=== PATIENT | male | born 1935 | race Caucasian/White ===

== ENCOUNTER 2020-09-11 14:47 | Outpatient (REF) | payer SELFPAY | END 2020-09-11 14:48 | disposition home or self-care (01) | LOC: HO.HAP 14:47 | DX: Z46.1 Encounter for fitting and adjustment of hearing aid (principal) | CPT/HCPCS: 92700 ==

== ENCOUNTER 2020-09-24 10:46 | Outpatient (REF) | payer SELFPAY | END 2020-09-24 10:47 | disposition home or self-care (01) | LOC: HO.HAP 10:46 | DX: Z13.89 Encounter for screening for other disorder (principal) | CPT/HCPCS: 92700 ==

== ENCOUNTER → 2020-11-03 11:48 | Outpatient (BNVA) | payer OTHER, SELFPAY | PROVIDERS: Visit Provider Internal Medicine | DX: Z76.89 Persons encountering health services in other specified circumstances (principal) ==

== ENCOUNTER 2020-11-06 14:23 | Outpatient (REF) | payer MEDICARE, SELFPAY ==
--- NOTE | 2020-11-06 14:31 | MM_ITS ---
EXAMINATION: MM DIAGNOSTIC DIGITAL BREAST TOMOSYNTHESIS, ULTRASOUND BREAST, BILATERAL CLINICAL INFORMATION: Bilateral nipple tenderness. COMPARISON: Mammography: None. TECHNIQUE: Digital breast tomosynthesis is performed in both the craniocaudal and mediolateral oblique views along with computer-aided detection (CAD). Synthesized 2D images are generated from the tomosynthesis. Bilateral targeted breast ultrasound. FINDINGS: The breasts are almost entirely fatty (ACR BI-RADS breast composition Category a). There are no significant masses, abnormal calcifications, or other abnormalities. Right breast ultrasound targeted to the retroareolar region does not demonstrate any abnormal cystic or solid masses. No region of abnormal distal sound shadowing is seen. Targeted ultrasound evaluation of the left breast does not demonstrate any abnormal cystic or solid mass. No region of abnormal distal sound shadowing appreciated. Results are discussed with the patient at time of visit. MM/MM tomosynthesis diagnostic BI IMPRESSION: No specific mammographic or ultrasound findings to suggest malignancy. ASSESSMENT: BI-RADS 1: Negative. RECOMMENDATION: Clinical followup.
--- NOTE | 2020-11-06 14:32 | US_ITS ---
EXAMINATION: TARGETED BILATERAL BREAST ULTRASOUND CLINICAL INFORMATION: Bilateral nipple pain. COMPARISON: Mammography of same day. TECHNIQUE: Targeted bilateral breast ultrasound. FINDINGS: Right breast ultrasound targeted to the retroareolar region does not demonstrate any abnormal cystic or solid masses. No region of abnormal distal sound shadowing is seen. Targeted ultrasound evaluation of the left breast does not demonstrate any abnormal cystic or solid mass. No region of abnormal distal sound shadowing appreciated. Results are discussed with the patient at time of visit. US/US breast RT complete IMPRESSION: No specific mammographic or ultrasound findings to suggest malignancy. ASSESSMENT: BI-RADS 1: Negative. RECOMMENDATION: Clinical followup.
--- NOTE | 2020-11-06 14:32 | US_ITS ---
EXAMINATION: TARGETED BILATERAL BREAST ULTRASOUND CLINICAL INFORMATION: Bilateral nipple pain. COMPARISON: Mammography of same day. TECHNIQUE: Targeted bilateral breast ultrasound. FINDINGS: Right breast ultrasound targeted to the retroareolar region does not demonstrate any abnormal cystic or solid masses. No region of abnormal distal sound shadowing is seen. Targeted ultrasound evaluation of the left breast does not demonstrate any abnormal cystic or solid mass. No region of abnormal distal sound shadowing appreciated. Results are discussed with the patient at time of visit. US/US breast LT limited IMPRESSION: No specific mammographic or ultrasound findings to suggest malignancy. ASSESSMENT: BI-RADS 1: Negative. RECOMMENDATION: Clinical followup.
== END 2020-11-06 14:24 | disposition home or self-care (01) ==
LOC: HO.MAMMO 14:23
DX: N64.4 Mastodynia (principal)
CPT/HCPCS: 76641; 76642; 77062; 77066

== ENCOUNTER → 2020-12-09 10:51 | Outpatient (BNVA) | payer MEDICARE, SELFPAY | PROVIDERS: Visit Provider Internal Medicine | DX: J45.909 Unspecified asthma, uncomplicated (principal); R05 Cough | CPT/HCPCS: Q3014 ==

== ENCOUNTER 2021-01-07 15:48 | Outpatient (REF) | payer SELFPAY | END 2021-01-07 15:49 | disposition home or self-care (01) | LOC: HO.HAP 15:48 | PROVIDERS: Visit Provider Internal Medicine | DX: Z13.89 Encounter for screening for other disorder (principal) ==

== ENCOUNTER → 2021-01-20 14:16 | Outpatient (BNVA) | payer MEDICARE, SELFPAY | PROVIDERS: PCP Internal Medicine; Visit Provider Internal Medicine | DX: J45.909 Unspecified asthma, uncomplicated (principal); J30.9 Allergic rhinitis, unspecified; R05 Cough | CPT/HCPCS: 99212 ==

== ENCOUNTER 2021-02-03 13:29 | Outpatient (REF) | payer SELFPAY | END 2021-02-03 13:30 | disposition home or self-care (01) | LOC: HO.HAP 13:29 | PROVIDERS: Visit Provider Internal Medicine | DX: Z13.89 Encounter for screening for other disorder (principal) ==

== ENCOUNTER 2021-02-11 15:46 | Outpatient (REF) | payer SELFPAY | END 2021-02-11 15:47 | disposition home or self-care (01) | LOC: HO.HAP 15:46 | PROVIDERS: Visit Provider Internal Medicine | DX: Z13.89 Encounter for screening for other disorder (principal) ==

== ENCOUNTER → 2021-02-18 14:03 | Outpatient (BNVA) | payer MEDICARE, SELFPAY | PROVIDERS: PCP Internal Medicine; Visit Provider Internal Medicine | DX: J45.909 Unspecified asthma, uncomplicated (principal); R05 Cough; Z79.51 Long term (current) use of inhaled steroids | CPT/HCPCS: 99212 ==

== ENCOUNTER 2021-03-18 09:05 | Outpatient (REF) | payer SELFPAY | END 2021-03-18 09:06 | disposition home or self-care (01) | LOC: HO.HAP 09:05 | PROVIDERS: Visit Provider Internal Medicine | DX: Z13.89 Encounter for screening for other disorder (principal) ==

== ENCOUNTER → 2021-03-23 12:31 | Outpatient (BNVA) | payer OTHER, SELFPAY | PROVIDERS: Visit Provider Orthopaedic Surgery ==

== ENCOUNTER → 2021-04-15 12:03 | Day surgery (SDC) | payer MEDICARE, SELFPAY ==
[2021-04-14 14:29] VITALS: BMI 34.0
[2021-04-15] MEDS: Lidocaine HCl 1%/Epi 1:100,000 20 ML VIAL 9 ML INFILTRATI (12:19)
[2021-04-15 12:21] VITALS: BP 130/80; PULSE 81; RESP 16; TEMP 36.3; O2SAT 97
--- NOTE | 2021-04-15 14:08 | MHC.SHP ---
Pre-Procedural Eval Section B Chief Complaint: Right ring finger trigger finger Allergies: Allergies Allergy/AdvReac Type Severity Reaction Status Date / Time No Known Allergies Allergy Verified 04/15/21 08:31 Plan I have reviewed the history and physical and performed a pertinent physical examination on my patient. No changes have occurred unless specified.
--- NOTE | 2021-04-15 14:09 | W.PM.OPN ---
Operative Note Operative Note Date of Service: 04/15/21 Narrative: Operative Note Preop diagnosis: 1. Right ring finger Trigger finger Postop diagnosis: Same Procedure: 1. Right ring finger A1 august release Surgeon: Veronica Grace MD Anesthesia: local block using 1% lidocaine with epinephrine Findings: No locking or catching after A1 august release EBL: Less than 5 mL Tourniquet time: None Specimens: None Complications: None Disposition: Brought to recovery room in stable condition Plan: Follow-up for 7-10 days for wound check and suture removal Indications: The patient is 86 years old, with a right ring finger trigger finger that has been unresponsive to nonoperative management. The risks and benefits of operative treatment including but not limited to risk of damage to blood vessels, nerves, tendons, infection, persistent pain, persistent symptoms, recurrence or possible need for additional surgery were discussed with the patient and the patient wishes to proceed with surgery. Procedure: Once consent was obtained a local block was performed in the preop area using a combination of 1% lidocaine with epinephrine. The patient was then brought back to the operating suite and placed on the operative table in supine position. A tourniquet was applied to the proximal aspect of the right upper extremity and the limb was prepped and draped in a standard surgical fashion. Once assured that we had a good block, a 1.5 cm oblique incision was made centered over the A1 august of the right ring finger . The incision was made through the skin to the subcutaneous tissues using a #15 blade. Careful dissection was made down to the level of the A1 august using tenotomy scissors, with care being taken to protect the nearby neurovascular structures. A longitudinal incision was made in the A1 august 1st using a #15 blade, then using tenotomy scissors under direct visualization. The A1 august was noted to be thickened. Following our A1 august release, we no longer saw any locking or catching of the digit with flexion and extension. Once satisfied with our A1 august release the wound was copiously irrigated with normal saline and hemostasis was obtained with a brief period of local pressure. The skin edges were reapproximated with some 5.0 nylon suture material and a sterile dressing was applied. The patient appears to have tolerated the procedure well and with no complications. All digits were well vascularized at the conclusion of the case.
[2021-04-15 15:04] VITALS: BP 139/88; PULSE 62; RESP 17; TEMP 36.7; O2SAT 98
== END ==
PROVIDERS: PCP Internal Medicine; Visit Provider Orthopaedic Surgery
PROC: (CPT 26055; principal; 2021-04-15 13:10)
DX: M65.341 Trigger finger, right ring finger (principal); J45.909 Unspecified asthma, uncomplicated; Z79.899 Other long term (current) drug therapy
CPT/HCPCS: 26055

== ENCOUNTER 2021-04-16 15:50 | Outpatient (REF) | payer MEDICARE, SELFPAY ==
[2021-04-16 16:43] LABS: Hematocrit 42.6 % (42-52); Hemoglobin 13.9 g/dl (14.0-18.0); Mean Corpuscular HGB Conc 32.6 g/dl (31.0-36.0); Mean Corpuscular Hemoglobin 31.1 pg (27.0-33.0); Mean Corpuscular Volume 95.3 fL (80-98); Mean Platelet Volume 9.1 fL (9.4-12.4); Platelet Count 189 X10*3/uL (160-400); Red Blood Count 4.47 X10*6/uL (4.60-5.80); Red Cell Distribution Width 15.5 % (11.0-16.0); White Blood Count 5.8 X10*3/uL (4.8-10.8)
[2021-04-16 17:05] LABS: Alanine Aminotransferase 14 U/L (0-40); Albumin Level 3.8 g/dL (3.5-5.0); Alkaline Phosphatase 81 U/L (39-117); Anion Gap 12 (12-20); Aspartate Amino Transferase 16 U/L (5-37); Bilirubin Direct 0.3 mg/dL (0.0-0.5); Bilirubin Total 1.1 mg/dL (0.0-1.0); Blood Urea Nitrogen 19 mg/dL (9-16); Calcium 8.9 mg/dL (8.4-10.2); Carbon Dioxide 27 mmol/L (22-29); Chloride 105 mmol/L (96-108); Cholesterol 179 mg/dL; Estimated Glomerular Filt Rate > 60; Glucose Random 82 mg/dL (60-115); HDL Cholesterol 48 mg/dL; LDL Cholesterol Calculated 115 mg/dl; Potassium 4.5 mmol/L (3.3-5.1); Sodium 139 mmol/L (135-145); Total Protein 6.6 g/dL (6.5-8.0); Triglycerides 81 mg/dL
[2021-04-16 17:25] LABS: Thyroid Stimulating Hormone 1.61 uIU/mL (0.32-4.0)
[2021-04-16 17:37] LABS: Folate 4.1 ng/mL (> or = 4.0); Vitamin B12 210 pg/mL (200-900)
== END 2021-04-16 15:51 | disposition home or self-care (01) ==
LOC: HO.LAB 15:50
PROVIDERS: PCP Internal Medicine; Visit Provider Internal Medicine
DX: Z00.00 Encounter for general adult medical examination without abnormal findings (principal)
CPT/HCPCS: 36415; 80048; 80061; 80076; 82607; 82746; 84443; 85027

== ENCOUNTER → 2021-04-27 11:19 | Outpatient (BNVA) | payer MEDICARE, SELFPAY | PROVIDERS: Visit Provider Orthopaedic Surgery | DX: M65.341 Trigger finger, right ring finger (principal) | CPT/HCPCS: 99212 ==

== ENCOUNTER → 2021-06-07 15:29 | Outpatient (BNVA) | payer MEDICARE, SELFPAY | PROVIDERS: PCP Internal Medicine; Visit Provider Orthopaedic Surgery | DX: M65.341 Trigger finger, right ring finger (principal) | CPT/HCPCS: 99212 ==

== ENCOUNTER → 2021-07-14 10:48 | Outpatient (BNVA) | payer MEDICARE, SELFPAY | PROVIDERS: PCP Internal Medicine; Visit Provider Internal Medicine | DX: J45.909 Unspecified asthma, uncomplicated (principal) | CPT/HCPCS: 99212 ==

== ENCOUNTER 2021-09-02 14:02 | Outpatient (REF) | payer SELFPAY | END 2021-09-02 14:03 | disposition home or self-care (01) | LOC: HO.HAP 14:02 | PROVIDERS: Visit Provider Internal Medicine | DX: Z13.89 Encounter for screening for other disorder (principal) ==

== ENCOUNTER 2021-11-09 11:29 | Outpatient (REF) | payer SELFPAY | END 2021-11-09 11:30 | disposition home or self-care (01) | LOC: HO.HAP 11:29 | PROVIDERS: Visit Provider Internal Medicine | DX: Z13.89 Encounter for screening for other disorder (principal) ==

== ENCOUNTER 2021-11-29 12:09 | Outpatient (REF) | payer MEDICARE, SELFPAY ==
[2021-11-29 12:27] LABS: MANUAL DIFF FLAG NO
[2021-11-29 12:50] LABS: Basophils Absolute Auto 0.1 X10*3/uL (0.0-0.2); Basophils Percent Auto 0.8 % (0-2); Eosinophils Absolute Auto 0.4 X10*3/uL (0.0-0.4); Hematocrit 45.3 % (42.0-52.0); Hemoglobin 14.9 g/dl (14.0-18.0); Imm Gran Abs Auto 0.04 X10*3/uL (0.00-0.03); Imm Gran Pct Auto 0.7 % (0.0-0.4); Lymphocytes Absolute Auto 0.9 X10*3/uL (1.2-4.9); Lymphocytes Percent Auto 14.9 % (20-40); Mean Corpuscular HGB Conc 32.9 g/dl (31.0-36.0); Mean Corpuscular Hemoglobin 30.2 pg (27.0-33.0); Mean Corpuscular Volume 91.9 fL (80.0-98.0); Mean Platelet Volume 9.7 fL (9.4-12.4); Monocytes Absolute Auto 0.6 X10*3/uL (0.1-1.2); Monocytes Percent Auto 10.4 % (2-11); Neutrophils Percent Auto 67.2 % (45-73); Platelet Count 225 X10*3/uL (160-400); Red Blood Count 4.93 X10*6/uL (4.60-5.80); Red Cell Distribution Width 14.1 % (11.0-16.0)
[2021-11-29 13:13] LABS: Alanine Aminotransferase 13 U/L (0-40); Albumin Level 3.7 g/dL (3.5-5.0); Alkaline Phosphatase 77 U/L (39-117); Anion Gap 9 (12-20); Aspartate Amino Transferase 15 U/L (5-37); Bilirubin Total 0.6 mg/dL (0.0-1.0); Blood Urea Nitrogen 17 mg/dL (9-16); Calcium 9.7 mg/dL (8.4-10.2); Carbon Dioxide 27 mmol/L (22-29); Chloride 109 mmol/L (96-108); Estimated Glomerular Filt Rate > 60; Glucose Random 79 mg/dL (60-115); Potassium 4.7 mmol/L (3.3-5.1); Sodium 140 mmol/L (135-145); Total Protein 6.5 g/dL (6.5-8.0)
== END 2021-11-29 12:10 | disposition home or self-care (01) ==
LOC: HO.LAB 12:09
PROVIDERS: PCP Internal Medicine; Visit Provider Dermatology
DX: L30.8 Other specified dermatitis (principal)
CPT/HCPCS: 36415; 80053; 85025

== ENCOUNTER → 2022-01-04 11:12 | Outpatient (BNVA) | payer MEDICARE, SELFPAY | PROVIDERS: PCP Internal Medicine; Visit Provider Internal Medicine | DX: J30.9 Allergic rhinitis, unspecified (principal); J45.909 Unspecified asthma, uncomplicated | CPT/HCPCS: 99212 ==

== ENCOUNTER 2022-01-14 08:58 | Outpatient (REF) | payer SELFPAY | END 2022-01-14 08:59 | disposition home or self-care (01) | LOC: HO.HAP 08:58 | PROVIDERS: Visit Provider Internal Medicine | DX: Z13.89 Encounter for screening for other disorder (principal) ==

== ENCOUNTER → 2022-03-11 09:31 | Outpatient (BNVA) | payer OTHER, SELFPAY | PROVIDERS: PCP Internal Medicine; Visit Provider Nurse Practitioner Family | DX: Z13.89 Encounter for screening for other disorder (principal) ==

== ENCOUNTER 2022-03-11 10:25 | Outpatient (REF) | payer OTHER, SELFPAY ==
[2022-03-16 11:27] LABS: H Pylori Breath Test Negative (Negative)
== END 2022-03-11 10:26 | disposition home or self-care (01) ==
LOC: HO.LNP 10:25
PROVIDERS: Visit Provider Nurse Practitioner Family
DX: K21.9 Gastro-esophageal reflux disease without esophagitis (principal)
CPT/HCPCS: 83013

== ENCOUNTER 2022-05-02 14:32 | Outpatient (REF) | payer OTHER, SELFPAY ==
--- NOTE | ~2022-05-02 | XR_ITS ---
EXAMINATION: XR KNEE, LEFT CLINICAL INFORMATION: Pain COMPARISON: None TECHNIQUE: Four views of the left knee. FINDINGS: Bone alignment is normal. No fracture or dislocation is seen. 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 There is no joint effusion. There is evidence of atherosclerotic disease. 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 Atherosclerotic disease.
== END 2022-05-02 14:33 | disposition home or self-care (01) ==
LOC: HO.XRAY 14:32
PROVIDERS: Visit Provider Nurse Practitioner Family
DX: M25.562 Pain in left knee (principal)
CPT/HCPCS: 73564

== ENCOUNTER 2022-05-06 08:36 | Outpatient (REF) | payer OTHER, SELFPAY ==
[2022-05-06 09:25] LABS: Anion Gap 13 (12-20); Blood Urea Nitrogen 20 mg/dL (9-16); Calcium 8.9 mg/dL (8.4-10.2); Carbon Dioxide 23 mmol/L (22-29); Chloride 108 mmol/L (96-108); Cholesterol 180 mg/dL; Estimated Glomerular Filt Rate > 60; Glucose Fasting 93 mg/dL (60-99); HDL Cholesterol 45 mg/dL; LDL Cholesterol Calculated 104 mg/dl; Potassium 4.7 mmol/L (3.3-5.1); Sodium 139 mmol/L (135-145); Triglycerides 156 mg/dL
[2022-05-06 09:48] LABS: Prostate Specific Antigen Scr 2.97 ng/mL (<0.05-4.0); TSH reflex Free T4 1.47 uIU/mL (0.32-4.0)
== END 2022-05-06 08:37 | disposition home or self-care (01) ==
LOC: HO.LAB 08:36
PROVIDERS: PCP Internal Medicine; Visit Provider Nurse Practitioner Family
DX: Z00.00 Encounter for general adult medical examination without abnormal findings (principal); Z12.5 Encounter for screening for malignant neoplasm of prostate; M25.562 Pain in left knee; R26.81 Unsteadiness on feet; E78.00 Pure hypercholesterolemia, unspecified
CPT/HCPCS: 36415; 80048; 80061; 84153; 84443

== ENCOUNTER 2022-06-13 14:30 | Outpatient (REF) | payer OTHER, SELFPAY ==
--- NOTE | ~2022-06-13 | FL_ITS ---
EXAMINATION: XR BARIUM SWALLOW CLINICAL INFORMATION: Dysphasia COMPARISON: None TECHNIQUE: Real-time fluoroscopic guidance provided to the speech therapy to perform a swallowing evaluation. FINDINGS: With the patient in the lateral position, fluoroscopic images were obtained and recorded on and disc as the patient swallowed multiple consistencies. No aspiration or penetration seen with any consistencies evaluated. There was transient vallecular residue with liquids. A 13 mm tablet remained in the upper esophagus despite several swallows of liquid. FLUOROSCOPY TIME: 2.0 minutes DOSE AREA PRODUCT: 2.830 Gy-cm2 (de guzman-centimeter squared) FL/FL barium swallow modified IMPRESSION: See speech therapy report for complete details. Transient vallecular residue with liquids. No aspiration or penetration. 13 mm tablet appeared to remain in the upper spleen as after several swallows of liquid.
--- NOTE | 2022-06-17 13:51 | MHC.SL.IMP ---
Date of Plan of Treatment: 06/13/22 Onset of Symptoms/Illness: 06/13/22 Date Treatment Started: 06/13/22 Admitting Diagnosis: Allergic rhinitis Asthma Cough Hx cataract surgery Hx colonoscopy Hx prostate surgery Primary Speech & Language Diagnosis: R13.12 Oropharyngeal Phase Dysphagia Secondary Speech & Language Diagnosis: R13.14 Pharyngoesophageal Phase Dysphagia Reason for Today's Visit: 80709 Modified Barium Swallow Study Pre-evaluation Dietary Consistencies: Regular Pre-evaluation Liquid Consistency: Thin Pre-evaluation Medication Administration: Whole with Liquid Medical History: Modified Barium Swallow Study Fluoroscopic Evaluation of Swallowing Function CPT Code 35790 Evaluation Year: 2021 Reason for Study: Patient reports globus sensation. Referring Physician: Sakshi ARZATE Evaluating Clinician: Casi Rose MA, CCC-INSURANCE PLAN SPECIALIST Study Number: 1 Patient Name: Sekou Coe Status: Outpatient, Ambulatory Age: 87 Gender: Male MEDICAL HISTORY: Comorbidities: Allergic rhinitis Asthma Cough Hx cataract surgery Hx colonoscopy Hx prostate surgery Current (pre-evaluation) Intake/Diet: Route: PO Diet Grade: Regular Liquid Consistencies: Thin Pre-Study Functional Oral Intake Scale (FOIS): 7- Total oral intake with no restrictions Pain: None reported at time of study Food and Liquid Trials: Oral Impairment: Lip Closure: Did not test Oral Impairment: Tongue Control During Bolus Hold: 2=Posterior escape of less than half of bolus Oral Impairment: Bolus Preparation/Mastication: 0=Timely and efficient chewing and mashing Oral Impairment: Bolus Transport/Lingual Motion: 1= Delayed initiation of tongue motion Oral Impairment: Oral Residue: 2=Residue collection on oral structures Oral Impairment:Initiation of Pharyngeal Swallow: 3=Bolus head in pyriforms Pharyngeal Impairment: Soft Palate Elevation: 0=No bolus between soft palate (SP)/pharyngeal wall (PW) Pharyngeal Impairment: Laryngeal Elevation: 0=Complete superior movement of thyroid cartilage (see description) Pharyngeal Impairment: Anterior Hyoid Excursion: 0=Complete anterior movement Pharyngeal Impairment: Epiglottic Movement: 1=Partial inversion Pharyngeal Impairment: Laryngeal Vestibular Closure:: 0=Complete: no air/contrast in laryngeal vestibule Pharyngeal Impairment: Pharyngeal Stripping Wave: 1=Present: diminished Pharyngeal Impairment: Pharyngeal Contraction: Did not test Pharyngeal Impairment: Pharyngoesophageal Segment Openin=Partial distention/partial duration: partial obstruction of flow Pharyngeal Impairment: Tongue Base (TB) Retraction: 2=Narrow column of contrast/air between TB and posterior PW Pharyngeal Impairment: Pharyngeal Residue: 1=Trace residue within or on pharyngeal structures Pharyngeal Impairment: Esophageal Clearance Upright Position: 1=Esophageal retention Impressions and Recommendations Clinical Observations: OBJECTIVE: Time-out: performed at 02:45 Evaluation Start: 02:30; Stop: 02:40 Patient Positioning: Seated 70-90 degrees Viewing Planes: LATERAL ONLY Contrast: MBSImP? Standardized Protocol using commercially prepared, standardized Barium viscosities, including: Varibar? THIN LIQUID (40% w/v, <15 cps) , 1/2 Shortbread Cookie (1 x1 x.25 ) MBSImP ID: [id number] MBSImP Results: Lip closure for intraoral bolus containment could not be assessed due to logistical reasons not related to physiologic impairment. Tongue control during bolus hold resulted in posterior escape of less than half of the bolus. Bolus preparation and mastication resulted in timely and efficient chewing and mashing. Bolus transport/lingual motion demonstrated delayed initiation of tongue motion. Oral residue was a collection on oral structures. Initiation of the pharyngeal swallow occurred when the bolus head was in the pyriform sinuses. Soft palate elevation resulted in no bolus between the soft palate and the pharyngeal wall. Laryngeal elevation demonstrated complete superior movement of the thyroid cartilage with complete approximation of the arytenoids to the epiglottic petiole. Anterior hyoid excursion demonstrated complete anterior movement. Epiglottic movement resulted in partial inversion. Laryngeal vestibular closure was complete, as indicated by no air or contrast within the laryngeal vestibule at the height of the swallow. Pharyngeal stripping wave was present, but diminished. Pharyngeal contraction could not be determined due to logistical reasons not related to physiologic impairment. Pharyngoesophageal segment opening demonstrated partial distension/partial duration, with partial obstruction of bolus flow. Tongue base retraction allowed a narrow column of contrast or air between the retracted tongue base and the posterior pharyngeal wall. Pharyngeal residue was a trace within or on pharyngeal structures. Esophageal clearance in the upright position resulted in esophageal retention. Oral Impairment Score: 8 (absence of score, component 1) Pharyngeal Impairment Score: 5 (absence of score, component 13) Esophageal Impairment Score: 1 Laryngeal Penetration and Aspiration: Neither penetration nor aspiration was observed in today's study with Cookie, Thin. ASSESSMENT: Clinician Assessment: This exam was conducted by a multidisciplinary team, which included a speech pathologist, radiologist, and implementation technician. Patient was seated upright at 90 degrees in a chair for lateral view only. Patient trialed the following liquid and solid consistencies: thin liquid barium by cup, pureed solid (mixture applesauce with barium paste), ground solid (mixture chicken salad with barium paste), regular solid (Astrid Doone cookie coated with barium paste), barium tablet followed with sips of thin liquid barium. Mastication was timely and efficient. Posterior lingual motion for transport of bolus was mildly delayed, with noted premature posterior escape of trace amount of liquid; contrast pooled in the valleculae and pyriform sinuses prior to the initiation of the pharyngeal swallow. Mild lingual residue cleared with subsequent dry swallow. Pharyngeal swallow trigger was delayed, initiated as bolus head reached pyriform sinuses. There was no nasopharyngeal reflux. Complete laryngeal elevation with complete anterior hyoid excursion. Noted partial epiglottic inversion. Nevertheless, laryngeal vestibular closure was complete, with no evidence of aspiration or penetration with solids and liquids during this exam. Noted diminished pharyngeal stripping wave. There was trace residue on tongue base and in valleculae, which effectively cleared with subsequent swallow. Patient was observed to take multiple swallows with sip of liquid, which ultimately cleared oral and pharyngeal residuals. There was partial distention/partial duration; partial obstruction of flow through pharyngoesophageal segment opening. Also noted esophageal retention. 13 mm tablet passed through oropharynx, then remained in upper esophagus despite patient taking several sips of liquid. After completing the exam, patient complained of lingering globus sensation, localized to his throat. Oral and pharyngeal cavities at this point were cleared, but there was hang up of barium tablet in esophagus. Liquid Intake Recommendation: Thin Liquid Intake Strategies: Small Sips Dietary Recommendations: Regular Medication Administration: Whole with Puree Please contact the pharmacy regarding appropriate crushable or liquid drug formulations that are available whenever modified delivery is recommended. Compensatory Strategies Recommended: Double Swallow Small Bites and Sips Alternate Liquids/Solids Rate of Ingestion Change Supervision during eating and or drinking: None Needed Recommended Treatments: Recommendation for Speech Therapy: Text Comment: PLAN: Intake Recommendations: Route: PO Diet Grade: Regular Liquid Consistencies: Thin Post-Study Functional Oral Intake Scale (FOIS): 7- Total oral intake with no restrictions There was no evidence of aspiration or penetration during this exam. Mild residuals in oral and pharyngeal cavities effectively cleared with subsequent swallow. Noted hang up of barium tablet in upper esophagus. Recommend patient to continue with REGULAR solids and THIN liquids, pills crushed when possible in PUREE d/t patient?s complaints of difficulty swallowing pills. Continue cutting foods, such as meats, into small bite size pieces as needed, and moisten with sauces and gravies. Recommend strategies to promote oral and pharyngeal clearance: -Take small, individual sips of liquid -One bite at a time and chew food well -Moisten food with sauce/gravy as needed -Double swallow or take a sip of liquid to wash residue -Upright 90 degree position when eating/drinking and for at least 60 minutes afterwards Recommend continue workup for esophageal dysphagia w/ Gastroenterology. Recommend patient to continue monitoring dysphagia. Contact PCP if there is any worsening of dysphagia, in which case patient may need re-evaluation. Suggested Referrals: The patient might benefit from a referral to: Gastroenterology Indication for Referral: Further workup for esophageal dysphagia Therapy Recommendations: Therapy will be discontinued Prognosis for Improvement: The prognosis for the patient to meet nutritional needs by mouth is good based on degree of impairment. Clinician - Supplemental, Miscellaneous Communication: It is important to note MBSS objective studies are snapshots in time and Patient function might vary with factors such as time of day or concomitant medical conditions. For this reason, the final treatment plan for this patient should rest with their medical care team. Additional recommendations should be considered with the totality of the Patient in mind. Thank for the opportunity to participate in the care of this patient. If you have any questions about the content of this report, please contact the [facility] at [facility]. Education: Education regarding findings from today's study and plans for therapy were provided to Patient only through Verbal Instruction. Understanding was expressed by the Patient only. Head Of Ict Clinician/Clinical Fellow: No Supervisory Statement: N/A Speech Language Pathologist: Casi Rose M.A., CCC-INSURANCE PLAN SPECIALIST
== END 2022-06-13 14:31 | disposition home or self-care (01) ==
LOC: HO.XRAY 14:30
PROVIDERS: PCP Internal Medicine; Visit Provider Nurse Practitioner Family
DX: R13.10 Dysphagia, unspecified (principal)
CPT/HCPCS: 74230; 92611

== ENCOUNTER 2022-07-08 13:03 | Outpatient (REF) | payer SELFPAY | END 2022-07-08 13:04 | disposition home or self-care (01) | LOC: HO.HAP 13:03 | PROVIDERS: Visit Provider Internal Medicine | DX: Z13.89 Encounter for screening for other disorder (principal) ==

== ENCOUNTER 2022-07-25 11:31 | Day surgery (SDC) | payer OTHER, SELFPAY ==
[2022-07-25 06:59] VITALS: BMI 35.3
[2022-07-25 11:40] VITALS: BP 125/91; PULSE 70; RESP 18; TEMP 36.8; O2SAT 98
--- NOTE | 2022-07-25 12:07 | HO.ANESPROP2 ---
[facility] Active Problems Active Problems: All Active Problems (Updated 07/19/22 @ 14:52 by Latrice Graves RN) Trigger finger of all digits of right hand (Acute) Ankle sprain (Acute) Trigger finger, right ring finger (Acute) Annual physical exam (Acute) Constipation (Acute) Physical exam (Acute) COVID-19 virus infection (Acute) Left knee pain (Acute) Unsteady gait (Acute) Cough (Acute) Asthma (Acute) Allergic rhinitis (Acute) Past Medical History Medical History (Updated 07/19/22 @ 14:52 by Latrice Graves RN) Allergic rhinitis Asthma Cough Dysphagia History of prostate cancer Hyperlipidemia Family History Family History Mother No problems noted. Father No problems noted. Family history of problems with anesthesia: No Surgical History Surgical History (Updated 07/19/22 @ 14:48 by Latrice Graves RN) History of cataract surgery History of colonoscopy History of prostate surgery Status post trigger finger release History of Problems with Anesthesia: No Social History Social History Housing: Apartment Alcohol intake: current Alcohol intake frequency: 3 or more drinks per day Alcohol type: wine Patient Tobacco Use Status: Former Tobacco user e-Cigarette/Vaping Use: Never Used Second Hand Smoke Exposure: No Use of substances other than those prescribed or required for medical reasons: No Are you DNR?: No Advance Directives: No Advance Directives Information Provided: Yes Recently lost weight without trying: No Nutrition Risks: No Nutritional Risk service: No Current occupational status: retired Cognitive needs: Yes (walker/cane) Hearing needs: Yes (hearing aide) Vision needs: Yes (Glasses) Meds Allergies Allergy/AdvReac Type Severity Reaction Status Date / Time No Known Allergies Allergy Verified 05/16/22 12:09 Active Medications: Current Medications Lactated Ringer's (Lr) 1,000 mls @ 50 mls/hr IVCONT .Q20H MAICO Exam Exam Date and Time: July 25, 2022 1207 Height,Weight and Vital Signs: Height 6 ft 4 in Weight 131.542 kg Last Vital Signs Temp 98.3 F 07/25/22 11:40 Pulse 70 07/25/22 11:40 Resp 18 07/25/22 11:40 BP 125/91 H 07/25/22 11:40 Pulse Ox 98 07/25/22 11:40 O2 Del Method 07/25/22 11:40 Airway Mallampati Class: II TM Dist: >3cm Neck ROM: Full Assessment and Plan Assessment Anesthesia Assessment: Anesthesia Plan Discussed and Chart Reviewed Final Anesthetic Review Family History of Problems with Anesthesia: No History of Problems with Anesthesia: No NPO: Yes ASA Class: III Final Preanesthetic Review: No Changes in Pt Med Stat, Meds/Allgs Chart Reviewed, Consent Obtained/Reviewed and Anes Risks/Benef Reviewed Patient Risk: Intermediate Procedure Risk: Low Anesthetic Plan Anesthetic Plan: MAC: Disposition: Standard PACU
[2022-07-25] MEDS: Lactated Ringers 1,000 ML 50 ML IVCONT (12:15)
--- NOTE | 2022-07-25 12:31 | P.HPSUR_ITS ---
Pre-Procedural Eval Section A Date of Service: 07/25/22 Section B Chief Complaint: Dysphagia, Relevant Family History (Specify if Yes): No Relevant Social History: None Present Medications: see Short Stay Collaborative assessment Medical History: Significant History (Allergic rhinitis Asthma Cough Dysphagia History of prostate cancer Hyperlipidemia) History of Previous Operations: Relevant previous surgery/procedure and date(s) (History of cataract surgery History of colonoscopy History of prostate surgery Status post trigger finger release) Allergies: Allergies Allergy/AdvReac Type Severity Reaction Status Date / Time No Known Allergies Allergy Verified 05/16/22 12:09 Review of Systems Sugical H&P ROS: Negative: Constitution, Cardiovascular, Respiratory, Neurological, Psychiatric, Hem-Onc, Allergic/Immunologic, Gastrointestinal, Genitourinary, Musculoskeletal, Integumentary, Endocrine and Eyes/Ears/Nose/Throat Exam Surgical H&P Exam: Normal: HEENT, Normal: Heart, Normal: Lungs, Normal: Extremit ies, Normal: Abdomen, Normal: Skin and Normal: Neurological Exam Comment: obese Plan Diagnosis/Plan: Unchanged I have reviewed the history and physical and performed a pertinent physical examination on my patient. No changes have occurred unless specified.
--- NOTE | 2022-07-25 12:33 | W.PM.OPN ---
Operative Note Operative Note Date of Service: 07/25/22 Narrative: Procedure Description: EGD Indication: dysphagia Anesthesia: MAC FLEXIBLE TRANSORAL UPPER GASTROINTESTINAL ENDOSCOPY UPPER ENDOSCOPY Consent: Indications for the procedure and potential complications of bleeding, perforation, reaction to medications and missed diagnosis were discussed with the patient and informed consent was obtained. Instrument: Olympus GIF H 190 J mid size upper endoscope Monitoring: Vital signs and clinical assessment, continuous EKG monitoring, Pulse oximetry, Carbon Dioxide monitoring and blood pressure monitoring were done throughout the procedure. Procedure: The patient was placed in the left lateral decubitis position and pre-procedure medications were administered and a bite block was placed. The endoscope was inserted into the mouth and advanced under direct vision to the third part of duodenum. A careful inspection was made as the upper endoscope was withdrawn including a retroflexed examination of the proximal stomach; Findings and interventions are described below. Findings: Larynx:normal Esophagus: GE junction at 47 cm, diaphragm hiatus at 47 cm, mild esophagitis at GEJ. Lower esophagus dilated to 19 mm with CRE balloon, after first dilating to 18 mm without any resistance felt. superficial tear noted in lower esophagus and GEJ. The UES was then dilated to 16 mm with some heme noted Stomach: Patchy gastric erythema. Biopsies were obtained. Grade 2 flap valve on retroflexed examination of the cardia. Duodenum: Normal bulb and descending duodenum, Intervention: Biopsies as noted above, balloon dilation Impression/Findings: esophageal strictures and esophagitis probably related to GERD PLAN: would recommend PPI reflux precautions magic mouthwash for pain, and tylenol prn
[2022-07-25 13:15] VITALS: BP 104/63; PULSE 70; RESP 16; TEMP 36.2; O2SAT 96
[2022-07-25 13:30] VITALS: BP 134/74; PULSE 67; RESP 16; O2SAT 99
[2022-07-25] MEDS: Mag&Al/Sim/Diphenhyd/Lidocaine 10 ML ORAL.SUSP PO (13:30)
[2022-07-25 13:45] VITALS: BP 137/89; PULSE 65; RESP 18; TEMP 36.6; O2SAT 99
== END 2022-07-25 14:36 | disposition home or self-care (01) ==
PROVIDERS: PCP Internal Medicine; Visit Provider Internal Medicine Gastroenterology
PROC: 0DJ08ZZ Inspection of Upper Intestinal Tract, Via Natural or Artificial Opening Endoscopic (ICD-10-PCS; CPT 43235; principal; 2022-07-25 13:20)
DX: K22.2 Esophageal obstruction (principal); K21.9 Gastro-esophageal reflux disease without esophagitis; K29.50 Unspecified chronic gastritis without bleeding; K20.80 Other esophagitis without bleeding; K44.9 Diaphragmatic hernia without obstruction or gangrene; E78.5 Hyperlipidemia, unspecified; J45.909 Unspecified asthma, uncomplicated; Z79.51 Long term (current) use of inhaled steroids; Z79.899 Other long term (current) drug therapy; Z85.46 Personal history of malignant neoplasm of prostate; Z87.891 Personal history of nicotine dependence
CPT/HCPCS: 43249; 43239; 88305; 88342; C1726; J2250

== ENCOUNTER 2022-08-05 10:00 | Outpatient (RCR) | payer OTHER, SELFPAY ==
--- NOTE | 2022-06-03 12:56 | MHC.PT.EP ---
[facility] [place] Office [place] Office [place] Office [address] Ameena Banks [address] [phone] F: [phone] F: [phone] F: [phone] F: [phone] Physical Therapy Plan of Care Date of Evaluation: Date of Surgery: NA Diagnosis: Unsteadiness on feet Assessment: Sekou is a 87 yo M referred to PT for unsteadiness on feet. Upon exam he reports of pain in his L knee. He lives in an assisted living facility and reports being I with all ADLs. He walks with a cane when out in public and switches to a walker in populated places such as the store. He reports feeling unsteady when walking. Upon exam he presents with gross B weakness in hip and knee muscles, tight gastroc and hamstring, and decreased balance. Sekou will benefit from skilled PT to address the aforementioned impairments along with gait and functional movement training. Frequency and Duration: The patient will be seen 1/week for 8 weeks Short Term Goals: Patient will report being able to navigate morning walk (1 lap out of the 2) with a cane in 4 weeks Patient will initiate HEP in 2 weeks. Shelter Goals: Patient will be I with HEP to encourage pain management strategies and maintain level of function in 8 weeks. Patient will demonstrate a 1/2 increase in gross hip strength to allow him to ambulate with increased feeling of steadiness and support in 8 weeks. Treatment Plan: Modalities to reduce pain, spasms and effusion. Manual therapy to restore motion and function. Therapeutic exercise to improve strength and flexibility. Neuromuscular re-education for posture and balance. Therapeutic activities to return to functional activities of daily living. Electronically signed by: Micki Nava PT DPT Please sign and return to therapist. Thank you for your referral.
--- NOTE | 2022-09-27 09:11 | MHC.PT.DC ---
[facility] [place] Office [place] Office [place] Office [address] Ameena Banks [address] [phone] F: [phone] F: [phone] F: [phone] F: [phone] Physical Therapy Discharge Report Diagnosis: Unsteadiness on feet Date of Surgery: NA Date of Evaluation: 06/03/22 Date of Discharge: 09/27/22 Treatments to Date: 6 Cancellations to Date: No Shows to Date: Discharge Status: Improved Function Independent with HEP Discharge Summary: Sekou attended 6 PT visits. In these visits he made improvements in his strength and balance. He did not wish to schedule any more visits after 6. He is therefore being d/c from PT. Electronically signed by: Micki Nava, PT DPT Please sign and return to therapist. Thank you for your referral.
== END 2022-09-27 09:12 | disposition home or self-care (01) ==
LOC: HO.PT 10:00
PROVIDERS: PCP Internal Medicine; Visit Provider Nurse Practitioner Family
DX: R26.81 Unsteadiness on feet (principal)
CPT/HCPCS: 97110; 97112; 97161

== ENCOUNTER 2022-09-07 15:05 | Outpatient (REF) | payer OTHER, SELFPAY ==
[2022-09-07 16:49] LABS: Prostate Specific Antigen 2.51 ng/mL (<0.05-4.0)
== END 2022-09-07 15:06 | disposition home or self-care (01) ==
LOC: HO.LAB 15:05
PROVIDERS: PCP Internal Medicine; Visit Provider Urology
DX: Z12.5 Encounter for screening for malignant neoplasm of prostate (principal); C61 Malignant neoplasm of prostate
CPT/HCPCS: 36415; 84153

== ENCOUNTER 2022-10-07 13:18 | Outpatient (REF) | payer SELFPAY | END 2022-10-07 13:19 | disposition home or self-care (01) | LOC: HO.HAP 13:18 | PROVIDERS: Visit Provider Internal Medicine | DX: Z13.89 Encounter for screening for other disorder (principal) ==

== ENCOUNTER → 2022-11-16 10:33 | Outpatient (BNVA) | payer OTHER, SELFPAY | PROVIDERS: PCP Internal Medicine; Visit Provider Nurse Practitioner Family | DX: R13.12 Dysphagia, oropharyngeal phase (principal) ==

== ENCOUNTER 2023-02-02 11:15 | Outpatient (REF) | payer MEDICARE, OTHER, SELFPAY ==
--- NOTE | 2023-02-03 08:11 | MHC.AU.HA3 ---
Hearing Instrument Follow-Up- Binaural Date of Visit: 02/02/23 Right Ear: Model Gerald, Color, Serial Number: Branden [id number]-R, #[id number] Financing Analyst Repair Warranty: 03/16/2022 Financing Analyst Loss and Damage Warranty: 03/16/2022 Battery Size: Rechargeable Fur Designer/Slim Tube: 3M Earmold/Dome/CShell/SlimTip:Slim Tip silicone Type of Wax Guard: CeruDisk Dispensed By: [facility] Date of Fittin12/20/2018 Left Ear: Gerald, , Color, Serial Number: Branden [id number]-R, #[id number] Financing Analyst Repair Warranty: 03/16/2022 Financing Analyst Loss and Damage Warranty: 03/16/2022 Battery Size: Rechargeable Fur Designer/Slim Tube: 3M Earmold/Dome/CShell/SlimTip: Slim Tip silicone Type of Wax Guard: CeruDisk Dispensed By: [facility] Date of Fittin12/20/2018 Follow-Up Summary: Patient reports that for the past couple of weeks, his molds have been slipping out of his ears, and he has needed to push them back in. He feels they are not fitting in his ears properly anymore, and won't go in as far as they need to. Pushing them in is starting to cause pain in his ears, and he suspects his ear canals may be slightly swollen. He reports that he has recently lost weight, which could be contributing to this change in how the molds fit. They are also the original molds from when the hearing aids were purchased 4 years ago, and are starting to harden. Discussed options- new molds are recommended. Otoscopy showed impacted, hardened cerumen in his left ear- could not be removed today. Advised the patient that due to the occluding wax and the pain in his ears, we should not do impressions for new molds today. He was advised to use drops until he comes back in 2 weeks. The molds were taken off his hearing aids and medium power domes were put on for now, so any potential swelling in the ears can calm down. He will hold onto his old molds. Recommendations: He was scheduled to return in 2 weeks for impressions. Quoted $130 for pair of new slim tips (Phonak MARA silicone slim tips). Diagnosis Code(s): Primary Diagnosis: H90.3 Bilateral Sensorineural Hearing Loss Signature: Provider: Edgard Polanco, KIT[facility]-A
== END 2023-02-02 11:16 | disposition home or self-care (01) ==
LOC: HO.HAP 11:15
PROVIDERS: Visit Provider Internal Medicine
DX: Z13.89 Encounter for screening for other disorder (principal)

== ENCOUNTER 2023-02-16 10:46 | Outpatient (REF) | payer SELFPAY | END 2023-02-16 10:47 | disposition home or self-care (01) | LOC: HO.HAP 10:46 | PROVIDERS: Visit Provider Internal Medicine | DX: Z13.89 Encounter for screening for other disorder (principal) ==

== ENCOUNTER 2023-02-21 09:32 | Outpatient (REF) | payer MEDICARE, SELFPAY ==
--- NOTE | 2023-02-21 12:25 | MHC.AU.HFU ---
Hearing Instrument Follow-Up- Binaural Date of Visit: 02/21/23 Right Ear: Manager State: Phonak Audeo M70-R, #[id number] Repair Warranty: 03/16/2022 Loss and Damage Warranty: 03/16/2022 Battery Size: Rechargeable Color: Sand Beige Nutrition Services Associate: 3M Type of Mold: Slim Tip silicone Type of Wax Guard: CeruDisk Dispensed By: [facility] Date of Fittin12/20/2018 Left Ear: Manager State: Phonak Audeo M70-R, #[id number] Repair Warranty: 03/16/2022 Loss and Damage Warranty: 03/16/2022 Battery Size: Rechargeable Color: Sand Beige Nutrition Services Associate: 3M Type of Mold: Slim Tip silicone Type of Wax Guard: CeruDisk Dispensed By: [facility] Date of Fittin12/20/2018 Follow-Up Summary: HAP - Patient reports the right mold continues to come out of the ear and is causing a sore where the pond worker wire goes over the pinna. Visual inspection of earmold in ear shows the pond worker is pointing in the wrong direction as if the pond worker wire is getting twisted. Able to use heat and redirect the pond worker with patient reporting some improvement. I am afraid this may not hold and eventually fray the pond worker wire. Patient would like to purchase new binaural silicone canal slim tips for both ears. Took impressions of both ears without complication and ordered. RECOMMEND CHANGING TO A NEW RIGHT #3 PARAEDUCATOR WHEN NEW SLIM TIPS ARE FIT. PATIENT WILL CONSIDER. A #3 right M pond worker is on Anselmo Ramirez' desk to have for patient's next visit is he wants to purchase. Quoted $130.00 for the binaural slim tips and $150.00 if pond worker changed. If pond worker is purchased please order replacement for stock. Recommendations:Schedule appointment when slim tips received. Diagnosis Code(s): Primary Diagnosis: H90.3 Bilateral Sensorineural Hearing Loss Signature:Provider: Edgard Barrow, [facility]
== END 2023-02-21 09:33 | disposition home or self-care (01) ==
LOC: HO.HAP 09:32
PROVIDERS: Visit Provider Internal Medicine
DX: Z13.89 Encounter for screening for other disorder (principal)

== ENCOUNTER → 2023-02-21 10:30 | Outpatient (BNVA) | payer MEDICARE, OTHER, SELFPAY | PROVIDERS: PCP Internal Medicine; Visit Provider Internal Medicine | DX: J45.909 Unspecified asthma, uncomplicated (principal); R05.9 Cough, unspecified | CPT/HCPCS: 99212 ==

== ENCOUNTER 2023-03-09 09:46 | Outpatient (REF) | payer SELFPAY | END 2023-03-09 09:47 | disposition home or self-care (01) | LOC: HO.HAP 09:46 | PROVIDERS: Visit Provider Internal Medicine | DX: H90.3 Sensorineural hearing loss, bilateral (principal); Z46.1 Encounter for fitting and adjustment of hearing aid | CPT/HCPCS: V5264 ==

== ENCOUNTER 2023-04-25 10:46 | Outpatient (REF) | payer MEDICARE, OTHER, SELFPAY ==
[2023-04-25 11:55] LABS: Hematocrit 44.1 % (42.0-52.0); Hemoglobin 14.4 g/dl (14.0-18.0); Mean Corpuscular HGB Conc 32.7 g/dl (31.0-36.0); Mean Corpuscular Hemoglobin 31.4 pg (27.0-33.0); Mean Corpuscular Volume 96.3 fL (80.0-98.0); Mean Platelet Volume 9.6 fL (9.4-12.4); Platelet Count 232 X10*3/uL (160-400); Red Blood Count 4.58 X10*6/uL (4.60-5.80); Red Cell Distribution Width 14.6 % (11.0-16.0); White Blood Count 5.5 X10*3/uL (4.8-10.8)
[2023-04-25 12:33] LABS: Alanine Aminotransferase 12 U/L (0-40); Albumin Level 3.7 g/dL (3.5-5.0); Alkaline Phosphatase 76 U/L (39-117); Anion Gap 13 (12-20); Aspartate Amino Transferase 17 U/L (5-37); Bilirubin Direct 0.2 mg/dL (0.0-0.5); Bilirubin Total 0.9 mg/dL (0.0-1.0); Blood Urea Nitrogen 17 mg/dL (9-16); Calcium 9.1 mg/dL (8.4-10.2); Carbon Dioxide 25 mmol/L (22-29); Chloride 105 mmol/L (96-108); Cholesterol 196 mg/dL; Estimated Glomerular Filt Rate > 60; Glucose Random 93 mg/dL (60-115); HDL Cholesterol 45 mg/dL; LDL Cholesterol Calculated 134 mg/dl; Potassium 4.8 mmol/L (3.3-5.1); Sodium 138 mmol/L (135-145); Total Protein 6.2 g/dL (6.5-8.0); Triglycerides 87 mg/dL
== END 2023-04-25 10:47 | disposition home or self-care (01) ==
LOC: HO.LAB 10:46
PROVIDERS: PCP Internal Medicine; Visit Provider Internal Medicine
DX: R60.1 Generalized edema (principal); E78.00 Pure hypercholesterolemia, unspecified
CPT/HCPCS: 36415; 80048; 80061; 80076; 84443; 85027

== ENCOUNTER 2023-04-25 15:41 | Outpatient (REF) | payer SELFPAY | END 2023-04-25 15:42 | disposition home or self-care (01) | LOC: HO.HAP 15:41 | PROVIDERS: Visit Provider Internal Medicine | DX: Z13.89 Encounter for screening for other disorder (principal) ==

== ENCOUNTER 2023-04-27 13:05 | Outpatient (REF) | payer SELFPAY | END 2023-04-27 13:06 | disposition home or self-care (01) | LOC: HO.HAP 13:05 | PROVIDERS: Visit Provider Internal Medicine | DX: Z46.1 Encounter for fitting and adjustment of hearing aid (principal); H90.3 Sensorineural hearing loss, bilateral | CPT/HCPCS: V5299 ==

== ENCOUNTER → 2023-06-06 10:03 | Outpatient (REF) | payer MEDICARE, OTHER, SELFPAY ==
--- NOTE | 2023-06-06 10:06 | CA_ITS ---
Transthoracic Echocardiogram Patient (Last, First, Middle): Sekou Coe, Gender: Male Date of : 1935 Age: 88 Procedure Date: 06/06/2023 Procedure Type: Transthoracic Echocardiogram Location: OP Height: 193.04 cm Weight: 129.28 kg BSA: 2.58 m2 Heart Rate: bpm BP: 125 / 85 mmHg Sustainability Coach: JD Referring MD: Elyssa NGUYEN Vice President Tax: Dao Coates MD Symptoms: I48.91 - Unspecified atrial fibrillation Study Quality: Fair, contrast ECG Rhythm: Sinus Conclusions: - 1. Normal LV systolic function with grade 1 diastolic dysfunction 2. Mildly dilated left atrium 3. Normal cardiac valvular Dopplers next 4. Moderate to severe enlargement of the ascending aorta at 5.3 cm 5. Normal RV systolic pressure 6. No gross pericardial effusion Findings Procedure Information Contrast agent, definity, is being given per protocol without apparent complications. Left Ventricle Normal left ventricular size, thickness, and systolic function. The visually estimated ejection fraction is between 55-60%. Spectral Doppler is indicative of an impaired relaxation filling pattern. E/E prime ratio is <8, consistent with normal filling pressures. Evidence suggests grade I (mild) diastolic dysfunction. Right Ventricle Normal right ventricular cavity size and systolic function. Atria The left atrium is mildly dilated. Interatrial shunt cannot be excluded. The right atrium was not well visualized. Aortic Valve The aortic valve was not well visualized. There is no aortic valve stenosis. There is no aortic valve regurgitation. Mitral Valve Likely normal mitral valve structure and function. There is trace mitral valve regurgitation. There is no mitral valve stenosis. Pulmonic Valve The pulmonic valve was not well visualized. Tricuspid Valve Likely normal tricuspid valve structure and function. There is trace tricuspid valve regurgitation. The right ventricular systolic pressure is normal. The right ventricular systolic pressure is 33 mmHg. Normal right atrial pressure. There is no evidence of pulmonary hypertension. Great Vessels The pulmonary artery was not well visualized. Moderate to severe enlargement of ascending aorta Venous The inferior vena cava is normal in size and collapses greater than 50% with inspiration. Pericardium/Pleural There is no evidence of pericardial effusion. Prior Study Comparison No prior study available for comparison. Measurements 2D Linear Measurements IVSd: 1.17 0.6-0.9/0.6-1.0 cm LVIDd: 5.48 3.9-5.3/4.2-5.9 cm LVIDd Index: 2.12 2.4-3.2/2.2-3.1 cm/m2 LVIDs: 3.28 2.0-3.6 cm LVPWd: 1.11 0.7-1.1 cm LA Diam: 4.50 2.7-3.8/3.0-4.0 cm LAIDs Index: 1.74 1.5-2.3 cm/m2 LV Mass: 314.83 67-162/88-224 g LV Mass Index: 122.03 43-95/49-115 g/m2 LVOT Diam: 2.30 3.0+(-)1.3 cm 2D Systolic Function EF 4C: 54.90 >55% EF 2C: 63.40 >55% EF BiP: 58.80 >55% Mitral Valve MV Pk E: 0.43 MV PK A: 0.79 MV Decel Time: 352.00 E/A: 0.50 E'Lateral: 6.31 E'Medial: 5.55 E/E' Med: 7.80 E/E' Lat: 6.90 PHT: 103.00 MVA PHT: 2.14 Decel Kenton: 1.23 Aortic Valve AoV Pk Brant: 1.24 AoV Mn Brant: 0.87 AoV VTI: 0.29 AoV Pk Grad: 6.00 Aov Mn Grad: 3.00 DEZ Cont.VTI: 2.55 LVOT LVOT Pk Brant: 0.82 LVOT Mn Brant: 0.60 LVOT VTI: 0.18 LVOT Pk Grad: 3.00 LVOT Mn Grad: 2.00 LVOT Diam: 2.30 LVOT Area: 4.15 Diastolic Function MV Pk E: 0.43 MV Pk A: 0.79 E/A: 0.50 E'Medial: 5.55 E/E' Med: 7.80 E' Laterial: 6.31 E/E' Lat: 6.90 Right Ventricle TAPSE (mm): 23.60 TVS' Brant: 12.20 Tricuspid Valve TR Pk Brant: 2.48 TR Pk Grad: 25.00 RA Press: 8.00 RVSP: 33.00 Great Vessels Aorta Sinus of Valsalva: 5.44 2.0-3.[address] Ridge: 4.48 1.7-3.4 cm Ao Asc: 5.30 2.1-3.4 cm Updated in Other Vendor System with Status of Final Dao Coates MD electronically signed on 06/06/2023 12:19:26 PM with status of Final
== END ==
LOC: HO.CARD 10:03
PROVIDERS: PCP Internal Medicine; Visit Provider Nurse Practitioner Family
DX: I48.91 Unspecified atrial fibrillation (principal)
CPT/HCPCS: 93306; Q9957

== ENCOUNTER → 2023-06-06 10:06 | Outpatient (BNV) | payer MEDICARE, OTHER, SELFPAY | PROVIDERS: PCP Internal Medicine; Visit Provider Internal Medicine Cardiovascular Disease | DX: I48.91 Unspecified atrial fibrillation (principal) | CPT/HCPCS: 93306 ==

== ENCOUNTER 2023-06-07 13:34 | Outpatient (AMB) | payer MEDICARE, OTHER, SELFPAY ==
[2023-06-07 13:34] VITALS: BP 120/78; PULSE 76; BMI 34.9
--- NOTE | 2023-06-07 13:34 | MHC.OFFVIS ---
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 Intake Note: New patient regarding ekg and echo results feeling good Special Technical Operations Officer Required: No Allergies No Known Allergies Allergy (Verified 06/02/23 09:44) Medication List - Last Reconciled 06/07/23 by Dao Coates MD albuterol sulfate 90 mcg/actuation 2 puffs inhalation QID PRN fluticasone propion-salmeterol 115-21 mcg/actuation (Advair HFA) 2 puffs inhalation Q12H 30 days furosemide 20 mg PO DAILY gabapentin 100 mg PO DAILY rivaroxaban (Xarelto) 20 mg PO QPM HPI HPI Comments History of Present Illness Details Thank you for referring Antione in cardiology consultation today for management of newly detected atrial fibrillation as well as ascending aortic aneurysm. He is a pleasant 88-year-old male with no significant past cardiovascular history. He says been very stable and healthy from cardiovascular perspective. Recently on a routine EKG was noted to have atrial fibrillation. He says he did not have any symptoms of palpitations or lightheadedness or shortness of breath exertion fatigue. EKG was done is as routine study. He subsequently was started on oral anticoagulation with Xarelto and has been taking his religiously. He has not noticed any significant bleeding or neurologic issues. Was also sign Lasix for bilateral lower extremity swelling mostly nory ankle edema in, however this has not made much difference. Denies any orthopnea, PND, worsening shortness of breath. As result of atrial fibrillation underwent echocardiogram which showed normal LV systolic function with grade 1 diastolic dysfunction with mildly dilated left atrium and moderate to severe enlargement of thinning aorta at 5.3 cm. He has no prior re-collection of ever being told that he had any aneurysm in the past. He denies any lightheadedness, syncope. Denies any prolonged palpitations irregular heartbeat. [facility]LY [facility] Medical History Allergic rhinitis Asthma Cough Dysphagia History of prostate cancer Hyperlipidemia Surgical History History of cataract surgery History of colonoscopy History of prostate surgery Status post trigger finger release Family History Mother No problems noted. Father No problems noted. Social History Housing: Apartment Alcohol intake: current Alcohol intake frequency: 3 or more drinks per day Alcohol type: wine Patient Tobacco Use Status: Former Tobacco user e-Cigarette/Vaping Use: Never Used Second Hand Smoke Exposure: No service: No Current occupational status: retired Cognitive needs: Yes (walker/cane) Hearing needs: Yes (hearing aide) Vision needs: Yes (Glasses) Review of Systems Const Denies chills, Denies daytime sleepiness, Denies fatigue, Denies fever(s), Denies frequent falls, Denies poor appetite, Denies snoring, Denies stops breathing during sleep, Denies weakness, Denies weight gain and Denies weight loss Eyes Denies loss of vision ENT Denies dizziness and Denies hearing loss Card Denies chest pain, Denies claudication, Denies leg edema, Denies lightheadedness, Denies palpitations, Denies dyspnea, Denies dyspnea on exertion and Denies orthopnea Resp Denies cough, Denies excessive phlegm production, Denies dyspnea, Denies dyspnea on exertion, Denies snoring and Denies wheezing GI Denies abdominal pain, Denies hematochezia, Denies change in bowel habits, Denies nausea and Denies vomiting Denies dysuria and Denies urinary frequency Musc Denies arthralgias, Denies muscle weakness, Denies numbness and Denies other (frequent falls) Skin/Breast Denies nail changes and Denies rash Neuro Denies Abnormal speech present, Denies dizziness, Denies frequent falls, Denies loss of vision, Denies memory loss, Denies numbness and Denies weakness Psych Denies depression and Denies memory loss Endo Denies fatigue and Denies palpitations Jonathon/Lymph Reports easy bruising and Reports other (anemia) Aller/Immun Denies wheezing Physical Exam Vital Signs: Last Vital Signs Pulse 76 06/07/23 13:34 BP 120/78 06/07/23 13:34 BMI result Body Mass Index 34.9 Const General: cooperative, comfortable, no acute distress, alert and awake Nutritional Appearance: obese Orientation/consciousness: patient oriented x3 Limitations: ambulation with cane HEENT Head: Yes normocephalic and Yes atraumatic Neck Neck: Yes trachea midline, Yes supple and Yes no JVD Resp Effort & Inspection: normal respiratory effort Auscultation: clear to auscultation bilaterally Cardio Jugular venous distension: no JVD Palpation: normal PMI Rate: regular rate Rhythm: regular rhythm Heart sounds: S1 normal heart sound present, S2 normal heart sound present, no click, no gallops, no murmurs and no rubs GI Auscultation: normal bowel sounds Skin General skin exam: no rashes or lesions noted Neuro General: patient oriented x3 and no focal motor deficits Speech: No Abnormal speech present Extrem General: Yes no clubbing, cyanosis or edema Office Procedures EKG Details: EKG shows normal sinus rhythm with occasional PVC with leftward axis with nonspecific ST changes 77767-[id number], Complete Assessment & Plan Assessment & Plan (1) Paroxysmal atrial fibrillation: Code(s): I48.0 - Paroxysmal atrial fibrillation Plan: Patient with noted incidental finding of atrial fibrillation routine EKG recently. Today's in sinus rhythm. This therefore represents paroxysmal atrial fibrillation. Patient has no symptoms related to atrial fibrillation. He has been appropriately started on oral anticoagulation therapy with Xarelto, although given his age should consider switching to Eliquis 5 mg b.i.d. with low bleeding risk. Avoidance of stimulants was discussed. Advised to call me with any new symptoms. Management will be medical at this point in time. (2) Ascending aortic aneurysm: Comment: 5.3 CM aortic aneurysm noted on Echocardiogram today. Code(s): I71.21 - Aneurysm of the ascending aorta, without rupture Plan: Ascending aortic aneurysm which is also incidentally noted on recent echocardiogram done for atrial fibrillation. This is moderately severe dilatation of the ascending aorta. He has no symptoms related to it. Risk of acute aortic syndrome was discussed. However at current time will monitor by a repeat echocardiogram 6 months time to assess for any change in size. We discussed about pathophysiology of ascending aortic aneurysm. Advised to avoid sudden strenuous isometric exercise. Continue maintain regular physical activity. Continue maintain blood pressure which he says is well optimized usually. He would want to think about any surgical aortic repair if required. This is appropriate given his age. He will discuss with his kids. Will follow up in the clinic in 6 months time, sooner p.r.n.. Thank you for allowing me to partake in his care Coding Level of Care Code New Pt Level 4 (05037) Diagnoses Paroxysmal atrial fibrillation I48.0 Ascending aortic aneurysm I71.21 CPT Codes EKG - CPT: 77727-[id number], Complete ([id number])
== END 2023-06-07 14:17 | disposition home or self-care (01) ==
PROVIDERS: PCP Internal Medicine; Visit Provider Internal Medicine Cardiovascular Disease
DX: I48.0 Paroxysmal atrial fibrillation (principal); I71.21 Aneurysm of the ascending aorta, without rupture
CPT/HCPCS: 93010; 99204

== ENCOUNTER → 2023-06-07 13:34 | Outpatient (BNVA) | payer MEDICARE, OTHER, SELFPAY | PROVIDERS: PCP Internal Medicine; Visit Provider Internal Medicine Cardiovascular Disease | DX: I71.21 Aneurysm of the ascending aorta, without rupture (principal); I48.0 Paroxysmal atrial fibrillation; Z79.01 Long term (current) use of anticoagulants | CPT/HCPCS: 93005; 99202 ==

== ENCOUNTER 2023-06-12 14:17 | Outpatient (AMB) | payer MEDICARE, SELFPAY ==
--- NOTE | 2023-06-12 14:18 | MHC.OFFVIS ---
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 Patient reports that she is trying to be careful eating smaller meals. Patient denies acid reflux, dyspepsia or odynophagia. Patient reports that his symptoms are definitely better and he does not want a further workup. Patient states that he wants to be seen on as needed basis. GERD (gastroesophageal reflux disease) Patient denies any dyspepsia or epigastric discomfort. Patient states that he stopped taking pantoprazole. Reports to be doing fine. Patient states that he will call us if he will have any GI concerning symptoms. He would like to be seen on as needed basis. Dysphagia mild and tolerable per patient. No further investigation needed at this time. Patient was advised to call the office if he will have any GI concerning issues. He is agreeable to this plan and verbalizes understanding of instructions. He was given the opportunity to ask questions all questions answered. ? Thank you for allowing participate in his care Plan Medications Discontinued pantoprazole Discontinued Reason: Duplicate 20 mg PO DAILY 60 tabs 2RF TODAY'S VISIT Patient is here today for follow-up patient reports. Patient reports that he constantly clears his throat and feels like he has postnasal. Patient is started using his corticosteroid inhaler, reports that he rinses his mouth after using it. Patient started [id number] antihistamine, however states that he does not see any improvement. Patient reports that after he started using his inhaler his cough went away. Has used Flonase in the past to help with sinus issues. Patient denies any fever or chills. Denies any dyspepsia, dysphagia or odynophagia. Patient feels that his trouble swallowing is related to large amount of mucus in his throat. Patient had tonsillectomy when he was a child. Patient denies any other GI concerning symptoms. ON LICENSE OF [facility] Medical History Allergic rhinitis Asthma Cough Dysphagia History of prostate cancer Hyperlipidemia Surgical History History of cataract surgery History of colonoscopy History of prostate surgery Status post trigger finger release Family History Mother No problems noted. Father No problems noted. Social History Housing: Apartment Alcohol intake: current Alcohol intake frequency: 3 or more drinks per day Alcohol type: wine Patient Tobacco Use Status: Former Tobacco user e-Cigarette/Vaping Use: Never Used Second Hand Smoke Exposure: No service: No Current occupational status: retired Cognitive needs: Yes (walker/cane) Hearing needs: Yes (hearing aide) Vision needs: Yes (Glasses) Review of Systems Const Denies weight gain and Denies weight loss ENT Reports no additional complaints, Reports dysphagia, Reports hoarseness, Reports nasal congestion and Denies odynophagia Card Reports no additional complaints Resp Reports no additional complaints GI Denies abdominal pain, Denies belching, Denies melena, Denies bloating, Denies change in bowel habits, Reports dysphagia, Denies excessive flatus, Denies dyspepsia, Denies heartburn, Denies diarrhea, Denies loose stools, Denies nausea, Denies odynophagia and Denies vomiting Reports no additional complaints Musc Reports no additional complaints Neuro Reports no additional complaints Psych Reports no additional complaints Endo Reports no additional complaints Physical Exam Vital Signs: Last Vital Signs Pulse 68 06/12/23 14:19 BP 134/69 06/12/23 14:19 BMI result Body Mass Index 34.8 Const General: healthy appearing, no acute distress and well developed Nutritional Appearance: obese Orientation/consciousness: patient oriented x3 HEENT Head: Yes normal to inspection, Yes normocephalic and Yes atraumatic Face and sinus: Yes normal facial exam Mouth: Normal oral and palatal mucosa present Throat: Yes tonsils normal, Yes uvula midline and Yes postnasal drainage Eyes General: appearance normal, both eyes and all related structures Neck Neck: Yes normal visual inspection, Yes full ROM and Yes trachea midline Thyroid: Thyroid normal Resp Effort & Inspection: normal respiratory effort, able to speak in complete sentences, no tracheal deviation and symmetric chest movement Auscultation: clear to auscultation bilaterally Cardio Rate: regular rate Heart sounds: S1 normal heart sound present and S2 normal heart sound present GI Inspection: Yes normal to inspection, No distended and Yes obesity Palpation (GI): Soft to palpation, not firm, nontender and No hepatosplenomegaly present Auscultation: normal bowel sounds General: Yes no CVA tenderness Back/Spine/Pelvis Back: no CVA tenderness Skin General skin exam: elasticity normal, turgor normal and dry skin Neuro General: patient oriented x3 Psych Appearance: grossly normal Mental Status: mental status grossly normal Speech and movement: Normal speech and movement present Assessment & Plan Assessment & Plan (1) Sore throat and laryngitis: Code(s): J06.0 - Acute laryngopharyngitis Plan: Will do Rast allergen testing and will send patient to see technical research scientist. Frequent rhinitis, large amount of mucus, postnasal drip (2) Constipation: Code(s): K59.00 - Constipation, unspecified Qualifiers: Constipation type: chronic idiopathic constipation Qualified Code(s): K59.04 - Chronic idiopathic constipation Plan: Occasional constipation. Patient can use [id number] laxative like MiraLax. Patient was also encouraged to increase fluid intake and activity to promote better bowel motility. (3) GERD (gastroesophageal reflux disease): Code(s): K21.9 - Gastro-esophageal reflux disease without esophagitis Qualifiers: Esophagitis presence: esophagitis presence not specified Qualified Code(s): K21.9 - Gastro-esophageal reflux disease without esophagitis Plan: Patient is not on any PPI or H2 juve. Avoid dietary triggers. Making sure the patient moves his bowels better. If symptoms will get worse patient will be placed on PPI for few weeks. Otherwise patient believes lot of his symptoms related to trouble swallowing and occasional acid reflux could related to large mucus in his throat. On exam patient does have significant postnasal drip. I will see patient in 6 months, sooner on as needed basis. Patient is agreeable to this plan and verbalizes understanding of instructions. He was given the opportunity to ask questions and all questions answered. Thank you for allowing me to participate in his care is Orders: Orders Rast Allergen 06/12/23 K21.9 - Gastro-esophageal reflux disease without esophagitis Referrals Ear/Nose/Throat Referral J06.0 - Acute laryngopharyngitis Coding Level of Care Code Est Pt Level 3 (98391) Diagnoses Sore throat and laryngitis J06.0 Constipation K59.04 Constipation type: chronic idiopathic constipation GERD (gastroesophageal reflux disease) K21.9 Esophagitis presence: esophagitis presence not specified Time Spent (min) 30 Comment 20 minutes spent with patient and additional 10 minutes spent reviewing his records
[2023-06-12 14:19] VITALS: BP 134/69; PULSE 68; BMI 34.8
== END 2023-06-12 14:46 | disposition home or self-care (01) ==
PROVIDERS: PCP Internal Medicine; Visit Provider Nurse Practitioner Family
DX: J06.0 Acute laryngopharyngitis (principal); K59.04 Chronic idiopathic constipation; K21.9 Gastro-esophageal reflux disease without esophagitis
CPT/HCPCS: 99213

== ENCOUNTER 2023-06-12 14:17 | Outpatient (REF) | payer MEDICARE, OTHER, SELFPAY | END 2023-06-12 14:18 | disposition home or self-care (01) | LOC: HO.LAB 14:17 | PROVIDERS: PCP Internal Medicine; Visit Provider Nurse Practitioner Family | DX: K21.9 Gastro-esophageal reflux disease without esophagitis (principal); Z91.09 Other allergy status, other than to drugs and biological substances | CPT/HCPCS: 36415; 86003; 99212 ==

== ENCOUNTER 2023-07-19 07:46 | Emergency (ER) | payer MEDICARE, OTHER, SELFPAY ==
--- NOTE | ~2023-07-19 | XR_ITS ---
EXAMINATION: XR RIBS, RIGHT, PA CHEST CLINICAL INFORMATION: Chest and left rib pain status post fall. COMPARISON: 11/30/2018 chest radiograph. TECHNIQUE: 3 views of the right ribs were obtained along with a PA view of the chest. FINDINGS: The lungs show mild coarsened interstitial markings without significant interval change. No consolidation, pneumothorax, or pleural effusion. The cardiomediastinal silhouette and pulmonary vasculature are normal. Mild deformity seen along the lateral aspect of the left ninth rib. The remainder the ribs appear intact. The soft tissues are unremarkable. XR/XR ribs LT 2V IMPRESSION: 1. Probable acute minimally displaced left lateral ninth rib fracture. 2. Coarsened interstitial markings bilaterally with similar distribution and severity to previous studies suggestive of chronic interstitial changes, possibly scarring and bronchiectasis.
--- NOTE | ~2023-07-19 | XR_ITS ---
EXAMINATION: XR RIBS, RIGHT, PA CHEST CLINICAL INFORMATION: Chest and left rib pain status post fall. COMPARISON: 11/30/2018 chest radiograph. TECHNIQUE: 3 views of the right ribs were obtained along with a PA view of the chest. FINDINGS: The lungs show mild coarsened interstitial markings without significant interval change. No consolidation, pneumothorax, or pleural effusion. The cardiomediastinal silhouette and pulmonary vasculature are normal. Mild deformity seen along the lateral aspect of the left ninth rib. The remainder the ribs appear intact. The soft tissues are unremarkable. XR/XR chest 2V IMPRESSION: 1. Probable acute minimally displaced left lateral ninth rib fracture. 2. Coarsened interstitial markings bilaterally with similar distribution and severity to previous studies suggestive of chronic interstitial changes, possibly scarring and bronchiectasis.
--- NOTE | 2023-07-19 08:09 | ED.FALL ---
HPI - Fall General Chief Complaint: Fall Stated Complaint: fall a few days ago, rib pain Time Seen by Provider: 07/19/23 07:58 Source: patient Mode of arrival: ambulatory Limitations: no limitations History of Present Illness HPI Narrative: 3 days ago and hit his left flank on the corner of the bed. Stopped his blood thinners 1 week ago. no hematuria, no shortness of breath. complaint: fall Onset (ago): day(s) Related Data Home Medications Medication Instructions Recorded Confirmed albuterol sulfate 90 mcg/actuation 2 puff inhalation QID PRN 02/21/23 06/07/23 aerosol inhaler gabapentin 100 mg capsule 100 mg PO DAILY 04/20/23 06/07/23 Previous Rx's Medication Instructions Recorded fluticasone propionate 115 2 puff inhalation Q12H Asthma 30 05/18/23 mcg-salmeterol 21 mcg/actuation days #12 grams HFA inhaler (Advair HFA) rivaroxaban 20 mg tablet (Xarelto) 20 mg PO QPM #30 tabs 06/02/23 furosemide 20 mg tablet 20 mg PO DAILY #30 tabs 06/27/23 acetaminophen 500 mg tablet 1,000 mg PO Q6H PRN pain #60 tabs 07/19/23 (Tylenol Extra Strength) cyclobenzaprine 10 mg tablet 10 mg PO TID #30 tabs 07/19/23 Allergies Allergy/AdvReac Type Severity Reaction Status Date / Time No Known Allergies Allergy Verified 06/12/23 14:18 Review of Systems Review of Systems: Yes all other systems are reviewed and are negative Neurologic: Denies Sensory deficit (Neuro) PMFSH Past Medical History Medical History Allergic rhinitis Asthma Cough Dysphagia History of prostate cancer Hyperlipidemia Surgical History History of cataract surgery History of colonoscopy History of prostate surgery Status post trigger finger release Family History Family History Mother No problems noted. Father No problems noted. Social History Social History Housing: Apartment Alcohol intake: current Alcohol intake frequency: 0-2 drinks per day Alcohol type: wine Patient Tobacco Use Status: Former Tobacco user Smoked in Last 30 Days: No e-Cigarette/Vaping Use: Never Used Second Hand Smoke Exposure: No Use of substances other than those prescribed or required for medical reasons: No Advance Directives: No service: No Current occupational status: retired Cognitive needs: Yes (walker/cane) Hearing needs: Yes (hearing aide) Vision needs: Yes (Glasses) Physical Exam Vital Signs: Vital Signs: Last Vital Signs Temp 97.9 F 07/19/23 08:22 Pulse 70 07/19/23 08:22 Resp 16 07/19/23 08:22 BP 154/90 H 07/19/23 08:22 Pulse Ox 95 07/19/23 08:22 O2 Del Method Room Air 07/19/23 08:22 BMI result Body Mass Index 35.0 Const: General: healthy appearing Nutritional Appearance: average body habitus Orientation/consciousness: oriented to person and patient oriented x3 Limitations: no limitations HEENT: Head: Yes normal to inspection Ears: external ears normal General nose exam: Normal external nose present Mouth: Normal oral and palatal mucosa present and oropharynx normal Throat: Yes posterior oropharynx normal Eyes: General: appearance normal, both eyes and all related structures Neck: Other: supple Neck: Yes normal visual inspection Chest: Other: left lower rib tenderness to palpation Resp: Auscultation: clear to auscultation bilaterally Cardio: Jugular venous distension: no JVD Rate: regular rate Rhythm: regular rhythm Heart sounds: S1 normal heart sound present and S2 normal heart sound present GI: Inspection: Yes normal to inspection Palpation (GI): Soft to palpation, nontender and No hepatosplenomegaly present Auscultation: normal bowel sounds : General: Yes no CVA tenderness Back/Spine/Pelvis: Back: no CVA tenderness Skin: General skin exam: no rashes or lesions noted Neuro: General: oriented to person and patient oriented x3 Cranial nerves: Yes CN's II-XII intact bilaterally Motor exam (neuro): 5/5 motor strength present throughout Sensory Exam: No Sensory deficit (Neuro) Extrem: General: Yes normal to inspection Psych: Appearance: grossly normal Course Reevaluation(s) Reevaluation #1: patient with a question of right 9th rib nondisplaced fracture will dc on NSAIDs and flexeril Time: 10:04 Medical Decision Making Differential Diagnosis Differential Diagnoses: The differential diagnosis associated with the presentation includes (rib fracture, pneumothorax, chest contusion) Independent Interpretation I performed an independent interpretation of an: Plain X-Ray (CXR and rib: no fracture or ptx) Radiology Impression Discussion of test interpretation with radiology: I have reviewed the radiologist's reading. (question of 9th rib nondisplaced fx) Tests considered The following testing was considered but not selected: considered getting CBC and UA but abdomen nontender, no gross blood in urine Prescription Management I considered prescription management with: Pain Medication Discharge Plan Discharge Clinical Impression: Chest wall contusion, Fracture of rib Patient Disposition: Home, Self-Care Instructions: Rib Fracture (ED), Contusion in Adults (ED), Rib Contusion (ED) Prescriptions: New acetaminophen [Tylenol Extra Strength] 500 mg tablet 1,000 mg PO Q6H PRN (Reason: pain) Qty: 60 0RF cyclobenzaprine 10 mg tablet 10 mg PO TID Qty: 30 0RF No Action fluticasone propion-salmeterol [Advair HFA] 115-21 mcg/actuation HFA aerosol inhaler 2 puff inhalation Q12H 30 Days Qty: 12 3RF Rx Instructions: administer with spacer furosemide 20 mg tablet 20 mg PO DAILY Qty: 30 0RF gabapentin 100 mg capsule 100 mg PO DAILY Xarelto 20 mg tablet 20 mg PO QPM Qty: 30 0RF Rx Instructions: must administer with evening meal albuterol sulfate 90 mcg/actuation HFA aerosol inhaler 2 puff inhalation QID PRN Referrals: Hayden Savage MD [Primary Care Provider] - 5 days
[2023-07-19 08:22] VITALS: BP 154/90; PULSE 70; RESP 16; TEMP 36.6; O2SAT 95; BMI 35.0
== END 2023-07-19 10:22 | disposition home or self-care (01) ==
PROVIDERS: Emergency Provider Emergency Medicine; PCP Internal Medicine
DX: S22.31XA Fracture of one rib, right side, initial encounter for closed fracture (principal); S20.213A Contusion of bilateral front wall of thorax, initial encounter; W06.XXXA Fall from bed, initial encounter; Y93.9 Activity, unspecified; Y92.9 Unspecified place or not applicable; Y99.9 Unspecified external cause status; Z79.899 Other long term (current) drug therapy; Z87.891 Personal history of nicotine dependence
CPT/HCPCS: 71046; 71100; 99283; 99284

== ENCOUNTER 2023-07-28 11:15 | Outpatient (REF) | payer SELFPAY ==
--- NOTE | 2023-07-28 13:02 | MHC.AU.HA3 ---
Hearing Instrument Follow-Up- Binaural Date of Visit: 07/28/23 Right Ear: Gerald, Model, Color, Serial Number: Branden Mcclelland [id number]-[id number] SN: [id number] Color: Pam Beige Subassembler Repair Warranty: 03/16/2022 Subassembler Loss and Damage Warranty: 03/16/2022 Battery Size: Rechargeable Geology Instructor/Slim Tube: 3M Earmold/Dome/CShell/SlimTip:Secure Fit Tip SN: [id number] Warranty: 05/29/2023 Type of Wax Guard: CeruShield Dispensed By: [facility] Date of Fittin12/20/2018 Left Ear: Gerald, , Color, Serial Number: Branden Mcclelland [id number]-[id number] SN: [id number] Color: Sand Beige Subassembler Repair Warranty: 03/16/2022 Subassembler Loss and Damage Warranty: 03/16/2022 Battery Size: Rechargeable Geology Instructor/Slim Tube: 3M Earmold/Dome/CShell/SlimTip: Secure Fit Tip SN: [id number] Warranty: 05/29/2023 Type of Wax Guard: CeruShield Dispensed By: [facility] Date of Fittin12/20/2018 Follow-Up Summary: Sekou dropped off his hearing aids/earmolds and TV connector (no power cord) reporting his hearing aids would not connect to the TV Connector. Used stock power cord to power TV Connector and able to successfully connect hearing aids in office. Confirmed by hearing confirmation beep in hearing aids. Called Sekou to discuss - he reported that yesterday, for some reason, the hearing aids would not connect with the confirmation tones. Unsure of exact cause but Sekou will nut picker the hearing aids and try again at home. Recommended clean and check of hearing aids while they are here as wax is starting to build up in ear molds and receivers. However, Sekou declined the service as he did not want to pay the $50.00 fee. He also reported the left forensic psychologist is cutting the top of his ear. Explained that he would need to schedule an appointment to investigate further. Sekou did not want to schedule an appointment at this time. He will call to schedule an appointment if problems persist. Recommendations: Please contact our clinic with any questions or concerns. Patient will call if problems persist. Diagnosis Code(s): Primary Diagnosis: H90.3 Bilateral Sensorineural Hearing Loss Signature: Provider: Edgard Malcolm, [facility]
== END 2023-07-28 11:16 | disposition home or self-care (01) ==
LOC: HO.HAP 11:15
PROVIDERS: Visit Provider Internal Medicine
DX: Z13.89 Encounter for screening for other disorder (principal)

== ENCOUNTER 2023-08-01 02:48 | Emergency (ER) | payer MEDICARE, OTHER, SELFPAY ==
[2023-08-01 02:49] VITALS: BP 103/85; PULSE 108; RESP 18; TEMP 36.8; O2SAT 98; BMI 34.1
[2023-08-01 03:09] LABS: Appearance Urine Turbid; Color Urine Yellow; Glucose Urine UA Negative (Negative); Leukocyte Esterase Urine Large (3+) (Negative); Nitrite Urine Negative (Negative); PH 5.5 (5.0-9.0); UMIC TRIGGER UACC YES; Urine Blood Moderate (2+) (Negative); Urine Ketones Negative (Negative); Urine Protein 30 (1+) mg/dL (Neg-Trace)
[2023-08-01 03:11] LABS: Bacteria Urine Trace (None Seen); Hyaline Casts Urine 0-2 /LPF (0-2); Squamous Epithelial Cell Urine 0-2 /HPF (0-2); UACC Culture Trigger YES; WBC Urine >50 /HPF (0-5)
--- NOTE | 2023-08-01 04:56 | ED.MALEGU ---
HPI - Male Genitourinary General Chief complaint: Urogenital-Male Stated complaint: UTI? Time Seen by Provider: 08/01/23 04:56 Source: patient Mode of arrival: ambulatory History of Present Illness HPI Narrative: 88-year-old male who states that he self catheterizes a couple of days ago and feels that he may have not cleaned the end of his penis or the catheter appropriately prior to performing this procedure now presents with burning pain on urination feels he might have a UTI. He denies any fevers or chills. Related Data Home Medications Medication Instructions Recorded Confirmed albuterol sulfate 90 mcg/actuation 2 puff inhalation QID PRN 02/21/23 06/07/23 aerosol inhaler gabapentin 100 mg capsule 100 mg PO DAILY 04/20/23 06/07/23 Previous Rx's Medication Instructions Recorded fluticasone propionate 115 2 puff inhalation Q12H Asthma 30 05/18/23 mcg-salmeterol 21 mcg/actuation days #12 grams HFA inhaler (Advair HFA) rivaroxaban 20 mg tablet (Xarelto) 20 mg PO QPM #30 tabs 06/02/23 acetaminophen 500 mg tablet 1,000 mg PO Q6H PRN pain #60 tabs 07/19/23 (Tylenol Extra Strength) cyclobenzaprine 10 mg tablet 10 mg PO TID #30 tabs 07/19/23 furosemide 20 mg tablet 20 mg PO DAILY #30 tabs 07/28/23 cefdinir 300 mg capsule 300 mg PO BID 7 days #14 caps 08/01/23 Allergies Allergy/AdvReac Type Severity Reaction Status Date / Time No Known Allergies Allergy Verified 08/01/23 02:57 Review of Systems Review of Systems: Pertinent positives and negatives as stated in HPI [facility] Past Medical History Source: nursing notes reviewed Medical History Allergic rhinitis Asthma Cough Dysphagia History of prostate cancer Hyperlipidemia Surgical History History of cataract surgery History of colonoscopy History of prostate surgery Status post trigger finger release Family History Family History Mother No problems noted. Father No problems noted. Social History Social History Housing: Apartment Alcohol intake: current Alcohol intake frequency: a few times a week Alcohol type: wine Patient Tobacco Use Status: Former Tobacco user Smoked in Last 30 Days: No e-Cigarette/Vaping Use: Never Used Second Hand Smoke Exposure: No Use of substances other than those prescribed or required for medical reasons: No Advance Directives: No Advance Directives Information Provided: Yes service: No Current occupational status: retired Cognitive needs: Yes (walker/cane) Hearing needs: Yes (hearing aide) Vision needs: Yes (Glasses) Physical Exam Vital Signs: Vital Signs: Last Vital Signs Temp 98.2 F 08/01/23 02:49 Pulse 108 H 08/01/23 02:49 Resp 18 08/01/23 02:49 BP 103/85 08/01/23 02:49 Pulse Ox 98 08/01/23 02:49 O2 Del Method Room Air 08/01/23 02:49 BMI result Body Mass Index 34.1 VITAL SIGNS: Reviewed. GENERAL: Well developed, well nourished, in no acute distress. HEAD: Normocephalic/atraumatic EYES: PERRLA, EOMI LUNGS: Normal breath sounds. No adventitious sounds or accessory muscle use. SpO2<98> CARDIOVASCULAR: Regular rate and rhythm without noted murmurs ABDOMEN: Soft, non-tender, non-distended with bowel sounds. MUSCULOSKELETAL: No tenderness, deformities, or effusions noted on gross inspection. EXTREMITIES: No cyanosis, clubbing or edema. SKIN: Inspection of the skin reveals no rashes NEUROLOGIC: Alert and oriented x 4. Strength and sensation to light touch were grossly intact x 4. Medications Administered Discontinued Medications Generic Name Dose Route Start Last Admin Trade Name Freq PRN Reason Stop Dose Admin Amoxicillin/Clavulanate Potassium 875 mg 08/01/23 04:55 08/01/23 05:13 Amoxicillin/Potassium Clav 875 Mg Tablet PO 08/01/23 04:56 875 mg ONCE ONE Administration Medical Decision Making Medical Decision Making [facility] Narrative: 88-year-old male with history and clinical presentation consistent with urinary tract infection and on review of urinalysis it is positive for UTI, patient received initial antibiotics here in then was discharged on remaining course. No clinical suspicion for STI or prostatitis. Differential Diagnosis Differential Diagnoses: The differential diagnosis associated with the presentation includes Please see the discussion above Lab Data Labs: Lab Results 08/01/23 08/01/23 Range/Units 02:59 02:59 Urine Color Yellow Cancelled Urine Appearance Turbid Cancelled Urine pH 5.5 Cancelled (5.0-9.0) Ur Specific [place] 1.020 Cancelled (1.005-1.025) Urine Protein 30 (1+) H Cancelled (Neg-Trace) mg/dL Urine Glucose (UA) Negative Cancelled (Negative) mg/dL Urine Ketones Negative Cancelled (Negative) mg/dL Urine Blood Moderate (2+) H Cancelled (Negative) Urine Nitrite Negative Cancelled (Negative) Ur Leukocyte Esterase Large (3+) H Cancelled (Negative) Urine RBC 11-20 H Cancelled (0-2) /HPF Urine WBC >50 H Cancelled (0-5) /HPF Urine WBC Clumps Cancelled Ur Squamous Epith Cells 0-2 Cancelled (0-2) /HPF Ur Transition Epith Cell Cancelled Ur Renal Epithelial Cell Cancelled Calcium Oxalate Crystal Cancelled Leucine Crystals Cancelled Cystine Crystals Cancelled Tyrosine Crystals Cancelled Other Crystals Cancelled Urine Bacteria Trace Cancelled (None Seen) Urine Parasites Cancelled Bilirubin Casts Cancelled Epithelial Casts Cancelled Fatty Casts Cancelled Hyaline Casts 0-2 Cancelled (0-2) /LPF Granular Casts Cancelled Waxy Casts Cancelled Broad Casts Cancelled RBC Casts Cancelled WBC Casts Cancelled Other Casts Cancelled Urine Trichomonas Cancelled Urine Yeast Cancelled Discharge Plan Discharge Clinical Impression: Urinary tract infection Patient Disposition: Home, Self-Care Instructions: Urinary Tract Infection in Men (ED) Additional Instructions: Complete the course of antibiotics as ordered. Return for any worsening symptoms. Prescriptions: New cefdinir 300 mg capsule 300 mg PO BID 7 Days Qty: 14 0RF No Action fluticasone propion-salmeterol [Advair HFA] 115-21 mcg/actuation HFA aerosol inhaler 2 puff inhalation Q12H 30 Days Qty: 12 3RF Rx Instructions: administer with spacer furosemide 20 mg tablet 20 mg PO DAILY Qty: 30 0RF acetaminophen [Tylenol Extra Strength] 500 mg tablet 1,000 mg PO Q6H PRN (Reason: pain) Qty: 60 0RF cyclobenzaprine 10 mg tablet 10 mg PO TID Qty: 30 0RF gabapentin 100 mg capsule 100 mg PO DAILY Xarelto 20 mg tablet 20 mg PO QPM Qty: 30 0RF Rx Instructions: must administer with evening meal albuterol sulfate 90 mcg/actuation HFA aerosol inhaler 2 puff inhalation QID PRN Referrals: Hayden Savage MD [Primary Care Provider] - Interventions: ED Discharge Assessment Last Done: 08/01/23 05:15 Discharge Date/Time: 08/01/23 05:17
[2023-08-01] MEDS: Amoxicillin/Potassium Clav 875 MG TABLET PO (05:13)
== END 2023-08-01 05:17 | disposition home or self-care (01) ==
PROVIDERS: Emergency Provider Student in an Organized Health Care Education/Training Program; PCP Internal Medicine
DX: N39.0 Urinary tract infection, site not specified (principal); Z79.899 Other long term (current) drug therapy
CPT/HCPCS: 81001; 87086; 87088; 87186; 99283; 99284

== ENCOUNTER 2023-08-16 09:05 | Outpatient (REF) | payer MEDICARE, OTHER, SELFPAY ==
[2023-08-16 11:34] LABS: Prostate Specific Antigen 2.53 ng/mL (<0.05-4.0)
== END 2023-08-16 09:06 | disposition home or self-care (01) ==
LOC: HO.LAB 09:05
PROVIDERS: PCP Internal Medicine; Visit Provider Urology
DX: Z12.5 Encounter for screening for malignant neoplasm of prostate (principal); C61 Malignant neoplasm of prostate
CPT/HCPCS: 36415; 84153

== ENCOUNTER 2023-08-17 15:43 | Outpatient (AMB) | payer MEDICARE, OTHER, SELFPAY ==
--- NOTE | 2023-08-17 16:02 | A.OFFVIS_ITS ---
Intake Vital Signs 08/17/23 16:03 Height 6 ft 4 in Weight 286 lb 2 oz BMI 34.8 BP 110/80 Blood Pressure Location Lt brachial Position Sitting Pulse 68 Pulse Source Pulse Oximeter Pulse Oximetry (%) 98 Oxygen Delivery Method Room Air Intake Visit Reasons: AWV Intake Note: Patient is here for an Annual Wellness Visit. Physician Practice Coordinator Required: No Egg Processor: Egg Processor Present and Egg Processor offered & declined Accompanied by: Son Allergies No Known Allergies Allergy (Verified 08/18/23 14:49) HPI AWV HPI Details Patient was scheduled for an annual wellness visit. He came with his son and wanted to discuss several of his medical conditions. As a result the annual wellness visit was not done. 88-year-old male presents to the office to discuss his chronic medical conditions. Patient has been complaining of mild shortness of breath. It has been going on for many years. He is having shortness of breath and postnasal drip. He has seen the ENT surgeon with minimal help. He is scheduled to see the telecommunications technician next week. Patient believes that the furosemide was not working and stopped taking the medication. He reports he has gained a few lb since then. Patient is also complaining of knee pain in right and left knees. He is had cortisone shots in the past. His daily life is beginning to get affected as he is having pain in the knees which is limiting him from walking. Patient would also like to get RSV, pneumonia, COVID and flu vaccines when they become available. Patient is able to function and do his activities independently. He continues to drive. Able to take care of his personal finances and hygiene independently. [facility] Medical History Dysphagia History of prostate cancer Hyperlipidemia Cough Asthma Allergic rhinitis Surgical History Status post trigger finger release History of colonoscopy History of cataract surgery History of prostate surgery Family History Mother No problems noted. Father No problems noted. Social History Housing: Apartment Alcohol intake: current Alcohol intake frequency: 0-2 drinks per day Alcohol type: wine Patient Tobacco Use Status: Former Tobacco user e-Cigarette/Vaping Use: Never Used Second Hand Smoke Exposure: No service: No Current occupational status: retired Cognitive needs: Yes (walker/cane) Hearing needs: Yes (hearing aide) Vision needs: Yes (Glasses) Questionnaire Medicare Wellness Checkup What is your age?: 80 or older What gender do you identify with?: male During the past 4 weeks, how much have you been bothered by emotional problems such as feeling anxious, depressed, irritable, sad or downhearted, and blue?: not at all During the past 4 weeks, has your physical & emotional health limited your social activities with family, friends, neighbors, or groups?: moderately During the past 4 weeks, how much bodily pain have you generally had?: no pain During the past 4 weeks, was someone available to help you if you needed & wanted help?: yes, as much as I wanted During the past 4 weeks, what was the hardest physical activity you could do for at least 2 minutes?: moderate Can you get to places out of walking distance without help? (For eg., can you travel alone on buses, taxis or drive your car?): Yes Can you go shopping for groceries or clothes without someone's help?: Yes Can you prepare your own meals?: Yes Can you do your housework without help?: Yes Because of any health problems, do you need the help of another person with your personal care needs such as eating, bathing, dressing or getting around the house?: No Can you handle your own money without help?: Yes During the past 4 weeks, how would you rate your health in general?: very good During the past 4 weeks how have things been going for you?: pretty well Are you having difficulties driving your car?: no Do you always fasten your seat belt when you are in a car?: yes, usually During past 4 weeks, have you been bothered by the following: never: Sexual problems?, Trouble eating well?, Teeth or denture problems? and Problems using the telephone? and sometimes: Falling or dizzy when standing up and Tiredness or fatigue? Have you fallen 2 or more times in the past year?: No Are you afraid of falling?: Yes Are you a smoker?: no During the past 4 weeks, how many drinks of wine, beer, or other alcoholic beverages did you have?: 6-9 drinks per week Do you exercise for about 20 minutes 3 or more times a week?: yes, most of the time Have you been given information to help with the following?: no: Hazards in your house that might hurt you? and no: Keeping track of your medications? How often do you have trouble taking medicines the way you have been told to take them?: I always take medicine as prescribed How confident are you that you can control & manage most of your health problems?: very confident What is your race?: White PHQ-9 Over the last 2 weeks, how often have you been bothered by any of the following problems? 1. Little interest or pleasure in doing things: not at all 2. Feeling down, depressed, or hopeless: not at all 3. Trouble falling or staying asleep, or sleeping too much: several days 4. Feeling tired or having little energy: more than half the days 5. Poor appetite or overeating: more than half the days 6. Feeling bad about yourself - or that you are a failure or have let yourself or your family down: not at all 7. Trouble concentrating on things, such as reading the newspaper or watching television: not at all 8. Moving or speaking so slowly that other people could have noticed. Or the opposite - being so fidgety or restless that you have been moving around a lot more than usual: not at all 9. Thoughts that you would be better off or of hurting yourself in some way: not at all Total score: 5 Source: Developed by Drs. Adams Wagner, Trina Cuellar, Demetris Turpin and colleagues, with an educational kelly from [employer]. Thrive Questionnaire Date Thrive assessed: 04/20/23 BRITTNEY-7 AMB Questionnaire BRITTNEY-7 Date BRITTNEY - 7 assessed: 04/20/23 Source: Developed by Drs. Adams Wagner, Trina Cuellar, Demetris Turpin and colleagues, with an educational kelly from [employer]. Physical Exam Vital Signs: Last Vital Signs Pulse 68 08/17/23 16:03 BP 110/80 08/17/23 16:03 Pulse Ox 98 08/17/23 16:03 Oxygen Delivery Method Room Air 08/17/23 16:03 BMI result Body Mass Index 34.8 Const General: cooperative and healthy appearing Nutritional Appearance: well nourished Orientation/consciousness: patient oriented x3 Limitations: no limitations HEENT Head: Yes normal to inspection Eyes General: appearance normal, both eyes and all related structures Neck Neck: Yes normal visual inspection Chest Chest palpation & inspection: normal palpation of entire chest wall Resp Effort & Inspection: normal respiratory effort Neuro General: patient oriented x3 Extrem Other: Right and left knee: No joint line tenderness. Crepitus on palpation. Assessment & Plan Assessment & Plan (1) Obesity (BMI 35.0-39.9 without comorbidity): Code(s): E66.9 - Obesity, unspecified Plan: Counseling on the importance of weight reduction and importance of exercise and diet done. (2) Cough: Comment: COUGH IS SECONDARY TO ALLERGIC RHINITIS AND ASTHMA VARIANT. VERY MINIMAL AND ALMOST INACTIVE AT PRESENT. Code(s): R05 - Cough Plan: Patient's will be seeing Dr. Mack next week. I encouraged him to keep the appointment. (3) Osteoarthritis of knees, bilateral: Code(s): M17.0 - Bilateral primary osteoarthritis of knee Plan: An orthopedic appointment will be done to see if he can be a surgical candidate. Quality Reporting (2019) Depression/Bipolar (159/160/161/177) PHQ-9: Total score: 5 Coding Level of Care Code Est Pt Level 4 (44082) Diagnoses Obesity (BMI 35.0-39.9 without comorbidity) E66.9 Cough R05 Osteoarthritis of knees, bilateral M17.0
[2023-08-17 16:03] VITALS: BP 110/80; PULSE 68; O2SAT 98; BMI 34.8
== END 2023-08-17 16:26 | disposition home or self-care (01) ==
PROVIDERS: PCP Internal Medicine; Visit Provider Internal Medicine
DX: R05.9 Cough, unspecified (principal); E66.9 Obesity, unspecified; Z68.34 Body mass index [BMI] 34.0-34.9, adult; M17.0 Bilateral primary osteoarthritis of knee
CPT/HCPCS: 99214

== ENCOUNTER 2023-08-21 10:32 | Outpatient (AMB) | payer MEDICARE, OTHER, SELFPAY ==
[2023-08-21 10:41] VITALS: BP 112/82; PULSE 77; O2SAT 99; BMI 34.7
--- NOTE | 2023-08-21 10:41 | A.OFFVIS_ITS ---
Intake Vital Signs 08/21/23 10:41 Height 6 ft 4 in Weight 285 lb BMI 34.7 BP 112/82 Blood Pressure Location Lt brachial Position Sitting Pulse 77 Pulse Source Pulse Oximeter Pulse Oximetry (%) 99 Oxygen Delivery Method Room Air Intake Visit Reasons: COPD Intake Note: pt is here for follow up and states his lungs are clear, but he is having some shortness of breath, with exertion,stairs, carrying things. Allergies No Known Allergies Allergy (Verified 08/21/23 11:35) Medication List - Last Reconciled 08/21/23 by Claudia Mack MD fluticasone propion-salmeterol 115-21 mcg/actuation (Advair HFA) 2 puffs inhalation Q12H PRN furosemide 20 mg PO DAILY rivaroxaban (Xarelto) 20 mg PO QPM Do you need a note to return to daycare/school/sports/work: No HPI COPD HPI Details THIS 88 YEARS OLD VERY PLEASANT GENTLEMAN IS HERE FOR HIS 6 MONTHS FOLLOW-UP. BREATHING MAN HE REMAINS STABLE. HE USES ADVAIR 115-21 2 PUFFS B.I.D. BUT ONLY NEEDED, NOT A DAILY BASIS. HE HAS NOT NEEDED TO USE ALBUTEROL AT ALL IN THE LAST 6 MONTHS. MAIN COMPLAINT IS CONTINUED NASAL CONGESTION WITH. POSTNASAL DRIP THIS IS DUE TO CHRONIC NASAL ALLERGY PROBLEM, AND HE IS UNDER CARE OF DR. ROMMEL BEATTY THE ENT SPECIALIST. HE WILL BE GETTING CT SCAN OF THE SINUSES ORDERED BY DR. BEATTY [facility] Medical History Dysphagia History of prostate cancer Hyperlipidemia Cough Asthma Allergic rhinitis Surgical History Status post trigger finger release History of colonoscopy History of cataract surgery History of prostate surgery Family History Mother No problems noted. Father No problems noted. Social History Housing: Apartment Alcohol intake: current Alcohol intake frequency: 0-2 drinks per day Alcohol type: wine Patient Tobacco Use Status: Former Tobacco user e-Cigarette/Vaping Use: Never Used Second Hand Smoke Exposure: No service: No Current occupational status: retired Cognitive needs: Yes (walker/cane) Hearing needs: Yes (hearing aide) Vision needs: Yes (Glasses) Review of Systems Const All systems reviewed & are unremarkable except as noted in HPI and below Denies weight gain and Denies weight loss Eyes Reports no additional complaints ENT Reports no additional complaints, Reports dysphagia (Occasional, mild, oropharyngeal) and Denies odynophagia Card Reports no additional complaints Resp Reports no additional complaints and Denies wheezing GI Denies abdominal pain, Denies belching, Denies melena, Denies bloating, Denies change in bowel habits, Reports dysphagia (Occasional, mild, oropharyngeal), Denies excessive flatus, Denies dyspepsia, Denies heartburn, Denies diarrhea, Denies loose stools, Denies nausea, Denies odynophagia and Denies vomiting Reports no additional complaints Musc Reports no additional complaints Skin/Breast Reports system reviewed and no additional complaints, except as documented Neuro Reports no additional complaints Psych Reports no additional complaints Endo Reports no additional complaints Aller/Immun Denies wheezing Physical Exam Vital Signs: Last Vital Signs Pulse 77 08/21/23 10:41 BP 112/82 08/21/23 10:41 Pulse Ox 99 08/21/23 10:41 Oxygen Delivery Method Room Air 08/21/23 10:41 BMI result Body Mass Index 34.7 Const General: comfortable, no acute distress, alert and awake Orientation/consciousness: patient oriented x3 HEENT Head: Yes normal to inspection General nose exam: No nasal polyps present and No nasal discharge present Face and sinus: Yes sinuses nontender Mouth: oropharynx normal Throat: Yes posterior oropharynx normal Eyes General: appearance normal, both eyes and all related structures Neck Neck: Yes normal visual inspection, Yes no lymphadenopathy, Yes trachea midline and Yes no JVD Thyroid: Thyroid normal Chest Chest palpation & inspection: normal inspection of the chest, normal palpation of entire chest wall and no tenderness Resp Effort & Inspection: normal respiratory effort Auscultation: clear to auscultation bilaterally, no crackles, no rales and no wheezes Percussion: percussion normal Cardio Palpation: normal PMI Rate: regular rate Rhythm: regular rhythm Heart sounds: no gallops and no murmurs Peripheral pulses: Peripheral pulses 2+ throughout GI Palpation (GI): Soft to palpation, nontender, No hepatosplenomegaly present and no masses Auscultation: normal bowel sounds Back/Spine/Pelvis Thoracic/Lumbar Spine: thoracic and lumbar spine normal to inspection Skin General skin exam: no rashes or lesions noted Neuro General: patient oriented x3 and no focal motor deficits Cranial nerves: Yes CN's II-XII intact bilaterally Extrem General: Yes normal to inspection, Yes no clubbing, cyanosis or edema and Yes no calf tenderness Psych Appearance: grossly normal and well kempt Speech and movement: Normal speech and movement present Assessment & Plan Assessment & Plan (1) Allergic rhinitis: Comment: HE HAS CHRONIC LOW-GRADE ALLERGIC RHINITIS SYMPTOMS. Seems to be mild and well controlled at present. ADVISED TO AVOID TRIGORS . AND CONT. USING FLONASE 1 spray each nostril daily, p.r.n. AND ZYRTEC 10 mg daily p.r.n. PATIENT IS UNDER CARE OF DR. BEATTY, AND HE HAS ORDERED CT SCAN OF SINUSES. Code(s): J30.9 - Allergic rhinitis, unspecified (2) Asthma: Comment: Has mild intermittent bronchial asthma, mainly related to environmental allergies. As per insurance, his inhaler is changed to Advair HFA 115-21, to use 2 puffs Q 12 hours p.r.n.. He uses it infrequently, He has not needed to use albuterol at all. ing exercises 2 or 3 times a day. Code(s): J45.909 - Unspecified asthma, uncomplicated (3) Cough: Comment: COUGH IS SECONDARY TO ALLERGIC RHINITIS AND ASTHMA VARIANT. VERY MINIMAL AND ALMOST INACTIVE AT PRESENT. Code(s): R05 - Cough Coding Level of Care Code Est Pt Level 3 (77415) Diagnoses Allergic rhinitis J30.9 Asthma J45.909 Cough R05
== END 2023-08-21 11:19 | disposition home or self-care (01) ==
PROVIDERS: PCP Internal Medicine; Visit Provider Internal Medicine
DX: J30.9 Allergic rhinitis, unspecified (principal); J45.909 Unspecified asthma, uncomplicated; R05.9 Cough, unspecified
CPT/HCPCS: 99213

== ENCOUNTER → 2023-08-21 10:32 | Outpatient (BNVA) | payer MEDICARE, OTHER, SELFPAY | PROVIDERS: Visit Provider Internal Medicine | DX: J45.909 Unspecified asthma, uncomplicated (principal); R05.9 Cough, unspecified | CPT/HCPCS: 99212 ==

== ENCOUNTER 2023-09-01 14:01 | Outpatient (REF) | payer MEDICARE, OTHER, SELFPAY ==
--- NOTE | 2023-09-01 14:55 | MHC.AU.HA3 ---
Hearing Instrument Follow-Up- Binaural Date of Visit: 09/01/23 Right Ear: Gerald, Model, Color, Serial Number: Branden Mcclelland M70-R SN: [id number] Color: Sand Beige Respiratory Manager Repair Warranty: 03/16/2022 Respiratory Manager Loss and Damage Warranty: 03/16/2022 Battery Size: Rechargeable Hot Mill Roller/Slim Tube: 3M Earmold/Dome/CShell/SlimTip:Secure Fit Tip SN: [id number] Warranty: 05/29/2023 Type of Wax Guard: CeruShield Dispensed By: [facility] Date of Fittin12/20/2018 Left Ear: Gerald, Model, Color, Serial Number: Branden Mcclelland M70-R SN: [id number] Color: Sand Beige Respiratory Manager Repair Warranty: 03/16/2022 Respiratory Manager Loss and Damage Warranty: 03/16/2022 Battery Size: Rechargeable Hot Mill Roller/Slim Tube: 3M Earmold/Dome/CShell/SlimTip: Secure Fit Tip SN: [id number] Warranty: 05/29/2023 Type of Wax Guard: CeruShield Dispensed By: [facility] Date of Fittin12/20/2018 Follow-Up Summary: Sekou reported that he cannot remove the right wax guard using the CeruShield disk. The wax guard is almost completely occluded with wax and tilted in the stock receiver. The stock receiver itself is also misshapen and hangs downward. Discussed options including prices to clean hearing aids and ear molds including removing wax guard in current stock receiver ($50.00) or replacing right stock receiver all together due to it being misshapen and possibility of it breaking ($150.00). Sekou did not want to pay for any services. He refused even the cleaning to remove the old wax guard. He reported he will try himself at home. Sekou also inquired about new hearing aids as he does not like the rechargeability. Discussed newest Phonak hearing aids are only rechargeable, option to change manufacturers, etc. but advised he will need updated hearing test to start that process beginning with doctor's order for test from PCP. Recommendations: Hearing instrument follow-up or maintenance as needed. Please contact our clinic with any questions or concerns. Diagnosis Code(s): Primary Diagnosis: H90.3 Bilateral Sensorineural Hearing Loss Signature: Provider: Edgard Malcolm, [facility]
== END 2023-09-01 14:02 | disposition home or self-care (01) ==
LOC: HO.HAP 14:01
PROVIDERS: Visit Provider Internal Medicine
DX: Z13.89 Encounter for screening for other disorder (principal)

== ENCOUNTER 2023-09-06 11:03 | Outpatient (REF) | payer MEDICARE, OTHER, SELFPAY ==
--- NOTE | ~2023-09-06 | CT_ITS ---
EXAMINATION: CT SINUS WITHOUT CONTRAST CLINICAL INFORMATION: Polyp of the nasal cavity. COMPARISON: CT facial bones 03/03/2009. TECHNIQUE: Cotton Machine Operator images were obtained. CT imaging of the sinuses was performed without contrast. Data was reformatted into multiplanar images at the acquisition workstation. This CT examination was performed using dose optimization techniques as appropriate, variously including the following: *Automated exposure control *Adjustment of mA and/or kV according to patient size (this includes techniques or standardized protocols for targeted exams where dose is matched to indication/reason for exam; i.e. extremities or head) *Use of iterative reconstruction technique DLP: 120 mGy-cm FINDINGS: There is mild to moderate mucosal thickening within both maxillary sinuses. Both of the primary maxillary sinus ostia are patent. Uncinate processes are intact. No ostiomeatal unit dysfunction. There is also patent accessory maxillary sinus ostia on both sides that open into the middle meati. There is mild mucosal thickening within the frontal sinuses. The left frontal recess is patent. The right is occluded. There is mild mucosal thickening within the ethmoid air cells and sphenoid sinus. Both of the sphenoid sinus ostia are patent. The nasal septum deviates to the left. Globes and extraocular muscles are symmetric. No abnormal retrobulbar mass or inflammation. Lamina papyracea and orbital floors are intact. Orbital apices are unremarkable. Limited visualization of intracranial anatomy reveals no abnormal finding. CT/CT sinus wo IV con IMPRESSION: There is mild to moderate paranasal sinus disease. The right frontal recess is occluded. The remainder of the major paranasal sinus drainage pathways are patent. The nasal septum deviates to the left.
== END 2023-09-06 11:04 | disposition home or self-care (01) ==
LOC: HO.CT 11:03
PROVIDERS: PCP Internal Medicine; Visit Provider Otolaryngology
DX: J33.0 Polyp of nasal cavity (principal)
CPT/HCPCS: 70486

== ENCOUNTER 2023-10-02 08:03 | Outpatient (AMB) | payer MEDICARE, OTHER, SELFPAY ==
[2023-10-02 08:42] VITALS: BP 122/80; PULSE 80; TEMP 36.6; O2SAT 94; BMI 34.7
--- NOTE | 2023-10-02 08:42 | AM.OFFWIN_ITS ---
Intake Vital Signs 10/02/23 08:42 Height 6 ft 4 in Weight 285 lb BMI 34.7 BP 122/80 Blood Pressure Location Lt brachial Position Sitting Pulse 80 Pulse Source Pulse Oximeter Temp 97.8 F Temp Source Temporal Artery Scan Pulse Oximetry (%) 94 Oxygen Delivery Method Room Air Intake Visit Reasons: EST/cold symptoms for over a week(lobbeth) DR Emmanuel Intake Note: pt is here for c/o cold symptoms for over a week such as cough and sinus issues Patient Tobacco Use Status: Former Tobacco user Allergies No Known Allergies Allergy (Verified 10/02/23 08:42) Do you need a note to return to daycare/school/sports/work: Yes HPI EST/cold symptoms for over a week(cristobal) DR Emmanuel HPI Details 88-year-old male presents to the office for a sick visit. Patient is complaining of cough, shortness of breath and wheezing. Symptoms present for a week. No fevers or chills. [facility] Medical History Dysphagia History of prostate cancer Hyperlipidemia Cough Asthma Allergic rhinitis Surgical History Status post trigger finger release History of colonoscopy History of cataract surgery History of prostate surgery Family History Mother No problems noted. Father No problems noted. Social History Housing: Apartment Alcohol intake: current Alcohol intake frequency: 0-2 drinks per day Alcohol type: wine Patient Tobacco Use Status: Former Tobacco user e-Cigarette/Vaping Use: Never Used Second Hand Smoke Exposure: No service: No Current occupational status: retired Cognitive needs: Yes (walker/cane) Hearing needs: Yes (hearing aide) Vision needs: Yes (Glasses) Physical Exam Vital Signs: Last Vital Signs Temp 97.8 F 10/02/23 08:42 Pulse 80 10/02/23 08:42 BP 122/80 10/02/23 08:42 Pulse Ox 94 10/02/23 08:42 Oxygen Delivery Method Room Air 10/02/23 08:42 BMI result Body Mass Index 34.7 Const General: cooperative and healthy appearing Nutritional Appearance: well nourished Orientation/consciousness: patient oriented x3 Limitations: no limitations HEENT Head: Yes normal to inspection Eyes General: appearance normal, both eyes and all related structures Neck Neck: Yes normal visual inspection Chest Chest palpation & inspection: normal palpation of entire chest wall Resp Effort & Inspection: normal respiratory effort Neuro General: patient oriented x3 Assessment & Plan Assessment & Plan (1) Upper respiratory tract infection: Code(s): J06.9 - Acute upper respiratory infection, unspecified Plan Chest x-ray images were personally reviewed by me. Possible infiltrate on the left lower lobe. Antibiotics and prednisone called in. If symptoms do not improve to follow-up here. Orders: Orders XR chest 2V Today R05.9 - Cough, unspecified Coding Level of Care Code Est Pt Level 4 (42873) Diagnoses Upper respiratory tract infection J06.9
== END 2023-10-02 09:45 | disposition home or self-care (01) ==
PROVIDERS: PCP Internal Medicine; Visit Provider Internal Medicine
DX: J06.9 Acute upper respiratory infection, unspecified (principal)
CPT/HCPCS: 99214

== ENCOUNTER 2023-10-02 09:17 | Outpatient (REF) | payer MEDICARE, OTHER, SELFPAY ==
--- NOTE | ~2023-10-02 | XR_ITS ---
EXAMINATION: XR CHEST CLINICAL INFORMATION: Cough. COMPARISON: 07/19/2023 TECHNIQUE: 2 views of the chest were obtained. FINDINGS: The lungs are well expanded. Stable interstitial prominence of the lung bases. No focal consolidation. No pleural effusion. Cardiac silhouette is unchanged. XR/XR chest 2V IMPRESSION: No acute abnormality.
== END 2023-10-02 09:18 | disposition home or self-care (01) ==
LOC: HO.HMGCX 09:17
PROVIDERS: PCP Internal Medicine; Visit Provider Internal Medicine
DX: R05.9 Cough, unspecified (principal)
CPT/HCPCS: 71046

== ENCOUNTER → 2023-11-29 09:53 | Outpatient (REF) | payer MEDICARE, SELFPAY ==
--- NOTE | 2023-11-29 09:55 | CA_ITS ---
Transthoracic Echocardiogram Patient (Last, First, Middle): Sekou Coe, Gender: Male Date of : 1935 Age: 88 Procedure Date: 11/29/2023 Procedure Type: Transthoracic Echocardiogram Location: OP Height: 193.04 cm Weight: 133.81 kg BSA: 2.61 m2 Heart Rate: 63 bpm BP: 128 / 80 mmHg [place] Pumper: BALBIR Referring MD: Dao Coates MD Plug Making Operator: Dao Coates MD Symptoms: I71.21 - Aneurysm of the ascending aorta, without rupture Study Quality: Adequate w contrast ECG Rhythm: Sinus Conclusions: - 1. Moderate to severe enlargement of ascending aorta at 5.3 cm, unchanged 2. Normal LV ejection fraction Findings Procedure Information Contrast agent, definity, is being given per protocol without apparent complications. The quality of the study was technically difficult. The study quality is limited by patients body habitus. Left Ventricle Normal left ventricular size, thickness, and systolic function. The visually estimated ejection fraction is between 55-60%. Great Vessels Moderate to severe enlargement of the ascending aorta Measurements 2D Linear Measurements IVSd: 1.06 0.6-0.9/0.6-1.0 cm LVIDd: 5.62 3.9-5.3/4.2-5.9 cm LVIDd Index: 2.15 2.4-3.2/2.2-3.1 cm/m2 LVIDs: 3.45 2.0-3.6 cm LVPWd: 0.68 0.7-1.1 cm LV Mass: 230.03 67-162/88-224 g LV Mass Index: 88.13 43-95/49-115 g/m2 LVOT Diam: 2.60 3.0+(-)1.3 cm 2D Systolic Function EF 4C: 57.20 >55% EF 2C: 62.70 >55% EF BiP: 58.80 >55% Mitral Valve MV Pk E: 0.54 MV PK A: 0.57 MV Decel Time: 231.00 E/A: 0.90 E'Lateral: 6.89 E'Medial: 4.05 E/E' Med: 13.40 E/E' Lat: 7.90 PHT: 68.00 MVA PHT: 3.24 Decel [place]: 2.36 LVOT LVOT Pk Brant: 0.84 LVOT Mn Brant: 0.60 LVOT VTI: 0.19 LVOT Pk Grad: 3.00 LVOT Mn Grad: 2.00 LVOT Diam: 2.60 LVOT Area: 5.31 Diastolic Function MV Pk E: 0.54 MV Pk A: 0.57 E/A: 0.90 E'Medial: 4.05 E/E' Med: 13.40 E' Laterial: 6.89 E/E' Lat: 7.90 Tricuspid Valve RA Press: 15.00 Great Vessels Aorta Sinus of Valsalva: 4.10 2.0-3.5 cm Ao Asc: 5.30 2.1-3.4 cm Ao Arch: 4.20 Updated in Other Vendor System with Status of Final Dao Coates MD electronically signed on 11/29/2023 12:34:45 PM with status of Final
== END ==
LOC: HO.CARD 09:53
PROVIDERS: PCP Internal Medicine; Visit Provider Internal Medicine Cardiovascular Disease
DX: I71.21 Aneurysm of the ascending aorta, without rupture (principal)
CPT/HCPCS: 93308; Q9957

== ENCOUNTER → 2023-11-29 09:55 | Outpatient (BNV) | payer MEDICARE, OTHER, SELFPAY | PROVIDERS: PCP Internal Medicine; Visit Provider Internal Medicine Cardiovascular Disease | DX: I71.21 Aneurysm of the ascending aorta, without rupture (principal) | CPT/HCPCS: 93308 ==

== ENCOUNTER 2023-12-07 09:30 | Outpatient (AMB) | payer MEDICARE, SELFPAY ==
--- NOTE | 2023-12-07 09:56 | A.OFFPC_ITS ---
Vital Signs 12/07/23 09:58 Height 6 ft 4 in Weight 292 lb BMI 35.5 BP 118/68 Blood Pressure Location Lt brachial Position Sitting Pulse 35 L Pulse Source Pulse Oximeter Pulse Oximetry (%) 98 Oxygen Delivery Method Room Air Intake Visit Reasons: BLE Edema Intake Note: Patient is here to follow up on BLE Edema. 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: Not Required per policy Accompanied by: Self / Same As Patient Allergies No Known Allergies Allergy (Verified 12/07/23 10:54) Medication List - Last Reconciled 12/07/23 by Hayden Savage MD furosemide 20 mg PO BID rivaroxaban (Xarelto) 20 mg PO QPM Tobacco use date assessed: 12/07/23 Fall risk assessment: No Falls in past year Last assessed Fall Risk: 12/07/23 Dental Screening Dental Screen Date: 12/07/23 Did you have a dental visit in the last 12 months?: Yes Did you have a dental problem in the last 6 months where you did not have access to dental care?: No Was dental information given to patient?: Patient has dentist HPI BLE Edema HPI Details 88-year-old male presents to the office to discuss his medical conditions. Patient reports that the edema in the feet reduced with 40 mg a day of furosemide. Continues to experience breathing difficulties. Reports that he is short of breath on exertion. Walking 20 yd makes him short of breath. He is sleeping well at night. No chest pains. Patient is complaining about a lot of weakness. Able to eat regularly. No difficulty with urination. [facility] Medical History Dysphagia History of prostate cancer Hyperlipidemia Cough Asthma Allergic rhinitis Surgical History Status post trigger finger release History of colonoscopy History of cataract surgery History of prostate surgery Family History Mother No problems noted. Father No problems noted. Social History Housing: Apartment Alcohol intake: current Alcohol intake frequency: 0-2 drinks per day Alcohol type: wine Patient Tobacco Use Status: Former Tobacco user e-Cigarette/Vaping Use: Never Used Second Hand Smoke Exposure: No service: No Current occupational status: retired Cognitive needs: Yes (walker/cane) Hearing needs: Yes (hearing aide) Vision needs: Yes (Glasses) Questionnaire PHQ-9 Over the last 2 weeks, how often have you been bothered by any of the following problems? 1. Little interest or pleasure in doing things: not at all 2. Feeling down, depressed, or hopeless: not at all 3. Trouble falling or staying asleep, or sleeping too much: not at all 4. Feeling tired or having little energy: not at all 5. Poor appetite or overeating: not at all 6. Feeling bad about yourself - or that you are a failure or have let yourself or your family down: not at all 7. Trouble concentrating on things, such as reading the newspaper or watching television: not at all 8. Moving or speaking so slowly that other people could have noticed. Or the opposite - being so fidgety or restless that you have been moving around a lot more than usual: not at all 9. Thoughts that you would be better off or of hurting yourself in some way: not at all Total score: 0 Depression Screening Interpretation: Negative Depression Screening Done: Yes Source: Developed by Drs. Adams Wagner, Trina Cuellar, Demetris Turpin and colleagues, with an educational kelly from [employer]. Thrive Questionnaire Date Thrive assessed: 12/07/23 I am a: Patient What is your living situation today?: I have a steady place to live Within the past 12 months, did the food you bought not last and you didn't have the money to get more?: Never true Within the past 12 months, did you worry whether your food would run out before you got money to buy more?: Never true Do you have trouble paying for medicines?: No Do you have trouble getting transportation to medical appointments?: No Do you have trouble paying your heating and electricity bill?: No Do you have trouble taking care of your child, family member or friend?: No Do you have trouble with day-to-day activities such as bathing, preparing meals, shopping, managing finances, etc.?: No Are you currently unemployed and looking for a job?: No Are you interested in more education?: No Currently or been in a relationship where the following occur: no concerns reported AUDIT C Alcohol Use Questionnaire (AUDIT-C) 1. How often do you have a drink containing alcohol?: 4 or more times a week 2. How many drinks containing alcohol do you have on a typical day when you are drinking?: 1 or 2 Total Score: 4 BRITTNEY-7 AMB Questionnaire BRITTNEY-7 Date BRITTNEY - 7 assessed: 12/07/23 Feeling nervous, anxious, or on edge: 0 = Not at all Not being able to stop or control worryin = Not at all Worrying too much about different things: 0 = Not at all Trouble relaxin = Not at all Being so restless that it is hard to sit still: 0 = Not at all Becoming easily annoyed or irritable: 0 = Not at all Feeling afraid as if something awful might happen: 0 = Not at all Total BRITTNEY-7 score (0-4 normal; 5-9 mild; 10-14 moderate; 15-21 severe): 0 Source: Developed by Drs. Adams Wagner, Trina Cuellar, Demetris Turpin and colleagues, with an educational kelly from [employer]. Physical exam (Primary Care) Vital Signs: Last Vital Signs Pulse 35 L 12/07/23 09:58 BP 118/68 12/07/23 09:58 Pulse Ox 98 12/07/23 09:58 Oxygen Delivery Method Room Air 12/07/23 09:58 BMI result Body Mass Index 35.5 Tobacco/Smoking Status: Tobacco use Status Tobacco use date assessed 12/07/23 12/07/23 10:18 Patient Tobacco Use Status Former Tobacco user 12/07/23 10:18 e-Cigarette/Vaping Use Never Used 12/07/23 10:18 PHQ-9: PHQ-9 Score PHQ-9: Total score 0 12/07/23 10:52 Depression Screening Interpretation: Negative Thrive Assessment: Date of Thrive Assessment Date Thrive assessed 12/07/23 12/07/23 10:18 Currently or been in a relationship where the following occur: no concerns reported Const General: cooperative and healthy appearing Nutritional Appearance: well nourished Orientation/consciousness: patient oriented x3 Limitations: no limitations HENMT Head: Yes normal to inspection Eyes General: appearance normal, both eyes and all related structures Neck Neck: Yes normal visual inspection Chest Chest palpation & inspection: normal palpation of entire chest wall Resp Effort & Inspection: normal respiratory effort Neuro General: patient oriented x3 Extrem Other: Trace pitting edema. Assessment and Plan Assessment & Plan (1) Ascending aortic aneurysm: Comment: 5.3 CM aortic aneurysm noted on Echocardiogram today. Code(s): I71.21 - Aneurysm of the ascending aorta, without rupture Plan: Echocardiogram reviewed. EF is normal. Large aortic aneurysm present. JUDD inhibitors added to the regimen. Continue furosemide at 40 mg a day. (2) Paroxysmal atrial fibrillation: Code(s): I48.0 - Paroxysmal atrial fibrillation Orders: Orders Basic Metabolic Panel Today I48.0 - Paroxysmal atrial fibrillation, I71.21 - Aneurysm of the ascending aorta, without rupture Complete Blood Count no Diff Today I48.0 - Paroxysmal atrial fibrillation, I71.21 - Aneurysm of the ascending aorta, without rupture Thyroid Stimulating Hormone Today I48.0 - Paroxysmal atrial fibrillation, I71.21 - Aneurysm of the ascending aorta, without rupture Liver Panel Today I48.0 - Paroxysmal atrial fibrillation, I71.21 - Aneurysm of the ascending aorta, without rupture Lipid Panel Today I48.0 - Paroxysmal atrial fibrillation, I71.21 - Aneurysm of the ascending aorta, without rupture B Type Natriuretic Peptide Today I48.0 - Paroxysmal atrial fibrillation, I71.21 - Aneurysm of the ascending aorta, without rupture Referrals Cardiology Referral I48.0 - Paroxysmal atrial fibrillation, I71.21 - Aneurysm of the ascending aorta, without rupture Medications: New furosemide 20 mg PO BID 60 tabs 0RF Coding Level of Care Code Est Pt Level 4 (36563) Diagnoses Ascending aortic aneurysm I71.21 Paroxysmal atrial fibrillation I48.0
[2023-12-07 09:58] VITALS: BP 118/68; PULSE 35; O2SAT 98; BMI 35.5
== END 2023-12-07 10:51 | disposition home or self-care (01) ==
PROVIDERS: PCP Internal Medicine; Visit Provider Internal Medicine
DX: I71.21 Aneurysm of the ascending aorta, without rupture (principal); I48.0 Paroxysmal atrial fibrillation
CPT/HCPCS: 99214

== ENCOUNTER → 2023-12-14 09:31 | Outpatient (BNVA) | payer MEDICARE, SELFPAY | PROVIDERS: PCP Internal Medicine; Visit Provider Internal Medicine Cardiovascular Disease | DX: Z01.810 Encounter for preprocedural cardiovascular examination (principal); I48.0 Paroxysmal atrial fibrillation; I71.21 Aneurysm of the ascending aorta, without rupture | CPT/HCPCS: 99212 ==

== ENCOUNTER 2023-12-14 09:32 | Outpatient (AMB) | payer MEDICARE, SELFPAY ==
--- NOTE | 2023-12-14 09:30 | MHC.OFFVIS ---
Intake Vital Signs 12/14/23 09:31 Height 6 ft 4 in Weight 293 lb 3.437 oz BMI 35.7 BP 126/80 Blood Pressure Location Lt brachial Position Sitting Pulse 84 Intake Visit Reasons: 6 mth s/p costa echo Intake Note: 6 month follow-up after limited echo c/o sob, night sweats and weakness Silk Opener Required: No Senior Administrative Services Officer: Senior Administrative Services Officer Present Accompanied by: Son Allergies No Known Allergies Allergy (Verified 12/07/23 10:54) Medication List - Last Reconciled 12/14/23 by Dao Coates MD enalapril maleate 10 mg PO DAILY furosemide 20 mg PO BID rivaroxaban (Xarelto) 20 mg PO QPM HPI HPI Comments History of Present Illness Details Sekou comes for follow-up. He denies any cardiac symptoms. His most recent echocardiogram shows stable ascending aortic aneurysm at 5.3 cm. He denies any new symptoms. Denies any recurrent prolonged fast heart rate or irregular heartbeat. Denies any heart failure symptoms. Denies any chest pain. No bleeding issues or neurologic events. [facility] Medical History (Updated 12/14/23 @ 09:54 by Dao Coates MD) Dysphagia History of prostate cancer Hyperlipidemia Cough Asthma Allergic rhinitis Surgical History Status post trigger finger release History of colonoscopy History of cataract surgery History of prostate surgery Family History Mother No problems noted. Father No problems noted. Social History Housing: Apartment Alcohol intake: current Alcohol intake frequency: 0-2 drinks per day Alcohol type: wine Patient Tobacco Use Status: Former Tobacco user e-Cigarette/Vaping Use: Never Used Second Hand Smoke Exposure: No service: No Current occupational status: retired Cognitive needs: Yes (walker/cane) Hearing needs: Yes (hearing aide) Vision needs: Yes (Glasses) Review of Systems Const Denies chills, Denies fatigue, Denies fever(s), Denies frequent falls, Denies weakness, Denies weight gain and Denies weight loss ENT Denies dizziness Card Denies chest pain, Denies leg edema, Denies lightheadedness, Denies palpitations, Denies dyspnea, Denies dyspnea on exertion, Denies orthopnea and Denies other (loss of consciousness) Resp Denies cough, Denies dyspnea and Denies dyspnea on exertion GI Denies hematochezia and Denies change in stool character Musc Denies abnormal gait, Denies muscle weakness, Denies numbness, Denies radiating pain into limb and Denies tingling Neuro Denies Abnormal speech present, Denies abnormal gait, Denies dizziness, Denies frequent falls, Denies numbness, Denies tingling and Denies weakness Endo Denies fatigue and Denies palpitations Physical Exam Vital Signs: Last Vital Signs Pulse 84 12/14/23 09:31 BP 126/80 12/14/23 09:31 BMI result Body Mass Index 35.7 Const General: cooperative, comfortable, no acute distress, alert and awake Nutritional Appearance: obese Orientation/consciousness: patient oriented x3 Limitations: ambulation with cane Neck Neck: Yes trachea midline, Yes supple and Yes no JVD Resp Effort & Inspection: normal respiratory effort Auscultation: clear to auscultation bilaterally Cardio Jugular venous distension: no JVD Palpation: normal PMI Rate: regular rate Rhythm: regular rhythm Heart sounds: S1 normal heart sound present, S2 normal heart sound present, no click, no gallops, no murmurs and no rubs GI Auscultation: normal bowel sounds Skin General skin exam: no rashes or lesions noted Neuro General: patient oriented x3 and no focal motor deficits Speech: No Abnormal speech present Extrem General: Yes no clubbing, cyanosis or edema Assessment & Plan Assessment & Plan (1) Paroxysmal atrial fibrillation: Code(s): I48.0 - Paroxysmal atrial fibrillation Plan: Paroxysmal atrial fibrillation without any obvious clinical recurrence. He has no symptoms related to it. Continue rhythm control approach. Continue risk factor modification with control of his blood pressure. Continue full oral anticoagulation, currently on Xarelto 20 mg daily. At least semi annual renal function test should be pursued. Avoidance of stimulants was discussed. Advised to call me with any new symptoms. No indication for antiarrhythmic drug therapy at this point time. (2) Ascending aortic aneurysm: Comment: 5.3 CM aortic aneurysm noted on Echocardiogram today. Code(s): I71.21 - Aneurysm of the ascending aorta, without rupture Plan: Ascending aortic aneurysm which has remained stable. We discussed in details about management of ascending aortic aneurysm. Given his age will continue pursue conservative management and he wants to pursue the same. We discussed about acute aortic syndromes. Advised to seek emergency care for acute chest pain. Advised to avoid sudden isometric exercise. Continue aggressive blood pressure control which is currently well optimized. Will follow with echocardiogram in 1 year's time. (3) Pre-operative cardiovascular examination: Code(s): Z01.810 - Encounter for preprocedural cardiovascular examination Plan: Preoperative risk stratification for eyelid surgery. This is considered low risk surgery. Currently from cardiac perspective there are no obvious contraindications. Continue current medical therapy except for Xarelto which can be withheld for 2 days prior to the surgery. Will follow up in the clinic in 1 year's time, sooner p.r.n.. Thank you for allowing me to partake in his care Coding Level of Care Code Est Pt Level 4 (05039) Diagnoses Paroxysmal atrial fibrillation I48.0 Ascending aortic aneurysm I71.21 Pre-operative cardiovascular examination Z01.810
[2023-12-14 09:31] VITALS: BP 126/80; PULSE 84; BMI 35.7
== END 2023-12-14 09:55 | disposition home or self-care (01) ==
PROVIDERS: PCP Internal Medicine; Referring Provider Internal Medicine; Visit Provider Internal Medicine Cardiovascular Disease
DX: I48.0 Paroxysmal atrial fibrillation (principal); I71.21 Aneurysm of the ascending aorta, without rupture; Z01.810 Encounter for preprocedural cardiovascular examination
CPT/HCPCS: 99214

== ENCOUNTER 2023-12-20 17:56 | Emergency (ER) | payer MEDICARE, SELFPAY ==
--- NOTE | 2023-12-20 | ECG_ITS ---
Test Reason : SOB Blood Pressure : / mmHG Vent. Rate : 106 BPM Atrial Rate : 000 BPM P-R Int : 000 ms QRS Dur : 096 ms QT Int : 372 ms P-R-T Axes : 000 -20 -15 degrees QTc Int : 494 ms Atrial fibrillation with rapid ventricular response with premature ventricular or aberrantly conducted complexes Nonspecific ST and T wave abnormality Abnormal ECG When compared with ECG of 13-APR-2007 14:15, Atrial fibrillation has replaced Sinus rhythm Vent. rate has increased BY 51 BPM Nonspecific T wave abnormality, worse in Inferior leads Nonspecific T wave abnormality now evident in Anterolateral leads QT has lengthened Referred By: Ileana Sanders Electronically Signed By:Elkin Vee
--- NOTE | ~2023-12-20 | XR_ITS ---
EXAMINATION: XR CHEST CLINICAL INFORMATION: SOB COMPARISON: Chest x-ray 10/02/2023 TECHNIQUE: Frontal view of the chest was obtained. FINDINGS: The lungs are well-expanded and clear. Heart size is mildly enlarged. The pulmonary vascularity is normal. No gross bony abnormality seen. XR/XR chest 1V IMPRESSION: Mild cardiomegaly. No acute process seen. . No change from 10/02/2023
[2023-12-20 18:04] VITALS: BP 127/76; PULSE 89; RESP 22; TEMP 36.2; O2SAT 93; BMI 34.9
--- NOTE | 2023-12-20 18:04 | ED.WEAKNESS ---
HPI - Weakness General Chief complaint: Weakness Stated complaint: weakness, sob Related Data Previous Rx's Medication Instructions Recorded rivaroxaban 20 mg tablet (Xarelto) 20 mg PO QPM #30 tabs 09/20/23 enalapril maleate 10 mg tablet 10 mg PO DAILY #90 tabs 12/07/23 furosemide 20 mg tablet 20 mg PO BID #60 tabs 12/07/23 empagliflozin 10 mg tablet 10 mg PO DAILY #30 tabs 12/27/23 (Jardiance) Allergies Allergy/AdvReac Type Severity Reaction Status Date / Time No Known Allergies Allergy Verified 12/20/23 18:04 [facility] Past Medical History Medical History (Updated 12/28/23 @ 18:32 by FORTUNATO Redmond) Dysphagia History of prostate cancer Hyperlipidemia Cough Asthma Allergic rhinitis Surgical History Status post trigger finger release History of colonoscopy History of cataract surgery History of prostate surgery Family History Family History Mother No problems noted. Father No problems noted. Social History Social History Housing: Apartment Alcohol intake: current Alcohol intake frequency: 0-2 drinks per day Alcohol type: wine Patient Tobacco Use Status: Former Tobacco user e-Cigarette/Vaping Use: Never Used Second Hand Smoke Exposure: No service: No Current occupational status: retired Cognitive needs: Yes (walker/cane) Hearing needs: Yes (hearing aide) Vision needs: Yes (Glasses) Physical Exam Vital Signs: Vital Signs: Last Vital Signs Temp 97.1 F 12/20/23 18:04 Pulse 89 12/20/23 18:04 Resp 22 H 12/20/23 18:04 BP 127/76 12/20/23 18:04 Pulse Ox 93 12/20/23 18:04 O2 Del Method Room Air 12/20/23 18:04 BMI result Body Mass Index 34.9 Course Course Course Narrative: RME: 88 year-old M w/ PMHx presenting to the ED c/o congestion, generalized weakness, SOB, chills/sweats, off balance/lightheaded x2 weeks. denies cough, CP EKG, Labs, UA, CXR, Viral testing ordered Full HPI, ROS and PE to be performed by primary ED provider. Medical Decision Making Lab Data 12/20/23 18:16 12/20/23 18:16 Labs: Lab Results 12/20/23 Range/Units 18:16 WBC 7.2 (4.8-10.8) X10*3/uL RBC 4.40 L (4.60-5.80) X10*6/uL Hgb 13.7 L (14.0-18.0) g/dl Hct 41.6 L (42.0-52.0) % MCV 94.5 (80.0-98.0) fL MCH 31.1 (27.0-33.0) pg MCHC 32.9 (31.0-36.0) g/dl RDW 14.9 (11.0-16.0) % Plt Count 320 D (160-400) X10*3/uL MPV 9.4 (9.4-12.4) fL Immature Gran % (Auto) 1.2 H (0.0-0.4) % Neut % (Auto) 72.5 (45-73) % Lymph % (Auto) 13.5 L (20-40) % [place] % (Auto) 9.6 (2-11) % Eos % (Auto) 2.2 (0-4) % Baso % (Auto) 1.0 (0-2) % Lymph # (Auto) 1.0 L (1.2-4.9) X10*3/uL [place] # (Auto) 0.7 (0.1-1.2) X10*3/uL Eos # (Auto) 0.2 (0.0-0.4) X10*3/uL Baso # (Auto) 0.1 (0.0-0.2) X10*3/uL Abs Immat Gran (auto) 0.09 H (0.00-0.03) X10*3/uL Absolute Neuts (auto) 5.2 (2.0-8.3) x10*3/uL Absolute Nucleated RBC 0.000 (0.0-0.012) X10*3/uL Nucleated RBC % (auto) 0.0 (0.0-0.2) /100WBC Sodium 138 (135-145) mmol/L Potassium 4.4 (3.3-5.1) mmol/L Chloride 104 (96-108) mmol/L Carbon Dioxide 24 (22-29) mmol/L Anion Gap 14 (12-20) BUN 18 H (9-16) mg/dL Creatinine 1.08 (0.5-1.4) mg/dL Estim Creat Clear Calc 72.3 Estimated GFR > 60 Random Glucose 114 (60-115) mg/dL Calcium 9.2 (8.4-10.2) mg/dL Magnesium 2.4 (1.6-2.6) mg/dL Total Bilirubin 0.5 (0.0-1.0) mg/dL Direct Bilirubin 0.2 (0.0-0.5) mg/dL AST 20 (5-37) U/L ALT 18 (0-40) U/L Alkaline Phosphatase 80 (39-117) U/L Troponin I High Sens < 2.7 (<3.5-35.0) ng/L Total Protein 7.1 (6.5-8.0) g/dL Albumin 3.6 (3.5-5.0) g/dL COVID-19 (DELORIS) Negative (Negative) COVID-19 Clin Com See Note Influenza Type A (MANAV) Negative (Negative) Influenza Type B (MANAV) Negative (Negative) Influenza A & B Note See Note Discharge Plan Discharge Clinical Impression: Weakness Patient Disposition: Left W/O Completing Treatment Prescriptions: No Action Xarelto 20 mg tablet 20 mg PO QPM Qty: 30 3RF Rx Instructions: must administer with evening meal Jardiance 10 mg tablet 10 mg PO DAILY Qty: 30 1RF furosemide 20 mg tablet 20 mg PO BID Qty: 60 0RF enalapril maleate 10 mg tablet 10 mg PO DAILY Qty: 90 0RF Discharge Date/Time: 12/20/23 21:54
[2023-12-20 18:24] LABS: MANUAL DIFF FLAG NO
[2023-12-20 18:28] LABS: Basophils Absolute Auto 0.1 X10*3/uL (0.0-0.2); Eosinophils Absolute Auto 0.2 X10*3/uL (0.0-0.4); Eosinophils Percent Auto 2.2 % (0-4); Hematocrit 41.6 % (42.0-52.0); Hemoglobin 13.7 g/dl (14.0-18.0); Imm Gran Abs Auto 0.09 X10*3/uL (0.00-0.03); Imm Gran Pct Auto 1.2 % (0.0-0.4); Lymphocytes Percent Auto 13.5 % (20-40); Mean Corpuscular HGB Conc 32.9 g/dl (31.0-36.0); Mean Corpuscular Hemoglobin 31.1 pg (27.0-33.0); Mean Corpuscular Volume 94.5 fL (80.0-98.0); Mean Platelet Volume 9.4 fL (9.4-12.4); Monocytes Absolute Auto 0.7 X10*3/uL (0.1-1.2); Monocytes Percent Auto 9.6 % (2-11); Neutrophils Absolute Auto 5.2 x10*3/uL (2.0-8.3); Neutrophils Percent Auto 72.5 % (45-73); Platelet Count 320 X10*3/uL (160-400); Red Cell Distribution Width 14.9 % (11.0-16.0); White Blood Count 7.2 X10*3/uL (4.8-10.8)
[2023-12-20 18:39] LABS: Alanine Aminotransferase 18 U/L (0-40); Albumin Level 3.6 g/dL (3.5-5.0); Alkaline Phosphatase 80 U/L (39-117); Anion Gap 14 (12-20); Aspartate Amino Transferase 20 U/L (5-37); Bilirubin Direct 0.2 mg/dL (0.0-0.5); Bilirubin Total 0.5 mg/dL (0.0-1.0); Blood Urea Nitrogen 18 mg/dL (9-16); Calcium 9.2 mg/dL (8.4-10.2); Carbon Dioxide 24 mmol/L (22-29); Chloride 104 mmol/L (96-108); Creatinine Clr Calc Pharmacy 72.3; Estimated Glomerular Filt Rate > 60; Glucose Random 114 mg/dL (60-115); Magnesium 2.4 mg/dL (1.6-2.6); Potassium 4.4 mmol/L (3.3-5.1); Sodium 138 mmol/L (135-145); Total Protein 7.1 g/dL (6.5-8.0)
[2023-12-20 18:40] LABS: COVID-19 Test Negative (Negative); IDNOW Serial# 08D9AD1C; IDNOW Serial# 152EDE1D; Influenza A Negative (Negative); Influenza B2 Negative (Negative)
[2023-12-20 18:46] LABS: Troponin-I High Sensitivity < 2.7 ng/L (<3.5-35.0)
--- NOTE | 2023-12-20 21:53 | PC.NURSE ---
Pt not visualized or answering when called x2. Registration made aware.
== END 2023-12-20 21:54 | disposition left against medical advice (07) ==
LOC: HO.ED 21:47
PROVIDERS: Physician Assistant; Emergency Provider Emergency Medicine
DX: R53.1 Weakness (principal); R06.02 Shortness of breath; I48.91 Unspecified atrial fibrillation; Z87.891 Personal history of nicotine dependence; Z11.52 Encounter for screening for COVID-19; Z79.899 Other long term (current) drug therapy
CPT/HCPCS: 71045; 80048; 80076; 83735; 84484; 85025; 87502; 87635; 93005; 99283

== ENCOUNTER 2023-12-22 12:25 | Outpatient (REF) | payer MEDICARE, SELFPAY ==
[2023-12-22 12:58] LABS: Hematocrit 42.5 % (42.0-52.0); Hemoglobin 13.8 g/dl (14.0-18.0); Mean Corpuscular HGB Conc 32.5 g/dl (31.0-36.0); Mean Corpuscular Hemoglobin 30.4 pg (27.0-33.0); Mean Corpuscular Volume 93.6 fL (80.0-98.0); Mean Platelet Volume 9.4 fL (9.4-12.4); Platelet Count 292 X10*3/uL (160-400); Red Blood Count 4.54 X10*6/uL (4.60-5.80); Red Cell Distribution Width 14.8 % (11.0-16.0); White Blood Count 6.9 X10*3/uL (4.8-10.8)
[2023-12-22 13:24] LABS: B Type Natriuretic Peptide 143 pg/mL (<100)
[2023-12-22 13:45] LABS: Thyroid Stimulating Hormone 0.48 uIU/mL (0.32-4.0)
== END 2023-12-22 12:26 | disposition home or self-care (01) ==
LOC: HO.LAB 12:25
PROVIDERS: PCP Internal Medicine; Visit Provider Internal Medicine
DX: R53.83 Other fatigue (principal); I48.0 Paroxysmal atrial fibrillation; I71.21 Aneurysm of the ascending aorta, without rupture
CPT/HCPCS: 36415; 83880; 84443; 85027

== ENCOUNTER 2024-01-10 08:00 | Outpatient (REF) | payer MEDICARE, SELFPAY ==
--- NOTE | 2024-01-10 09:02 | MHC.AU.HA3 ---
Hearing Instrument Follow-Up- Binaural Date of Visit: 01/10/24 Right Ear: Gerald, Model, Color, Serial Number: Branden Mcclelland [id number]-[id number] SN: [id number] Color: Sand Beige Senior Devops Engineer Repair Warranty: 03/16/2022 Senior Devops Engineer Loss and Damage Warranty: 03/16/2022 [facility] Service Plan: Battery Size: Rechargeable Lift Supervisor/Slim Tube: 3M Earmold/Dome/CShell/SlimTip:Secure Fit Tip SN: [id number] Warranty: 05/29/2023 Type of Wax Guard: CeruShield Dispensed By: [facility] Date of Fittin12/20/2018 Left Ear: Gerald, Model, Color, Serial Number: Branden Mcclelland [id number]-[id number] SN: [id number] Color: Sand Beige Senior Devops Engineer Repair Warranty: 03/16/2022 Senior Devops Engineer Loss and Damage Warranty: 03/16/2022 [facility] Service Plan: Battery Size: Rechargeable Lift Supervisor/Slim Tube: 3M Earmold/Dome/CShell/SlimTip: Secure Fit Tip SN: [id number] Warranty: 05/29/2023 Type of Wax Guard: CeruShield Dispensed By: [facility] Date of Fittin12/20/2018 Follow-Up Summary: Sekou reports his right hearing aid is falling out, and has been for many many months. The note from his last visit documents that his dining room supervisor is twisted and replacing it will cost $150, but he did not want to pay and also refused cleaning of the aid for the same reason. My recommendation for today is to replace the dining room supervisor as it is quite misshapen and plugged with wax. He states he will not be able to purchase new aids any time soon so will go ahead with dining room supervisor replacement. Cleaned both aids, gave a pack of new wax guards as he has 5.0 dining room supervisor. He would like a new hearing test, plans to contact his PCP for an order so we can schedule an evaluation. Recommendations: Recommendations: Hearing instrument follow-up or maintenance as needed. Diagnosis Code(s): Primary Diagnosis: H90.3 Bilateral Sensorineural Hearing Loss Signature: Provider: Van Chaudhari, [facility]
== END 2024-01-10 08:01 | disposition home or self-care (01) ==
LOC: HO.HAP 08:00
PROVIDERS: Visit Provider Internal Medicine
DX: Z46.1 Encounter for fitting and adjustment of hearing aid (principal); H90.3 Sensorineural hearing loss, bilateral
CPT/HCPCS: V5299

== ENCOUNTER 2024-01-11 08:00 | Outpatient (AMB) | payer MEDICARE, SELFPAY ==
[2024-01-11 08:03] VITALS: BP 116/58; PULSE 92; O2SAT 96; BMI 33.8
--- NOTE | 2024-01-11 08:03 | A.OFFPC_ITS ---
Vital Signs 01/11/24 08:03 Height 6 ft 4 in Weight 278 lb BMI 33.8 BP 116/58 L Blood Pressure Location Lt brachial Position Sitting Pulse 92 Pulse Source Pulse Oximeter Pulse Oximetry (%) 96 Oxygen Delivery Method Room Air Intake Visit Reasons: dizziness,legs feels weak, sob Allergies No Known Allergies Allergy (Verified 01/11/24 08:32) Medication List - Last Reconciled 01/11/24 by Hayden Savage MD empagliflozin (Jardiance) 10 mg PO DAILY enalapril maleate 10 mg PO DAILY furosemide 20 mg PO BID gabapentin 100 mg PO BEDTIME rivaroxaban (Xarelto) 20 mg PO QPM Tobacco use date assessed: 12/07/23 Fall risk assessment: No Falls in past year Last assessed Fall Risk: 01/11/24 Dental Screening Dental Screen Date: 01/11/24 Did you have a dental visit in the last 12 months?: Yes Did you have a dental problem in the last 6 months where you did not have access to dental care?: No Was dental information given to patient?: Patient has dentist HPI dizziness,legs feels weak, sob HPI Details 88-year-old male presents to the office for a follow-up. Patient continues to feel weak. He reports there is improvement since he last saw me. He is now going [facility] in his [facility] to the dining [place] to take his meals. 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 Mostly he feels exhausted. He needs to take 2 hour naps. Patient reports that he has lost weight. No abdominal pain, nausea or vomiting. No blood in the stool. He had prostate cancer in the remote past and had intermittent hematuria which has since resolved. He has seeing a urologist. Continuing to see the physical therapist to improve strength in his lower extremities. [facility] Medical History Dysphagia History of prostate cancer Hyperlipidemia Cough Asthma Allergic rhinitis Surgical History Status post trigger finger release History of colonoscopy History of cataract surgery History of prostate surgery Family History Mother No problems noted. Father No problems noted. Social History Housing: Apartment Alcohol intake: current Alcohol intake frequency: 0-2 drinks per day Alcohol type: wine Patient Tobacco Use Status: Former Tobacco user Tobacco use type: Cigarette e-Cigarette/Vaping Use: Never Used Second Hand Smoke Exposure: No service: No Current occupational status: retired Cognitive needs: Yes (walker/cane) Hearing needs: Yes (hearing aide) Vision needs: Yes (Glasses) Questionnaire PHQ-9 Over the last 2 weeks, how often have you been bothered by any of the following problems? 1. Little interest or pleasure in doing things: not at all 2. Feeling down, depressed, or hopeless: not at all 3. Trouble falling or staying asleep, or sleeping too much: not at all 4. Feeling tired or having little energy: not at all 5. Poor appetite or overeating: not at all 6. Feeling bad about yourself - or that you are a failure or have let yourself or your family down: not at all 7. Trouble concentrating on things, such as reading the newspaper or watching t elevision: not at all 8. Moving or speaking so slowly that other people could have noticed. Or the opposite - being so fidgety or restless that you have been moving around a lot more than usual: not at all 9. Thoughts that you would be better off or of hurting yourself in some way: not at all Total score: 0 Depression Screening Interpretation: Negative Depression Screening Done: Yes Source: Developed by Drs. Adams Wagner, Trina Cuellar, Demetris Turpin and colleagues, with an educational kelly from [employer]. Thrive Questionnaire Date Thrive assessed: 12/07/23 Currently or been in a relationship where the following occur: no concerns reported THRIVE Score: 0 AUDIT C Alcohol Use Questionnaire (AUDIT-C) 1. How often do you have a drink containing alcohol?: 4 or more times a week 2. How many drinks containing alcohol do you have on a typical day when you are drinking?: 1 or 2 Total Score: 4 BRITTNEY-7 AMB Questionnaire BRITTNEY-7 Date BRITTNEY - 7 assessed: 12/07/23 Source: Developed by Drs. Adams L. BernardTrina jeffery, Demetris Turpin and colleagues, with an educational kelly from [employer]. Physical exam (Primary Care) Vital Signs: Last Vital Signs Pulse 92 01/11/24 08:03 BP 116/58 L 01/11/24 08:03 Pulse Ox 96 01/11/24 08:03 Oxygen Delivery Method Room Air 01/11/24 08:03 Care Plan Goal for BP management: Blood pressure is in range. BMI result Body Mass Index 33.8 BMI Assessment/Plan discussion: High (1 lb per week weight loss suggested.) BMI High, discussed plan: lifestyle, weight reduction and dietary Tobacco/Smoking Status: Tobacco use Status Tobacco use date assessed 12/07/23 01/11/24 08:04 Patient Tobacco Use Status Former Tobacco user 01/11/24 08:04 Tobacco use type Cigarette 01/11/24 08:04 e-Cigarette/Vaping Use Never Used 01/11/24 08:04 PHQ-9: PHQ-9 Score PHQ-9: Total score 0 01/11/24 08:04 Depression Screening Interpretation: Negative Thrive Assessment: Date of Thrive Assessment Date Thrive assessed 12/07/23 01/11/24 08:04 Currently or been in a relationship where the following occur: no concerns reported Advance Care Planning discussion: Exists, not on file Date of discussion: 01/11/24 Who was present: Patient Forms completed: Health Care Proxy and MOLST Time spent: 1-15 minutes, not on file Const General: cooperative and healthy appearing Nutritional Appearance: well nourished Orientation/consciousness: patient oriented x3 Limitations: no limitations HENMT Head: Yes normal to inspection Eyes General: appearance normal, both eyes and all related structures Neck Neck: Yes normal visual inspection Chest Chest palpation & inspection: normal palpation of entire chest wall Resp Effort & Inspection: normal respiratory effort Neuro General: patient oriented x3 Assessment and Plan Assessment & Plan (1) Paroxysmal atrial fibrillation: Code(s): I48.0 - Paroxysmal atrial fibrillation (2) Fatigue: Code(s): R53.83 - Other fatigue Plan: Blood work, medications revd with patient. No specific cause for his weakness ascertained. Weight loss revd. Current weight is 278 and at baseline was 285 lbs. Some of the weight loss can be attributed to improvement in CHF with optimization of medications. Will continue to recommend physical therapy. If no improvement, will order CT of the head and abdomen to rule out malignancy as a cause of weight loss Coding Level of Care Code Est Pt Level 4 (28534) Diagnoses Paroxysmal atrial fibrillation I48.0 Fatigue R53.83 Additional Codes Vital Signs *Quality* - Advance Care Planning discussion: Exists, not on file ([id number]) Vital Signs *Quality* - Time spent: 1-15 minutes, not on file ([id number])
== END 2024-01-11 09:00 | disposition home or self-care (01) ==
PROVIDERS: PCP Internal Medicine; Visit Provider Internal Medicine
DX: I48.0 Paroxysmal atrial fibrillation (principal); R53.83 Other fatigue; Z00.00 Encounter for general adult medical examination without abnormal findings
CPT/HCPCS: 1123F; 1124F; 99214

== ENCOUNTER 2024-01-25 09:52 | Outpatient (AMB) | payer BC, SELFPAY ==
--- NOTE | 2024-01-25 10:08 | MHC.OFFVIS ---
Intake Vital Signs 01/25/24 10:10 01/25/24 10:35 01/25/24 10:36 01/25/24 10:36 BP 128/60 103/66 105/57 L 93/60 Blood Pressure Location Lt brachial Lt brachial Lt brachial Lt brachial Position Sitting Supine Sitting Standing Pulse 88 75 75 81 Intake Visit Reasons: Discuss meds/weakness/SOB Intake Note: discuss meds still having SOB and Weakness. dizziness Accompanied by: Sister Allergies No Known Allergies Allergy (Verified 01/11/24 08:32) Medication List - Last Reconciled 01/25/24 by Dao Coates MD empagliflozin (Jardiance) 10 mg PO DAILY enalapril maleate 10 mg PO DAILY furosemide 20 mg PO BID gabapentin 100 mg PO BEDTIME rivaroxaban (Xarelto) 20 mg PO QPM HPI HPI Comments History of Present Illness Details Sekou comes for follow-up. He said did not feel well the whole month of November. Not very specific about it. Said he was getting short of breath and feeling fatigued and tired. Came to the emergency room December 20 and he was noted to be in atrial fibrillation rapid ventricular response. No hospitalization was made at that point time. He has prior history of paroxysmal atrial fibrillation. He was also noted to have generalized swelling at that point time and was treated with Jardiance as well as increase furosemide 20 mg b.i.d.. Since then he says his swelling has improved and his breathing is improved but now is complaining of lightheadedness. He comes for follow-up today. He said he still does not feel well and feels lightheaded. No major bleeding issues or neurologic events. Echocardiogram in November had shown moderate to severe enlargement of ascending aorta which is unchanged from before. Patient says that he has run out of his Jardiance is currently not taking Jardiance anymore. [facility] Medical History Dysphagia History of prostate cancer Hyperlipidemia Cough Asthma Allergic rhinitis Surgical History Status post trigger finger release History of colonoscopy History of cataract surgery History of prostate surgery Family History Mother No problems noted. Father No problems noted. Social History Housing: Apartment Alcohol intake: current Alcohol intake frequency: 0-2 drinks per day Alcohol type: wine Patient Tobacco Use Status: Former Tobacco user Tobacco use type: Cigarette e-Cigarette/Vaping Use: Never Used Second Hand Smoke Exposure: No service: No Current occupational status: retired Cognitive needs: Yes (walker/cane) Hearing needs: Yes (hearing aide) Vision needs: Yes (Glasses) Review of Systems Const Denies chills, Denies fatigue, Denies fever(s), Denies frequent falls, Denies weakness, Denies weight gain and Denies weight loss ENT Denies dizziness Card Details: dizziness Denies chest pain, Denies leg edema, Denies lightheadedness, Denies palpitations, Denies dyspnea, Denies dyspnea on exertion, Denies orthopnea and Denies other (loss of consciousness) Resp Denies cough, Denies dyspnea and Denies dyspnea on exertion GI Denies hematochezia and Denies change in stool character Musc Denies abnormal gait, Denies muscle weakness, Denies numbness, Denies radiating pain into limb and Denies tingling Neuro Denies Abnormal speech present, Denies abnormal gait, Denies dizziness, Denies frequent falls, Denies numbness, Denies tingling and Denies weakness Endo Denies fatigue and Denies palpitations Physical Exam Vital Signs: Last Vital Signs Pulse 81 01/25/24 10:36 BP 93/60 01/25/24 10:36 Const General: cooperative, comfortable, no acute distress, alert and awake Nutritional Appearance: obese Orientation/consciousness: patient oriented x3 Limitations: ambulation with cane Neck Neck: Yes trachea midline, Yes supple and Yes no JVD Resp Effort & Inspection: normal respiratory effort Auscultation: clear to auscultation bilaterally Cardio Jugular venous distension: no JVD Palpation: normal PMI Rate: regular rate Rhythm: abnormal rhythm with ectopic beats Heart sounds: S1 normal heart sound present, S2 normal heart sound present, no click, no gallops, no murmurs and no rubs GI Auscultation: normal bowel sounds Skin General skin exam: no rashes or lesions noted Neuro General: patient oriented x3 and no focal motor deficits Speech: No Abnormal speech present Extrem General: Yes no clubbing, cyanosis or edema Office Procedures EKG Details: EKG shows normal sinus rhythm with PVCs with left axis deviation with nonspecific ST T wave changes [id number], Complete Assessment & Plan Assessment & Plan (1) Paroxysmal atrial fibrillation: Code(s): I48.0 - Paroxysmal atrial fibrillation Plan: Paroxysmal atrial fibrillation with occurrence of atrial fibrillation November. Probably persistent atrial fibrillation causing him not feeling well with symptoms of heart failure. Since then today comes in and he is noted to be in sinus rhythm. Will monitor him for 14 days to see if he has recurrent episodes of atrial fibrillation asymptomatic that may benefit from rhythm control approach AKA antiarrhythmic drug therapy and most likely with amiodarone. Continue full oral anticoagulation, currently on Xarelto 20 mg daily. Quarterly renal function test should be pursued. Advised to call me with worsening symptoms. Avoidance of stimulants was discussed. (2) (HFpEF) heart failure with preserved ejection fraction: Code(s): I50.30 - Unspecified diastolic (congestive) heart failure Plan: It seems like patient developed transient heart failure syndrome which clinically currently appears to be well optimized with diuresis as well as Jardiance therapy. He has currently not taking Jardiance and clinically appears to be euvolemic with symptoms. Would therefore advised him to reduce furosemide to 20 mg daily. Daily weight monitoring avoidance of salt loading was discussed. See below for further management. (3) Ascending aortic aneurysm: Comment: 5.3 CM aortic aneurysm noted on Echocardiogram today. Code(s): I71.21 - Aneurysm of the ascending aorta, without rupture Plan: Ascending aortic aneurysm which has remained stable. Will continue monitor by echocardiogram on annual basis. For now no interventions required. Continue aggressive blood pressure control which is currently well optimized. (4) Orthostasis: Code(s): I95.1 - Orthostatic hypotension Plan: Patient demonstrating low blood pressure in signs of orthostasis. Most likely from over-diuresis. Advised to cut down Lasix to 20 mg daily advised to increase his oral fluid intake. Orthostatic precautions were discussed in details. He understands them. At this point in time no other interventions are going pursued. If he continues to have worsening symptoms advised to call my office. Will follow up in the clinic in 3 months time. Greater than 40 minutes was spent in managing his care. Medications: Changed From furosemide 20 mg PO BID 60 tabs 0RF To furosemide 20 mg PO DAILY 60 tabs 0RF Discontinued empagliflozin (Jardiance) Discontinued Reason: Patient no longer taking 10 mg PO DAILY 30 tabs 1RF Coding Level of Care Code Est Pt Level 5 (36775) Diagnoses Paroxysmal atrial fibrillation I48.0 (HFpEF) heart failure with preserved ejection fraction I50.30 Ascending aortic aneurysm I71.21 Orthostasis I95.1 CPT Codes EKG - CPT: [id number], Complete ([id number])
[2024-01-25 10:10] VITALS: BP 128/60; PULSE 88
[2024-01-25 10:35] VITALS: BP 103/66; PULSE 75
[2024-01-25 10:36] VITALS: BP 105/57; BP 93/60; PULSE 75; PULSE 81
== END 2024-01-25 10:55 | disposition home or self-care (01) ==
PROVIDERS: PCP Internal Medicine; Visit Provider Internal Medicine Cardiovascular Disease
DX: I48.0 Paroxysmal atrial fibrillation (principal); I50.30 Unspecified diastolic (congestive) heart failure; I71.21 Aneurysm of the ascending aorta, without rupture; I95.1 Orthostatic hypotension
CPT/HCPCS: 93010; 99215

== ENCOUNTER → 2024-01-25 09:52 | Outpatient (BNVA) | payer BC, MEDICARE, SELFPAY | PROVIDERS: PCP Internal Medicine; Visit Provider Internal Medicine Cardiovascular Disease | DX: I48.0 Paroxysmal atrial fibrillation (principal); I50.30 Unspecified diastolic (congestive) heart failure; I71.21 Aneurysm of the ascending aorta, without rupture; I95.1 Orthostatic hypotension; Z79.01 Long term (current) use of anticoagulants; Z79.899 Other long term (current) drug therapy | CPT/HCPCS: 93005 ==

== ENCOUNTER 2024-02-19 10:30 | Outpatient (AMB) | payer MEDICARE, SELFPAY ==
--- NOTE | 2024-02-19 10:34 | A.OFFVIS_ITS ---
Intake Vital Signs 02/19/24 10:35 Height 6 ft 4 in Weight 275 lb 9.245 oz BMI 33.5 BP 102/62 Blood Pressure Location Rt brachial Pulse 79 Pulse Source Pulse Oximeter Pulse Oximetry (%) 99 Oxygen Delivery Method Room Air Intake Visit Reasons: COPD Intake Note: pt is here for follow up and states he is doing okay. Environmental Analyst Required: No Allergies No Known Allergies Allergy (Verified 02/19/24 10:46) Medication List - Last Reconciled 02/19/24 by Claudia Mack MD enalapril maleate 10 mg PO DAILY furosemide 20 mg PO DAILY gabapentin 100 mg PO BEDTIME rivaroxaban (Xarelto) 20 mg PO QPM Do you need a note to return to daycare/school/sports/work: No HPI COPD HPI Details KATY comes for follow-up after 6. His breathing has remained very stable and he hardly needs to use Advair or the albuterol. His main issue is nasal congestion with some postnasal discharge and bouts of cough. His sinus CT scan has shown diffuse mucosal thickening , reflective of chronic allergic rhinitis. He has not using any specific medication for his sinuses. [facility] Medical History Dysphagia History of prostate cancer Hyperlipidemia Cough Asthma Allergic rhinitis Surgical History Status post trigger finger release History of colonoscopy History of cataract surgery History of prostate surgery Family History Mother No problems noted. Father No problems noted. Social History Housing: Apartment Alcohol intake: current Alcohol intake frequency: 0-2 drinks per day Alcohol type: wine Patient Tobacco Use Status: Former Tobacco user Tobacco use type: Cigarette e-Cigarette/Vaping Use: Never Used Second Hand Smoke Exposure: No service: No Current occupational status: retired Cognitive needs: Yes (walker/cane) Hearing needs: Yes (hearing aide) Vision needs: Yes (Glasses) Review of Systems Const All systems reviewed & are unremarkable except as noted in HPI and below Denies weight gain and Denies weight loss Eyes Reports no additional complaints ENT Reports no additional complaints, Reports dysphagia (Occasional, mild, oropharyngeal) and Denies odynophagia Card Reports no additional complaints Resp Reports no additional complaints and Denies wheezing GI Denies abdominal pain, Denies belching, Denies melena, Denies bloating, Denies change in bowel habits, Reports dysphagia (Occasional, mild, oropharyngeal), Denies excessive flatus, Denies dyspepsia, Denies heartburn, Denies diarrhea, Denies loose stools, Denies nausea, Denies odynophagia and Denies vomiting Reports no additional complaints Musc Reports no additional complaints Skin/Breast Reports system reviewed and no additional complaints, except as documented Neuro Reports no additional complaints Psych Reports no additional complaints Endo Reports no additional complaints Aller/Immun Denies wheezing Physical Exam Vital Signs: Last Vital Signs Pulse 79 02/19/24 10:35 BP 102/62 02/19/24 10:35 Pulse Ox 99 02/19/24 10:35 Oxygen Delivery Method Room Air 02/19/24 10:35 BMI result Body Mass Index 33.5 Const General: comfortable, no acute distress, alert and awake Orientation/consciousness: patient oriented x3 HEENT Head: Yes normal to inspection General nose exam: No nasal polyps present and No nasal discharge present Face and sinus: Yes sinuses nontender Mouth: oropharynx normal Throat: Yes posterior oropharynx normal Eyes General: appearance normal, both eyes and all related structures Neck Neck: Yes normal visual inspection, Yes no lymphadenopathy, Yes trachea midline and Yes no JVD Thyroid: Thyroid normal Chest Chest palpation & inspection: normal inspection of the chest, normal palpation of entire chest wall and no tenderness Resp Effort & Inspection: normal respiratory effort Auscultation: clear to auscultation bilaterally, no crackles, no rales and no wheezes Percussion: percussion normal Cardio Palpation: normal PMI Rate: regular rate Rhythm: regular rhythm Heart sounds: no gallops and no murmurs Peripheral pulses: Peripheral pulses 2+ throughout GI Palpation (GI): Soft to palpation, nontender, No hepatosplenomegaly present and no masses Auscultation: normal bowel sounds Back/Spine/Pelvis Thoracic/Lumbar Spine: thoracic and lumbar spine normal to inspection Skin General skin exam: no rashes or lesions noted Neuro General: patient oriented x3 and no focal motor deficits Cranial nerves: Yes CN's II-XII intact bilaterally Extrem General: Yes normal to inspection, Yes no clubbing, cyanosis or edema and Yes no calf tenderness Psych Appearance: grossly normal and well kempt Speech and movement: Normal speech and movement present Assessment & Plan Assessment & Plan (1) Allergic rhinitis: Comment: HE HAS CHRONIC LOW-GRADE ALLERGIC RHINITIS SYMPTOMS. Seems to be mild and well controlled at present. Code(s): J30.9 - Allergic rhinitis, unspecified Plan: ADVISED TO AVOID TRIGORS . AND CONT. USING FLONASE 1 spray each nostril daily, p.r.n. AND ZYRTEC 10 mg daily p.r.n. (2) Asthma: Comment: Has mild intermittent bronchial asthma, mainly related to environmental allergies. Code(s): J45.909 - Unspecified asthma, uncomplicated Plan: Advair HFA 115-21, to use 2 puffs Q 12 hours p.r.n.. He uses it infrequently, He has not needed to use albuterol at all. Doing exercises 2 or 3 times a day. (3) Cough: Comment: COUGH IS SECONDARY TO ALLERGIC RHINITIS AND ASTHMA VARIANT. VERY MINIMAL AND ALMOST INACTIVE AT PRESENT. Code(s): R05 - Cough Plan: as under Asthma and Allergic Rhinitis Coding Level of Care Code Est Pt Level 3 (81791) Diagnoses Allergic rhinitis J30.9 Asthma J45.909 Cough R05
[2024-02-19 10:35] VITALS: BP 102/62; PULSE 79; O2SAT 99; BMI 33.5
== END 2024-02-19 10:59 | disposition home or self-care (01) ==
PROVIDERS: PCP Internal Medicine; Visit Provider Internal Medicine
DX: J30.9 Allergic rhinitis, unspecified (principal); J45.909 Unspecified asthma, uncomplicated; R05.9 Cough, unspecified
CPT/HCPCS: 99213

== ENCOUNTER → 2024-02-19 10:30 | Outpatient (BNVA) | payer MEDICARE, SELFPAY | PROVIDERS: PCP Internal Medicine; Visit Provider Internal Medicine | DX: J45.909 Unspecified asthma, uncomplicated (principal); R05.9 Cough, unspecified | CPT/HCPCS: 99212 ==

== ENCOUNTER 2024-02-23 09:03 | Outpatient (REF) | payer MEDICARE, SELFPAY ==
--- NOTE | ~2024-02-23 | CT_ITS ---
EXAMINATION: CT HEAD WITHOUT CONTRAST CLINICAL INFORMATION: 89-year-old with weight loss and blurred vision. COMPARISON: None available. TECHNIQUE: Contiguous axial imaging was performed from the skull base to vertex without intravenous administration of contrast. This CT examination was performed using dose optimization techniques as appropriate, variously including the following: *Automated exposure control *Adjustment of mA and/or kV according to patient size (this includes techniques or standardized protocols for targeted exams where dose is matched to indication/reason for exam; i.e. extremities or head) *Use of iterative reconstruction technique DLP: 990 mGy-cm FINDINGS: BRAIN VOLUME: Mild generalized diffuse brain parenchymal volume loss. STRUCTURAL: No malformations. BRAIN AND MENINGES: No acute intracranial hemorrhage, extra-axial fluid collection, space-occupying process or mass effect. Patchy zones of hypodensity in the subcortical and deeper white matter of both cerebral hemispheres are noted, likely reflecting chronic ischemic microangiopathy in a patient of this age. There is a 0.9 cm remote lacunar infarct in the left putamen and genu of the left internal capsule. There is a small zone of encephalomalacia in the inferior right occipital lobe consistent with a remote right WORLD LANGUAGE TEACHER territory infarct with surrounding encephalomalacia. No acute territorial infarct. Bilateral carotid siphon mural calcifications are noted with partially calcified atheromatous plaque at both vertebral arteries. VENTRICLES AND SUBARACHNOID SPACES: The ventricular system and subarachnoid spaces are approximately proportional to the degree of parenchymal volume loss, without hydrocephalus. ORBITAL STRUCTURES: Bilateral lens replacements are noted. Otherwise, grossly unremarkable within the limitations of the study. OSSEOUS STRUCTURES, SINUSES/MASTOIDS, EXTRACRANIAL SOFT TISSUES: The calvarium is intact. The mastoids and middle ear cavities are unopacified. There is mild mucosal thickening in the maxillary sinuses and ethmoid complex with nasal septal deviation to the left. Visualized scalp soft tissues appear intact. CT/CT head/brain wo IV con IMPRESSION: 1. No acute intracranial hemorrhage, extra-axial fluid collection, space-occupying process, mass effect or hydrocephalus. 2. 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 3. Mild generalized diffuse brain parenchymal volume loss.
[2024-02-26 12:08] LABS: Free Prostate Spec Ag 0.4 ng/mL; Percent Free Prostate Spec Ag 16 % (calc) (>25); Prostate Specific Ag Total 2.5 ng/mL (< OR = 4.0)
== END 2024-02-23 09:04 | disposition home or self-care (01) ==
LOC: HO.CT 09:03
PROVIDERS: Urology; PCP Internal Medicine; Visit Provider Internal Medicine
DX: C61 Malignant neoplasm of prostate (principal); R63.4 Abnormal weight loss; H53.8 Other visual disturbances
CPT/HCPCS: 36415; 70450; 84154

== ENCOUNTER 2024-02-28 10:00 | Outpatient (RCR) | payer MEDICARE, SELFPAY ==
--- NOTE | 2024-01-11 10:08 | MHC.PT.EP ---
[facility] [place] Office [place] Office [place] Office [address] Ameena Banks [address] [phone] F: [phone] F: [phone] F: [phone] F: [phone] Physical Therapy Plan of Care Date of Evaluation: 01/11/24 Date of Surgery: N/A Diagnosis: left knee pain (RL) Assessment: pt is a 88 y/o male presenting to physical therapy w/ referring diagnosis of left knee pain. His signs and symptoms are more consistent w/ generalized LE weakness and impaired balance/safety. Impairments include pain, decreased range of motion, decreased strength, impaired functional mobility, impaired postural awareness, and altered ambulation mechanics. pt is a good candidate for skilled PT due to age, potential remediation of impairments, typical disease/condition progression and prognosis, comorbidities, and motivation. pt would benefit from skilled PT intervention to provide a tailored strengthening and stretching exercise program, functional training, gait training, postural re-training, neuromuscular re-education, modalities as needed for pain, equipment safety demonstration. Frequency and Duration: The patient will be seen 2x/wk for 4 wks Short Term Goals: pt will be I w/ HEP to promote self-management of condition. pt will improve B hip flexor strength by 1 MMT grade to promote improved stair navigation. Photographic Equipment Inspector Goals: pt will improve FA EC balance to 30 seconds to improve safety in low light/dark environments. pt will report a statistically significant improvement in self-reported outcome measure, LEFI, to promote return to PLOF. Treatment Plan: Modalities to reduce pain, spasms and effusion. Manual therapy to restore motion and function. Therapeutic exercise to improve strength and flexibility. Neuromuscular re-education for posture and balance. Therapeutic activities to return to functional activities of daily living. Electronically signed by: Whitney Vera PT, DPT Please sign and return to therapist. Thank you for your referral.
--- NOTE | 2024-02-28 10:49 | MHC.PT.DC ---
[place] Office [place] Office [place] Office [address] Ameena Banks 140 [facility] [phone] F: [phone] F: [phone] F: [phone] F: [phone] Physical Therapy Discharge Report Diagnosis: left knee pain (RL) Date of Surgery: N/A Date of Evaluation: 01/11/24 Date of Discharge: 02/28/24 Treatments to Date: 7 Cancellations to Date: 4 No Shows to Date: 1 Discharge Status: Improved Function Independent with HEP Discharge Summary: The patient feels he has made improvement in his leg strength and tolerance for functional mobility. He is not reliant on his walker anymore and only uses a cane for inclement weather situations. He is independent with his home exercise program and would like to discharge from this physical therapy plan of care so he can continue on his own. Electronically signed by: Whitney Vera PT, DPT Please sign and return to therapist. Thank you for your referral.
== END 2024-04-19 08:33 | disposition home or self-care (01) ==
LOC: HO.PT 10:00
PROVIDERS: PCP Internal Medicine; Visit Provider Internal Medicine
DX: M25.562 Pain in left knee (principal)
CPT/HCPCS: 97110; 97162; 97530

== ENCOUNTER 2024-03-07 10:15 | Outpatient (AMB) | payer MEDICARE, SELFPAY ==
--- NOTE | 2024-03-07 10:19 | MHC.PC.OV ---
Vital Signs 03/07/24 10:20 Height 6 ft 4 in Weight 273 lb 6 oz BMI 33.3 BP 112/60 Blood Pressure Location Lt brachial Position Sitting Pulse 65 Pulse Source Pulse Oximeter Pulse Oximetry (%) 98 Oxygen Delivery Method Room Air Intake Visit Reasons: 3mth f/u Intake Note: Patient is here to follow up on Asthma, P-Afib. 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 Patient is feeling much better today. He reports that his fatigue symptoms, shortness of breath in general anxiety that was bothering him for the past 2 months has improved. He has been compliant with his medications. 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 Continues to live at the adult living facility. Still very independent. Able to do his activities of daily living including personal hygiene. FORMERLY [facility], [facility] Medical History Dysphagia History of prostate cancer Hyperlipidemia Cough Asthma Allergic rhinitis Surgical History Status post trigger finger release History of colonoscopy History of cataract surgery History of prostate surgery Family History Mother No problems noted. Father No problems noted. Social History Housing: Apartment Alcohol intake: current Alcohol intake frequency: 0-2 drinks per day Alcohol type: wine Patient Tobacco Use Status: Former Tobacco user Tobacco use type: Cigarette e-Cigarette/Vaping Use: Never Used Second Hand Smoke Exposure: No service: No Current occupational status: retired Cognitive needs: Yes (walker/cane) Hearing needs: Yes (hearing aide) Vision needs: Yes (Glasses) Questionnaire Thrive Questionnaire Date Thrive assessed: 12/07/23 BRITTNEY-7 AMB Questionnaire BRITTNEY-7 Date BRITTNEY - 7 assessed: 12/07/23 Source: Developed by Drs. Adams Wagner, Trina Cuellar, Demetris Turpin and colleagues, with an educational kelly from [employer]. Physical exam (Primary Care) Vital Signs: Last Vital Signs Pulse 65 03/07/24 10:20 BP 112/60 03/07/24 10:20 Pulse Ox 98 03/07/24 10:20 Oxygen Delivery Method Room Air 03/07/24 10:20 Care Plan Goal for BP management: Blood pressure is in range. Continue current medications. BMI result Body Mass Index 33.3 BMI Assessment/Plan discussion: High (1 lb per week weight loss suggested.) BMI High, discussed plan: lifestyle, weight reduction and dietary Tobacco/Smoking Status: Tobacco use Status Tobacco use date assessed 03/07/24 03/07/24 10:20 Patient Tobacco Use Status Former Tobacco user 03/07/24 10:20 Tobacco use type Cigarette 03/07/24 10:20 e-Cigarette/Vaping Use Never Used 03/07/24 10:20 Thrive Assessment: Date of Thrive Assessment Date Thrive assessed 12/07/23 03/07/24 10:20 Const General: cooperative and healthy appearing Nutritional Appearance: well nourished Orientation/consciousness: patient oriented x3 Limitations: no limitations HENMT Head: Yes normal to inspection Eyes General: appearance normal, both eyes and all related structures Neck Neck: Yes normal visual inspection Chest Chest palpation & inspection: normal palpation of entire chest wall Resp Effort & Inspection: normal respiratory effort Neuro General: patient oriented x3 Extrem Other: Lower ext: No edema in the feet. Assessment and Plan Assessment & Plan (1) (HFpEF) heart failure with preserved ejection fraction: Code(s): I50.30 - Unspecified diastolic (congestive) heart failure Plan: With improvement in this condition, patient symptoms have resolved. Jardiance will be stopped. Patient would like to be on less medication. Patient current weight is 273 lbs. Advised him to check his weight regularly. If he gains 5 lbs or more, to call the office. Coding Level of Care Code Est Pt Level 4 (90552) Diagnoses (HFpEF) heart failure with preserved ejection fraction I50.30
[2024-03-07 10:20] VITALS: BP 112/60; PULSE 65; O2SAT 98; BMI 33.3
== END 2024-03-07 12:20 | disposition home or self-care (01) ==
PROVIDERS: PCP Internal Medicine; Visit Provider Internal Medicine
DX: I50.30 Unspecified diastolic (congestive) heart failure (principal)
CPT/HCPCS: 99214

== ENCOUNTER → 2024-03-27 09:35 | Outpatient (REF) | payer MEDICARE, SELFPAY ==
--- NOTE | 2024-03-27 09:40 | HM_ITS ---
* Total monitoring time 2 weeks. * Underlying rhythm is sinus with an average rate of 77/Min. * Frequent ventricular ectopy with a burden of 5%. Rare couplets, triplets, bigeminy and trigeminy. Multiple morphologies. 3 short runs. Longest 4 beats. Monomorphic. * Rare supraventricular ectopy. * No significant pauses or AV blocks. * No patient markers or diary events. MTDD
== END ==
LOC: HO.CARD 09:35
PROVIDERS: PCP Internal Medicine; Visit Provider Internal Medicine Cardiovascular Disease
DX: I48.0 Paroxysmal atrial fibrillation (principal); I50.30 Unspecified diastolic (congestive) heart failure
CPT/HCPCS: 93246

== ENCOUNTER → 2024-03-27 09:40 | Outpatient (BNV) | payer MEDICARE, SELFPAY | PROVIDERS: PCP Internal Medicine; Visit Provider Internal Medicine | DX: I49.3 Ventricular premature depolarization (principal) | CPT/HCPCS: 93248 ==

== ENCOUNTER 2024-04-03 13:01 | Outpatient (REF) | payer SELFPAY | END 2024-04-03 13:02 | disposition home or self-care (01) | LOC: HO.HAP 13:01 | PROVIDERS: Visit Provider Internal Medicine | DX: Z13.89 Encounter for screening for other disorder (principal) ==

== ENCOUNTER 2024-04-16 15:49 | Outpatient (REF) | payer MEDICARE, SELFPAY | END 2024-04-16 15:50 | disposition home or self-care (01) | LOC: HO.SH 15:49 | PROVIDERS: Visit Provider Internal Medicine | DX: Z01.118 Encounter for examination of ears and hearing with other abnormal findings (principal); H90.3 Sensorineural hearing loss, bilateral | CPT/HCPCS: 92557 ==

== ENCOUNTER 2024-05-03 01:04 | Emergency (ER) | payer MEDICARE, SELFPAY ==
--- NOTE | 2024-05-03 | ECG_ITS ---
Test Reason : ETOH/FALL Blood Pressure : / mmHG Vent. Rate : 066 BPM Atrial Rate : 066 BPM P-R Int : 176 ms QRS Dur : 102 ms QT Int : 460 ms P-R-T Axes : 010 -38 005 degrees QTc Int : 482 ms Sinus rhythm with occasional Premature ventricular complexes Left axis deviation Nonspecific ST abnormality Prolonged QT Abnormal ECG When compared with ECG of 20-DEC-2023 18:12, Sinus rhythm has replaced Atrial fibrillation Vent. rate has decreased BY 40 BPM Nonspecific T wave abnormality no longer evident in Lateral leads Referred By: Sindy Blanco Electronically Signed By:THANG HERRERA MD
--- NOTE | ~2024-05-03 | CT_ITS ---
EXAMINATION: CT ABDOMEN AND PELVIS WITHOUT CONTRAST CLINICAL INFORMATION: Not following commands, EtOH COMPARISON: None available. TECHNIQUE: Multidetector volumetric imaging was performed from the superior aspect of the liver through the pubic symphysis. Sagittal and coronal reformatted images were obtained on the technologist's workstation. This CT examination was performed using dose optimization techniques as appropriate, variously including the following: *Automated exposure control *Adjustment of mA and/or kV according to patient size (this includes techniques or standardized protocols for targeted exams where dose is matched to indication/reason for exam; i.e. extremities or head) *Use of iterative reconstruction technique DLP: 3087 mGy-cm FINDINGS: LUNG BASES: Bibasilar subpleural reticulation which may represent a chronic nonspecific interstitial lung disease. LIVER, GALLBLADDER, AND BILIARY TREE: The liver is normal in size, shape, and attenuation. No focal hepatic lesion or biliary ductal dilatation is identified on this noncontrast exam. Small gallstone noted. No appreciable gallbladder wall thickening or surrounding inflammation. PANCREAS: Moderately atrophic. SPLEEN: Unremarkable. ADRENAL GLANDS: Left adrenal benign myelolipoma. Right adrenal gland is unremarkable. KIDNEYS AND URETERS: No hydronephrosis or obstructing calculus bilaterally. Inadequate assessment of the renal parenchyma without intravenous contrast. Nonspecific bilateral perinephric stranding. BLADDER: Moderately distended without significant wall thickening. Small diverticulum at the dome of the bladder. GASTROINTESTINAL TRACT: Colonic diverticulosis is noted. The small and large bowel are otherwise unremarkable without evidence of obstruction or pericolonic inflammatory change. No free fluid or free air is seen. ABDOMINAL WALL: Small fat-containing umbilical hernia. LYMPH NODES: Normal. VASCULAR: There is atherosclerotic calcification along the aorta and iliac arteries. PELVIC VISCERA: Unremarkable. OSSEOUS STRUCTURES: Multilevel degenerative changes in the spine. CT/CT abdomen pelvis wo IV con IMPRESSION: 1. No acute findings identified in the abdomen/pelvis. 2. Cholelithiasis.
--- NOTE | ~2024-05-03 | CT_ITS ---
EXAMINATION: NONCONTRAST HEAD CT NONCONTRAST CERVICAL SPINE CT INDICATION INFORMATION: Not following commands, EtOH COMPARISON: 02/23/2024 TECHNIQUE: Separate noncontrast CT examinations of the head and cervical spine were performed. Coronal head CT images and coronal and sagittal cervical spine images were created at the technologist workstation. DLP: 3087 mGy-cm DOSE LOWERING TECHNIQUES: This CT examination was performed using dose optimization techniques as appropriate, variously including the following: - Automated exposure control - Adjustment of mA and/or kV according to patient size (this includes techniques or standardized protocols for targeted exams were dose is matched to indication/reason for exam; i.e. extremities or head) - Use of iterative reconstruction technique FINDINGS: Head: There is no evidence of acute intracranial hemorrhage or territorial infarction. No abnormal mass-effect or midline shift is seen. [place] to white matter differentiation is well preserved. No extra-axial fluid collections are identified. The ventricles are normal in size. There is moderate periventricular white matter hypoattenuation consistent with chronic small vessel ischemic disease. Region of chronic infarct in the right CAR FERRY MASTER territory. Mild volume loss is noted. The osseous structures and soft tissues are normal. The mastoid air cells and visualized portions of the paranasal sinuses are well-aerated. Cervical spine: There is anatomic alignment of the vertebral bodies and posterior elements. Mild loss of height in C5 anteriorly appears well-corticated and is favored to be chronic. Vertebral body heights are otherwise maintained. Severe bilateral facet arthropathy. Severe disc space narrowing and endplate osteophyte formation of the mid to lower cervical spine. No evidence of acute fracture. No prevertebral soft tissue swelling. Visualized portions of the lung apices are unremarkable. The thyroid gland is unremarkable. CT/CT head/brain wo IV con IMPRESSION: HEAD: No acute intracranial findings. Chronic small vessel ischemic disease and volume loss. 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 CERVICAL SPINE: No acute findings identified. Severe degenerative changes.
--- NOTE | ~2024-05-03 | CT_ITS ---
EXAMINATION: NONCONTRAST HEAD CT NONCONTRAST CERVICAL SPINE CT INDICATION INFORMATION: Not following commands, EtOH COMPARISON: 02/23/2024 TECHNIQUE: Separate noncontrast CT examinations of the head and cervical spine were performed. Coronal head CT images and coronal and sagittal cervical spine images were created at the technologist workstation. DLP: 3087 mGy-cm DOSE LOWERING TECHNIQUES: This CT examination was performed using dose optimization techniques as appropriate, variously including the following: - Automated exposure control - Adjustment of mA and/or kV according to patient size (this includes techniques or standardized protocols for targeted exams were dose is matched to indication/reason for exam; i.e. extremities or head) - Use of iterative reconstruction technique FINDINGS: Head: There is no evidence of acute intracranial hemorrhage or territorial infarction. No abnormal mass-effect or midline shift is seen. Ayala to white matter differentiation is well preserved. No extra-axial fluid collections are identified. The ventricles are normal in size. There is moderate periventricular white matter hypoattenuation consistent with chronic small vessel ischemic disease. Region of chronic infarct in the right SERVICES HOST territory. Mild volume loss is noted. The osseous structures and soft tissues are normal. The mastoid air cells and visualized portions of the paranasal sinuses are well-aerated. Cervical spine: There is anatomic alignment of the vertebral bodies and posterior elements. Mild loss of height in C5 anteriorly appears well-corticated and is favored to be chronic. Vertebral body heights are otherwise maintained. Severe bilateral facet arthropathy. Severe disc space narrowing and endplate osteophyte formation of the mid to lower cervical spine. No evidence of acute fracture. No prevertebral soft tissue swelling. Visualized portions of the lung apices are unremarkable. The thyroid gland is unremarkable. CT/CT cervical spine wo IV con IMPRESSION: HEAD: No acute intracranial findings. Chronic small vessel ischemic disease and volume loss. Chronic right SERVICES HOST territory infarct. CERVICAL SPINE: No acute findings identified. Severe degenerative changes.
[2024-05-03 01:18] VITALS: BP 104/50; PULSE 66; RESP 18; TEMP 36.6; O2SAT 96; BMI 35.2
--- NOTE | 2024-05-03 01:19 | MHC.EDTECH ---
Patient came in by ambulance,changed into hospital attire,vitals taken and placed on the cardiac technologist,EKG taken per order and signed by provider,call mackay in reach
--- NOTE | 2024-05-03 01:33 | ED.FALL ---
HPI - Fall General Chief Complaint: Fall Stated Complaint: etoh fall Time Seen by Provider: 05/03/24 01:05 History of Present Illness HPI Narrative: [facility] is 89 [facility] patient fell in the bathroom. After drinking alcohol. Head backward question hit his head patient is definitely landed on his gluteal area. Complaining of pain. No nausea no vomiting. No focal weakness. Patient is on Eliquis. Has a history of congestive heart failure. History of ascending aortic aneurysm no abdominal pain no focal weakness. Has a history of atrial fibrillation Related Data Home Medications ?Medication ?Instructions ?Recorded ?Confirmed gabapentin 100 mg capsule 100 mg PO BEDTIME 01/11/24 01/25/24 Previous Rx's ?Medication ?Instructions ?Recorded rivaroxaban 20 mg tablet (Xarelto) 20 mg PO QPM #30 tabs 01/19/24 enalapril maleate 10 mg tablet 10 mg PO DAILY #90 tabs 02/26/24 fluticasone propionate 115 2 puff inhalation BID asthma 30 04/02/24 mcg-salmeterol 21 mcg/actuation days #12 grams HFA inhaler (Advair HFA) furosemide 20 mg tablet 20 mg PO DAILY #60 tabs 04/10/24 metoprolol succinate 25 mg 25 mg PO DAILY #30 tabs 04/11/24 tablet,extended release 24 hr (Toprol XL) Allergies Allergy/AdvReac Type Severity Reaction Status Date / Time No Known Allergies Allergy Verified 05/03/24 01:22 Review of Systems Review of Systems: Positive fall Positive EtOH PMFSH Past Medical History Attestation statement: The following information was validated with the patient. Medical History Dysphagia History of prostate cancer Hyperlipidemia Cough Asthma Allergic rhinitis Surgical History Status post trigger finger release History of colonoscopy History of cataract surgery History of prostate surgery Family History Family History Mother No problems noted. Father No problems noted. Social History Social History Housing: Apartment Alcohol intake: current Alcohol intake frequency: 0-2 drinks per day Alcohol type: wine Patient Tobacco Use Status: Former Tobacco user Tobacco use type: Cigarette e-Cigarette/Vaping Use: Never Used Second Hand Smoke Exposure: No Use of substances other than those prescribed or required for medical reasons: No Advance Directives: No Advance Directives Information Provided: Yes Do you have a plan to hurt others: No Plan service: No Current occupational status: retired Cognitive needs: Yes (walker/cane) Hearing needs: Yes (hearing aide) Vision needs: Yes (Glasses) Physical Exam Vital Signs: Vital Signs: Last Vital Signs Temp 97.8 F 05/03/24 01:18 Pulse 61 05/03/24 02:07 Resp 18 05/03/24 02:07 BP 107/64 05/03/24 02:07 Pulse Ox 97 05/03/24 02:07 O2 Del Method Room Air 05/03/24 02:07 BMI result Body Mass Index 35.2 Appearance: Alert. Oriented X3. No acute distress. Eyes: Pupils equal, round and reactive to light. ENT: Pharynx normal. Neck: Normal inspection. Neck supple. No lymph nodes noted. No crepitus CVS: Normal heart rate and rhythm. Pulses normal. Normal S1 and S2 Respiratory: No respiratory distress. Breath sounds normal. No Wheezing. No rales Abdomen: Soft and nontender. No rigidity. No distention. good BS x4 Skin: Skin warm and dry. Normal skin color. Normal skin turgor. Extremities: No lower extremity edema. Neurovascular intact to all extremities. No Lacerations. No Rash Neuro: Oriented X 3. No motor deficit. No sensory deficit. Moving all extermities. No slurred speech Medical Decision Making Medical Decision Making MDM Narrative: Patient accidental fall after drinking alcohol. Is on blood thinners. Is on Xarelto. CT scan of the head and C-spine were done. Radiology's reading was negative for bleeding no fracture. CT scan of the abdomen pelvis showed no acute hip fracture no retroperitoneal bleed no acute traumatic bleed. No solid organ injury. Patient's alcohol is proximally to 80. Monitor in the emergency department. Will discharge patient home if family is available to monitor. In stable condition. Patient's urine showed positive for blood. Will require urology follow-up. Discussed with patient risk of malignancy exists. Differential Diagnosis Differential Diagnoses: The differential diagnosis associated with the presentation includes Admission/Observation Consideration of admission/observation: Escalation of care including admission/observation considered Lab Data MDM Lab Attestation statement: I reviewed the patient's lab results. 05/03/24 01:37 05/03/24 01:37 Labs: Lab Results 05/03/24 05/03/24 Range/Units 01:37 02:45 WBC 6.4 (4.8-10.8) X10*3/uL RBC 4.39 L (4.60-5.80) X10*6/uL Hgb 13.5 L (14.0-18.0) g/dl Hct 40.7 L (42.0-52.0) % MCV 92.7 (80.0-98.0) fL MCH 30.8 (27.0-33.0) pg MCHC 33.2 (31.0-36.0) g/dl RDW 16.2 H (11.0-16.0) % Plt Count 199 D (160-400) X10*3/uL MPV 9.1 L (9.4-12.4) fL Immature Gran % (Auto) 0.6 H (0.0-0.4) % Neut % (Auto) 59.1 (45-73) % Lymph % (Auto) 18.5 L (20-40) % [place] % (Auto) 9.5 (2-11) % Eos % (Auto) 11.4 H (0-4) % Baso % (Auto) 0.9 (0-2) % Lymph # (Auto) 1.2 (1.2-4.9) X10*3/uL [place] # (Auto) 0.6 (0.1-1.2) X10*3/uL Eos # (Auto) 0.7 H (0.0-0.4) X10*3/uL Baso # (Auto) 0.1 (0.0-0.2) X10*3/uL Abs Immat Gran (auto) 0.04 H (0.00-0.03) X10*3/uL Absolute Neuts (auto) 3.8 (2.0-8.3) x10*3/uL Absolute Nucleated RBC 0.000 (0.0-0.012) X10*3/uL Nucleated RBC % (auto) 0.0 (0.0-0.2) /100WBC Sodium 141 (135-145) mmol/L Potassium 3.9 (3.3-5.1) mmol/L Chloride 110 H (96-108) mmol/L Carbon Dioxide 23 (22-29) mmol/L Anion Gap 12 (12-20) BUN 19 H (9-16) mg/dL Creatinine 1.15 (0.5-1.4) mg/dL Estim Creat Clear Calc 66.9 Estimated GFR > 60 Random Glucose 106 (60-115) mg/dL Calcium 9.0 (8.4-10.2) mg/dL Total Bilirubin 0.3 (0.0-1.0) mg/dL AST 16 (5-37) U/L ALT 6 (0-40) U/L Alkaline Phosphatase 66 (39-117) U/L Total Protein 6.3 L (6.5-8.0) g/dL Albumin 3.4 L (3.5-5.0) g/dL Urine Color Yellow Urine Appearance Cloudy Urine pH 5.5 (5.0-9.0) Ur Specific [place] 1.015 (1.005-1.025) Urine Protein 30 (1+) H (Neg-Trace) mg/dL Urine Glucose (UA) Negative (Negative) mg/dL Urine Ketones Negative (Negative) mg/dL Urine Blood Large (3+) H (Negative) Urine Nitrite Negative (Negative) Ur Leukocyte Esterase Trace H (Negative) Urine RBC >20 H (0-2) /HPF Urine WBC 0-5 (0-5) /HPF Ur Squamous Epith Cells 0-2 (0-2) /HPF Urine Bacteria None Seen (None Seen) Hyaline Casts 0-2 (0-2) /LPF Ethyl Alcohol 239 mg/dL Independent Interpretation I performed an independent interpretation of an: EKG (My interpretation patient's EKG showed a sinus rhythm heart rate is 70 NM QRS QTC normal nonspecific T-wave flattening noted positive PVC noted) and CT Scan (CT head negative for bleed) Radiology Impression Discussion of test interpretation with radiology: I have reviewed the radiologist's reading. Chronic Conditions Patient?s care impacted by: Hypertension History of atrial fibrillation Social Determinants Patient?s care significantly limited by Social Determinants of Health including: Alcoholism and drug addiction in family Discharge Plan Discharge Clinical Impression: Head injury, Hematuria, Alcohol intoxication Patient Disposition: Home, Self-Care Instructions: Hematuria (ED), Head Injury (ED), Alcohol Intoxication (ED) Additional Instructions: Please stop drinking alcohol. Microscopic blood was found in the urine. Please follow-up with urology. Risk of malignancy exists. Prescriptions: No Action Xarelto 20 mg tablet 20 mg PO QPM Qty: 30 3RF Rx Instructions: must administer with evening meal enalapril maleate 10 mg tablet 10 mg PO DAILY Qty: 90 0RF fluticasone propion-salmeterol [Advair HFA] 115-21 mcg/actuation HFA aerosol inhaler 2 puff inhalation BID 30 Days Qty: 12 3RF furosemide 20 mg tablet 20 mg PO DAILY Qty: 60 1RF metoprolol succinate [Toprol XL] 25 mg tablet extended release 24 hr 25 mg PO DAILY Qty: 30 5RF gabapentin 100 mg capsule 100 mg PO BEDTIME Referrals: Benito Donald MD [Physician] - 05/08/24 Hayden Savage MD [Primary Care Provider] - Print Language: French
[2024-05-03 01:40] LABS: MANUAL DIFF FLAG NO
[2024-05-03 01:41] LABS: Basophils Absolute Auto 0.1 X10*3/uL (0.0-0.2); Basophils Percent Auto 0.9 % (0-2); Eosinophils Absolute Auto 0.7 X10*3/uL (0.0-0.4); Eosinophils Percent Auto 11.4 % (0-4); Hematocrit 40.7 % (42.0-52.0); Hemoglobin 13.5 g/dl (14.0-18.0); Imm Gran Abs Auto 0.04 X10*3/uL (0.00-0.03); Imm Gran Pct Auto 0.6 % (0.0-0.4); Lymphocytes Absolute Auto 1.2 X10*3/uL (1.2-4.9); Lymphocytes Percent Auto 18.5 % (20-40); Mean Corpuscular HGB Conc 33.2 g/dl (31.0-36.0); Mean Corpuscular Hemoglobin 30.8 pg (27.0-33.0); Mean Corpuscular Volume 92.7 fL (80.0-98.0); Mean Platelet Volume 9.1 fL (9.4-12.4); Monocytes Absolute Auto 0.6 X10*3/uL (0.1-1.2); Monocytes Percent Auto 9.5 % (2-11); Neutrophils Absolute Auto 3.8 x10*3/uL (2.0-8.3); Neutrophils Percent Auto 59.1 % (45-73); Platelet Count 199 X10*3/uL (160-400); Red Blood Count 4.39 X10*6/uL (4.60-5.80); Red Cell Distribution Width 16.2 % (11.0-16.0); White Blood Count 6.4 X10*3/uL (4.8-10.8)
[2024-05-03 02:06] LABS: Alanine Aminotransferase 6 U/L (0-40); Albumin Level 3.4 g/dL (3.5-5.0); Alkaline Phosphatase 66 U/L (39-117); Anion Gap 12 (12-20); Aspartate Amino Transferase 16 U/L (5-37); Bilirubin Total 0.3 mg/dL (0.0-1.0); Blood Urea Nitrogen 19 mg/dL (9-16); Carbon Dioxide 23 mmol/L (22-29); Chloride 110 mmol/L (96-108); Creatinine Clr Calc Pharmacy 66.9; Estimated Glomerular Filt Rate > 60; Ethanol 239 mg/dL; Glucose Random 106 mg/dL (60-115); Potassium 3.9 mmol/L (3.3-5.1); Sodium 141 mmol/L (135-145); Total Protein 6.3 g/dL (6.5-8.0)
[2024-05-03 02:07] VITALS: BP 107/64; PULSE 61; RESP 18; O2SAT 97
--- NOTE | 2024-05-03 02:44 | MHC.EDTECH ---
Patient urinated 300MLS of tea color urine,sample obtained and sent to lab.
[2024-05-03 02:52] LABS: Appearance Urine Cloudy; Color Urine Yellow; Glucose Urine UA Negative (Negative); Leukocyte Esterase Urine Trace (Negative); Nitrite Urine Negative (Negative); PH 5.5 (5.0-9.0); Specific Gravity - Urine 1.015 (1.005-1.025); UMIC TRIGGER UACC YES; Urine Blood Large (3+) (Negative); Urine Ketones Negative (Negative); Urine Protein 30 (1+) mg/dL (Neg-Trace)
[2024-05-03 03:02] LABS: Bacteria Urine None Seen (None Seen); Hyaline Casts Urine 0-2 /LPF (0-2); RBC Urine >20 /HPF (0-2); Squamous Epithelial Cell Urine 0-2 /HPF (0-2); WBC Urine 0-5 /HPF (0-5)
[2024-05-03 04:14] VITALS: RESP 16
[2024-05-03 05:58] VITALS: BP 102/63; PULSE 58; RESP 18; TEMP 36.6; O2SAT 98
--- NOTE | 2024-05-03 05:58 | MHC.EDTECH ---
Hourly rounds and vitals completed,patient urinated 300MLS in urinal.
[2024-05-03 07:01] VITALS: BP 102/63; PULSE 25; RESP 18; TEMP 36.6; O2SAT 98
== END 2024-05-03 07:06 | disposition home or self-care (01) ==
PROVIDERS: Emergency Provider Emergency Medicine Emergency Medical Services; PCP Internal Medicine
DX: S09.90XA Unspecified injury of head, initial encounter (principal); R51.9 Headache, unspecified; F10.20 Alcohol dependence, uncomplicated; R31.9 Hematuria, unspecified; R94.31 Abnormal electrocardiogram [ECG] [EKG]; M54.2 Cervicalgia; R10.2 Pelvic and perineal pain; W01.10XA Fall on same level from slipping, tripping and stumbling with subsequent striking against unspecified object, initial encounter; Y93.9 Activity, unspecified; Y92.9 Unspecified place or not applicable; Y99.8 Other external cause status; Y90.7 Blood alcohol level of 200-239 mg/100 ml; Z79.899 Other long term (current) drug therapy
CPT/HCPCS: 36415; 70450; 72125; 74176; 80053; 80307; 81001; 85025; 93005; 99284; 99285

== ENCOUNTER → 2024-05-03 01:11 | Outpatient (BNV) | payer MEDICARE, SELFPAY | PROVIDERS: Emergency Provider Emergency Medicine Emergency Medical Services; PCP Internal Medicine; Visit Provider Internal Medicine Cardiovascular Disease | DX: R94.31 Abnormal electrocardiogram [ECG] [EKG] (principal) | CPT/HCPCS: 93010 ==

== ENCOUNTER → 2024-05-06 13:09 | Outpatient (REF) | payer MEDICARE, SELFPAY ==
--- NOTE | 2024-05-06 13:16 | HM_ITS ---
* Total monitoring time 3 days. * Underlying rhythm is sinus with an average rate of 63/Min. * Rare supraventricular ectopy. * Occasional ventricular ectopy with a burden of about 1%. Rare couplets, bigeminy, trigeminy. Multiple morphologies. * No significant pauses or AV blocks. * Patient markers used twice, in association with sinus rhythm and PVCs. * Patient diary with no events. MTDD
== END ==
LOC: HO.CARD 13:09
PROVIDERS: PCP Internal Medicine; Visit Provider Internal Medicine Cardiovascular Disease
DX: I49.3 Ventricular premature depolarization (principal)
CPT/HCPCS: 93242

== ENCOUNTER → 2024-05-06 13:16 | Outpatient (BNV) | payer MEDICARE, SELFPAY | PROVIDERS: PCP Internal Medicine; Visit Provider Internal Medicine | DX: I49.3 Ventricular premature depolarization (principal) | CPT/HCPCS: 93244 ==

== ENCOUNTER 2024-06-07 09:00 | Outpatient (REF) | payer SELFPAY ==
--- NOTE | 2024-06-07 15:03 | MHC.AU.HA1 ---
Hearing Aid Evaluation Date of Visit: 06/07/24 Historical Information: Description of Hearing: Moderate to severe sensorineural hearing loss, bilateral. Current personal amplification information, if applicable: Phonak Audeo M70 R. Summary: Sekou continues to have issues with static from hearing aid. Ready to proceed with new amplification rather than repair aid. He reports he tried hearing aids through his [facility] hearing benefit and was very disappointed with them. He would like to get new hearing aids here. We will stick with Phonak so he can continue to use is TV streamer and have flexibility for bluetooth connections as he uses Zoom often. 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 He notes difficulty hearing at gatherings with his large family as well. Selected Audeo P70 13T to have sufficient battery power for that level of streaming. He has been frustrated with his rechargeable hearing aids not lasting all day for him. Sekou wants to keep using his old slim tips. This should be fine, though they are getting a bit worn, suggested replacing those within the next year or two. Hearing Aid Prescription: Based on the individual?s shared listening needs, communication environments, dexterity, desire for connectivity, and personal preferences, the following prescription for amplification has been made: Right ear: Make, Model, Color: Phonak Audeo P70 13 T sand beige Battery Size: 13 Document Control Specialist/Slim Tube: 3M Type of Earmold/Dome/CShell/SlimTip: Secure Fit Tip SN: [id number] Warranty: 05/29/2023 Left ear: Left ear prescription to be same as Right Hearing Aid above: Make, Model, Color: Phonak Audeo P70 13 T sand beige Battery Size: 13 Document Control Specialist/Slim Tube: 3M Type of Earmold/Dome/CShell/SlimTip: Secure Fit Tip SN: [id number] Warranty: 05/29/2023 Plan of Care: Patient wishes to purchase hearing aids as prescribed Action Taken/Action Needed: Medical Clearance to be requested from PCP/ENT Hearing Instrument Fitting to be scheduled when materials arrive Primary Diagnosis: H90.3 Bilateral Sensorineural Hearing Loss Signature: Provider: Edgard Louis, [facility]
== END 2024-06-07 09:01 | disposition home or self-care (01) ==
LOC: HO.HAP 09:00
PROVIDERS: Visit Provider Internal Medicine
DX: Z46.1 Encounter for fitting and adjustment of hearing aid (principal); H90.3 Sensorineural hearing loss, bilateral
CPT/HCPCS: 92590

== ENCOUNTER 2024-06-19 14:32 | Outpatient (REF) | payer SELFPAY ==
--- NOTE | 2024-06-19 15:32 | MHC.AU.HA2 ---
Hearing Instrument Fitting- Adult- Binaural Date of Visit: 06/19/24 Hearing Instruments Dispensed: Right Ear: Make, Model, Color, Serial Number: Branden Nazarioeo P70 13 T roscoe kuo S#[id number] Alarm Field Technician Repair Warranty: 07/11/2027 Alarm Field Technician Loss and Damage Warranty: 07/11/2027 [facility] Service Plan: n/a Battery Size: 13 Sandblaster Paint Sprayer/Slim Tube: 3M Earmold/Dome/CShell/SlimTip: Secure Fit Tip SN: [id number] Warranty: 05/29/2023 Type of Wax Guard: CeruStop Left Ear: Make, Model, Color, Serial Number: Branden Nazarioeo P70 13 T roscoe kuo S#[id number] Alarm Field Technician Repair Warranty: 07/11/2027 Alarm Field Technician Loss and Damage Warranty: 07/11/2027 [facility] Service Plan: n/a Battery Size: 13 Sandblaster Paint Sprayer/Slim Tube: 3M Earmold/Dome/CShell/SlimTip: Secure Fit Tip SN: [id number] Warranty: 05/29/2023 Type of Wax Guard: CeruStop Summary of Fitting: Fit with and oriented to binaural Phonak Audeo P 13 T HAs. Verified to DSL adult 5 targets, felt a bit too loud, decreased overall gain slightly. Reviewed battery procedures. 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 Pt is familiar with cerustop wax guards. Paired with phone and teagan. Advised he will have to pair these with his TV streamer at home. His old hearing aids were placed in the new hearing aid case to go home with him. Recommendations: Recommendations: Hearing instrument care and maintenance were discussed and practiced. The instrument(s) were paired to the patient's smartphone. A hearing instrument follow-up was scheduled. Diagnosis Code(s): Primary Diagnosis: H90.3 Bilateral Sensorineural Hearing Loss Signature: Provider: Edgard Louis, [facility]
== END 2024-06-19 14:33 | disposition home or self-care (01) ==
LOC: HO.HAP 14:32
PROVIDERS: Visit Provider Internal Medicine
DX: Z46.1 Encounter for fitting and adjustment of hearing aid (principal); H90.3 Sensorineural hearing loss, bilateral
CPT/HCPCS: 92700; V5261

== ENCOUNTER 2024-07-10 14:29 | Outpatient (REF) | payer SELFPAY | END 2024-07-10 14:30 | disposition home or self-care (01) | LOC: HO.HAP 14:29 | PROVIDERS: Visit Provider Internal Medicine | DX: Z13.89 Encounter for screening for other disorder (principal) ==

== ENCOUNTER 2024-07-30 12:52 | Outpatient (AMB) | payer MEDICARE, SELFPAY ==
[2024-07-30 13:09] LABS: Prothrombin Time Whole Bld POC 13.6 sec (11.1-13.5); ~PT, ~INR - Anti Coag Clinic 1.1 (0.9-1.1)
--- NOTE | 2024-07-30 13:11 | MHC.OFFVISCO ---
Intake Intake Visit Reasons: Anticoagulation Replenishment Analyst Required: No Allergies No Known Allergies Allergy (Verified 07/30/24 13:00) Medication List - Last Reconciled 07/30/24 by Siobhan Ballard RN ciprofloxacin HCl 500 mg PO BID enalapril maleate 10 mg PO DAILY fluticasone propion-salmeterol 115-21 mcg/actuation (Advair HFA) 2 puffs inhalation BID 30 days furosemide 20 mg PO DAILY gabapentin 300 mg PO BEDTIME metoprolol succinate ER (Toprol XL) 25 mg PO DAILY warfarin 5 mg PO DAILY Nursing Note Pt arrive to appt very pleasant and well groomed, stated he had been off xarelto over a week, offers no complaints other than hip pain which is concerning because he has an ABD Aortic Aneurysm, he states though he feels healthy, occ has deep itching in his hands and takes gabapentin prn for it. He lives alone in assisted living, pt family in the area and is supportive of him, he is , ex lives in same facility, Has of ETOH fall ER visit earlier this year in which family intervened with success, he has 2small ETOH drinks per day. INR: 1.1 NOT therapeutic range - only has had 4 doses of warfarin 5mg Medications and supplements reviewed-Pt off of Xarelto for over a week and started warfarin 4 days ago, possibly Monday07/26/24 - pt verbalized not sure, Denies any signs and symptoms of bleeding or bruising or clotting. Warfarin Education given, diet , medication, bleeding, bruising, clotting discussed - pt stated he felt overwhelmed and education halted and briefly reviewed the reason for warfarin - to prevent stroke , diet- to eat his usual diet and warfarin to be adjusted to his diet, call in 1-2 days of any illnesses or med changes or any unusual bleeding or bruising, pt provided read back - will review again this Monday Nutritional guidance given - avoid spinach today but eat usual diet Diet: he usually eats 1 noon time meal provided by [facility] / day, his other meals he does on his own Dose: 7.5mg today 5mg mon and recheck monday08/02/24 F/U INR: 08/02/24 Patient verbalizes understanding of instructions given Msg of low INR provided to PCP Dr Savage and Licensed Therapist Dr Coates Anti-Coag Initial Assessment Social Hx Patient Tobacco Use Status: Former Tobacco user ( long time ago 10-30 years ago ) Tobacco use type: Cigarette alcohol intake: current Alcohol intake frequency: 0-2 drinks per day Housing: Assisted Living Facility current occupation: retiered current occupational exposures/hazards: No Fall risk assessment: 1 Fall in past year (no injury) Cardiovascular Hx: HTN (om enalapril), Angina, [place] and Arrhythmias (afib - aprotic anuerysm ) Lung Disease HX: 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 Illness/Depression: No Other: has hand itching that is very deep into the tissues and takes gabapentin at HS of a freezing pad to help Hx of trigger fingers that he had surgery for it at [facility] Anti-Coag. Education Record Teaching Recipient: Patient What is the easiest way to learn: Reading, Listening and Education Packet Barriers to Learning Identified: Other: (pt stated that he is feeling overwhelmed with all the information- reviewed medication , diet and why the need for warfaring ) List any additional concerns (family/financial etc.): comprehension and retention of material If Barriers are identified, describe method to overcome: comprehension and retention of information: break down discussion of information into sections, diet , meds and the why, then s/sx to report Replenishment Analyst Required: No Readiness To Learn: Fair Teaching Methods: Demonstration, Handout and Teach Back Response to Teaching: Reinforcement Needed Re-Education needs: Reinforce Content Education Intervention/Brief Description of Teaching 1. Able to state reason for taking Warfarin: Yes 2. Able to state Pain Management techniques: Yes 3. Able to state action of Warfarin.: Yes Able to state current dose, pill color, how and when Warfarin to be taken: Yes Able to identify signs of bleeding &/or clotting: Yes 4. Able to identify need to keep diet consistent in regard to vitamin K intake: Yes Able to state restriction on alcohol: Yes 5. Able to state need for compliance with PT/INR testing: Yes Patient instructed to monitor for excess bruising or signs/symptoms of clotting or bleeding: Yes 6. Able to state that there are drugs that interact with Warfin: No 7. Able to state the need to seek medical attention when illness/injury occur.: Yes Describes the need to avoid activities with high risk of injury: Yes 8. Able to state duration of treatment: Yes 9. Demonstrates understanding of notifying all providers of pending dental surgical, or other invasive procedures: Yes 10. Able to state Home Care instructions Additional comments: pt verbalized of being overwhelmed with discussion of the why on warfarin, diet and medication from booklet, pt enc to review education packet then review and discuss what he learned. Questionnaires HAS-BLED Does the patient had uncontrolled Hypertension?: No Does the patient have renal disease?: No Does the patient have liver disease?: No Does the patient have a history of stroke?: No Has the patient had major bleeding or predisposition to bleeding?: Yes (hx of ETOH in the past ) Does the patient have labile INRs?: Yes (just started warfarin 3 days ago) Is the patient over 65 years of age?: Yes Is the patient on medications that gives them a predisposition to bleeding?: Yes Does the patient use alcohol?: Yes (limits self 2 / day ) HAS-BLED Score: 5 CHADSVASC Age: 75 or over Gender: Male Does the patient have a history of CHF?: Yes Does the patient have a history of Hypertension?: No Does the patient have a history of Stroke/TIA/Thromboembolism?: No Does the patient have a history of Vascular Disease (prior [place], PAD or aortic plaque)?: Yes (ABD AORTIC ANEURYSM) Does the patient have a history of Diabetes?: No CHADS VACS Score: 4 Chucky Prediction Score Rsk VTE Active Cancer: No Previous VTE, excluding superficial vein thrombosis: No Reduced mobility: No Already known Thrombophilic Condition: No With-in last month Trauma and/or Surgery: No Elderly 70 year or older: Yes Heart and/or Respiratory Failure: Yes Acute Myocardial infarction and/or Ischemic Stroke: No Acute Infection and/or Rheumatologic Disorder: No Obesity (BMI 30 or greater): Yes Ongoing Hormonal Treatment: No Score: 3 Chucky Score less than 4; Low Risk of VTE Chucky Score 4 or greater; High Risk of VTE Coding Level of Care Code New Patient Level 2 Diagnoses Current use of anticoagulant therapy Z79.01 Results AMB INR Fingerstick AMB INR Fingerstick 1.1 Last Edit by Siobhan Ballard RN on 07/30/24 13:50 MANUAL ENTRY Assessment & Plan Assessment & Plan (1) Current use of anticoagulant therapy: Code(s): Z79.01 - 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
== END 2024-07-30 16:05 | disposition home or self-care (01) ==
LOC: HO.ACS 12:52
PROVIDERS: PCP Internal Medicine; Visit Provider Internal Medicine
DX: Z79.01 Long term (current) use of anticoagulants (principal)

== ENCOUNTER → 2024-07-30 12:52 | Outpatient (BNVA) | payer SELFPAY | PROVIDERS: PCP Internal Medicine; Visit Provider Internal Medicine | DX: I48.0 Paroxysmal atrial fibrillation (principal); Z79.01 Long term (current) use of anticoagulants; Z51.81 Encounter for therapeutic drug level monitoring | CPT/HCPCS: 85610; 99202 ==

== ENCOUNTER 2024-07-30 14:08 | Outpatient (REF) | payer SELFPAY | END 2024-07-30 14:09 | disposition home or self-care (01) | LOC: HO.HAP 14:08 | PROVIDERS: Visit Provider Internal Medicine | DX: Z46.1 Encounter for fitting and adjustment of hearing aid (principal) | CPT/HCPCS: V5266 ==

== ENCOUNTER 2024-08-02 14:17 | Outpatient (AMB) | payer SELFPAY ==
[2024-08-02 14:35] LABS: Prothrombin Time Whole Bld POC 15.3 sec (11.1-13.5); ~PT, ~INR - Anti Coag Clinic 1.3 (0.9-1.1)
--- NOTE | 2024-08-02 15:01 | MHC.OFFVISCO ---
Intake Intake Visit Reasons: Anticoagulation Allergies No Known Allergies Allergy (Verified 08/02/24 14:29) Medication List - Last Reconciled 08/02/24 by Siobhan Ballard RN enalapril maleate 10 mg PO DAILY fluticasone propion-salmeterol 115-21 mcg/actuation (Advair HFA) 2 puffs inhalation BID 30 days furosemide 20 mg PO DAILY gabapentin 300 mg PO BEDTIME metoprolol succinate ER (Toprol XL) 25 mg PO DAILY warfarin 5 mg See Protocol PO DAILY Nursing Note INR 1.3? out of therapeutic range Medications and supplements reviewed Patient status: B/P 80/54 LEFT ARM/ B/P 80/62 HR 68 APICAL REGULAR- states he feels fine no dizziness or ill feeling just a little unsteady and that is why he walks with a cane. Pt states the medication is complicated - but verbalizes correctly what foods to eat to lower INR and raise the INR call was placed to pcp office no answer- at time of pt visit his pcp walked by - pt status explained- Dr Emmanuel stated to hold furosemide x2 days -will recheck b/p Monday, pt given a bottle of water to drink for now and enc that if he feels weak or dizzy to go to ER Medications or supplements: STOP FUROSEMIDE X [address] Emmanuel Diet: AVOID GREENS X 2 DAYS Denies any signs and symptoms of bleeding or clotting or unusual bruising Bleeding, bruising, clotting discussed Nutritional guidance given: Dose: 7.5MG X MON SAT SUN RECHECK MONDAY F/U INR Date : 08/05/24 ?? Patient verbalizing understanding of instructions given. 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 Illness/Depression: No Coding Level of Care Code Est Patient Level 1 Diagnoses Current use of anticoagulant therapy Z79.01 Results AMB INR Fingerstick AMB INR Fingerstick 1.3 Last Edit by Siobhan Ballard RN on 08/02/24 14:38 MANUAL ENTRY Assessment & Plan Assessment & Plan (1) Current use of anticoagulant therapy: Code(s): Z79.01 - group home (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
== END 2024-08-02 15:07 | disposition home or self-care (01) ==
LOC: HO.ACS 14:17
PROVIDERS: PCP Internal Medicine; Visit Provider Internal Medicine
DX: Z79.01 Long term (current) use of anticoagulants (principal)

== ENCOUNTER → 2024-08-02 14:17 | Outpatient (BNVA) | payer SELFPAY | PROVIDERS: PCP Internal Medicine; Visit Provider Internal Medicine | DX: I48.0 Paroxysmal atrial fibrillation (principal); Z79.01 Long term (current) use of anticoagulants; Z51.81 Encounter for therapeutic drug level monitoring | CPT/HCPCS: 85610; 99211 ==

== ENCOUNTER 2024-08-05 14:16 | Outpatient (AMB) | payer SELFPAY ==
--- NOTE | 2024-08-05 14:22 | MHC.OFFVISCO ---
Intake Intake Visit Reasons: Anticoagulation Allergies No Known Allergies Allergy (Verified 08/05/24 14:16) Medication List - Last Reconciled 08/05/24 by Cindi Moran RN enalapril maleate 10 mg PO DAILY fluticasone propion-salmeterol 115-21 mcg/actuation (Advair HFA) 2 puffs inhalation BID 30 days furosemide 20 mg PO DAILY gabapentin 300 mg PO BEDTIME metoprolol succinate ER (Toprol XL) 25 mg PO DAILY warfarin 5 mg See Protocol PO DAILY Nursing Note INR 1.7-? out of therapeutic range of 2-3 Medications and supplements reviewed Patient status: no c.o. Medications or supplements: pt states held furosemide 2 days last week per pcp Diet: appetite good Denies any signs and symptoms of bleeding or clotting or unusual bruising Bleeding, bruising, clotting discussed Nutritional guidance given: food list reviewed, cont eating reds, no greens Dose: take 7.5mg today and tomm, 5mg on mon F/U INR Date : 08/08/24? Patient verbalizing understanding of instructions given. 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
[2024-08-05 14:23] LABS: ~PT, ~INR - Anti Coag Clinic 1.7 (0.9-1.1)
== END 2024-08-05 15:05 | disposition home or self-care (01) ==
PROVIDERS: PCP Internal Medicine; Visit Provider Internal Medicine
DX: Z79.01 Long term (current) use of anticoagulants (principal)

== ENCOUNTER → 2024-08-05 14:16 | Outpatient (BNVA) | payer SELFPAY | PROVIDERS: PCP Internal Medicine; Visit Provider Internal Medicine | DX: I48.0 Paroxysmal atrial fibrillation (principal); Z79.01 Long term (current) use of anticoagulants; Z51.81 Encounter for therapeutic drug level monitoring | CPT/HCPCS: 85610; 99211 ==

== ENCOUNTER 2024-08-07 14:49 | Outpatient (AMB) | payer BC, SELFPAY ==
--- NOTE | 2024-08-07 14:54 | A.OFFPC_ITS ---
Vital Signs 08/07/24 14:59 Height 6 ft 4 in Weight 284 lb 6 oz BMI 34.6 BP 100/60 Blood Pressure Location Lt brachial Position Sitting Pulse 74 Pulse Source Pulse Oximeter Pulse Oximetry (%) 98 Oxygen Delivery Method Room Air Intake Visit Reasons: Low BP Intake Note: Patient is here to follow up on Low BP. Net Web Application Developer Required: No Spooler Rubber Strand: Not Required per policy Accompanied by: Self / Same As Patient Allergies No Known Allergies Allergy (Verified 08/07/24 14:55) Tobacco use date assessed: 08/07/24 Fall risk assessment: No Falls in past year Last assessed Fall Risk: 08/07/24 Dental Screening Dental Screen Date: 01/11/24 HPI Low BP HPI Details 89-year-old male presents to the office for a sick visit. After stopping Xarelto, patient is switched to Coumadin an established himself with the anticoagulation service. They found his blood pressure to be low at 100/80. He reports no symptoms of dizziness, weakness or fatigue. Able to function and do all activities of daily living. [facility] Medical History Dysphagia History of prostate cancer Hyperlipidemia Cough Asthma Allergic rhinitis Surgical History Status post trigger finger release History of colonoscopy History of cataract surgery History of prostate surgery Family History Mother No problems noted. Father No problems noted. Social History Housing: Assisted Living Facility Alcohol intake: current Alcohol intake frequency: 0-2 drinks per day Alcohol type: wine Patient Tobacco Use Status: Former Tobacco user ( long time ago 10-30 years ago ) Tobacco use type: Cigarette e-Cigarette/Vaping Use: Never Used Second Hand Smoke Exposure: No service: No Current occupational status: retired Current occupation: retiered Current occupational exposures/hazards: No Cognitive needs: Yes (walker/cane) Hearing needs: Yes (hearing aide) Vision needs: Yes (Glasses) Questionnaire Thrive Questionnaire Date Thrive assessed: 12/07/23 BRITTNEY-7 AMB Questionnaire BRITTNEY-7 Date BRITTNEY - 7 assessed: 12/07/23 Source: Developed by Drs. Adams Wagner, Trina Cuellar, Demetris Turpin and colleagues, with an educational kelly from [employer]. Physical exam (Primary Care) Vital Signs: Last Vital Signs Pulse 74 08/07/24 14:59 BP 100/60 08/07/24 14:59 Pulse Ox 98 08/07/24 14:59 Oxygen Delivery Method Room Air 08/07/24 14:59 BMI result Body Mass Index 34.6 Tobacco/Smoking Status: Tobacco use Status Tobacco use date assessed 08/07/24 08/07/24 14:56 Patient Tobacco Use Status Former Tobacco user ( long 08/07/24 14:56 time ago 10-30 years ago ) Tobacco use type Cigarette 08/07/24 14:56 e-Cigarette/Vaping Use Never Used 08/07/24 14:56 Thrive Assessment: Date of Thrive Assessment Date Thrive assessed 12/07/23 08/07/24 14:56 Const General: cooperative and healthy appearing Nutritional Appearance: well nourished Orientation/consciousness: patient oriented x3 Limitations: no limitations HENMT Head: Yes normal to inspection Eyes General: appearance normal, both eyes and all related structures Neck Neck: Yes normal visual inspection Chest Chest palpation & inspection: normal palpation of entire chest wall Resp Effort & Inspection: normal respiratory effort Neuro General: patient oriented x3 Assessment and Plan Assessment & Plan (1) Hypotension: Code(s): I95.9 - Hypotension, unspecified Plan: Furosemide and metoprolol were put on hold . Will continue to monitor the patient. Medications: Discontinued furosemide Discontinued Reason: Doctor's Order 20 mg PO DAILY 60 tabs 1RF metoprolol succinate ER (Toprol XL) Discontinued Reason: Doctor's Order 25 mg PO DAILY 30 tabs 5RF Coding Level of Care Code Est Pt Level 3 (96758) Complex EM visit Add On G2211 Diagnoses Hypotension I95.9
[2024-08-07 14:59] VITALS: BP 100/60; PULSE 74; O2SAT 98; BMI 34.6
== END 2024-08-07 16:23 | disposition home or self-care (01) ==
PROVIDERS: PCP Internal Medicine; Visit Provider Internal Medicine
DX: I95.9 Hypotension, unspecified (principal)
CPT/HCPCS: 99213

== ENCOUNTER 2024-08-08 10:33 | Outpatient (AMB) | payer BC, SELFPAY ==
[2024-08-08 10:53] LABS: Prothrombin Time Whole Bld POC 28.7 sec (11.1-13.5); ~PT, ~INR - Anti Coag Clinic 2.4 (0.9-1.1)
--- NOTE | 2024-08-08 11:14 | MHC.OFFVISCO ---
Intake Intake Visit Reasons: Anticoagulation Allergies No Known Allergies Allergy (Verified 08/08/24 10:45) Medication List - Last Reconciled 08/08/24 by Siobhan Ballard RN enalapril maleate 10 mg PO DAILY fluticasone propion-salmeterol 115-21 mcg/actuation (Advair HFA) 2 puffs inhalation BID 30 days gabapentin 300 mg PO BEDTIME triamcinolone acetonide 0.025% 1 appl topical BID warfarin 5 mg See Protocol PO DAILY Nursing Note INR: 2.4 in therapeutic range Medications and supplements reviewed * on 08/02/24 b/p 80s/50s hr 68 Apical regular - furoesemide held over the weekend per md *08/07/24 PCP f/u appt- furosemide and metoprolol d/cd. he stated b/p improved 100/ ... Denies any signs and symptoms of bleeding or bruising or clotting. Bleeding, bruising, clotting discussed Nutritional guidance given - will resume usual diet of daily salads and soups and other greens, cont to eat a mix of fruits and vegetables Dose: 7.5mg x 4 days/ 5mg x 3 days F/U INR: 06/13/24 then weekly x 3 wks- it was explained the goal is to have him steady and safe working to 1 month visits Patient verbalizes understanding of instructions given Anti-Coag Initial Assessment Social Hx Patient Tobacco Use Status: Former Tobacco user ( long time ago 10-30 years ago ) Tobacco use type: Cigarette alcohol intake: current Alcohol intake frequency: 0-2 drinks per day Cardiovascular Hx: HTN (om enalapril), Angina, [place] and Arrhythmias (afib - aprotic anuerysm ) Lung Disease HX: 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
== END 2024-08-08 11:18 | disposition home or self-care (01) ==
LOC: HO.ACS 10:33
PROVIDERS: PCP Internal Medicine; Visit Provider Internal Medicine
DX: Z79.01 Long term (current) use of anticoagulants (principal)

== ENCOUNTER → 2024-08-08 10:33 | Outpatient (BNVA) | payer BC, SELFPAY | PROVIDERS: PCP Internal Medicine; Visit Provider Internal Medicine | DX: I48.0 Paroxysmal atrial fibrillation (principal); Z79.01 Long term (current) use of anticoagulants; Z51.81 Encounter for therapeutic drug level monitoring | CPT/HCPCS: 85610; 99211 ==

== ENCOUNTER 2024-08-14 10:31 | Outpatient (AMB) | payer BC, SELFPAY ==
[2024-08-14 10:50] LABS: Prothrombin Time Whole Bld POC 30.4 sec (11.1-13.5); ~PT, ~INR - Anti Coag Clinic 2.5 (0.9-1.1)
--- NOTE | 2024-08-14 11:01 | MHC.OFFVISCO ---
Intake Intake Visit Reasons: Anticoagulation Allergies No Known Allergies Allergy (Verified 08/14/24 10:42) Medication List - Last Reconciled 08/14/24 by Itzel Minor RN enalapril maleate 10 mg PO DAILY fluticasone propion-salmeterol 115-21 mcg/actuation (Advair HFA) 2 puffs inhalation BID 30 days gabapentin 300 mg PO BEDTIME triamcinolone acetonide 0.025% 1 appl topical BID warfarin 5 mg See Protocol PO DAILY Nursing Note INR: 2.5 in therapeutic range of 2-3 Medications and supplements reviewed: recently taken off of metoprolol and furosemide. BP today 108/60. Denies s/s of dizziness. No changes in health, diet, medications, or supplements, Denies any signs and symptoms of bleeding or bruising or clotting. 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
== END 2024-08-14 11:04 | disposition home or self-care (01) ==
LOC: HO.ACS 10:31
PROVIDERS: PCP Internal Medicine; Visit Provider Internal Medicine
DX: Z79.01 Long term (current) use of anticoagulants (principal)

== ENCOUNTER → 2024-08-14 10:31 | Outpatient (BNVA) | payer BC, SELFPAY | PROVIDERS: PCP Internal Medicine; Visit Provider Internal Medicine | DX: I48.0 Paroxysmal atrial fibrillation (principal); Z79.01 Long term (current) use of anticoagulants; Z51.81 Encounter for therapeutic drug level monitoring | CPT/HCPCS: 85610; 99211 ==

== ENCOUNTER 2024-08-21 11:03 | Outpatient (AMB) | payer BC, SELFPAY ==
[2024-08-21 11:15] LABS: Prothrombin Time Whole Bld POC 18.1 sec (11.1-13.5); ~PT, ~INR - Anti Coag Clinic 1.5 (0.9-1.1)
--- NOTE | 2024-08-21 11:33 | MHC.OFFVISCO ---
Intake Intake Visit Reasons: Anticoagulation Allergies No Known Allergies Allergy (Verified 08/21/24 11:09) Medication List - Last Reconciled 08/21/24 by Jocelyn Roblero RN enalapril maleate 10 mg PO DAILY fluticasone propion-salmeterol 115-21 mcg/actuation (Advair HFA) 2 puffs inhalation BID 30 days gabapentin 300 mg PO BEDTIME triamcinolone acetonide 0.025% 1 appl topical BID warfarin 5 mg See Protocol PO DAILY Nursing Note PT.HAS RESUMED GREENS THIS WEEK. NO CP,SOB,MED CHANGES,FALLS OR SX OF BLEEDING. BOOST TO 10MGM TODAY THEN INCREASE WEEKLY DOSE TO 7.5MGM DAILY AND FOLLOW-UP ON 08/26. NO GREENS 2-3 DAYS. WILL INCREASE REDS. GOOD UNDERSTANDING OF DOSING INSTR. LOW INR REPORTED TO PCP (DENICE) WITH PLAN OF CARE. 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
== END 2024-08-21 11:42 | disposition home or self-care (01) ==
LOC: HO.ACS 11:03
PROVIDERS: PCP Internal Medicine; Visit Provider Internal Medicine
DX: Z79.01 Long term (current) use of anticoagulants (principal)

== ENCOUNTER → 2024-08-21 11:03 | Outpatient (BNVA) | payer BC, SELFPAY | PROVIDERS: PCP Internal Medicine; Visit Provider Internal Medicine | DX: I48.0 Paroxysmal atrial fibrillation (principal); Z79.01 Long term (current) use of anticoagulants; Z51.81 Encounter for therapeutic drug level monitoring | CPT/HCPCS: 85610; 99211 ==

== ENCOUNTER 2024-08-26 11:01 | Outpatient (AMB) | payer BC, SELFPAY ==
[2024-08-26 11:08] LABS: Prothrombin Time Whole Bld POC 24.7 sec (11.1-13.5); ~PT, ~INR - Anti Coag Clinic 2.1 (0.9-1.1)
--- NOTE | 2024-08-26 11:08 | MHC.OFFVISCO ---
Intake Intake Visit Reasons: Anticoagulation Allergies No Known Allergies Allergy (Verified 08/26/24 11:02) Medication List - Last Reconciled 08/26/24 by Cindi Moran RN enalapril maleate 10 mg PO DAILY fluticasone propion-salmeterol 115-21 mcg/actuation (Advair HFA) 2 puffs inhalation BID 30 days gabapentin 300 mg PO BEDTIME triamcinolone acetonide 0.025% 1 appl topical BID warfarin 5 mg See Protocol PO DAILY Nursing Note INR: 2.1- in therapeutic range of 2-3 pt unsure why prev inr low 1.5- denies missed dose Medications and supplements reviewed No changes in health, diet, medications, or supplements, Denies any signs and symptoms of bleeding or bruising or clotting. 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 Illness/Depression: No Coding Level of Care Code Est Patient Level 1 Diagnoses Current use of anticoagulant therapy Z79.01 Assessment & Plan Assessment & Plan (1) Current use of anticoagulant therapy: Code(s): Z79.01 - shelter (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
== END 2024-08-26 11:17 | disposition home or self-care (01) ==
LOC: HO.ACS 11:01
PROVIDERS: PCP Internal Medicine; Visit Provider Internal Medicine
DX: Z79.01 Long term (current) use of anticoagulants (principal)

== ENCOUNTER → 2024-08-26 11:01 | Outpatient (BNVA) | payer BC, SELFPAY | PROVIDERS: PCP Internal Medicine; Visit Provider Internal Medicine | DX: I48.0 Paroxysmal atrial fibrillation (principal); Z79.01 Long term (current) use of anticoagulants; Z51.81 Encounter for therapeutic drug level monitoring | CPT/HCPCS: 85610; 99211 ==

== ENCOUNTER 2024-08-30 15:23 | Outpatient (REF) | payer BC, SELFPAY ==
[2024-09-02 10:59] LABS: Free Prostate Spec Ag 0.5 ng/mL; Percent Free Prostate Spec Ag 18 % (calc) (>25); Prostate Specific Ag Total 2.8 ng/mL (< OR = 4.0)
== END 2024-08-30 15:24 | disposition home or self-care (01) ==
LOC: HO.LAB 15:23
PROVIDERS: PCP Internal Medicine; Visit Provider Urology
DX: C61 Malignant neoplasm of prostate (principal)
CPT/HCPCS: 36415; 84154

== ENCOUNTER 2024-09-02 13:29 | Outpatient (AMB) | payer BC, SELFPAY ==
[2024-09-02 13:57] LABS: Prothrombin Time Whole Bld POC 16.8 sec (11.1-13.5); ~PT, ~INR - Anti Coag Clinic 1.4 (0.9-1.1)
--- NOTE | 2024-09-02 14:12 | MHC.OFFVISCO ---
Intake Intake Visit Reasons: Anticoagulation Allergies No Known Allergies Allergy (Verified 09/02/24 13:51) Medication List - Last Reconciled 09/02/24 by Siobhan Ballard RN enalapril maleate 10 mg PO DAILY fluticasone propion-salmeterol 115-21 mcg/actuation (Advair HFA) 2 puffs inhalation BID 30 days gabapentin 300 mg PO BEDTIME triamcinolone acetonide 0.025% 1 appl topical BID warfarin 5 mg See Protocol PO DAILY Nursing Note INR 1.4 out of therapeutic range- MAY HAVE MISSED A DOSE NOT SURE, uses a pill box Medications and supplements reviewed Patient status: Appears well, no c/o of c/p or sob or exhibits any s/sx of stroke Medications or supplements: no changes per Diet: good - sounds to eat well Denies any signs and symptoms of bleeding or clotting or unusual bruising Bleeding, bruising, clotting discussed Nutritional guidance given: avoid greens today and tomorrow Dose: increase weekly dose to 50 mg / week from 47.5mg weekly, starting with 10mg today then finish the 5mg mon and monday/ 7.5mg all other days then next week 5mg x 1 day/ 7.5mg x 6 days F/U INR Date: this Monday09/06/24 ?? Patient verbalizing understanding of instructions given. 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 Illness/Depression: No Coding Level of Care Code Est Patient Level 1 Diagnoses Current use of anticoagulant therapy Z79.01 Assessment & Plan Assessment & Plan (1) Current use of anticoagulant therapy: Code(s): Z79.01 - skilled nursing (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
== END 2024-09-02 14:26 | disposition home or self-care (01) ==
LOC: HO.ACS 13:29
PROVIDERS: PCP Internal Medicine; Visit Provider Internal Medicine
DX: Z79.01 Long term (current) use of anticoagulants (principal)

== ENCOUNTER → 2024-09-02 13:29 | Outpatient (BNVA) | payer BC, SELFPAY | PROVIDERS: PCP Internal Medicine; Visit Provider Internal Medicine | DX: I48.0 Paroxysmal atrial fibrillation (principal); Z79.01 Long term (current) use of anticoagulants; Z51.81 Encounter for therapeutic drug level monitoring | CPT/HCPCS: 85610; 99211 ==

== ENCOUNTER 2024-09-06 08:32 | Outpatient (AMB) | payer BC, SELFPAY ==
[2024-09-06 08:37] LABS: Prothrombin Time Whole Bld POC 20.5 sec (11.1-13.5); ~PT, ~INR - Anti Coag Clinic 1.7 (0.9-1.1)
--- NOTE | 2024-09-06 08:46 | MHC.OFFVISCO ---
Intake Intake Visit Reasons: Anticoagulation Allergies No Known Allergies Allergy (Verified 09/06/24 08:33) Medication List - Last Reconciled 09/06/24 by Itzel Minor RN enalapril maleate 10 mg PO DAILY fluticasone propion-salmeterol 115-21 mcg/actuation (Advair HFA) 2 puffs inhalation BID 30 days gabapentin 300 mg PO BEDTIME triamcinolone acetonide 0.025% 1 appl topical BID warfarin 5 mg See Protocol PO DAILY Nursing Note INR 1.7?out of therapeutic range 2-3 Medications and supplements reviewed Patient status: well Medications or supplements: no changes Diet: has increased reds in his diet Denies any signs and symptoms of bleeding or clotting or unusual bruising Bleeding, bruising, clotting discussed Nutritional guidance given: avoid greens and continue to increase reds Food list reviewed Dose: 7.5mg next 3 days then 5mg X 1 day then 7.5mg then re-test F/U INR Date : 09/11/24?? Patient verbalizing understanding of instructions given. 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 Illness/Depression: No Coding Level of Care Code Est Patient Level 1 Diagnoses Current use of anticoagulant therapy Z79.01 Results AMB INR Fingerstick AMB INR Fingerstick 1.7 Last Edit by Itzel Minor RN on 09/06/24 08:37 interface delay Assessment & Plan Assessment & Plan (1) Current use of anticoagulant therapy: Code(s): Z79.01 - retirement (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
== END 2024-09-06 08:49 | disposition home or self-care (01) ==
LOC: HO.ACS 08:32
PROVIDERS: PCP Internal Medicine; Visit Provider Internal Medicine
DX: Z79.01 Long term (current) use of anticoagulants (principal)

== ENCOUNTER → 2024-09-06 08:32 | Outpatient (BNVA) | payer BC, SELFPAY | PROVIDERS: PCP Internal Medicine; Visit Provider Internal Medicine | DX: I48.0 Paroxysmal atrial fibrillation (principal); Z79.01 Long term (current) use of anticoagulants; Z51.81 Encounter for therapeutic drug level monitoring | CPT/HCPCS: 85610; 99211 ==

== ENCOUNTER 2024-09-11 09:38 | Outpatient (AMB) | payer BC, SELFPAY ==
--- NOTE | 2024-09-11 09:44 | MHC.OFFVISCO ---
Intake Intake Visit Reasons: Anticoagulation Allergies No Known Allergies Allergy (Verified 09/11/24 09:39) Medication List - Last Reconciled 09/11/24 by Cindi Moran RN enalapril maleate 10 mg PO DAILY fluticasone propion-salmeterol 115-21 mcg/actuation (Advair HFA) 2 puffs inhalation BID 30 days gabapentin 300 mg PO BEDTIME triamcinolone acetonide 0.025% 1 appl topical BID warfarin 5 mg See Protocol PO DAILY Nursing Note INR 1.5-? out of therapeutic range of 2-3 Medications and supplements reviewed Patient status: no c.o, denies missed dose Medications or supplements: no changes Diet: appetite is good Denies any signs and symptoms of bleeding or clotting or unusual bruising Bleeding, bruising, clotting discussed Nutritional guidance given: no greens for 2-3 days, eat reds to raise Dose: 10mg today and tomm F/U INR Date : no greens, eat reds to raise Patient verbalizing understanding of instructions given. 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
[2024-09-11 09:45] LABS: Prothrombin Time Whole Bld POC 18.1 sec (11.1-13.5); ~PT, ~INR - Anti Coag Clinic 1.5 (0.9-1.1)
== END 2024-09-11 09:58 | disposition home or self-care (01) ==
LOC: HO.ACS 09:38
PROVIDERS: PCP Internal Medicine; Visit Provider Internal Medicine
DX: Z79.01 Long term (current) use of anticoagulants (principal)

== ENCOUNTER → 2024-09-11 09:38 | Outpatient (BNVA) | payer BC, SELFPAY | PROVIDERS: PCP Internal Medicine; Visit Provider Internal Medicine | DX: I48.0 Paroxysmal atrial fibrillation (principal); Z79.01 Long term (current) use of anticoagulants; Z51.81 Encounter for therapeutic drug level monitoring | CPT/HCPCS: 85610; 99211 ==

== ENCOUNTER 2024-09-13 10:28 | Outpatient (AMB) | payer BC, SELFPAY ==
--- NOTE | 2024-09-13 10:39 | MHC.OFFVISCO ---
Intake Intake Visit Reasons: Anticoagulation Allergies No Known Allergies Allergy (Verified 09/13/24 10:28) Medication List - Last Reconciled 09/13/24 by Itzel Minor RN enalapril maleate 10 mg PO DAILY fluticasone propion-salmeterol 115-21 mcg/actuation (Advair HFA) 2 puffs inhalation BID 30 days gabapentin 300 mg PO BEDTIME triamcinolone acetonide 0.025% 1 appl topical BID warfarin 5 mg See Protocol PO DAILY Nursing Note INR: 1.7 out of therapeutic range of 2-3 Medications and supplements reviewed No changes in health, diet, medications, or supplements, Denies any signs and symptoms of bleeding or bruising or clotting. 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
[2024-09-13 10:41] LABS: Prothrombin Time Whole Bld POC 19.9 sec (11.1-13.5); ~PT, ~INR - Anti Coag Clinic 1.7 (0.9-1.1)
== END 2024-09-13 10:44 | disposition home or self-care (01) ==
LOC: HO.ACS 10:28
PROVIDERS: PCP Internal Medicine; Visit Provider Internal Medicine
DX: Z79.01 Long term (current) use of anticoagulants (principal)

== ENCOUNTER → 2024-09-13 10:28 | Outpatient (BNVA) | payer BC, SELFPAY | PROVIDERS: PCP Internal Medicine; Visit Provider Internal Medicine | DX: I48.0 Paroxysmal atrial fibrillation (principal); Z79.01 Long term (current) use of anticoagulants; Z51.81 Encounter for therapeutic drug level monitoring | CPT/HCPCS: 85610; 99211 ==

== ENCOUNTER 2024-09-20 11:03 | Outpatient (AMB) | payer BC, SELFPAY ==
[2024-09-20 11:22] LABS: Prothrombin Time Whole Bld POC 22.3 sec (11.1-13.5); ~PT, ~INR - Anti Coag Clinic 1.9 (0.9-1.1)
--- NOTE | 2024-09-20 11:35 | MHC.OFFVISCO ---
Intake Intake Visit Reasons: Anticoagulation Allergies No Known Allergies Allergy (Verified 09/20/24 11:11) Medication List - Last Reconciled 09/20/24 by Siobhan Ballard RN Advair HFA 115-21 mcg/actuation (fluticasone propion-salmeterol) 2 puffs inhalation BID 30 days NS cephalexin 500 mg PO TID enalapril maleate 10 mg PO DAILY gabapentin 300 mg PO BEDTIME triamcinolone acetonide 0.025% 1 appl topical BID warfarin 5 mg See Protocol PO DAILY Nursing Note INR 1.9 out of therapeutic range Medications and supplements reviewed- STOPPED GABAPENTIN - BELIEVES HE DOES NOT NEED IT ANY MORE Patient status: STARTED ANTBX YESTERDAY FOR UTI FROM NEUROLOGIST Diet: HAS BEEN AVOIDING GREENS THAT HE LOVES DUE TO LOW INR Denies any signs and symptoms of bleeding or clotting or unusual bruising Bleeding, bruising, clotting discussed Nutritional guidance given: DUE TO ANTBX HAVE A SERVING OF GREENS MONDAY Dose: DUE TO ANTBX RISK OF BLEEDING AND RAISING THE INR KEEP 7.5MG DAILY FOR NOW MAY DOSE INCREASE AT END OF NEXT WEEK AFTER COMPLETING THE ANTBX TO KEEP INR UP F/U INR Date: 09/26/24 ?? Patient verbalizing understanding of instructions given. 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 Illness/Depression: No Coding Level of Care Code Est Patient Level 1 Diagnoses Current use of anticoagulant therapy Z79.01 Assessment & Plan Assessment & Plan (1) Current use of anticoagulant therapy: Code(s): Z79.01 - [facility] (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
== END 2024-09-20 11:40 | disposition home or self-care (01) ==
LOC: HO.ACS 11:03
PROVIDERS: PCP Internal Medicine; Visit Provider Internal Medicine
DX: Z79.01 Long term (current) use of anticoagulants (principal)

== ENCOUNTER → 2024-09-20 11:03 | Outpatient (BNVA) | payer BC, SELFPAY | PROVIDERS: PCP Internal Medicine; Visit Provider Internal Medicine | DX: I48.0 Paroxysmal atrial fibrillation (principal); Z79.01 Long term (current) use of anticoagulants; Z51.81 Encounter for therapeutic drug level monitoring | CPT/HCPCS: 85610; 99211 ==

== ENCOUNTER 2024-09-26 10:31 | Outpatient (AMB) | payer BC, SELFPAY ==
[2024-09-26 10:40] LABS: Prothrombin Time Whole Bld POC 18.6 sec (11.1-13.5); ~PT, ~INR - Anti Coag Clinic 1.6 (0.9-1.1)
--- NOTE | 2024-09-26 10:50 | MHC.OFFVISCO ---
Intake Intake Visit Reasons: Anticoagulation Allergies No Known Allergies Allergy (Verified 09/26/24 10:32) Medication List - Last Reconciled 09/26/24 by Siobhan Ballard RN Advair HFA 115-21 mcg/actuation (fluticasone propion-salmeterol) 2 puffs inhalation BID 30 days NS enalapril maleate 10 mg PO DAILY triamcinolone acetonide 0.025% 1 appl topical BID warfarin 5 mg See Protocol PO DAILY Nursing Note INR 1.6 out of therapeutic range Medications and supplements reviewed Patient status: Denies any missed doses, had a serving of broccoli- he likes greens and would like to have more , not sure why INR is not in range yet with increase dosing. It could be possible that he is having less or no ETOH. Medications or supplements: off gabapentin since last week Diet: good Denies any signs and symptoms of bleeding or clotting or unusual bruising Bleeding, bruising, clotting discussed Nutritional guidance given: avoid greens today and tomorrow - so INR can come up with booster doses Dose: increase to 10mg x 2 days/ 7.5mg x 5 days F/U INR Date : 1 week ?? Patient verbalizing understanding of instructions given. 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
== END 2024-09-26 10:55 | disposition home or self-care (01) ==
LOC: HO.ACS 10:31
PROVIDERS: PCP Internal Medicine; Visit Provider Internal Medicine
DX: Z79.01 Long term (current) use of anticoagulants (principal)

== ENCOUNTER → 2024-09-26 10:31 | Outpatient (BNVA) | payer BC, SELFPAY | PROVIDERS: PCP Internal Medicine; Visit Provider Internal Medicine | DX: I48.0 Paroxysmal atrial fibrillation (principal); Z79.01 Long term (current) use of anticoagulants; Z51.81 Encounter for therapeutic drug level monitoring | CPT/HCPCS: 85610; 99211 ==

== ENCOUNTER 2024-10-03 11:02 | Outpatient (AMB) | payer BC, SELFPAY ==
--- NOTE | 2024-10-03 11:31 | MHC.OFFVISCO ---
Intake Intake Visit Reasons: Anticoagulation Allergies No Known Allergies Allergy (Verified 10/03/24 11:16) Medication List - Last Reconciled 10/03/24 by Siobhan Ballard RN Advair HFA 115-21 mcg/actuation (fluticasone propion-salmeterol) 2 puffs inhalation BID 30 days NS enalapril maleate 10 mg PO DAILY sennosides (Natural Senna Laxative) 8.6 mg orally 2 AT BEDTIME; triamcinolone acetonide 0.025% 1 appl topical BID warfarin 5 mg See Protocol PO DAILY Nursing Note INR: 2.7 in therapeutic range Medications and supplements reviewed No changes in health, diet, medications, or supplements, Denies any signs and symptoms of bleeding or bruising or clotting. Bleeding, bruising, clotting discussed Nutritional guidance given - RESUME 2 SERVINGS OF GREENS/ WEEK Dose: KEEP 10MG X 2 DAYS/ 7.5MG X 5 DAYS F/U INR: 1 WEEK ( WKLY X 3 GOOD ONE IN A ROW THEN Q 2 WEEKS X 3 GOOD THEN GO 3 WEEKS... 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 Illness/Depression: No Coding Level of Care Code Est Patient Level 1 Diagnoses Current use of anticoagulant therapy Z79.01 Results AMB INR Fingerstick AMB INR Fingerstick 2.7 Last Edit by Siobhan Ballard RN on 10/03/24 11:26 MANUAL ENTRY FAILED EXPANSE INTERFACING ON GOING AND GOING Assessment & Plan Assessment & Plan (1) Current use of anticoagulant therapy: Code(s): Z79.01 - long term (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
[2024-10-03 11:37] LABS: Prothrombin Time Whole Bld POC 32.5 sec (11.1-13.5); ~PT, ~INR - Anti Coag Clinic 2.7 (0.9-1.1)
== END 2024-10-03 11:34 | disposition home or self-care (01) ==
LOC: HO.ACS 11:02
PROVIDERS: PCP Internal Medicine; Visit Provider Internal Medicine
DX: Z79.01 Long term (current) use of anticoagulants (principal)

== ENCOUNTER → 2024-10-03 11:02 | Outpatient (BNVA) | payer BC, SELFPAY | PROVIDERS: PCP Internal Medicine; Visit Provider Internal Medicine | DX: I48.0 Paroxysmal atrial fibrillation (principal); Z79.01 Long term (current) use of anticoagulants; Z51.81 Encounter for therapeutic drug level monitoring | CPT/HCPCS: 85610; 99211 ==

== ENCOUNTER 2024-10-03 11:40 | Outpatient (REF) | payer SELFPAY | END 2024-10-03 11:41 | disposition home or self-care (01) | LOC: HO.HAP 11:40 | PROVIDERS: Visit Provider Internal Medicine | DX: Z46.1 Encounter for fitting and adjustment of hearing aid (principal); H90.3 Sensorineural hearing loss, bilateral | CPT/HCPCS: V5266 ==

== ENCOUNTER 2024-10-10 11:14 | Outpatient (AMB) | payer SELFPAY ==
[2024-10-10 11:26] LABS: Prothrombin Time Whole Bld POC 33.5 sec (11.1-13.5); ~PT, ~INR - Anti Coag Clinic 2.8 (0.9-1.1)
--- NOTE | 2024-10-10 11:43 | MHC.OFFVISCO ---
Intake Intake Visit Reasons: Anticoagulation Allergies No Known Allergies Allergy (Verified 10/10/24 11:20) Medication List - Last Reconciled 10/10/24 by Siobhan Ballard RN Advair HFA 115-21 mcg/actuation (fluticasone propion-salmeterol) 2 puffs inhalation BID 30 days NS enalapril maleate 10 mg PO DAILY sennosides (Natural Senna Laxative) 8.6 mg orally 2 AT BEDTIME; triamcinolone acetonide 0.025% 1 appl topical BID warfarin See Protocol 7.5mg x 5 days/ 10mg x 2 day orally daily; Nursing Note INR: 2.8 in therapeutic range of 2-3 Medications and supplements reviewed No changes in health, diet, medications, or supplements, Denies any signs and symptoms of bleeding or bruising or clotting. 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 Illness/Depression: No Coding Level of Care Code Est Patient Level 1 Diagnoses Current use of anticoagulant therapy Z79.01 Assessment & Plan Assessment & Plan (1) Current use of anticoagulant therapy: Code(s): Z79.01 - assisted (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 Medications: Changed From warfarin 5 mg See Protocol PO DAILY 90 tabs 1RF To warfarin See Protocol 7.5mg x 5 days/ 10mg x 2 day orally daily;
== END 2024-10-10 11:45 | disposition home or self-care (01) ==
LOC: HO.ACS 11:14
PROVIDERS: PCP Internal Medicine; Visit Provider Internal Medicine
DX: Z79.01 Long term (current) use of anticoagulants (principal)

== ENCOUNTER → 2024-10-10 11:14 | Outpatient (BNVA) | payer SELFPAY | PROVIDERS: PCP Internal Medicine; Visit Provider Internal Medicine | DX: I48.0 Paroxysmal atrial fibrillation (principal); Z79.01 Long term (current) use of anticoagulants; Z51.81 Encounter for therapeutic drug level monitoring | CPT/HCPCS: 85610; 99211 ==

== ENCOUNTER 2024-10-18 11:03 | Outpatient (AMB) | payer SELFPAY ==
[2024-10-18 11:17] LABS: Prothrombin Time Whole Bld POC 39.1 sec (11.1-13.5); ~PT, ~INR - Anti Coag Clinic 3.3 (0.9-1.1)
--- NOTE | 2024-10-18 11:26 | MHC.OFFVISCO ---
Intake Intake Visit Reasons: Anticoagulation Allergies No Known Allergies Allergy (Verified 10/18/24 11:08) Medication List - Last Reconciled 10/18/24 by Jocelyn Roblero RN Advair HFA 115-21 mcg/actuation (fluticasone propion-salmeterol) 2 puffs inhalation BID 30 days NS enalapril maleate 10 mg PO DAILY sennosides (Natural Senna Laxative) 8.6 mg orally 2 AT BEDTIME; triamcinolone acetonide 0.025% 1 appl topical BID warfarin See Protocol 7.5mg x 5 days/ 10mg x 2 day orally daily; Nursing Note NO CP,SOB,DIET/MED CHANGES,FALLS OR SX OF BLEEDING. DECREASE TO 5MGM TODAY THEN RESUME PRESENT DOSING AND FOLLOW-UP IN 2 WEEKS. GREENS TODAY AND 2-3X WEEKLY. GOOD UNDERSTANDING OF DOSING INSTR. CALL TO PCP(JACOB) FOR NEW WARFARIN SCRIPT RE-WRITE: 5MGM TABS 1-2 DAILY DIRECTED. 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 Illness/Depression: No Coding Level of Care Code Est Patient Level 1 Diagnoses Current use of anticoagulant therapy Z79.01 Results AMB INR Fingerstick AMB INR Fingerstick 3.3 Last Edit by Jocelyn Roblero RN on 10/18/24 11:18 Assessment & Plan Assessment & Plan (1) Current use of anticoagulant therapy: Code(s): Z79.01 - snf (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
== END 2024-10-18 11:29 | disposition home or self-care (01) ==
LOC: HO.ACS 11:03
PROVIDERS: PCP Internal Medicine; Visit Provider Internal Medicine
DX: Z79.01 Long term (current) use of anticoagulants (principal)

== ENCOUNTER → 2024-10-18 11:03 | Outpatient (BNVA) | payer SELFPAY | PROVIDERS: PCP Internal Medicine; Visit Provider Internal Medicine | DX: I48.0 Paroxysmal atrial fibrillation (principal); Z79.01 Long term (current) use of anticoagulants; Z51.81 Encounter for therapeutic drug level monitoring | CPT/HCPCS: 85610; 99211 ==

== ENCOUNTER 2024-10-28 11:22 | Outpatient (REF) | payer SELFPAY | END 2024-10-28 11:23 | disposition home or self-care (01) | LOC: HO.HAP 11:22 | PROVIDERS: Visit Provider Internal Medicine | DX: Z46.1 Encounter for fitting and adjustment of hearing aid (principal) | CPT/HCPCS: 92592; V5267 ==

== ENCOUNTER 2024-10-31 11:04 | Outpatient (AMB) | payer SELFPAY ==
[2024-10-31 11:09] LABS: ~PT, ~INR - Anti Coag Clinic 2.6 (0.9-1.1)
--- NOTE | 2024-10-31 11:13 | MHC.OFFVISCO ---
Intake Intake Visit Reasons: Anticoagulation Allergies No Known Allergies Allergy (Verified 10/31/24 11:05) Medication List - Last Reconciled 10/31/24 by Itzel Minor RN Advair HFA 115-21 mcg/actuation (fluticasone propion-salmeterol) 2 puffs inhalation BID 30 days NS enalapril maleate 10 mg PO DAILY sennosides (Natural Senna Laxative) 8.6 mg orally 2 AT BEDTIME; triamcinolone acetonide 0.025% 1 appl topical BID warfarin 5 mg PO DAILY Nursing Note INR: 2.6 in therapeutic range of 2-3 Medications and supplements reviewed No changes in health, diet, medications, or supplements, Denies any signs and symptoms of bleeding or bruising or clotting. 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 Illness/Depression: No Coding Level of Care Code Est Patient Level 1 Diagnoses Current use of anticoagulant therapy Z79.01 Results AMB INR Fingerstick AMB INR Fingerstick 2.6 Last Edit by Itzel Minor RN on 10/31/24 11:09 interface delay Assessment & Plan Assessment & Plan (1) Current use of anticoagulant therapy: Code(s): Z79.01 - retirement (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
== END 2024-10-31 11:16 | disposition home or self-care (01) ==
LOC: HO.ACS 11:04
PROVIDERS: PCP Internal Medicine; Visit Provider Internal Medicine
DX: Z79.01 Long term (current) use of anticoagulants (principal)

== ENCOUNTER → 2024-10-31 11:04 | Outpatient (BNVA) | payer SELFPAY | PROVIDERS: PCP Internal Medicine; Visit Provider Internal Medicine | DX: I48.0 Paroxysmal atrial fibrillation (principal); Z79.01 Long term (current) use of anticoagulants; Z51.81 Encounter for therapeutic drug level monitoring | CPT/HCPCS: 85610; 99211 ==

== ENCOUNTER 2024-10-31 14:23 | Outpatient (REF) | payer SELFPAY | END 2024-10-31 14:24 | disposition home or self-care (01) | LOC: HO.HAP 14:23 | PROVIDERS: Visit Provider Internal Medicine | DX: Z13.89 Encounter for screening for other disorder (principal) ==

== ENCOUNTER 2024-11-07 11:03 | Outpatient (AMB) | payer SELFPAY ==
[2024-11-07 11:14] LABS: ~PT, ~INR - Anti Coag Clinic 2.9 (0.9-1.1)
--- NOTE | 2024-11-07 11:20 | MHC.OFFVISCO ---
Intake Intake Visit Reasons: Anticoagulation Allergies No Known Allergies Allergy (Verified 11/07/24 11:07) Medication List - Last Reconciled 11/07/24 by Itzel Minor RN Advair HFA 115-21 mcg/actuation (fluticasone propion-salmeterol) 2 puffs inhalation BID 30 days NS enalapril maleate 10 mg PO DAILY gabapentin 300 mg PO BEDTIME gabapentin 100 mg PO DAILY sennosides (Natural Senna Laxative) 8.6 mg orally 2 AT BEDTIME; triamcinolone acetonide 0.025% 1 appl topical BID warfarin 5 mg See Protocol PO DAILY Nursing Note INR: 2.9 in therapeutic range of 2-3 Medications and supplements reviewed Gabapentin added to med list. Pt states he used to take this med but it was d/c'd. He is taking it for hands. No effect on INR per micromedex. No changes in health, diet, or supplements, Denies any signs and symptoms of bleeding or bruising or clotting. 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
== END 2024-11-07 11:24 | disposition home or self-care (01) ==
LOC: HO.ACS 11:03
PROVIDERS: PCP Internal Medicine; Visit Provider Internal Medicine
DX: Z79.01 Long term (current) use of anticoagulants (principal)

== ENCOUNTER → 2024-11-07 11:03 | Outpatient (BNVA) | payer SELFPAY | PROVIDERS: PCP Internal Medicine; Visit Provider Internal Medicine | DX: I48.0 Paroxysmal atrial fibrillation (principal); Z79.01 Long term (current) use of anticoagulants; Z51.81 Encounter for therapeutic drug level monitoring; Z23 Encounter for immunization; I50.30 Unspecified diastolic (congestive) heart failure; I71.21 Aneurysm of the ascending aorta, without rupture; E66.9 Obesity, unspecified; Z68.36 Body mass index [BMI] 36.0-36.9, adult | CPT/HCPCS: 85610; 90471; 90656; 99211; 99212 ==

== ENCOUNTER 2024-11-07 14:33 | Outpatient (AMB) | payer BC, SELFPAY ==
--- NOTE | 2024-11-07 14:36 | A.OFFPC_ITS ---
Vital Signs 11/07/24 14:38 Height 6 ft 4 in Weight 297 lb 8 oz BMI 36.2 BP 130/70 Blood Pressure Location Lt brachial Position Sitting Pulse 78 Pulse Source Pulse Oximeter Pulse Oximetry (%) 98 Oxygen Delivery Method Room Air Intake Visit Reasons: 3mth f/u Intake Note: Patient is here to follow up on PAfib, Asthma. [facility] Winder Required: No Microbiology Supervisor: Not Required per policy Accompanied by: Self / Same As Patient Allergies No Known Allergies Allergy (Verified 11/11/24 13:47) Medication List - Last Reconciled 11/11/24 by Hayden Savage MD Advair HFA 115-21 mcg/actuation (fluticasone propion-salmeterol) 2 puffs inhalation BID 30 days NS enalapril maleate 10 mg PO DAILY gabapentin 300 mg PO BEDTIME gabapentin 100 mg PO DAILY sennosides (Natural Senna Laxative) 8.6 mg orally 2 AT BEDTIME; triamcinolone acetonide 0.025% 1 appl topical BID warfarin 5 mg See Protocol PO DAILY Tobacco use date assessed: 11/07/24 Fall risk assessment: No Falls in past year Last assessed Fall Risk: 11/07/24 Dental Screening Dental Screen Date: 01/11/24 HPI 3mth f/u HPI Details 89-year-old male presents to the office to discuss his chronic medical conditions. Patient is at baseline state of health. Able to function and do activities of daily living. He had some difficulty getting Coumadin from the clinic. The weakness symptoms that he had earlier in the year have improved. Continues to live when the elderly facility. Able to take care of his finances independently. [facility] Medical History (Updated 11/11/24 @ 13:50 by Hayden Savage MD) Obesity (BMI 35.0-39.9 without comorbidity) Ascending aortic aneurysm Paroxysmal atrial fibrillation (HFpEF) heart failure with preserved ejection fraction Dysphagia History of prostate cancer Hyperlipidemia Cough Asthma Allergic rhinitis Surgical History Status post trigger finger release History of colonoscopy History of cataract surgery History of prostate surgery Family History Mother No problems noted. Father No problems noted. Social History Housing: Assisted Living Facility Alcohol intake: current Alcohol intake frequency: 0-2 drinks per day Alcohol type: wine Patient Tobacco Use Status: Former Tobacco user Tobacco use type: Cigarette e-Cigarette/Vaping Use: Never Used Second Hand Smoke Exposure: Yes service: No Current occupational status: retired Current occupation: retiered Current occupational exposures/hazards: No Cognitive needs: Yes (walker/cane) Hearing needs: Yes (hearing aide) Vision needs: Yes (Glasses) Questionnaire Thrive Questionnaire Date Thrive assessed: 12/07/23 BRITTNEY-7 AMB Questionnaire BRITTNEY-7 Date BRITTNEY - 7 assessed: 12/07/23 Source: Developed by Drs. Adams Wagner, Trina Cuellar, Demetris Turpin and colleagues, with an educational kelly from [employer]. Physical exam (Primary Care) Vital Signs: Last Vital Signs Pulse 78 11/07/24 14:38 BP 130/70 11/07/24 14:38 Pulse Ox 98 11/07/24 14:38 Oxygen Delivery Method Room Air 11/07/24 14:38 BMI result Body Mass Index 36.2 Tobacco/Smoking Status: Tobacco use Status Tobacco use date assessed 11/07/24 11/07/24 14:42 Patient Tobacco Use Status Former Tobacco user ( long 11/07/24 14:42 time ago 10-30 years ago ) Tobacco use type Cigarette 11/07/24 14:42 e-Cigarette/Vaping Use Never Used 11/07/24 14:42 Thrive Assessment: Date of Thrive Assessment Date Thrive assessed 12/07/23 11/07/24 14:42 Const General: cooperative and healthy appearing Nutritional Appearance: well nourished Orientation/consciousness: patient oriented x3 Limitations: no limitations HENMT Head: Yes normal to inspection Eyes General: appearance normal, both eyes and all related structures Neck Neck: Yes normal visual inspection Chest Chest palpation & inspection: normal palpation of entire chest wall Resp Effort & Inspection: normal respiratory effort Neuro General: patient oriented x3 Office Procedures Flu Questionnaire Does the patient have a severe egg allergy?: No Does the patient have severe life threatening allergies?: No Does the patient have a fever or illness today?: No Has the patient ever had Guillain-[place] Syndrome?: No Has the patient ever had any past reaction to a flu shot?: No Immunizations Fluarix Triv [id number] (PF) 45 mcg (15 mcg x 3)/0.5 mL IM syringe Performing Provider: Hayden Savage MD [facility] [place] [facility] Administered by: ALIREZA Madrigal on 11/07/24 15:15 Dose Route Admin Location Dispensed Lot Number Expiration Date [place] Cardiology Clinical Nurse Specialist 0.5 mL IM Left Deltoid 0.5 mL [id number] 05/26/25 [id number] [employer] VIS Given Date VIS Provided VIS Publication Date 11/07/24 Single Vaccine 21 Eligibility Eligibility Date Funding Source Not [facility] Eligible 11/07/24 Private Coding Level of Care Code Est Pt Level 4 (12667) Complex EM visit Add On G2211 Diagnoses (HFpEF) heart failure with preserved ejection fraction I50.30 Paroxysmal atrial fibrillation I48.0 Ascending aortic aneurysm I71.21 Obesity (BMI 35.0-39.9 without comorbidity) E66.9 Assessment & Plan Assessment & Plan (1) (HFpEF) heart failure with preserved ejection fraction: Code(s): I50.30 - Unspecified diastolic (congestive) heart failure Category: Medical Plan: Condition is stable. Continue current medications. (2) Paroxysmal atrial fibrillation: Code(s): I48.0 - Paroxysmal atrial fibrillation Category: Medical Plan: Patient is in sinus rhythm. Continue medications for rate control and the anticoagulation. (3) Ascending aortic aneurysm: Comment: 5.3 CM aortic aneurysm noted on Echocardiogram today. Code(s): I71.21 - Aneurysm of the ascending aorta, without rupture Category: Medical Plan: Followed by Cardiology. (4) Obesity (BMI 35.0-39.9 without comorbidity): Code(s): E66.9 - Obesity, unspecified Category: Medical Plan: Condition has been noted. Orders: Orders Influenza [id number] Immunization 11/07/24 Z23 - Encounter for immunization
[2024-11-07 14:38] VITALS: BP 130/70; PULSE 78; O2SAT 98; BMI 36.2
== END 2024-11-07 16:27 | disposition home or self-care (01) ==
PROVIDERS: PCP Internal Medicine; Visit Provider Internal Medicine
DX: Z23 Encounter for immunization (principal)

== ENCOUNTER 2024-11-15 11:08 | Outpatient (AMB) | payer MEDICARE, SELFPAY ==
[2024-11-15 11:16] LABS: Prothrombin Time Whole Bld POC 38.5 sec (11.1-13.5); ~PT, ~INR - Anti Coag Clinic 3.2 (0.9-1.1)
--- NOTE | 2024-11-15 11:30 | MHC.OFFVISCO ---
Intake Intake Visit Reasons: Anticoagulation Allergies No Known Allergies Allergy (Verified 11/15/24 11:10) Medication List - Last Reconciled 11/15/24 by Jocelyn Roblero RN Advair HFA 115-21 mcg/actuation (fluticasone propion-salmeterol) 2 puffs inhalation BID 30 days NS enalapril maleate 10 mg PO DAILY gabapentin 300 mg PO BEDTIME gabapentin 100 mg PO DAILY sennosides (Natural Senna Laxative) 8.6 mg orally 2 AT BEDTIME; triamcinolone acetonide 0.025% 1 appl topical BID warfarin 5 mg See Protocol PO DAILY Nursing Note PT.HAS RESTARTED GABAPENTIN DUE TO ONGOING TINGLING AND ITCHINESSS BOTH HANDS. DOSE IS 400MGM BID. NO CP,SOB OR SX OF BLEEDING. DECREASE DOSE SLIGHTLY TODAY THEN RESUME PRESENT DOSE AND FOLLOW-UP IN 2 WEEKS. WILL BE SURE TO HAVE GREENS TODAY AND 2-3X WEEKLY. GOOD UNDERSTANDING OF DOSING INSTR. Anti-Coag Initial Assessment Social Hx Patient Tobacco Use Status: Former Tobacco user Tobacco use type: Cigarette alcohol intake: current Alcohol intake frequency: 0-2 drinks per day Cardiovascular Hx: HTN, Angina, [place] and Arrhythmias Lung Disease HX: Asthma Musculoskeletal Hx: Arthritis Hx: Bladder Disorders and Prostate Neurological Hx: Aneurysm Cancer HX: Yes (prostate cancer 25 years ago ) Psych. 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
== END 2024-11-15 11:35 | disposition home or self-care (01) ==
LOC: HO.ACS 11:08
PROVIDERS: PCP Internal Medicine; Visit Provider Internal Medicine
DX: Z79.01 Long term (current) use of anticoagulants (principal)

== ENCOUNTER → 2024-11-15 11:08 | Outpatient (BNVA) | payer MEDICARE, SELFPAY | PROVIDERS: PCP Internal Medicine; Visit Provider Internal Medicine | DX: I48.0 Paroxysmal atrial fibrillation (principal); Z79.01 Long term (current) use of anticoagulants; Z51.81 Encounter for therapeutic drug level monitoring | CPT/HCPCS: 85610; 99211 ==

== ENCOUNTER → 2024-11-28 10:02 | Outpatient (REF) | payer MEDICARE, SELFPAY ==
--- NOTE | 2024-11-28 10:06 | CA_ITS ---
Transthoracic Echocardiogram Patient (Last, First, Middle): Sekou Coe, Gender: Male Date of : 1935 Age: 89 Procedure Date: 11/28/2024 Procedure Type: Transthoracic Echocardiogram Location: OP Height: 193.04 cm Weight: 134.72 kg BSA: 2.62 m2 Heart Rate: bpm BP: 130 / 70 mmHg Felled Seam Operator: JD Referring MD: Dao Coates MD Software Specialist: Dao Coates MD Symptoms: I71.21 - Aneurysm of the ascending aorta, without rupture Study Quality: Technically Difficult, contrast ECG Rhythm: Sinus Conclusions: - 1. Technically limited study despite use of contrast agent 2. Normal LV ejection fraction of 60 65% 3. Limited visualization of cardiac valves with normal cardiac valvular Dopplers 4. Moderate to severe enlargement of ascending aorta at 5.3 cm 5. Mildly elevated right ventricular systolic pressure with mildly elevated right atrial pressures Findings Procedure Information Contrast agent, definity, is being given per protocol without apparent complications. Left Ventricle Normal left ventricular size, thickness, and systolic function. The visually estimated ejection fraction is between 60-65%. Spectral Doppler is indicative of an impaired relaxation filling pattern. Right Ventricle The right ventricle was not well visualized. Atria The left atrium was not well visualized. Interatrial shunt cannot be excluded. The right atrium was not well visualized. Aortic Valve There is mild calcification of the aortic valve. There is mild thickening of the aortic valve. There is no aortic valve stenosis. There is no aortic valve regurgitation. Mitral Valve The mitral valve was not well visualized. There is no mitral valve regurgitation. There is no mitral valve stenosis. Pulmonic Valve The pulmonic valve was not well visualized. Tricuspid Valve The tricuspid valve was not well visualized. There is trace tricuspid valve regurgitation. Mildly elevated right atrial pressure. Mild pulmonary hypertension is present. Great Vessels The pulmonary artery was not well visualized. moderate to severe enlargement of ascending aorta at 5.3 cm Venous The inferior vena cava is mildly dilated and collapses greater than 50% with inspiration. Pericardium/Pleural The pericardium was not well visualized. Prior Study Comparison No significant change compared to prior study dated: 11/29/2023. Measurements 2D Linear Measurements IVSd: 1.17 0.6-0.9/0.6-1.0 cm LVIDd: 4.47 3.9-5.3/4.2-5.9 cm LVIDd Index: 1.71 2.4-3.2/2.2-3.1 cm/m2 LVIDs: 3.19 2.0-3.6 cm LVPWd: 1.06 0.7-1.1 cm LA Diam: 4.10 2.7-3.8/3.0-4.0 cm LAIDs Index: 1.56 1.5-2.3 cm/m2 LV Mass: 219.91 67-162/88-224 g LV Mass Index: 83.93 43-95/49-115 g/m2 LVOT Diam: 2.20 3.0+(-)1.3 cm 2D Systolic Function EF 4C: 52.50 >55% EF 2C: 72.50 >55% EF BiP: 64.80 >55% Mitral Valve MV Pk E: 0.64 MV PK A: 0.95 MV Decel Time: 332.00 E/A: 0.70 E'Lateral: 8.38 E'Medial: 7.29 E/E' Med: 8.80 E/E' Lat: 7.60 PHT: 97.00 MVA PHT: 2.27 Decel Stark: 1.92 Aortic Valve AoV Pk Brant: 1.40 AoV Mn Brant: 0.86 AoV VTI: 0.26 AoV Pk Grad: 8.00 Aov Mn Grad: 3.00 DEZ Cont.VTI: 3.22 LVOT LVOT Pk Brant: 0.97 LVOT Mn Brant: 0.69 LVOT VTI: 0.22 LVOT Pk Grad: 4.00 LVOT Mn Grad: 2.00 LVOT Diam: 2.20 LVOT Area: 3.80 Diastolic Function MV Pk E: 0.64 MV Pk A: 0.95 E/A: 0.70 E'Medial: 7.29 E/E' Med: 8.80 E' Laterial: 8.38 E/E' Lat: 7.60 Right Ventricle TAPSE (mm): 26.50 TVS' Brant: 14.60 Tricuspid Valve TR Pk Brant: 2.85 TR Pk Grad: 32.00 RA Press: 8.00 RVSP: 40.00 Great Vessels Aorta Sinus of Valsalva: 5.16 2.0-3.[address] Ridge: 4.35 1.7-3.4 cm Ao Asc: 5.30 2.1-3.4 cm Ao Arch: 4.20 Updated in Other Vendor System with Status of Final Dao Coates MD electronically signed on 11/29/2024 2:44:46 PM with status of Final
== END ==
LOC: HO.CARD 10:02
PROVIDERS: PCP Internal Medicine; Visit Provider Internal Medicine Cardiovascular Disease
DX: I71.21 Aneurysm of the ascending aorta, without rupture (principal)
CPT/HCPCS: 93306; Q9957

== ENCOUNTER → 2024-11-28 10:06 | Outpatient (BNV) | payer MEDICARE, SELFPAY | PROVIDERS: PCP Internal Medicine; Visit Provider Internal Medicine Cardiovascular Disease | DX: I71.21 Aneurysm of the ascending aorta, without rupture (principal); I35.8 Other nonrheumatic aortic valve disorders | CPT/HCPCS: 93306 ==

== ENCOUNTER 2024-11-29 09:16 | Outpatient (AMB) | payer MEDICARE, SELFPAY ==
--- NOTE | 2024-11-29 09:35 | MHC.OFFVISCO ---
Intake Intake Visit Reasons: Anticoagulation Allergies No Known Allergies Allergy (Verified 11/29/24 09:18) Medication List - Last Reconciled 11/29/24 by Siobhan Ballard RN Advair HFA 115-21 mcg/actuation (fluticasone propion-salmeterol) 2 puffs inhalation BID 30 days NS enalapril maleate 10 mg PO DAILY gabapentin 300 mg PO BEDTIME gabapentin 100 mg PO DAILY sennosides (Natural Senna Laxative) 8.6 mg orally 2 AT BEDTIME; triamcinolone acetonide 0.025% 1 appl topical BID warfarin 5 mg See Protocol PO DAILY Nursing Note INR: 2.9 in therapeutic range Medications and supplements reviewed-back on gabapentin for the burning itching sensations he has in his hands- he states it has helped Seeing Dr Mack today has had a cough x 2 months, pt states he does have some edema in his feet He has been off furosemide since July 2024 due to low b/p per PCP - pt enc to call [facility] with any med changes Denies any signs and symptoms of bleeding or bruising or clotting. Bleeding, bruising, clotting discussed Nutritional guidance given - cooked greens to lower INR Dose: keep same dose 10mg x 2 days/ 7.5mg x 5 days F/U INR: 2 weeks Patient verbalizes understanding of instructions given and will call with any medication changes after appt with today Anti-Coag Initial Assessment Social Hx Patient Tobacco Use Status: Former Tobacco user Tobacco use type: Cigarette alcohol intake: current Alcohol intake frequency: 0-2 drinks per day Cardiovascular Hx: HTN, Angina, [place] and Arrhythmias Lung Disease HX: Asthma Musculoskeletal Hx: Arthritis Hx: Bladder Disorders and Prostate Neurological Hx: Aneurysm Cancer HX: Yes (prostate cancer 25 years ago ) Psych. Illness/Depression: No Coding Level of Care Code Est Patient Level 1 Diagnoses Current use of anticoagulant therapy Z79.01 Results AMB INR Fingerstick AMB INR Fingerstick 2.9 Last Edit by Siobhan Ballard RN on 11/29/24 09:28 MANUAL ENTRY Assessment & Plan Assessment & Plan (1) Current use of anticoagulant therapy: Code(s): Z79.01 - shelter (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
[2024-11-29 10:04] LABS: Prothrombin Time Whole Bld POC 34.8 sec (11.1-13.5); ~PT, ~INR - Anti Coag Clinic 2.9 (0.9-1.1)
== END 2024-11-29 09:40 | disposition home or self-care (01) ==
PROVIDERS: PCP Internal Medicine; Visit Provider Internal Medicine
DX: Z79.01 Long term (current) use of anticoagulants (principal)

== ENCOUNTER → 2024-11-29 09:16 | Outpatient (BNVA) | payer MEDICARE, SELFPAY | PROVIDERS: PCP Internal Medicine; Visit Provider Internal Medicine | DX: I48.0 Paroxysmal atrial fibrillation (principal); Z79.01 Long term (current) use of anticoagulants; Z51.81 Encounter for therapeutic drug level monitoring | CPT/HCPCS: 85610; 99211 ==

== ENCOUNTER 2024-12-12 10:03 | Outpatient (AMB) | payer MEDICARE, OTHER, SELFPAY ==
[2024-12-12 10:21] LABS: Prothrombin Time Whole Bld POC 28.2 sec (11.1-13.5); ~PT, ~INR - Anti Coag Clinic 2.3 (0.9-1.1)
--- NOTE | 2024-12-12 10:26 | MHC.OFFVISCO ---
Intake Intake Visit Reasons: Anticoagulation Allergies No Known Allergies Allergy (Verified 12/12/24 10:16) Medication List - Last Reconciled 12/12/24 by Itzel Minor RN Advair HFA 115-21 mcg/actuation (fluticasone propion-salmeterol) 2 puffs inhalation BID 30 days NS azithromycin take 500 mg today (day 1), then 250 mg for 4 days (days 2-5) PO enalapril maleate 10 mg PO DAILY gabapentin 300 mg PO BEDTIME gabapentin 100 mg PO DAILY prednisone 60 mg (3 x 20 mg) PO DAILY sennosides (Natural Senna Laxative) 8.6 mg orally 2 AT BEDTIME; triamcinolone acetonide 0.025% 1 appl topical BID warfarin 5 mg See Protocol PO DAILY Nursing Note INR: 2.3 in therapeutic range 2-3 Medications and supplements reviewed No changes in health, diet, medications, or supplements, Denies any signs and symptoms of bleeding or bruising or clotting. Bleeding, bruising, clotting discussed Nutritional guidance given to balance foods that raise with foods that lower the INR. Dose: 7.5mg X 5 days and 10mg X 2 days F/U INR: 2 weeks Patient verbalizes understanding of instructions with read back given. Anti-Coag Initial Assessment Social Hx Patient Tobacco Use Status: Former Tobacco user Tobacco use type: Cigarette alcohol intake: current Alcohol intake frequency: 0-2 drinks per day Cardiovascular Hx: HTN, Angina, [place] and Arrhythmias Lung Disease HX: Asthma Musculoskeletal Hx: Arthritis Hx: Bladder Disorders and Prostate Neurological Hx: Aneurysm Cancer HX: Yes (prostate cancer 25 years ago ) Psych. 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
== END 2024-12-12 10:29 | disposition home or self-care (01) ==
LOC: HO.ACS 10:03
PROVIDERS: PCP Internal Medicine; Visit Provider Internal Medicine
DX: Z79.01 Long term (current) use of anticoagulants (principal)

== ENCOUNTER → 2024-12-12 10:03 | Outpatient (BNVA) | payer MEDICARE, OTHER, SELFPAY | PROVIDERS: PCP Internal Medicine; Visit Provider Internal Medicine | DX: I50.30 Unspecified diastolic (congestive) heart failure (principal); I48.0 Paroxysmal atrial fibrillation; I71.21 Aneurysm of the ascending aorta, without rupture; Z79.01 Long term (current) use of anticoagulants; Z51.81 Encounter for therapeutic drug level monitoring; R94.31 Abnormal electrocardiogram [ECG] [EKG]; I44.4 Left anterior fascicular block | CPT/HCPCS: 85610; 93005; 99211; 99212 ==

== ENCOUNTER 2024-12-12 10:49 | Outpatient (AMB) | payer MEDICARE, OTHER, SELFPAY ==
[2024-12-12 10:55] VITALS: BP 110/70; PULSE 88; BMI 36.0
--- NOTE | 2024-12-12 10:55 | A.OFFVIS_ITS ---
Vital Signs 12/12/24 10:55 Height 6 ft 4 in Weight 295 lb 6.711 oz BMI 36.0 BP 110/70 Blood Pressure Location Lt brachial Position Sitting Pulse 88 Intake Visit Reasons: 1 year follow up after echo Intake Note: 1 year follow-up with ekg after echo c/o sob Research Management Associate Required: No Elastic Attacher Coverstitch: Elastic Attacher Coverstitch Present Accompanied by: Child Allergies No Known Allergies Allergy (Verified 12/12/24 10:16) Medication List - Last Reconciled 12/12/24 by Dao Coates MD Advair HFA 115-21 mcg/actuation (fluticasone propion-salmeterol) 2 puffs inhalation BID 30 days NS enalapril maleate 10 mg PO DAILY gabapentin 300 mg PO BEDTIME gabapentin 100 mg PO DAILY sennosides (Natural Senna Laxative) 8.6 mg orally 2 AT BEDTIME; triamcinolone acetonide 0.025% 1 appl topical BID warfarin 5 mg See Protocol PO DAILY HPI Comments Details: Sekou comes for follow-up, accompanied by his kids. He was symptoms of exertional shortness of breath although denies any orthopnea, PND. Has leg edema around the ankles by the end of the day. Also complains of orthostatic lightheadedness. He says he is not sure why he is on enalapril therapy. He has not had any prolonged irregular heartbeat or palpitations or fast heart rate. Takes all his medications. No bleeding issues or neurologic events, currently on warfarin therapy. He would like to switch to direct oral anticoagulant therapy but worried about cost. His recent echocardiogram shows normal LV ejection fraction with moderate to severe enlargement of ascending aorta at 5.3 cm [facility] Medical History Obesity (BMI 35.0-39.9 without comorbidity) Ascending aortic aneurysm Paroxysmal atrial fibrillation (HFpEF) heart failure with preserved ejection fraction Dysphagia History of prostate cancer Hyperlipidemia Cough Asthma Allergic rhinitis Surgical History Status post trigger finger release History of colonoscopy History of cataract surgery History of prostate surgery Family History Mother No problems noted. Father No problems noted. Social History Housing: Assisted Living Facility Alcohol intake: current Alcohol intake frequency: 0-2 drinks per day Alcohol type: wine Patient Tobacco Use Status: Former Tobacco user Tobacco use type: Cigarette e-Cigarette/Vaping Use: Never Used Second Hand Smoke Exposure: Yes service: No Current occupational status: retired Current occupation: retiered Current occupational exposures/hazards: No Cognitive needs: Yes (walker/cane) Hearing needs: Yes (hearing aide) Vision needs: Yes (Glasses) Review of Systems Const Denies chills, Denies fatigue, Denies fever(s), Denies frequent falls, Denies weakness, Denies weight gain and Denies weight loss ENT Denies dizziness Card Denies chest pain, Denies leg edema, Denies lightheadedness, Denies palpitations, Denies dyspnea, Denies dyspnea on exertion, Denies orthopnea and Denies other (loss of consciousness) Resp Denies cough, Denies dyspnea and Denies dyspnea on exertion GI Denies hematochezia and Denies change in stool character Musc Denies abnormal gait, Denies muscle weakness, Denies numbness, Denies radiating pain into limb and Denies tingling Neuro Denies Abnormal speech present, Denies abnormal gait, Denies dizziness, Denies frequent falls, Denies numbness, Denies tingling and Denies weakness Endo Denies fatigue and Denies palpitations Physical Exam Vital Signs: Last Vital Signs Pulse 88 12/12/24 10:55 BP 110/70 12/12/24 10:55 BMI result Body Mass Index 36.0 Const General: cooperative, comfortable, no acute distress, alert and awake Nutritional Appearance: obese Orientation/consciousness: patient oriented x3 Limitations: ambulation with cane Neck Neck: Yes trachea midline, Yes supple and Yes no JVD Resp Effort & Inspection: normal respiratory effort Auscultation: clear to auscultation bilaterally Cardio Jugular venous distension: no JVD Palpation: normal PMI Rate: regular rate Rhythm: abnormal rhythm with ectopic beats Heart sounds: S1 normal heart sound present, S2 normal heart sound present, no click, no gallops, no murmurs and no rubs GI Auscultation: normal bowel sounds Skin General skin exam: no rashes or lesions noted Neuro General: patient oriented x3 and no focal motor deficits Speech: No Abnormal speech present Extrem General: Yes no clubbing, cyanosis or edema and Yes pedal edema Office Procedures EKG Details: EKG shows normal sinus rhythm with left anterior fascicular block with pulmonary disease pattern with nonspecific ST changes [id number], Complete Results AMB INR Fingerstick AMB INR Fingerstick 2.3 Last Edit by Itzel Minor RN on 12/12/24 10:22 interface delay Assessment & Plan Assessment & Plan (1) (HFpEF) heart failure with preserved ejection fraction: Code(s): I50.30 - Unspecified diastolic (congestive) heart failure Category: Medical Plan: Heart failure preserved ejection fraction, clinically appears to be euvolemic and well compensated. I would avoid prescribing diuretic regimen to him given his symptoms of orthostatic lightheadedness. Signs and symptoms of heart failure were discussed. Is lower extremity edema appears to be secondary to dependent edema advise compression stockings. Continue to watch for signs and symptoms of heart failure. Continue aggressive blood pressure control. Co ntinue rhythm control approach. (2) Paroxysmal atrial fibrillation: Code(s): I48.0 - Paroxysmal atrial fibrillation Category: Medical Plan: Paroxysmal atrial fibrillation has remained suppressed. Has done well with rhythm control approach will continue pursue rhythm control approach. No indication for antiarrhythmic drug therapy. Continue full oral anticoagulation. Would like to switch to direct oral anticoagulant therapy. Have prescribed him Eliquis 5 mg b.i.d. as written script and they will look into the cost. Meanwhile continue warfarin therapy. This is being followed [facility]. Maintain target INR between 2 and 3. (3) Ascending aortic aneurysm: Comment: 5.3 CM aortic aneurysm noted on Echocardiogram today. Code(s): I71.21 - Aneurysm of the ascending aorta, without rupture Category: Medical Plan: Ascending aortic aneurysm which has remained stable. No interventions required given his current age as well as higher risk for surgery and the ascending aortic aneurysm being stable. Follow-up echocardiogram in 1 year's time. Continue aggressive blood pressure control. Advised to avoid sudden strenuous isometric exercise. Advised to seek emergency care for sudden-onset severe chest pain. Will follow up in the clinic in 1 year's time, sooner p.r.n.. Thank you for allowing me to partake in his care Orders: Orders CA echo transthoracic complete 1 Year I71.21 - Aneurysm of the ascending aorta, without rupture Coding Level of Care Code Est Pt Level 4 (49487) Complex EM visit Add On G2211 Diagnoses (HFpEF) heart failure with preserved ejection fraction I50.30 Paroxysmal atrial fibrillation I48.0 Ascending aortic aneurysm I71.21 CPT Codes EKG - CPT: [id number], Complete ([id number])
== END 2024-12-12 11:31 | disposition home or self-care (01) ==
PROVIDERS: PCP Internal Medicine; Visit Provider Internal Medicine Cardiovascular Disease
DX: I50.30 Unspecified diastolic (congestive) heart failure (principal); I48.0 Paroxysmal atrial fibrillation; I71.21 Aneurysm of the ascending aorta, without rupture
CPT/HCPCS: 93010; 99214; G2211

== ENCOUNTER 2024-12-18 14:17 | Outpatient (AMB) | payer MEDICARE, OTHER, SELFPAY ==
[2024-12-18 14:25] VITALS: BP 108/62; PULSE 79; O2SAT 97; BMI 36.0
--- NOTE | 2024-12-18 14:25 | A.OFFVIS_ITS ---
Vital Signs 12/18/24 14:25 Height 6 ft 4 in Weight 295 lb 6.711 oz BMI 36.0 BP 108/62 Blood Pressure Location Lt brachial Position Sitting Pulse 79 Pulse Source Pulse Oximeter Pulse Oximetry (%) 97 Oxygen Delivery Method Room Air Intake Visit Reasons: COPD Intake Note: pt is here for follow up and states he has a cough, and shortness of breath with exertion. Endoscopy Support Specialist Required: No Allergies No Known Allergies Allergy (Verified 12/18/24 14:58) Medication List - Last Reconciled 12/18/24 by Claudia Mack MD enalapril maleate 10 mg PO DAILY fluticasone propion-salmeterol 115-21 mcg/actuation (Advair HFA) 2 puffs inhalation BID 30 days gabapentin 300 mg PO BID gabapentin 100 mg PO DAILY sennosides (Natural Senna Laxative) 8.6 mg orally 2 AT BEDTIME; triamcinolone acetonide 0.025% 1 appl topical BID warfarin 5 mg See Protocol PO DAILY Do you need a note to return to daycare/school/sports/work: No HPI HPI COPD: Details: Sekou is 89 years old gentleman. Who has history of intermittent bouts of cough, mostly due to allergic rhinosinusitis. And has a mild component of asthma. He has done well with use of Advair HFA 115-21 2 puffs b.i.d., and does not have to use the albuterol. Now lately he is having increased cough, mostly nonproductive, he has irritation in the epiglottic area , and even though he does cough he is not bringing up any phlegm. Sometimes he gets little hoarse. He has had no fever chills or any real infection. [facility] Medical History Obesity (BMI 35.0-39.9 without comorbidity) Ascending aortic aneurysm Paroxysmal atrial fibrillation (HFpEF) heart failure with preserved ejection fraction Dysphagia History of prostate cancer Hyperlipidemia Cough Asthma Allergic rhinitis Surgical History Status post trigger finger release History of colonoscopy History of cataract surgery History of prostate surgery Family History Mother No problems noted. Father No problems noted. Social History Housing: Assisted Living Facility Alcohol intake: current Alcohol intake frequency: 0-2 drinks per day Alcohol type: wine Patient Tobacco Use Status: Former Tobacco user Tobacco use type: Cigarette e-Cigarette/Vaping Use: Never Used Second Hand Smoke Exposure: Yes service: No Current occupational status: retired Current occupation: retiered Current occupational exposures/hazards: No Cognitive needs: Yes (walker/cane) Hearing needs: Yes (hearing aide) Vision needs: Yes (Glasses) Review of Systems Const All systems reviewed & are unremarkable except as noted in HPI and below Denies weight gain and Denies weight loss Eyes Reports no additional complaints ENT Reports no additional complaints, Reports dysphagia (Occasional, mild, oropharyngeal) and Denies odynophagia Card Reports no additional complaints Resp Reports no additional complaints and Denies wheezing GI Denies abdominal pain, Denies belching, Denies melena, Denies bloating, Denies change in bowel habits, Reports dysphagia (Occasional, mild, oropharyngeal), Denies excessive flatus, Denies dyspepsia, Denies heartburn, Denies diarrhea, Denies loose stools, Denies nausea, Denies odynophagia and Denies vomiting Reports no additional complaints Musc Reports no additional complaints Skin/Breast Reports system reviewed and no additional complaints, except as documented Neuro Reports no additional complaints Psych Reports no additional complaints Endo Reports no additional complaints Aller/Immun Denies wheezing Physical Exam Vital Signs: Last Vital Signs Pulse 79 12/18/24 14:25 BP 108/62 12/18/24 14:25 Pulse Ox 97 12/18/24 14:25 Oxygen Delivery Method Room Air 12/18/24 14:25 BMI result Body Mass Index 36.0 Const General: comfortable, no acute distress, alert and awake Orientation/consciousness: patient oriented x3 HEENT Head: Yes normal to inspection General nose exam: No nasal polyps present and No nasal discharge present Face and sinus: Yes sinuses nontender Mouth: oropharynx normal Throat: Yes posterior oropharynx normal Eyes General: appearance normal, both eyes and all related structures Neck Neck: Yes normal visual inspection, Yes no lymphadenopathy, Yes trachea midline and Yes no JVD Thyroid: Thyroid normal Chest Chest palpation & inspection: normal inspection of the chest, normal palpation of entire chest wall and no tenderness Resp Effort & Inspection: normal respiratory effort Auscultation: clear to auscultation bilaterally, no crackles, no rales and no wheezes Percussion: percussion normal Cardio Palpation: normal PMI Rate: regular rate Rhythm: regular rhythm Heart sounds: no gallops and no murmurs Peripheral pulses: Peripheral pulses 2+ throughout GI Palpation (GI): Soft to palpation, nontender, No hepatosplenomegaly present and no masses Auscultation: normal bowel sounds Back/Spine/Pelvis Thoracic/Lumbar Spine: thoracic and lumbar spine normal to inspection Skin General skin exam: no rashes or lesions noted Neuro General: patient oriented x3 and no focal motor deficits Cranial nerves: Yes CN's II-XII intact bilaterally Extrem General: Yes normal to inspection, Yes no clubbing, cyanosis or edema and Yes no calf tenderness Psych Appearance: grossly normal and well kempt Speech and movement: Normal speech and movement present Assessment & Plan Assessment & Plan (1) Asthma: Comment: Has mild intermittent bronchial asthma, mainly related to environmental allergies. It seems to be well controlled at this time. But he has issues with the meds and coverage by insurance. Code(s): J45.909 - Unspecified asthma, uncomplicated Category: Medical Plan: Advised to use fluticasone-salmeterol 115-21 2 puffs b.i.d. when he starts having cough. He does not have to use it all the times. (2) Cough: Comment: COUGH IS SECONDARY TO ALLERGIC RHINITIS AND ASTHMA VARIANT. VERY MINIMAL BUT NOW FOR THE PAST FEW WEEKS IT HAS BEEN MORE FREQUENT AND CONSTANT. Code(s): R05 - Cough Category: Medical Plan: ADVISE THAT HE CAN USE AND ANTIHISTAMINIC AGENTS SUCH LORATADINE 10 MG OR CETIRIZINE 10 MG ONCE A DAY. ALSO USE MEDI POT 3 TIMES A DAY. MAY ALSO USE SALINE SPRAY IN THE NOSTRILS ONCE OR TWICE A DAY. DOES NOT NEED TO USE ANY ANTIBIOTICS AT THIS TIME (3) Allergic rhinitis: Comment: HE HAS CHRONIC LOW-GRADE ALLERGIC RHINITIS / SINUSITIS , WHICH FLARES UP INTERMITTENTLY AND RESULTS IN INCREASED COUGH. Code(s): J30.9 - Allergic rhinitis, unspecified Category: Medical Plan: HAS NOTED UNDER COUGH, HE IS ADVISED TO USE ANTIHISTAMINIC AGENT SUCH LORATADINE OR CETIRIZINE 10 MG ONCE A DAY USE MEDI POT 3 TIMES A DAY. MAY USE SALINE NASAL SPRAY 2 OR 3 TIMES A DAY. Coding Level of Care Code Est Pt Level 3 (22785) Diagnoses Asthma J45.909 Cough R05 Allergic rhinitis J30.9
== END 2024-12-18 14:58 | disposition home or self-care (01) ==
PROVIDERS: PCP Internal Medicine; Visit Provider Internal Medicine
DX: J45.909 Unspecified asthma, uncomplicated (principal); R05.9 Cough, unspecified; J30.9 Allergic rhinitis, unspecified
CPT/HCPCS: 99213

== ENCOUNTER → 2024-12-18 14:17 | Outpatient (BNVA) | payer MEDICARE, OTHER, SELFPAY | PROVIDERS: PCP Internal Medicine; Visit Provider Internal Medicine | DX: J45.909 Unspecified asthma, uncomplicated (principal) | CPT/HCPCS: 99212 ==

== ENCOUNTER 2024-12-26 10:34 | Outpatient (AMB) | payer MEDICARE, OTHER, SELFPAY ==
[2024-12-26 10:42] LABS: Prothrombin Time Whole Bld POC 20.7 sec (11.1-13.5); ~PT, ~INR - Anti Coag Clinic 1.7 (0.9-1.1)
--- NOTE | 2024-12-26 10:48 | MHC.OFFVISCO ---
Intake Intake Visit Reasons: Anticoagulation Allergies No Known Allergies Allergy (Verified 12/26/24 10:37) Medication List - Last Reconciled 12/26/24 by Itzel Minor RN enalapril maleate 10 mg PO DAILY fluticasone propion-salmeterol 115-21 mcg/actuation (Advair HFA) 2 puffs inhalation BID 30 days gabapentin 300 mg PO BID gabapentin 100 mg PO DAILY sennosides (Natural Senna Laxative) 8.6 mg orally 2 AT BEDTIME; triamcinolone acetonide 0.025% 1 appl topical BID warfarin 5 mg See Protocol PO DAILY Nursing Note INR: 1.7 in therapeutic range of 2-3 Pt denies missed dose. No changes in health, diet, medications, or supplements, Denies any signs and symptoms of bleeding or bruising or clotting. Bleeding, bruising, clotting discussed Nutritional guidance given to avoid greens today. Food list reviewed with pt and he will have a serving or two of foods that can raise the INR Dose: increase today's dose to 10mg (7.5mg) then resume usual dose of 7.5mg X 5 days and 10mg X 2 days F/U INR: 2 weeks Patient verbalizes understanding of instructions with read back given Anti-Coag Initial Assessment Social Hx Patient Tobacco Use Status: Former Tobacco user Tobacco use type: Cigarette alcohol intake: current Alcohol intake frequency: 0-2 drinks per day Cardiovascular Hx: HTN, Angina, [place] and Arrhythmias Lung Disease HX: Asthma Musculoskeletal Hx: Arthritis Hx: Bladder Disorders and Prostate Neurological Hx: Aneurysm Cancer HX: Yes (prostate cancer 25 years ago ) Psych. 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
== END 2024-12-26 10:56 | disposition home or self-care (01) ==
LOC: HO.ACS 10:34
PROVIDERS: PCP Internal Medicine; Visit Provider Internal Medicine
DX: Z79.01 Long term (current) use of anticoagulants (principal)

== ENCOUNTER 2025-01-09 10:37 | Outpatient (AMB) | payer MEDICARE, OTHER, SELFPAY ==
[2025-01-09 10:44] LABS: ~PT, ~INR - Anti Coag Clinic 1.8 (0.9-1.1)
--- NOTE | 2025-01-09 10:53 | MHC.OFFVISCO ---
Intake Intake Visit Reasons: Anticoagulation Allergies No Known Allergies Allergy (Verified 01/09/25 10:39) Medication List - Last Reconciled 01/09/25 by Jocelyn Roblero RN apixaban (Eliquis) 5 mg PO BID enalapril maleate 10 mg PO DAILY fluticasone propion-salmeterol 115-21 mcg/actuation (Advair HFA) 2 puffs inhalation BID 30 days gabapentin 300 mg PO BID gabapentin 100 mg PO DAILY sennosides (Natural Senna Laxative) 8.6 mg orally 2 AT BEDTIME; triamcinolone acetonide 0.025% 1 appl topical BID warfarin 5 mg See Protocol PO DAILY Nursing Note NO CP,SOB,DIET/MED CHANGES,FALLS OR SX OF BLEEDING. NO MISSED DOSES. BOOSTER TODAY THEN RESUME USUAL DOSE AND FOLLOW-UP IN 2 WEEKS. NO GREENS 1-2 DAYS GOOD UNDERSTANDING OF DOSING INSTR. Anti-Coag Initial Assessment Social Hx Patient Tobacco Use Status: Former Tobacco user Tobacco use type: Cigarette alcohol intake: current Alcohol intake frequency: 0-2 drinks per day Cardiovascular Hx: HTN, Angina, [place] and Arrhythmias Lung Disease HX: Asthma Musculoskeletal Hx: Arthritis Hx: Bladder Disorders and Prostate Neurological Hx: Aneurysm Cancer HX: Yes (prostate cancer 25 years ago ) Psych. Illness/Depression: No Coding Level of Care Code Est Patient Level 1 Diagnoses Current use of anticoagulant therapy Z79.01 Assessment & Plan Assessment & Plan (1) Current use of anticoagulant therapy: Code(s): Z79.01 - intermediate (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
== END 2025-01-09 11:03 | disposition home or self-care (01) ==
LOC: HO.ACS 10:37
PROVIDERS: PCP Internal Medicine; Visit Provider Internal Medicine
DX: Z79.01 Long term (current) use of anticoagulants (principal)

== ENCOUNTER → 2025-01-09 10:37 | Outpatient (BNVA) | payer MEDICARE, OTHER, SELFPAY | PROVIDERS: PCP Internal Medicine; Visit Provider Internal Medicine | DX: I48.0 Paroxysmal atrial fibrillation (principal); Z79.01 Long term (current) use of anticoagulants; Z51.81 Encounter for therapeutic drug level monitoring | CPT/HCPCS: 85610; 99211 ==

== ENCOUNTER 2025-01-23 10:38 | Outpatient (AMB) | payer MEDICARE, OTHER, SELFPAY ==
[2025-01-23 10:43] LABS: Prothrombin Time Whole Bld POC 25.6 sec (11.1-13.5); ~PT, ~INR - Anti Coag Clinic 2.1 (0.9-1.1)
--- NOTE | 2025-01-23 10:47 | MHC.OFFVISCO ---
Intake Intake Visit Reasons: Anticoagulation Allergies No Known Allergies Allergy (Verified 01/23/25 10:39) Medication List - Last Reconciled 01/23/25 by Itzel Minor RN apixaban (Eliquis) 5 mg PO BID enalapril maleate 10 mg PO DAILY fluticasone propion-salmeterol 115-21 mcg/actuation (Advair HFA) 2 puffs inhalation BID 30 days gabapentin 300 mg PO BID gabapentin 100 mg PO DAILY sennosides (Natural Senna Laxative) 8.6 mg orally 2 AT BEDTIME; triamcinolone acetonide 0.025% 1 appl topical BID warfarin 5 mg See Protocol PO DAILY Nursing Note INR: 2.1 in therapeutic range 2-3 Medications and supplements reviewed No changes in health, diet, medications, or supplements, Denies any signs and symptoms of bleeding or bruising or clotting. Bleeding, bruising, clotting discussed Nutritional guidance given Dose: weekly dose increased by 2.5mg. pt to take 7.5mg X 4 days and 10mg X 3 days (Sun, Tubren & Thurs) F/U INR: 2 weeks Patient verbalizes understanding of instructions given Anti-Coag Initial Assessment Social Hx Patient Tobacco Use Status: Former Tobacco user Tobacco use type: Cigarette alcohol intake: current Alcohol intake frequency: 0-2 drinks per day Cardiovascular Hx: HTN, Angina, [place] and Arrhythmias Lung Disease HX: Asthma Musculoskeletal Hx: Arthritis Hx: Bladder Disorders and Prostate Neurological Hx: Aneurysm Cancer HX: Yes (prostate cancer 25 years ago ) Psych. 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
--- OUTSIDE RECORDS SUMMARY | 2025-01-23 12:38 | XMS_ITS | Encounter Summary ---
Author Organization [facility] Address [address] [place] [address] Care Team Providers Care Home Care Manager Name Role Phone Physician, Pcp Unknown Primary Care Provider Kati vailable Encounter Details Date Type Department Care Team (Late st Contact Info) Description 01/17/2025 Lab Requisition [facility] - Main Lab [address] [facility] [place] [address] Marvin Cardoso PA [address] [place] [phone] Urinary tract infection, site not specified Social History Tobacco Use Types Packs/Day Years Used Date Smoking Tobacco: Never Assessed Sex and Gender Information Value Date Recorded Sex Assigned at Not on file Legal Sex Male 6:01 PM EST Gender Identity Not on file Sexual Orientation Not on file documented as of this encounter Plan of Treatment Not on file documented as of this encounter Procedures Procedure Name Priority Date/Time Associated Diagnosis Comments CULTURE URINE Routine 01/17/2025 11:45 AM EST Urinary tract infection, site not specified documented in this encounter Results * (ABNORMAL) Culture urine (01/17/2025 11:45 AM EST) Culture, Urine >100,000 CFU/mL Aerococcus urinae(A) LENNY 01/20/2025 12:43 PM EST [facility] Comment: Susceptibility testing not routinely performed. ??If further therapeutic information is required, please consult an infectious disease specialist. The organism value for this result has been updated. These results have been appended to the previously preliminary verified report. Edited result: Previously reported as Gram Positive Cocci on 01/19/2025 at 1238 EST. Urine Urine specimen obtained by clean catch procedure / Unknown 01/17/2025 11:45 AM EST 01/17/2025 2:05 PM EST Narrative [facility] - 01/20/2025 12:43 PM EST Sparse additional colony types present in insignificant amounts. us Marvin [facility] MICROBIOLOGY - GENERAL ORD ERABLES Final Result [facility] [address] [place] [address], documented in this encounter Visit Diagnoses Diagnosis Urinary tract infection, site not specified documented in this encounter Care Teams Home Care Manager Relationship Specialty Start Date End Date Physician, Pcp Unknown PCP - General 01/17/25 documented as of this encounter
--- OUTSIDE RECORDS SUMMARY | 2025-01-23 12:38 | XMS_ITS | Clinical Summary ---
Author Organization [address] [facility] Address [address] [place] [address] Phone Care Team Providers Care Civil Designer Name Role Phone Physician, Pcp Unknown Primary Care Provider Kati vailable Encounters Date Type Department Care Team Description 01/17/2025 Lab Requisition [facility] - Main Lab [address] [facility] [place] [address] Marvin Cardoso, FORTUNATO Urinary tract infection, site not specified from Last 3 Months Social History Tobacco Use Types Packs/Day Years Used Date Smoking Tobacco: Never Assessed Sex and Gender Information Value Date Recorded Sex Assigned at Not on file Legal Sex Male 6:01 PM EST Gender Identity Not on file Sexual Orientation Not on file Plan of Treatment Health Maintenance Due Date Last Done Comments DTaP,Tdap,and Td Vaccines (1 - Tdap) 1954 Pneumococcal Vaccine: 50+ Ye ars (1 of 1 - PCV) 1987 Zoster Vaccines (1 of 2) 1987 RSV Immunization Patients 60 + Years Old (1 - 1-dose 75+ series) 2012 COVID-19 Vaccine (1 - 2023-2 5 season) 2024 Influenza Vaccine (#1) 2024 Cholesterol Screening (Lipid Panel) 01/17/2025 Depression Screening 01/17/2025 Falls Risk Assessment 01/17/2025 Medicare Annual Wellness Visit 01/17/2025 Social Influencers of Health Screening 01/17/2025 HIB Vaccines Aged Out No longer eligi ble based on patient's age to complete this topic HPV Vaccines Aged Out No longer eligi ble based on patient's age to complete this topic Hepatitis A Vaccines Aged Out No long er eligible based on patient's age to complete this topic Hepatitis B Vaccines Aged Out No long er eligible based on patient's age to complete this topic IPV Vaccines Aged Out No longer eligi ble based on patient's age to complete this topic MMR Vaccines Aged Out No longer eligi ble based on patient's age to complete this topic Meningococcal ACWY Vaccine Aged Out N o longer eligible based on patient's age to complete this topic Meningococcal B Vacine Aged Out No lo nger eligible based on patient's age to complete this topic RSV Immunization Patients Un pippa 20 months Aged Out No longer eligible b ased on patient's age to complete this topic Varicella Vaccines Aged Out No longer eligible based on patient's age to complete this topic Procedures Procedure Name Priority Date/Time Associated Diagnosis Comments CULTURE URINE Routine 01/17/2025 11:45 AM EST Urinary tract infection, site not specified from Last 3 Months Results * (ABNORMAL) Culture urine (01/17/2025 11:45 AM EST) Culture, Urine >100,000 CFU/mL Aerococcus urinae(A) LENNY 01/20/2025 12:43 PM EST [facility] Comment: Susceptibility testing not routinely [...] AM EST 01/17/2025 2:05 PM EST Narrative [facility] - 01/20/2025 12:43 PM EST Sparse additional colony types present in insignificant amounts. us Marvin [facility] MICROBIOLOGY - GENERAL ORD ERABLES Final Result [facility] [address] [place] [address], from Last 3 Months Insurance MEDICARE Care Teams Civil Designer Relationship Specialty Start Date End Date Physician, Pcp Unknown PCP - General 01/17/25
== END 2025-01-23 11:02 | disposition home or self-care (01) ==
LOC: HO.ACS 10:38
PROVIDERS: PCP Internal Medicine; Visit Provider Internal Medicine
DX: Z79.01 Long term (current) use of anticoagulants (principal)

== ENCOUNTER → 2025-01-23 10:38 | Outpatient (BNVA) | payer MEDICARE, OTHER, SELFPAY | PROVIDERS: PCP Internal Medicine; Visit Provider Internal Medicine | DX: I48.0 Paroxysmal atrial fibrillation (principal); Z79.01 Long term (current) use of anticoagulants; Z51.81 Encounter for therapeutic drug level monitoring | CPT/HCPCS: 85610; 99211 ==

== ENCOUNTER 2025-01-24 13:58 | Outpatient (REF) | payer SELFPAY ==
--- OUTSIDE RECORDS SUMMARY | 2025-01-24 16:10 | XMS_ITS | Clinical Summary ---
Author Organization [address] [facility] Address [address] [place] [address] Phone Care Team Providers Care Principal Research Economist Name Role Phone Physician, Pcp Unknown Primary Care Provider Kati vailable Encounters Date Type Department Care Team Description 01/17/2025 Lab Requisition [facility] - Main Lab [address] [facility] [employer] [place] [address] Marvin Cardoso, FORTUNATO Urinary tract [...] Aerococcus urinae(A) LENNY 01/20/2025 12:43 PM EST [facility] Comment: Susceptibility testing not routinely [...] AM EST 01/17/2025 2:05 PM EST Narrative [facility] - 01/20/2025 12:43 PM EST Sparse additional colony types present in insignificant amounts. us Marvin [facility] MICROBIOLOGY - GENERAL ORD ERABLES Final Result [facility] [address] [place] [address], from Last 3 Months Insurance MEDICARE Care Teams Principal Research Economist Relationship Specialty Start Date End Date Physician, Pcp Unknown PCP - General 01/17/25
--- OUTSIDE RECORDS SUMMARY | 2025-01-24 16:10 | XMS_ITS | Encounter Summary ---
Author Organization [facility] Address [address] [place] [address] Care Team Providers Care Operations Welder Name Role Phone Physician, Pcp Unknown Primary Care Provider Kati vailable Encounter Details Date Type Department Care Team (Late st Contact Info) Description 01/17/2025 Lab Requisition [facility] - Main Lab [address] [facility] [place] [address] Marvin Cardoso PA [address] [place] [phone] Urinary tract infection, site not specified Social [...] Aerococcus urinae(A) LENNY 01/20/2025 12:43 PM EST [facility] Comment: Susceptibility testing not routinely [...] AM EST 01/17/2025 2:05 PM EST Narrative [facility] - 01/20/2025 12:43 PM EST Sparse additional colony types present in insignificant amounts. us Marvin [facility] MICROBIOLOGY - GENERAL ORD ERABLES Final Result [facility] [address] [place] [address], documented in this encounter Visit Diagnoses Diagnosis Urinary tract infection, site not specified documented in this encounter Care Teams Operations Welder Relationship Specialty Start Date End Date Physician, Pcp Unknown PCP - General 01/17/25 documented as of this encounter
== END 2025-01-24 13:59 | disposition home or self-care (01) ==
LOC: HO.HAP 13:58
PROVIDERS: Visit Provider Internal Medicine
DX: Z46.1 Encounter for fitting and adjustment of hearing aid (principal); H90.3 Sensorineural hearing loss, bilateral
CPT/HCPCS: 92593

== ENCOUNTER 2025-01-27 12:58 | Emergency (ER) | payer MEDICARE, OTHER, SELFPAY ==
[2025-01-27] VITALS (7 sets, daily range): BP systolic 88–116; BP diastolic 49–70; PULSE 63–78; RESP 18; TEMP 36.2; O2SAT 94–98; BMI 36.2
--- NOTE | ~2025-01-27 | CT_ITS ---
.EXAMINATION: CT ANGIOGRAM CHEST CLINICAL INFORMATION: Concern for dissection. History of 5.3 cm aneurysm. COMPARISON: None available. TECHNIQUE: Multiple axial images were obtained through the chest after the administration of 70 mL of Omnipaque 350 intravenous contrast. Extensive vascular post-processing including two-dimensional and three-dimensional reformatted images were created and reviewed on an independent workstation. This CT examination was performed using dose optimization techniques as appropriate, variously including the following: *Automated exposure control *Adjustment of mA and/or kV according to patient size (this includes techniques or standardized protocols for targeted exams where dose is matched to indication/reason for exam; i.e. extremities or head) *Use of iterative reconstruction technique. DLP: 654 mGy centimeter. FINDINGS: Ascending thoracic aorta measures 5.3 cm. Aortic arch measures 2.8 cm. Descending thoracic aorta measures 2.8 cm. No IV contrast extravasation. No intimal flap. Calcified plaques in the coronary arteries. The left vertebral artery origin demonstrates directly from the aortic arch between left CCA and left subclavian artery. Small pericardial effusion. Nonspecific prominent lymph nodes in the mediastinum. Centrilobular erythematous changes in involving mostly the upper lobes. Nonspecific pulmonary groundglass in the periphery of the lungs. No pleural effusion. No pneumothorax. No pneumomediastinum. Multilevel spondylosis without acute fracture or listhesis. Cholelithiasis. Normal diameter of the included abdominal aorta. Old traumatic deformities seen in the posterior lateral aspect left ninth and 11th ribs. CT/CT angio chest aorta IMPRESSION: No rupture or dissection, thoracic aorta. 5.3 cm aneurysm, ascending thoracic aorta. Coronary artery disease. Chronic interstitial lung disease. Multilevel thoracic spondylosis. Fleischner guidelines were followed. Electronically signed by: Jigar Contreras MD 01/27/2025 02:33 PM [facility]
--- NOTE | ~2025-01-27 | CT_ITS ---
EXAMINATION: CT HEAD WITHOUT CONTRAST CLINICAL INFORMATION: rt side numbness COMPARISON: May 03, 2024 TECHNIQUE: Contiguous axial imaging was performed from the skull base to vertex without intravenous administration of contrast. This CT examination was performed using dose optimization techniques as appropriate, variously including the following: *Automated exposure control *Adjustment of mA and/or kV according to patient size (this includes techniques or standardized protocols for targeted exams where dose is matched to indication/reason for exam; i.e. extremities or head) *Use of iterative reconstruction technique DLP: 870.34 mGy-cm FINDINGS: No acute intracranial hemorrhage, mass effect, midline shift, hydrocephalus or herniation. Bilateral multifocal patchy and confluent deep periventricular white matter hypodensities involving centrum semiovale and coleman radiata. Focal encephalomalacia right cuneous/posterior right lingual gyrus. Old lacunar infarct, left coleman radiata white matter. Calcified plaques in the V4 segments of the vertebral arteries and the cavernous supracavernous segments both ICA. Prominence of the extra-axial CSF spaces cerebral sulci and ventricles. Sellar/suprasellar region demonstrated no gross masses or hemorrhage. No acute fracture, bony calvarium. Polypoid mucosal thickening, maxillary sinuses. Tympanic cavities and mastoid air cells are aerated. CT/CT head/brain wo IV con IMPRESSION: No acute intracranial hemorrhage. Small vessel occlusive disease. Prior vascular insult right [employer] territory. 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 Electronically signed by: Jigar Contreras MD 01/27/2025 02:26 PM [facility]
--- NOTE | 2025-01-27 13:16 | ED_ITS ---
HPI - General Adult General Chief complaint: Dizziness Stated complaint: dizzy, numbness in fingers Time Seen by Provider: 01/27/25 13:33 Related Data Home Medications ?Medication ?Instructions ?Recorded ?Confirmed sennosides 8.6 mg tablet (Natural 8.6 mg PO .COMPLEX 09/26/24 01/23/25 Senna Laxative) gabapentin 100 mg capsule 100 mg PO DAILY 11/07/24 01/23/25 gabapentin 300 mg capsule 300 mg PO BID 12/18/24 01/23/25 Previous Rx's ?Medication ?Instructions ?Recorded triamcinolone acetonide 0.025 % 1 appl topical BID #15 grams 08/07/24 topical cream enalapril maleate 10 mg tablet 10 mg PO DAILY #90 tabs 11/13/24 warfarin 5 mg tablet 5 mg PO DAILY #90 tabs 12/07/24 fluticasone propionate 115 2 puff inhalation BID asthma 30 12/17/24 mcg-salmeterol 21 mcg/actuation days #12 grams HFA inhaler (Advair HFA) apixaban 5 mg tablet (Eliquis) 5 mg PO BID #120 tabs 01/06/25 Allergies Allergy/AdvReac Type Severity Reaction Status Date / Time No Known Allergies Allergy Verified 01/27/25 13:18 [facility] Past Medical History Medical History Obesity (BMI 35.0-39.9 without comorbidity) Ascending aortic aneurysm Paroxysmal atrial fibrillation (HFpEF) heart failure with preserved ejection fraction Dysphagia History of prostate cancer Hyperlipidemia Cough Asthma Allergic rhinitis Surgical History Status post trigger finger release History of colonoscopy History of cataract surgery History of prostate surgery Family History Family History Mother No problems noted. Father No problems noted. Social History Social History Housing: Assisted Living Facility Alcohol intake: current Alcohol intake frequency: 0-2 drinks per day Alcohol type: wine Patient Tobacco Use Status: Former Tobacco user Tobacco use type: Cigarette Smoked in Last 30 Days: No e-Cigarette/Vaping Use: Never Used Second Hand Smoke Exposure: Yes Use of substances other than those prescribed or required for medical reasons: No Advance Directives: Yes Advance Directives Information Provided: No Advance Directives on File: No service: No Current occupational status: retired Current occupation: retiered Current occupational exposures/hazards: No Cognitive needs: Yes (walker/cane) Hearing needs: Yes (hearing aide) Vision needs: Yes (Glasses) Physical Exam ED Vital Signs: BMI result Body Mass Index 36.2 Course Course Course Narrative: RME performed by Elisabeth Werner PA-C. Patient is an 89 year old assigned male at presenting to the emergency department with right sided finger numbness / tingling and dizziness. Patient states that he woke up this morning with dizziness that he describes as a type of fog that makes him feel like he needs to sit down. Detailed physical exam and review of systems are deferred to the project manager process development. EKG, labs, imaging, and swabs ordered. director transportation aware. Patient seen and dispositioned by Dr. Salas. Please refer to his note on 01/27/2025. Medications Administered Discontinued Medications Generic Name Dose Route Start Last Admin Trade Name Freq PRN Reason Stop Dose Admin Sodium Chloride 1,000 mls @ 999 mls/hr 01/27/25 13:45 01/27/25 15:24 Ns IVCONT 01/27/25 14:45 Infused .Q1H1M MAICO Infusion Sodium Chloride 500 mls @ 500 mls/hr 01/27/25 15:45 01/27/25 15:50 Ns IV 01/27/25 16:44 500 mls/hr .Q1H MAICO Administration Iohexol 100 ml 01/27/25 13:47 01/27/25 13:48 Iohexol 350 Mg/Ml 100 Ml Infus..Btl IV 01/27/25 13:48 70 ml ONCE ONE Administration Medical Decision Making Lab Data 01/27/25 13:33 01/27/25 14:29 Labs: Lab Results 01/27/25 01/27/25 01/27/25 Range/Units 13:33 14:29 15:44 WBC 7.4 (4.8-10.8) X10*3/uL RBC 4.70 (4.60-5.80) X10*6/uL Hgb 14.1 (14.0-18.0) g/dl Hct 42.0 (42.0-52.0) % MCV 89.4 (80.0-98.0) fL MCH 30.0 (27.0-33.0) pg MCHC 33.6 (31.0-36.0) g/dl RDW 14.8 (11.0-16.0) % Plt Count 243 (160-400) X10*3/uL MPV 9.3 L (9.4-12.4) fL Immature Gran % (Auto) 0.7 H (0.0-0.4) % Neut % (Auto) 75.6 H (45-73) % Lymph % (Auto) 10.9 L (20-40) % [place] % (Auto) 9.5 (2-11) % Eos % (Auto) 2.4 (0-4) % Baso % (Auto) 0.9 (0-2) % Lymph # (Auto) 0.8 L (1.2-4.9) X10*3/uL [place] # (Auto) 0.7 (0.1-1.2) X10*3/uL Eos # (Auto) 0.2 (0.0-0.4) X10*3/uL Baso # (Auto) 0.1 (0.0-0.2) X10*3/uL Abs Immat Gran (auto) 0.05 H (0.00-0.03) X10*3/uL Absolute Neuts (auto) 5.6 (2.0-8.3) x10*3/uL Absolute Nucleated RBC 0.000 (0.0-0.012) X10*3/uL Nucleated RBC % (auto) 0.0 (0.0-0.2) /100WBC PT 21.7 H (10.9-12.4) SEC INR 1.9 H (0.9-1.1) APTT 40.5 H (26.0-36.8) SEC Sodium 139 (135-145) mmol/L Potassium 4.5 (3.3-5.1) mmol/L Chloride 111 H (96-108) mmol/L Carbon Dioxide 23 (22-29) mmol/L Anion Gap 10 L (12-20) BUN 21 H (9-16) mg/dL Creatinine 1.05 (0.5-1.4) mg/dL Estim Creat Clear Calc 71.0 Estimated GFR > 60 Random Glucose 84 (60-115) mg/dL Lactic Acid 1.1 (0.5-2.0) mmol/L Calcium 8.3 L D (8.4-10.2) mg/dL Magnesium 2.1 (1.6-2.6) mg/dL Total Bilirubin 0.7 (0.0-1.0) mg/dL AST 19 (5-37) U/L ALT 8 (0-40) U/L Alkaline Phosphatase 64 (39-117) U/L Troponin I High Sens < 2.7 < 2.7 (<3.5-35.0) ng/L Total Protein 6.0 L (6.5-8.0) g/dL Albumin 3.2 L (3.5-5.0) g/dL Influenza Type A (PCR) NEGATIVE (Negative) Influenza Type B (PCR) NEGATIVE (Negative) RSV RNA Qual (PCR) NEGATIVE (Negative) SARS-CoV-2 RNA (RT-PCR) NEGATIVE (Negative) Discharge Plan Discharge Clinical Impression: Lightheaded, Hypotension Patient Disposition: Home, Self-Care Instructions: Hypotension (ED), Dizziness (ED) Additional Instructions: Drink plenty of fluids follow-up with your primary care physician tomorrow return to the emergency room if worse. Prescriptions: No Action enalapril maleate 10 mg tablet 10 mg PO DAILY Qty: 90 0RF warfarin 5 mg tablet 5 mg PO DAILY Qty: 90 1RF Protocol: Dose Management Condition: Monday (Week One) Dose/Route: 10 mg Instruction: 2 x 5 mg tablets Condition: Monday Dose/Route: 7.5 mg Instruction: 1.5 x 5 mg tablets Condition: Monday Dose/Route: 7.5 mg Instruction: 1.5 x 5 mg tablets Condition: Monday Dose/Route: 7.5 mg Instruction: 1.5 x 5 mg tablets Condition: Dose/Route: 10 mg Instruction: 2 x 5 mg tablets Condition: Monday Dose/Route: 7.5 mg Instruction: 1.5 x 5 mg tablets Condition: Monday Dose/Route: 7.5 mg Instruction: 1.5 x 5 mg tablets Condition: Monday (Week Two) Dose/Route: 10 mg Instruction: 2 x 5 mg tablets Condition: Monday Dose/Route: 7.5 mg Instruction: 1.5 x 5 mg tablets Condition: Monday Dose/Route: 10 mg Instruction: 2 x 5 mg tablets Condition: Monday Dose/Route: 7.5 mg Instruction: 1.5 x 5 mg tablets Condition: Dose/Route: 10 mg Instruction: 2 x 5 mg tablets Condition: Monday Dose/Route: 7.5 mg Instruction: 1.5 x 5 mg tablets Condition: Monday Dose/Route: 7.5 mg Instruction: 1.5 x 5 mg tablets Protocol Text: Adjustment Start Date: 01/23/25 INR Value: 2.1 INR Date: 01/23/25 Recheck Date: 02/06/25 fluticasone propion-salmeterol [Advair HFA] 115-21 mcg/actuation HFA aerosol inhaler 2 puff inhalation BID 30 Days Qty: 12 3RF Eliquis 5 mg tablet 5 mg PO BID Qty: 120 3RF triamcinolone acetonide 0.025 % cream 1 appl topical BID Qty: 15 0RF gabapentin 100 mg capsule 100 mg PO DAILY Patient Comments: 200mg in am gabapentin 300 mg capsule 300 mg PO BID Patient Comments: 200mg in am sennosides [Natural Senna Laxative] 8.6 mg tablet 8.6 mg PO .COMPLEX Rx Instructions: 8.6 mg orally 2 AT BEDTIME; Referrals: Hayden Savage MD [Primary Care Provider] - 1 day Interventions: ED Discharge Assessment Last Done: 01/27/25 16:45 Discharge Date/Time: 01/27/25 16:47 Print Language: Bangladeshi
--- NOTE | 2025-01-27 13:19 | ECG_ITS ---
Test Reason : dizziness Blood Pressure : */* mmHG Vent. Rate : 73 BPM Atrial Rate : 73 BPM P-R Int : 176 ms QRS Dur : 102 ms QT Int : 418 ms P-R-T Axes : -4 -34 5 degrees QTcB Int : 460 ms Sinus rhythm with occasional Premature ventricular complexes Left axis deviation Abnormal ECG When compared with ECG of 03-May-2024 01:11, No significant change was found Referred By: Elisabeth Werner Electronically Signed By: THANG HERRERA MD
[2025-01-27 13:38] LABS: MANUAL DIFF FLAG NO
[2025-01-27 13:40] LABS: Basophils Absolute Auto 0.1 X10*3/uL (0.0-0.2); Basophils Percent Auto 0.9 % (0-2); Eosinophils Absolute Auto 0.2 X10*3/uL (0.0-0.4); Eosinophils Percent Auto 2.4 % (0-4); Hemoglobin 14.1 g/dl (14.0-18.0); Imm Gran Abs Auto 0.05 X10*3/uL (0.00-0.03); Imm Gran Pct Auto 0.7 % (0.0-0.4); Lymphocytes Absolute Auto 0.8 X10*3/uL (1.2-4.9); Lymphocytes Percent Auto 10.9 % (20-40); Mean Corpuscular HGB Conc 33.6 g/dl (31.0-36.0); Mean Corpuscular Volume 89.4 fL (80.0-98.0); Mean Platelet Volume 9.3 fL (9.4-12.4); Monocytes Absolute Auto 0.7 X10*3/uL (0.1-1.2); Monocytes Percent Auto 9.5 % (2-11); Neutrophils Absolute Auto 5.6 x10*3/uL (2.0-8.3); Neutrophils Percent Auto 75.6 % (45-73); Platelet Count 243 X10*3/uL (160-400); Red Cell Distribution Width 14.8 % (11.0-16.0); White Blood Count 7.4 X10*3/uL (4.8-10.8)
[2025-01-27] MEDS: iohexoL 350 MG/ML 100 ML INFUS..BTL IV (13:48)
[2025-01-27 13:49] LABS: INTERNATIONAL NORM RATIO 1.9 (0.9-1.1); Prothrombin Time 21.7 SEC (10.9-12.4)
[2025-01-27 13:52] LABS: Partial Thromboplastin Time 40.5 SEC (26.0-36.8)
[2025-01-27] MEDS: 0.9 % Sodium Chloride 1,000 ML 999 ML IVCONT (13:53)
--- NOTE | 2025-01-27 14:00 | ED.GENADULT ---
HPI - General Adult General Chief complaint: Dizziness Stated complaint: dizzy, numbness in fingers Time Seen by Provider: 01/27/25 13:33 Source: patient Mode of arrival: ambulatory Limitations: no limitations History of Present Illness HPI narrative: This is 89 years old the patient presented to the emergency department complaining of dizziness described as lightheadedness numbness in the right fingers.. He is ambulatory to the emergency department he described with the dizziness as a lightheadedness. Denies any chest pain he does have history of an ascending aortic aneurysm Onset (ago): hour(s) (4) Radiation: non-radiation Severity: moderate Pain Consistency: constant Relieving factors: none Exacerbating factors: none Associated symptoms: denies other symptoms Related Data Home Medications ?Medication ?Instructions ?Recorded ?Confirmed sennosides 8.6 mg tablet (Natural 8.6 mg PO .COMPLEX 09/26/24 01/23/25 Senna Laxative) gabapentin 100 mg capsule 100 mg PO DAILY 11/07/24 01/23/25 gabapentin 300 mg capsule 300 mg PO BID 12/18/24 01/23/25 Previous Rx's ?Medication ?Instructions ?Recorded triamcinolone acetonide 0.025 % 1 appl topical BID #15 grams 08/07/24 topical cream enalapril maleate 10 mg tablet 10 mg PO DAILY #90 tabs 11/13/24 warfarin 5 mg tablet 5 mg PO DAILY #90 tabs 12/07/24 fluticasone propionate 115 2 puff inhalation BID asthma 30 12/17/24 mcg-salmeterol 21 mcg/actuation days #12 grams HFA inhaler (Advair HFA) apixaban 5 mg tablet (Eliquis) 5 mg PO BID #120 tabs 01/06/25 Allergies Allergy/AdvReac Type Severity Reaction Status Date / Time No Known Allergies Allergy Verified 01/27/25 13:18 Review of Systems Constitutional: Constitutional: Reports no additional constitutional complaints Cardiovascular: Cardiovascular: Reports no additional cardiovascular complaints Gastrointestinal: Gastrointestinal: Reports no additional gastrointestinal complaints [facility] Past Medical History Attestation statement: The following information was validated with the patient. [facility] Narrative: Paroxysmal atrial fibrillation, ascending aortic aneurysm Medical History Obesity (BMI 35.0-39.9 without comorbidity) Ascending aortic aneurysm Paroxysmal atrial fibrillation (HFpEF) heart failure with preserved ejection fraction Dysphagia History of prostate cancer Hyperlipidemia Cough Asthma Allergic rhinitis Surgical History Status post trigger finger release History of colonoscopy History of cataract surgery History of prostate surgery Family History Family History Mother No problems noted. Father No problems noted. Social History Social History Housing: Assisted Living Facility Alcohol intake: current Alcohol intake frequency: 0-2 drinks per day Alcohol type: wine Patient Tobacco Use Status: Former Tobacco user Tobacco use type: Cigarette Smoked in Last 30 Days: No e-Cigarette/Vaping Use: Never Used Second Hand Smoke Exposure: Yes Use of substances other than those prescribed or required for medical reasons: No Advance Directives: Yes Advance Directives Information Provided: No Advance Directives on File: No service: No Current occupational status: retired Current occupation: retiered Current occupational exposures/hazards: No Cognitive needs: Yes (walker/cane) Hearing needs: Yes (hearing aide) Vision needs: Yes (Glasses) Physical Exam ED Vital Signs: Vital Signs - 24 hr 01/27/25 13:16 01/27/25 13:55 01/27/25 15:30 Temperature 97.1 F Pulse Rate 73 78 73 Respiratory Rate 18 18 18 Blood Pressure 88/49 L 98/64 111/63 Pulse Oximetry 98 94 98 Oxygen Delivery Method Room Air Room Air Room Air BMI result Body Mass Index 36.2 No acute distress warm and dry the skin Const General: cooperative Nutritional Appearance: average body habitus Orientation/consciousness: patient oriented x3 Limitations: no limitations HENMT Head: Yes normal to inspection Face and sinus: Yes normal facial exam Neck Neck: Yes normal visual inspection Chest Chest palpation & inspection: normal inspection of the chest Resp Effort & Inspection: normal respiratory effort Cardio Palpation: normal PMI Rate: regular rate Rhythm: regular rhythm GI Inspection: Yes normal to inspection Palpation (GI): Soft to palpation, not firm, nontender and no guarding Percussion: Yes normal to percussion Auscultation: normal bowel sounds Skin General skin exam: no rashes or lesions noted Lesions: no lesions Rashes: no rashes Neuro General: patient oriented x3 Course Reevaluation(s) Reevaluation #1: On re-examination he is doing much better at this point denies any chest pain shortness of breath the lightheadedness is completely gone. He remained afebrile lactic acid is normal. CT chest showed no evidence of dissection, troponin undetectable. Patient is requesting discharge Time: 15:52 Reevaluation #2: I want to get out,I feel great Time: 16:22 Reevaluation #3: # 2 tropi negative Medications Administered Generic Name Dose Route Start Last Admin Trade Name Freq PRN Reason Stop Dose Admin Sodium Chloride 500 mls @ 500 mls/hr 01/27/25 15:45 01/27/25 15:50 Ns IV 01/27/25 16:44 500 mls/hr .Q1H MAICO Administration Discontinued Medications Generic Name Dose Route Start Last Admin Trade Name Freq PRN Reason Stop Dose Admin Sodium Chloride 1,000 mls @ 999 mls/hr 01/27/25 13:45 01/27/25 15:24 Ns IVCONT 01/27/25 14:45 Infused .Q1H1M MAICO Infusion Iohexol 100 ml 01/27/25 13:47 01/27/25 13:48 Iohexol 350 Mg/Ml 100 Ml Infus..Btl IV 01/27/25 13:48 70 ml ONCE ONE Administration Medical Decision Making Medical Decision Making [facility] Narrative: Patient presented to the emergency department with a chief complaint of lightheadedness we will do blood work we will do a CT to check his aneurysm @4:[address] scan shows no aortic dissection, we ruled out acute coronary syndrome 2 troponin negative, unlikely PE is on warfarin, unlikely sepsis normal lactic acid afebrile. The clinical picture is more consistent with dehydration responded very well to the fluid at this time is asymptomatic demanding discharge Differential Diagnosis Differential Diagnoses: The differential diagnosis associated with the presentation includes Dehydration/ACS/rupture ascending aortic aneurysm Lab Data [facility] Lab Attestation statement: I reviewed the patient's lab results. 01/27/25 13:33 01/27/25 14:29 Labs: Lab Results 01/27/25 01/27/25 01/27/25 Range/Units 13:33 14:29 15:44 WBC 7.4 (4.8-10.8) X10*3/uL RBC 4.70 (4.60-5.80) X10*6/uL Hgb 14.1 (14.0-18.0) g/dl Hct 42.0 (42.0-52.0) % MCV 89.4 (80.0-98.0) fL MCH 30.0 (27.0-33.0) pg MCHC 33.6 (31.0-36.0) g/dl RDW 14.8 (11.0-16.0) % Plt Count 243 (160-400) X10*3/uL MPV 9.3 L (9.4-12.4) fL Immature Gran % (Auto) 0.7 H (0.0-0.4) % Neut % (Auto) 75.6 H (45-73) % Lymph % (Auto) 10.9 L (20-40) % Blanco % (Auto) 9.5 (2-11) % Eos % (Auto) 2.4 (0-4) % Baso % (Auto) 0.9 (0-2) % Lymph # (Auto) 0.8 L (1.2-4.9) X10*3/uL Blanco # (Auto) 0.7 (0.1-1.2) X10*3/uL Eos # (Auto) 0.2 (0.0-0.4) X10*3/uL Baso # (Auto) 0.1 (0.0-0.2) X10*3/uL Abs Immat Gran (auto) 0.05 H (0.00-0.03) X10*3/uL Absolute Neuts (auto) 5.6 (2.0-8.3) x10*3/uL Absolute Nucleated RBC 0.000 (0.0-0.012) X10*3/uL Nucleated RBC % (auto) 0.0 (0.0-0.2) /100WBC PT 21.7 H (10.9-12.4) SEC INR 1.9 H (0.9-1.1) APTT 40.5 H (26.0-36.8) SEC Sodium 139 (135-145) mmol/L Potassium 4.5 (3.3-5.1) mmol/L Chloride 111 H (96-108) mmol/L Carbon Dioxide 23 (22-29) mmol/L Anion Gap 10 L (12-20) BUN 21 H (9-16) mg/dL Creatinine 1.05 (0.5-1.4) mg/dL Estim Creat Clear Calc 71.0 Estimated GFR > 60 Random Glucose 84 (60-115) mg/dL Lactic Acid 1.1 (0.5-2.0) mmol/L Calcium 8.3 L D (8.4-10.2) mg/dL Magnesium 2.1 (1.6-2.6) mg/dL Total Bilirubin 0.7 (0.0-1.0) mg/dL AST 19 (5-37) U/L ALT 8 (0-40) U/L Alkaline Phosphatase 64 (39-117) U/L Troponin I High Sens < 2.7 < 2.7 (<3.5-35.0) ng/L Total Protein 6.0 L (6.5-8.0) g/dL Albumin 3.2 L (3.5-5.0) g/dL Influenza Type A (PCR) NEGATIVE (Negative) Influenza Type B (PCR) NEGATIVE (Negative) RSV RNA Qual (PCR) NEGATIVE (Negative) SARS-CoV-2 RNA (RT-PCR) NEGATIVE (Negative) Independent Interpretation I performed an independent interpretation of an: EKG Interpretation: EKG reviewed interpreted by me as sinus rhythm rate [address]-T changes Radiology Impression Discussion of test interpretation with radiology: I have reviewed the radiologist's reading. Radiologist Impression: cluded abdominal aorta. Old traumatic deformities seen in the posterior lateral aspect left ninth and 11th ribs. CT/CT angio chest aorta IMPRESSION: No rupture or dissection, thoracic aorta. 5.3 cm aneurysm, ascending thoracic aorta. Coronary artery disease. Chronic interstitial lung disease. Multilevel thoracic spondylosis. Fleischner guidelines were followed. Electronically signed by: Jigar Contreras MD 01/27/2025 02:33 PM [facility] [place] Dictated By: Jigar Guzman MD Signed By: <Electr Critical Care Time Critical Care Time Critical Care Time: Yes Total Critical Care Time: 60 Attestation: Hypotension, requiring IV fluids w/u Discharge Plan Discharge Clinical Impression: Lightheaded Hypotension Qualifiers: Hypotension type: orthostatic hypotension Qualified Code(s): I95.1 - Orthostatic hypotension Patient Disposition: Home, Self-Care Instructions: Hypotension (ED), Dizziness (ED) Additional Instructions: Drink plenty of fluids follow-up with your primary care physician tomorrow return to the emergency room if worse. Prescriptions: No Action enalapril maleate 10 mg tablet 10 mg PO DAILY Qty: 90 0RF warfarin 5 mg tablet 5 mg PO DAILY Qty: 90 1RF Protocol: Dose Management Condition: Monday (Week One) Dose/Route: 10 mg Instruction: 2 x 5 mg tablets Condition: Monday Dose/Route: 7.5 mg Instruction: 1.5 x 5 mg tablets Condition: Monday Dose/Route: 7.5 mg Instruction: 1.5 x 5 mg tablets Condition: Monday Dose/Route: 7.5 mg Instruction: 1.5 x 5 mg tablets Condition: Dose/Route: 10 mg Instruction: 2 x 5 mg tablets Condition: Monday Dose/Route: 7.5 mg Instruction: 1.5 x 5 mg tablets Condition: Monday Dose/Route: 7.5 mg Instruction: 1.5 x 5 mg tablets Condition: Monday (Week Two) Dose/Route: 10 mg Instruction: 2 x 5 mg tablets Condition: Monday Dose/Route: 7.5 mg Instruction: 1.5 x 5 mg tablets Condition: Monday Dose/Route: 10 mg Instruction: 2 x 5 mg tablets Condition: Monday Dose/Route: 7.5 mg Instruction: 1.5 x 5 mg tablets Condition: Dose/Route: 10 mg Instruction: 2 x 5 mg tablets Condition: Monday Dose/Route: 7.5 mg Instruction: 1.5 x 5 mg tablets Condition: Monday Dose/Route: 7.5 mg Instruction: 1.5 x 5 mg tablets Protocol Text: Adjustment Start Date: 01/23/25 INR Value: 2.1 INR Date: 01/23/25 Recheck Date: 02/06/25 fluticasone propion-salmeterol [Advair HFA] 115-21 mcg/actuation HFA aerosol inhaler 2 puff inhalation BID 30 Days Qty: 12 3RF Eliquis 5 mg tablet 5 mg PO BID Qty: 120 3RF triamcinolone acetonide 0.025 % cream 1 appl topical BID Qty: 15 0RF gabapentin 100 mg capsule 100 mg PO DAILY Patient Comments: 200mg in am gabapentin 300 mg capsule 300 mg PO BID Patient Comments: 200mg in am sennosides [Natural Senna Laxative] 8.6 mg tablet 8.6 mg PO .COMPLEX Rx Instructions: 8.6 mg orally 2 AT BEDTIME; Referrals: Hayden Savage MD [Primary Care Provider] - 1 day Print Language: Palauan
[2025-01-27 14:06] LABS: Troponin-I High Sensitivity < 2.7 ng/L (<3.5-35.0)
[2025-01-27 14:16] LABS: Influenza A PCR NEGATIVE (Negative); Influenza B PCR NEGATIVE (Negative); Resp Syncy Virus RNA Qual PCR NEGATIVE (Negative); SARS COV2 PCR INHOUSE NEGATIVE (Negative)
[2025-01-27 14:51] LABS: Lactic Acid 1.1 mmol/L (0.5-2.0)
[2025-01-27 14:55] LABS: Alanine Aminotransferase 8 U/L (0-40); Albumin Level 3.2 g/dL (3.5-5.0); Alkaline Phosphatase 64 U/L (39-117); Anion Gap 10 (12-20); Aspartate Amino Transferase 19 U/L (5-37); Bilirubin Total 0.7 mg/dL (0.0-1.0); Blood Urea Nitrogen 21 mg/dL (9-16); Calcium 8.3 mg/dL (8.4-10.2); Carbon Dioxide 23 mmol/L (22-29); Chloride 111 mmol/L (96-108); Estimated Glomerular Filt Rate > 60; Glucose Random 84 mg/dL (60-115); Magnesium 2.1 mg/dL (1.6-2.6); Potassium 4.5 mmol/L (3.3-5.1); Sodium 139 mmol/L (135-145)
[2025-01-27] MEDS: 0.9 % Sodium Chloride 500 ML IV (15:50)
[2025-01-27 16:28] LABS: Troponin-I High Sensitivity < 2.7 ng/L (<3.5-35.0)
--- OUTSIDE RECORDS SUMMARY | 2025-01-27 17:09 | XMS_ITS | Clinical Summary ---
Author Organization [address] [facility] Address [address] [place] [address] Phone Care Team Providers Care Health Specialist Name Role Phone Physician, Pcp Unknown Primary Care Provider Kati vailable Encounters Date Type Department Care Team Description 01/17/2025 Lab Requisition [facility] - Main Lab [address] [facility] [place] [address] Marvin Cardoso, FORTUNATO Urinary tract [...] Aerococcus urinae(A) LENNY 01/20/2025 12:43 PM EST [facility] Comment: Susceptibility testing not routinely performed. [...] AM EST 01/17/2025 2:05 PM EST Narrative [facility] - 01/20/2025 12:43 PM EST Sparse additional colony types present in insignificant amounts. us Marvin [facility] MICROBIOLOGY - GENERAL ORD ERABLES Final Result [facility] [address] [place] [address], from Last 3 Months Insurance MEDICARE Care Teams Health Specialist Relationship Specialty Start Date End Date Physician, Pcp Unknown PCP - General 01/17/25
--- OUTSIDE RECORDS SUMMARY | 2025-01-27 17:09 | XMS_ITS | Encounter Summary ---
Author Organization [facility] Address [address] [place] [address] Care Team Providers Care Rating Examiner Name Role Phone Physician, Pcp Unknown Primary Care Provider Kati vailable Encounter Details Date Type Department Care Team (Late st Contact Info) Description 01/17/2025 Lab Requisition [facility] - Main Lab [address] [facility] [place] [address] Marvin Cardoso PA [address] [place] [id number] Urinary tract infection, site not specified Social [...] Aerococcus urinae(A) LENNY 01/20/2025 12:43 PM EST [facility] Comment: Susceptibility testing not [...] AM EST 01/17/2025 2:05 PM EST Narrative [facility] - 01/20/2025 12:43 PM EST Sparse additional colony types present in insignificant amounts. us Marvin [facility] MICROBIOLOGY - GENERAL ORD ERABLES Final Result [facility] [address] [place] [address], documented in this encounter Visit Diagnoses Diagnosis Urinary tract infection, site not specified documented in this encounter Care Teams Rating Examiner Relationship Specialty Start Date End Date Physician, Pcp Unknown PCP - General 01/17/25 documented as of this encounter
== END 2025-01-27 16:47 | disposition home or self-care (01) ==
PROVIDERS: Physician Assistant Medical; Emergency Provider Emergency Medicine; PCP Internal Medicine
DX: R42 Dizziness and giddiness (principal); I95.1 Orthostatic hypotension; I71.21 Aneurysm of the ascending aorta, without rupture; I48.0 Paroxysmal atrial fibrillation; Z79.01 Long term (current) use of anticoagulants; Z03.818 Encounter for observation for suspected exposure to other biological agents ruled out
CPT/HCPCS: 0241U; 36415; 70450; 71275; 80053; 83605; 83735; 84484; 85025; 85610; 85730; 87040; 93005; 96360; 96361; 99284; 99285; Q9967

== ENCOUNTER → 2025-01-27 13:19 | Outpatient (BNV) | payer MEDICARE, OTHER, SELFPAY | PROVIDERS: Emergency Provider Emergency Medicine; PCP Internal Medicine; Visit Provider Radiology Diagnostic Radiology | DX: R20.2 Paresthesia of skin (principal) | CPT/HCPCS: 70450; 71275 ==

== ENCOUNTER → 2025-01-27 13:19 | Outpatient (BNV) | payer MEDICARE, OTHER, SELFPAY | PROVIDERS: Emergency Provider Emergency Medicine; PCP Internal Medicine; Visit Provider Internal Medicine Cardiovascular Disease | DX: I49.3 Ventricular premature depolarization (principal) | CPT/HCPCS: 93010 ==

== ENCOUNTER 2025-01-30 15:14 | Outpatient (AMB) | payer MEDICARE, OTHER, SELFPAY ==
--- NOTE | 2025-01-30 15:20 | A.OFFPC_ITS ---
Vital Signs 01/30/25 15:29 Weight 299 lb BP 96/64 Blood Pressure Location Lt brachial Position Sitting Pulse 78 Temp 97.1 F Temp Source Temporal Artery Scan Pulse Oximetry (%) 97 Oxygen Delivery Method Room Air Intake Visit Reasons: dizziness Special Needs Child Caregiver Required: No Accompanied by: Self / Same As Patient Allergies No Known Allergies Allergy (Verified 02/03/25 09:43) Medication List - Last Reconciled 02/03/25 by Hayden Savage MD enalapril maleate 10 mg PO DAILY fluticasone propion-salmeterol 115-21 mcg/actuation (Advair HFA) 2 puffs inhalation BID PRN gabapentin 100 mg PO QAM gabapentin 300 mg PO QPM ketorolac 0.5% 1 drp ophthalmic (eye) QID sennosides (Natural Senna Laxative) 8.6 mg orally 2 AT BEDTIME; tamsulosin mg PO triamcinolone acetonide 0.025% 1 appl topical BID warfarin 5 mg See Protocol PO DAILY Tobacco use date assessed: 01/30/25 Fall risk assessment: No Falls in past year Last assessed Fall Risk: 01/30/25 Dental Screening Dental Screen Date: 01/30/25 Did you have a dental visit in the last 12 months?: Yes Did you have a dental problem in the last 6 months where you did not have access to dental care?: No Was dental information given to patient?: Patient has dentist HPI dizziness HPI Details 89-year-old male presents to the office for a sick visit. For the past few weeks patient has been dizzy and lightheaded. No history of loss of consciousness. Patient has to hold the wall while walking at times. Denies any ringing of ears. Was seen at the emergency room but no specific treatment was offered. Patient reports that his blood pressures have been low recently. [facility] Medical History Obesity (BMI 35.0-39.9 without comorbidity) Ascending aortic aneurysm Paroxysmal atrial fibrillation (HFpEF) heart failure with preserved ejection fraction Dysphagia History of prostate cancer Hyperlipidemia Cough Asthma Allergic rhinitis Surgical History Status post trigger finger release History of colonoscopy History of cataract surgery History of prostate surgery Family History Mother No problems noted. Father No problems noted. Social History Housing: Assisted Living Facility Alcohol intake: current Alcohol intake frequency: 0-2 drinks per day Alcohol type: wine Patient Tobacco Use Status: Former Tobacco user Tobacco use type: Cigarette e-Cigarette/Vaping Use: Never Used Second Hand Smoke Exposure: Yes service: No Current occupational status: retired Current occupation: retiered Current occupational exposures/hazards: No Cognitive needs: Yes (walker/cane) Hearing needs: Yes (hearing aide) Vision needs: Yes (Glasses) Questionnaire PHQ-9 Over the last 2 weeks, how often have you been bothered by any of the following problems? 1. Little interest or pleasure in doing things: not at all 2. Feeling down, depressed, or hopeless: not at all 3. Trouble falling or staying asleep, or sleeping too much: not at all 4. Feeling tired or having little energy: not at all 5. Poor appetite or overeating: not at all 6. Feeling bad about yourself - or that you are a failure or have let yourself or your family down: not at all 7. Trouble concentrating on things, such as reading the newspaper or watching television: not at all 8. Moving or speaking so slowly that other people could have noticed. Or the opposite - being so fidgety or restless that you have been moving around a lot more than usual: not at all 9. Thoughts that you would be better off or of hurting yourself in some way: not at all Total score: 0 Depression Screening Interpretation: Negative Depression Screening Done: Yes 37410 - PHQ-9 Billing: Yes Source: Developed by Drs. Adams Wagner, Trina Cuellar, Demetris Turpin and colleagues, with an educational kelly from [employer]. Thrive Questionnaire Date Thrive assessed: 12/07/23 I am a: Patient What is your living situation today?: I have a steady place to live Within the past 12 months, did the food you bought not last and you didn't have the money to get more?: Never true Within the past 12 months, did you worry whether your food would run out before you got money to buy more?: Never true Do you have trouble paying for medicines?: No Do you have trouble getting transportation to medical appointments?: No Do you have trouble paying your heating and electricity bill?: No Do you have trouble taking care of your child, family member or friend?: No Do you have trouble with day-to-day activities such as bathing, preparing meals, shopping, managing finances, etc.?: No Are you currently unemployed and looking for a job?: No Are you interested in more education?: No Please select the resources that you would like help with: None Currently or been in a relationship where the following occur: No concerns reported THRIVE Score: 0 AUDIT C Alcohol Use Questionnaire (AUDIT-C) 1. How often do you have a drink containing alcohol?: 4 or more times a week 2. How many drinks containing alcohol do you have on a typical day when you are drinking?: 1 or 2 Total Score: 4 BRITTNEY-7 AMB Questionnaire BRITTNEY-7 Date BRITTNEY - 7 assessed: 01/30/25 Feeling nervous, anxious, or on edge: 0 = Not at all Not being able to stop or control worryin = Not at all Worrying too much about different things: 0 = Not at all Trouble relaxin = Not at all Being so restless that it is hard to sit still: 0 = Not at all Becoming easily annoyed or irritable: 0 = Not at all Feeling afraid as if something awful might happen: 0 = Not at all Total BRITTNEY-7 score (0-4 normal; 5-9 mild; 10-14 moderate; 15-21 severe): 0 Source: Developed by Drs. Adams Wagner, Trina Cuellar, Demetris Turpin and colleagues, with an educational kelly from [employer]. BRITTNEY-7 Assessment Billing BRITTNEY-7 Assessment Tool: BRITTNEY-7 Assessment 12997 Physical exam (Primary Care) Vital Signs: Last Vital Signs Temp 97.1 F 01/30/25 15:29 Pulse 78 01/30/25 15:29 BP 96/64 01/30/25 15:29 Pulse Ox 97 01/30/25 15:29 Oxygen Delivery Method Room Air 01/30/25 15:29 Care Plan Goal for BP management: Blood pressure is low. Hold lisinopril. Tobacco/Smoking Status: Tobacco use Status Tobacco use date assessed 01/30/25 01/30/25 15:35 Patient Tobacco Use Status Former Tobacco user 01/30/25 15:35 Tobacco use type Cigarette 01/30/25 15:35 e-Cigarette/Vaping Use Never Used 01/30/25 15:35 PHQ-9: PHQ-9 Score PHQ-9: Total score 0 01/30/25 15:35 Depression Screening Interpretation: Negative Thrive Assessment: Date of Thrive Assessment Date Thrive assessed 12/07/23 01/30/25 15:35 Currently or been in a relationship where the following occur: No concerns reported Const General: cooperative and healthy appearing Nutritional Appearance: well nourished Orientation/consciousness: patient oriented x3 Limitations: no limitations HENMT Head: Yes normal to inspection Eyes General: appearance normal, both eyes and all related structures Neck Neck: Yes normal visual inspection Chest Chest palpation & inspection: normal palpation of entire chest wall Resp Effort & Inspection: normal respiratory effort Neuro General: patient oriented x3 Coding Level of Care Code Est Pt Level 4 (07984) Complex EM visit Add On G2211 Diagnoses Hypotension I95.9 Additional Codes BRITTNEY-7 Assessment Billing - BRITTNEY-7 Assessment Tool: BRITTNEY-7 Assessment 87712 ([id number]) PHQ-9 - 35916 - PHQ-9 Billing: Yes ([id number]) Assessment & Plan Assessment & Plan (1) Hypotension: Code(s): I95.9 - Hypotension, unspecified Plan: Lisinopril to be on hold. This medication was being used for his congestive heart failure. Patient was advised to check blood pressures and send me a report. Medications: New fluticasone propion-salmeterol 115-21 mcg/actuation (Advair HFA) 2 puffs inhalation BID PRN 12 grams 0RF asthma
[2025-01-30 15:29] VITALS: BP 96/64; PULSE 78; TEMP 36.2; O2SAT 97
--- OUTSIDE RECORDS SUMMARY | 2025-01-30 18:44 | XMS_ITS | Clinical Summary ---
Author Organization [address] [facility] Address [address] [place] [address] Phone Care Team Providers Care Director Of Supply Chain Name Role Phone Physician, Pcp Unknown Primary Care Provider Kati vailable Encounters Date Type Department Care Team Description 01/17/2025 Lab Requisition [facility] - Main Lab [address] [facility] [place] [address] Marvin Cardoso, FORTUNATO Urinary tract [...] Aerococcus urinae(A) LENNY 01/20/2025 12:43 PM EST [facility] Comment: Susceptibility testing not routinely [...] AM EST 01/17/2025 2:05 PM EST Narrative [facility] - 01/20/2025 12:43 PM EST Sparse additional colony types present in insignificant amounts. us Marvin [facility] MICROBIOLOGY - GENERAL ORD ERABLES Final Result [facility] [address] [place] [address], from Last 3 Months Insurance MEDICARE Care Teams Director Of Supply Chain Relationship Specialty Start Date End Date Physician, Pcp Unknown PCP - General 01/17/25
--- OUTSIDE RECORDS SUMMARY | 2025-01-30 18:44 | XMS_ITS | Encounter Summary ---
Author Organization [facility] Address [address] [place] [address] Care Team Providers Care Supervisor Soldering Name Role Phone Physician, Pcp Unknown Primary Care Provider Kati vailable Encounter Details Date Type Department Care Team (Late st Contact Info) Description 01/17/2025 Lab Requisition [facility] - Main Lab [address] [facility] [place] [address] Marvin Cardoso PA [address] [place] [phone] Urinary tract infection, site not specified Social [...] Aerococcus urinae(A) LENNY 01/20/2025 12:43 PM EST [facility] Comment: Susceptibility testing not routinely performed. [...] AM EST 01/17/2025 2:05 PM EST Narrative [facility] - 01/20/2025 12:43 PM EST Sparse additional colony types present in insignificant amounts. us Marvin [facility] MICROBIOLOGY - GENERAL ORD ERABLES Final Result [facility] [address] [place] [address], documented in this encounter Visit Diagnoses Diagnosis Urinary tract infection, site not specified documented in this encounter Care Teams Supervisor Soldering Relationship Specialty Start Date End Date Physician, Pcp Unknown PCP - General 01/17/25 documented as of this encounter
== END 2025-01-30 16:10 | disposition home or self-care (01) ==
PROVIDERS: PCP Internal Medicine; Visit Provider Internal Medicine
DX: I95.9 Hypotension, unspecified (principal)

== ENCOUNTER → 2025-01-30 15:14 | Outpatient (BNVA) | payer MEDICARE, OTHER, SELFPAY | PROVIDERS: PCP Internal Medicine; Visit Provider Internal Medicine | DX: I95.9 Hypotension, unspecified (principal) | CPT/HCPCS: 96127; 99212 ==

== ENCOUNTER 2025-01-31 13:02 | Outpatient (REF) | payer SELFPAY ==
--- OUTSIDE RECORDS SUMMARY | 2025-01-31 14:42 | XMS_ITS | Clinical Summary ---
Author Organization 299 [facility] Address [address] [place] [address] Phone Care Team Providers Care Document Preparation Specialist Name Role Phone Physician, Pcp Unknown Primary Care Provider Kati vailable Encounters Date Type Department Care Team Description 01/17/2025 Lab Requisition [facility] - Main Lab 299 [facility] [place] [address] Marvin Cardoso, FORTUNATO Urinary tract [...] Aerococcus urinae(A) LENNY 01/20/2025 12:43 PM EST [facility] Comment: Susceptibility testing not [...] AM EST 01/17/2025 2:05 PM EST Narrative [facility] - 01/20/2025 12:43 PM EST Sparse additional colony types present in insignificant amounts. us Marvin [facility] MICROBIOLOGY - GENERAL ORD ERABLES Final Result [facility] [address] [place] [address], from Last 3 Months Insurance MEDICARE Care Teams Document Preparation Specialist Relationship Specialty Start Date End Date Physician, Pcp Unknown PCP - General 01/17/25
--- OUTSIDE RECORDS SUMMARY | 2025-01-31 14:42 | XMS_ITS | Encounter Summary ---
Author Organization [facility] Address [address] [place] [address] Care Team Providers Care Service Cashier Name Role Phone Physician, Pcp Unknown Primary Care Provider Kati vailable Encounter Details Date Type Department Care Team (Late st Contact Info) Description 01/17/2025 Lab Requisition [facility] - Main Lab [address] [facility] [place] [address] Marvin Cardoso PA [address] [place] [phone] Urinary tract infection, site not specified Social [...] Aerococcus urinae(A) LENNY 01/20/2025 12:43 PM EST [facility] Comment: Susceptibility testing not [...] AM EST 01/17/2025 2:05 PM EST Narrative [facility] - 01/20/2025 12:43 PM EST Sparse additional colony types present in insignificant amounts. us Marvin [facility] MICROBIOLOGY - GENERAL ORD ERABLES Final Result [facility] [address] [place] [address], documented in this encounter Visit Diagnoses Diagnosis Urinary tract infection, site not specified documented in this encounter Care Teams Service Cashier Relationship Specialty Start Date End Date Physician, Pcp Unknown PCP - General 01/17/25 documented as of this encounter
== END 2025-01-31 13:03 | disposition home or self-care (01) ==
LOC: HO.HAP 13:02
PROVIDERS: Visit Provider Internal Medicine
DX: Z13.89 Encounter for screening for other disorder (principal)

== ENCOUNTER 2025-02-06 10:32 | Outpatient (AMB) | payer SELFPAY ==
[2025-02-06 10:40] LABS: Prothrombin Time Whole Bld POC 19.2 sec (11.1-13.5); ~PT, ~INR - Anti Coag Clinic 1.6 (0.9-1.1)
--- NOTE | 2025-02-06 10:50 | MHC.OFFVISCO ---
Intake Intake Visit Reasons: Anticoagulation Allergies No Known Allergies Allergy (Verified 02/06/25 10:33) Medication List - Last Reconciled 02/06/25 by Itzel Minor RN fluticasone propion-salmeterol 115-21 mcg/actuation (Advair HFA) 2 puffs inhalation BID PRN gabapentin 100 mg PO QAM gabapentin 300 mg PO QPM ketorolac 0.5% 1 drp ophthalmic (eye) QID sennosides (Natural Senna Laxative) 8.6 mg orally 2 AT BEDTIME; tamsulosin mg PO triamcinolone acetonide 0.025% 1 appl topical BID warfarin 5 mg See Protocol PO DAILY Nursing Note INR: 1.6 out of therapeutic range of 2-3 Pt states he had a hard time refilling his prescription because the pharmacy said it was not due and he had to raqtion his warfarin so admits to missing a dose. He now has his prescription. Medications and supplements reviewed Patient status: pt has a UTI and is on amoxicillan which can raise the INR but the effect may be delayed Medications or supplements: stopped enalipril due to low BP and started antibiotic as above Diet: will hold greens the next 2-3 days but next week will add greens back into his diet Denies any signs and symptoms of bleeding or clotting or unusual bruising Bleeding, bruising, clotting discussed Dose: 12.5mg today (usual 10mg) and 10mg tomorrow (usual 7.5mg) then to resume usual dose of 7.5mg X 4 days and 10mg X 3 days (Sun, Tues, & Thurs) F/U INR Date : 1 week?? Patient verbalizing understanding of instructions given. Anti-Coag Initial Assessment Social Hx Patient Tobacco Use Status: Former Tobacco user Tobacco use type: Cigarette alcohol intake: current Alcohol intake frequency: 0-2 drinks per day Cardiovascular Hx: HTN, Angina, [place] and Arrhythmias Lung Disease HX: Asthma Musculoskeletal Hx: Arthritis Hx: Bladder Disorders and Prostate Neurological Hx: Aneurysm Cancer HX: Yes (prostate cancer 25 years ago ) Psych. Illness/Depression: No Coding Level of Care Code Est Patient Level 1 Diagnoses Current use of anticoagulant therapy Z79.01 Assessment & Plan Assessment & Plan (1) Current use of anticoagulant therapy: Code(s): Z79.01 - terminal press operator (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
--- OUTSIDE RECORDS SUMMARY | 2025-02-06 13:13 | XMS_ITS | Encounter Summary ---
Author Organization [facility] Address [address] [place] [address] Care Team Providers Care Agricultural Services Director Name Role Phone Hayden Savage MD Primary Care Provider +1- [phone] Encounter Details Date Type Department Care Team (Late st Contact Info) Description 01/17/[address] [facility] - Main Lab [address] [facility] [place] [address] Marvin Cardoso PA [address] [place] [address] Urinary tract infection, site not specified Social [...] Aerococcus urinae(A) LENNY 01/20/2025 12:43 PM EST [facility] Comment: Susceptibility testing not [...] AM EST 01/17/2025 2:05 PM EST Narrative [facility] - 01/20/2025 12:43 PM EST Sparse additional colony types present in insignificant amounts. us Marvin [facility] MICROBIOLOGY - GENERAL ORD ERABLES Final Result [facility] [address] [place] [address], documented in this encounter Visit Diagnoses Diagnosis Urinary tract infection, site not specified documented in this encounter Care Teams Agricultural Services Director Relationship Specialty Start Date End Date Hayden Savage MD [address] [place] [address] PCP - General Internal Medicine 02/05/25 documented as of this encounter
--- OUTSIDE RECORDS SUMMARY | 2025-02-06 13:13 | XMS_ITS | Encounter Summary ---
Author Organization [facility] Address [address] [place] [address] Care Team Providers Care Web Design Specialist Name Role Phone Hayden Savage MD Primary Care Provider +1- [phone] Encounter Details Date Type Department Care Team (Late st Contact Info) Description 02/05/2025 Lab Requisition [facility] - Main Lab [address] [facility] [place] [address] Jodi Ingram PA [address] [place], [place] [phone] Urinary tract infection, site not specified; Dysuria Social History Tobacco Use Types Packs/Day Years Used Date Smoking Tobacco: Never Assessed Sex and Gender Information Value Date Recorded Sex Assigned at Not on file Legal Sex Male 6:01 PM EST Gender Identity Not on file Sexual Orientation Not on file documented as of this encounter Plan of Treatment Pending Results Name Type Priority Associated Diagnoses Date /Time Culture urine Microbiology Routine Urinary tract infection, site not specified Dysuria 02/05/2025 2:45 PM EDT documented as of this encounter Visit Diagnoses Diagnosis Urinary tract infection, site not specified Dysuria documented in this encounter Care Teams Web Design Specialist Relationship Specialty Start Date End Date Hayden Savage MD [address] [place] [address] PCP - General Internal Medicine 02/05/25 documented as of this encounter
--- OUTSIDE RECORDS SUMMARY | 2025-02-06 13:13 | XMS_ITS | Clinical Summary ---
Author Organization [address] [facility] Address [address] [place] [address] Phone Care Team Providers Care Hourly Sign Language Interpreter Name Role Phone Hayden Savage MD Primary Care Provider +1- [phone] Encounters Date Type Department Care Team Description 02/05/2025 Lab Requisition [facility] [address] [place] [address] Jodi Ingram PA Urinary tract infection, site not specified; Dysuria 01/17/2025 Lab Requisition [facility] [address] [place] [address] Marvin Cardoso PA Urinary tract infection, site not specified from [...] - 1-dose 75+ series) 2012 COVID-19 Vaccine ( - 2023-2 5 season) 2024 Influenza Vaccine [...] Aerococcus urinae(A) LENNY 01/20/2025 12:43 PM EST [facility] Comment: Susceptibility testing not routinely [...] AM EST 01/17/2025 2:05 PM EST Narrative [facility] - 01/20/2025 12:43 PM EST Sparse additional colony types present in insignificant amounts. us Marvin [facility] MICROBIOLOGY - GENERAL ORD ERABLES Final Result [facility] [address] [place] [address], from Last 3 Months Insurance MEDICARE Care Teams Hourly Sign Language Interpreter Relationship Specialty Start Date End Date Hayden Savage MD [address] [place] [address] PCP - General Internal Medicine 02/05/25
== END 2025-02-06 10:59 | disposition home or self-care (01) ==
LOC: HO.ACS 10:32
PROVIDERS: PCP Internal Medicine; Visit Provider Internal Medicine
DX: Z79.01 Long term (current) use of anticoagulants (principal)

== ENCOUNTER → 2025-02-06 10:32 | Outpatient (BNVA) | payer MEDICARE, OTHER, SELFPAY | PROVIDERS: PCP Internal Medicine; Visit Provider Internal Medicine | DX: I48.0 Paroxysmal atrial fibrillation (principal); Z79.01 Long term (current) use of anticoagulants; Z51.81 Encounter for therapeutic drug level monitoring | CPT/HCPCS: 85610; 99211 ==

== ENCOUNTER 2025-02-20 10:25 | Outpatient (AMB) | payer MEDICARE, OTHER, SELFPAY ==
[2025-02-20 10:37] LABS: Prothrombin Time Whole Bld POC 32.9 sec (11.1-13.5); ~PT, ~INR - Anti Coag Clinic 2.7 (0.9-1.1)
--- NOTE | 2025-02-20 10:41 | MHC.OFFVISCO ---
Intake Intake Visit Reasons: Anticoagulation Allergies No Known Allergies Allergy (Verified 02/20/25 10:28) Medication List - Last Reconciled 02/20/25 by Itzel Minor RN fluticasone propion-salmeterol 115-21 mcg/actuation (Advair HFA) 2 puffs inhalation BID PRN fluticasone propion-salmeterol 115-21 mcg/actuation (Advair HFA) 2 puffs inhalation BID 30 days gabapentin 100 mg PO QAM gabapentin 300 mg PO QPM ketorolac 0.5% 1 drp ophthalmic (eye) QID sennosides (Natural Senna Laxative) 8.6 mg orally 2 AT BEDTIME; tamsulosin mg PO triamcinolone acetonide 0.025% 1 appl topical BID warfarin 5 mg See Protocol PO DAILY Nursing Note INR: 2.7 in therapeutic range of 2-3 Pt cancelled appt at [facility] last week because he had the flu. Went to a walk in clinic and was prescribed docycycline on 02/11/25. He did not notify [facility] of new med. Instructed to notify [facility] when he starts a new med. Doxy can raise the INR but can have a delayed effect. Medications and supplements reviewed: as above Diet: had no appetite with the flu but back to baseline now. Denies any signs and symptoms of bleeding or bruising or clotting. Bleeding, bruising, clotting discussed Nutritional guidance given to increase greens over the next week Dose: 7.5mg X 4 days and 10mg X 3 days F/U INR: due to doxycycline, will check INR in 1 week Patient verbalizes understanding of instructions with read back given Anti-Coag Initial Assessment Social Hx Patient Tobacco Use Status: Former Tobacco user Tobacco use type: Cigarette alcohol intake: current Alcohol intake frequency: 0-2 drinks per day Cardiovascular Hx: HTN, Angina, [place] and Arrhythmias Lung Disease HX: Asthma Musculoskeletal Hx: Arthritis Hx: Bladder Disorders and Prostate Neurological Hx: Aneurysm Cancer HX: Yes (prostate cancer 25 years ago ) Psych. Illness/Depression: No Coding Level of Care Code Est Patient Level 1 Diagnoses Current use of anticoagulant therapy Z79.01 Assessment & Plan Assessment & Plan (1) Current use of anticoagulant therapy: Code(s): Z79.01 - assisted (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
--- OUTSIDE RECORDS SUMMARY | 2025-02-20 13:26 | XMS_ITS | Encounter Summary ---
Author Organization [facility] Address [address] [place] [address] Care Team Providers Care Senior Technical Specialist Name Role Phone Hayden Savage MD Primary Care Provider +1- [phone] Encounter Details Date Type Department Care Team (Late st Contact Info) Description 02/05/2025 Lab Requisition [facility] - Main Lab 299 [facility] [place] [address] Jodi Ingram PA [address] [place], [place] [id number] Urinary tract infection, site not specified; Dysuria [...] Date/Time Associated Diagnosis Comments CULTURE URINE Routine 02/05/2025 2:45 PM EDT Urinary tract infection, site not specified Dysuria documented in this encounter Results * (ABNORMAL) Culture urine (02/05/2025 2:45 PM EDT) Culture, Urine >100,000 CFU/mL Staphylococcus epidermidis(A) LENNY 02/07/2025 8:10 AM EDT [facility] ([facility]) [facility] Comment: Edited result: Previously reported as Gram Positive Cocci on 02/06/2025 at 1336 EDT. Urine Urine specimen obtained by clean catch procedure / Unknown 02/05/2025 2:45 PM EDT 02/05/2025 6:06 PM EDT Narrative Organism Antibiotic Method Susceptibility Staphylococcus epidermidis Benzylpenicillin LENNY >=0.5 ug/ml: Resistant Staphylococcus epidermidis Oxacillin LENNY >=4 ug/ml: Resistant Staphylococcus epidermidis Gentamicin LENNY <=0.5 ug/ml: Susceptible Staphylococcus epidermidis Ciprofloxacin LENNY <=0.5 ug/ml: Susceptible Staphylococcus epidermidis Levofloxacin LENNY <=0.12 ug/ml: Susceptible Staphylococcus epidermidis Quinupristin/Dalfopristin M IC <=0.25 ug/ml: Susceptible Staphylococcus epidermidis Linezolid LENNY 1 ug/ml: Susceptible Staphylococcus epidermidis Vancomycin LENNY 2 ug/ml: Susceptible Staphylococcus epidermidis Tetracycline LENNY <=1 ug/ml: Susceptible Staphylococcus epidermidis Nitrofurantoin LENNY <=16 ug/ml: Susceptible Staphylococcus epidermidis Rifampin LENNY <=0.5 ug/ml: Susceptible us Jodi [facility] MICROBIOLOGY - GENERAL ORD ERABLES Final Result [facility] ([facility]) [facility] [address] [place] [address], documented in this encounter Visit Diagnoses Diagnosis Urinary tract infection, site not specified Dysuria documented in this encounter Care Teams Senior Technical Specialist Relationship Specialty Start Date End Date Hayden Savage MD [address] [place] [phone] PCP - General Internal Medicine 02/05/25 documented as of this encounter
--- OUTSIDE RECORDS SUMMARY | 2025-02-20 13:26 | XMS_ITS | Encounter Summary ---
Author Organization [facility] Address [address] [place] [address] Care Team Providers Care Rider Ticket Worker Name Role Phone Hayden Savage MD Primary Care Provider +1- [phone] Encounter Details Date Type Department Care Team (Late st Contact Info) Description 01/17/2025 Lab Requisition [facility] - Main Lab 299 [facility] [place] [address] Marvin Cardoso PA [address] [place] [address] Urinary tract infection, site not [...] Aerococcus urinae(A) LENNY 01/20/2025 12:43 PM EST [facility] ([facility]) [facility] Comment: Susceptibility testing not routinely [...] AM EST 01/17/2025 2:05 PM EST Narrative [facility] ([facility] - 01/20/2025 12:43 PM EST Sparse additional colony types present in insignificant amounts. us Marvin [facility] MICROBIOLOGY - GENERAL ORD ERABLES Final Result [facility] [address] [place] [address], documented in this encounter Visit Diagnoses Diagnosis Urinary tract infection, site not specified documented in this encounter Care Teams Rider Ticket Worker Relationship Specialty Start Date End Date Hayden Savage MD [address] [place] [phone] PCP - General Internal Medicine 02/05/25 documented as of this encounter
--- OUTSIDE RECORDS SUMMARY | 2025-02-20 13:26 | XMS_ITS | Clinical Summary ---
Author Organization 299 [facility] Address [address] [place] [address] Phone Care Team Providers Care Exterminator Helper Termite Name Role Phone Hayden Savage MD Primary Care Provider +1- [phone] Encounters Date Type Department Care Team Description 02/05/2025 Lab Requisition [facility] Lab [address] [place] [address] Jodi Ingram PA Urinary tract infection, site not specified; Dysuria 01/17/2025 Lab Requisition [facility] Lab [address] [place] [address] Marvin Cardoso PA Urinary tract [...] Urinary tract infection, site not specified Dysuria CULTURE URINE Routine 01/17/2025 11:45 AM EST Urinary tract infection, site not specified from Last 3 Months Results * (ABNORMAL) Culture urine (02/05/2025 2:45 PM EDT) Only the most recent of2 resultswithin the time period is included. Culture, Urine >100,000 CFU/mL Staphylococcus epidermidis(A) LENNY 02/07/2025 8:10 AM EDT [facility]) [facility] Comment: Edited result: Previously reported [...] MICROBIOLOGY - GENERAL ORD ERABLES Final Result [facility] ([facility]) HOSPITAL LAB [address] [place] [address], from Last 3 Months Insurance MEDICARE Care Teams Exterminator Helper Termite Relationship Specialty Start Date End Date Hayden Savage MD [address] [place] [phone] PCP - General Internal Medicine 02/05/25
== END 2025-02-20 10:49 | disposition home or self-care (01) ==
LOC: HO.ACS 10:25
PROVIDERS: PCP Internal Medicine; Visit Provider Internal Medicine Medical Oncology
DX: Z79.01 Long term (current) use of anticoagulants (principal)

== ENCOUNTER → 2025-02-20 10:25 | Outpatient (BNVA) | payer MEDICARE, OTHER, SELFPAY | PROVIDERS: PCP Internal Medicine; Visit Provider Internal Medicine Medical Oncology | DX: I48.0 Paroxysmal atrial fibrillation (principal); Z51.81 Encounter for therapeutic drug level monitoring; Z79.01 Long term (current) use of anticoagulants | CPT/HCPCS: 85610; 99211 ==

== ENCOUNTER 2025-02-21 14:16 | Outpatient (REF) | payer SELFPAY | END 2025-02-21 14:17 | disposition home or self-care (01) | LOC: HO.HAP 14:16 | PROVIDERS: Visit Provider Internal Medicine | DX: Z13.89 Encounter for screening for other disorder (principal) ==

== ENCOUNTER 2025-02-26 10:32 | Outpatient (AMB) | payer SELFPAY ==
[2025-02-26 10:47] LABS: ~PT, ~INR - Anti Coag Clinic 2.7 (0.9-1.1)
--- OUTSIDE RECORDS SUMMARY | 2025-02-26 12:24 | XMS_ITS | Encounter Summary ---
Author Organization [facility] Address [address] [place] [address] Care Team Providers Care Coding Tech Name Role Phone Hayden Savage MD Primary Care Provider +1- [phone] Encounter Details Date Type Department Care Team (Late st Contact Info) Description 02/05/2025 Lab Requisition [facility] - Main Lab 299 [facility] [place] [address] Jodi Ingram PA [address] [place], [place] [phone] Urinary tract infection, site not specified; Dysuria [...] Staphylococcus epidermidis(A) LENNY 02/07/2025 8:10 AM EDT [facility] ([facility]) [facility] Comment: Edited result: Previously reported as [...] MICROBIOLOGY - GENERAL ORD ERABLES Final Result [facility] ([facility]) [facility] [address] [place] [address], documented in this encounter Visit Diagnoses Diagnosis Urinary tract infection, site not specified Dysuria documented in this encounter Care Teams Coding Tech Relationship Specialty Start Date End Date Hayden Savage MD [address] [place] [phone] PCP - General Internal Medicine 02/05/25 documented as of this encounter
--- OUTSIDE RECORDS SUMMARY | 2025-02-26 12:24 | XMS_ITS | Encounter Summary ---
Author Organization [facility] Address [address] [place] [address] Care Team Providers Care Wrapper Operator Name Role Phone Hayden Savage MD Primary Care Provider +1- [phone] Encounter Details Date Type Department Care Team (Late st Contact Info) Description 01/17/[address] [facility] - Main Lab 299 [facility] [place] [address] Marvin Cardoso PA [address] [place] [address] Urinary tract infection, site not [...] Aerococcus urinae(A) LENNY 01/20/2025 12:43 PM EST [facility] ([facility]) [facility] Comment: Susceptibility testing not [...] AM EST 01/17/2025 2:05 PM EST Narrative [facility] ([facility] - 01/20/2025 12:43 PM EST Sparse additional colony types present in insignificant amounts. us Marvin [facility] MICROBIOLOGY - GENERAL ORD ERABLES Final Result [facility] [address] [place] [address], documented in this encounter Visit Diagnoses Diagnosis Urinary tract infection, site not specified documented in this encounter Care Teams Wrapper Operator Relationship Specialty Start Date End Date Hayden Savage MD [address] [place] [address] PCP - General Internal Medicine 02/05/25 documented as of this encounter
--- OUTSIDE RECORDS SUMMARY | 2025-02-26 12:24 | XMS_ITS | Clinical Summary ---
Author Organization 299 [facility] Address [address] [place] [address] Phone Care Team Providers Care Pharmacists Name Role Phone Hayden Savage MD Primary Care Provider +1- [phone] Encounters Date Type Department Care Team Description 02/05/2025 Lab Requisition [facility] Lab [address] [place] [address] Jodi Ingram PA Urinary tract infection, site not specified; Dysuria 01/17/2025 Lab Requisition [facility] Lab [address] [place] [address] Marvin Cardoso PA Urinary tract [...] Vaccines (1 of 2) 1987 RSV Immunization Adult Patie nts (1 - 1-dose 75+ series) 2012 COVID-19 [...] Staphylococcus epidermidis(A) LENNY 02/07/2025 8:10 AM EDT [facility]) [facility] Comment: Edited result: Previously reported [...] MICROBIOLOGY - GENERAL ORD ERABLES Final Result [facility] ([facility]) HOSPITAL LAB [address] [place] [address], from Last 3 Months Insurance MEDICARE Care Teams Pharmacists Relationship Specialty Start Date End Date Hayden Savage MD [address] [place] [phone] PCP - General Internal Medicine 02/05/25
--- NOTE | 2025-02-26 13:51 | MHC.OFFVISCO ---
Intake Intake Visit Reasons: Anticoagulation Allergies No Known Allergies Allergy (Verified 02/26/25 10:35) Medication List - Last Reconciled 02/26/25 by Jocelyn Roblero RN fluticasone propion-salmeterol 115-21 mcg/actuation (Advair HFA) 2 puffs inhalation BID PRN fluticasone propion-salmeterol 115-21 mcg/actuation (Advair HFA) 2 puffs inhalation BID 30 days gabapentin 100 mg PO QAM gabapentin 300 mg PO QPM ketorolac 0.5% 1 drp ophthalmic (eye) QID sennosides (Natural Senna Laxative) 8.6 mg orally 2 AT BEDTIME; tamsulosin mg PO triamcinolone acetonide 0.025% 1 appl topical BID warfarin 5 mg See Protocol PO DAILY Nursing Note PT.IS DONE WITH ANTIBIOTICS, BUT STILL FEELS FATIGUED. CONTIUE PRESENT DOSE AND FOLLOW-UP IN 2 WEEKS. GOOD UNDERSTANDING OF DOSING INSTR. Anti-Coag Initial Assessment Social Hx Patient Tobacco Use Status: Former Tobacco user Tobacco use type: Cigarette alcohol intake: current Alcohol intake frequency: 0-2 drinks per day Cardiovascular Hx: HTN, Angina, [place] and Arrhythmias Lung Disease HX: Asthma Musculoskeletal Hx: Arthritis Hx: Bladder Disorders and Prostate Neurological Hx: Aneurysm Cancer HX: Yes (prostate cancer 25 years ago ) Psych. Illness/Depression: No Coding Level of Care Code Est Patient Level 1 Diagnoses Current use of anticoagulant therapy Z79.01 Results AMB INR Fingerstick AMB INR Fingerstick 2.7 Last Edit by Jocelyn Roblero RN on 02/26/25 10:47 Assessment & Plan Assessment & Plan (1) Current use of anticoagulant therapy: Code(s): Z79.01 - cross tie tram loader (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
== END 2025-02-26 10:52 | disposition home or self-care (01) ==
LOC: HO.ACS 10:32
PROVIDERS: PCP Internal Medicine; Visit Provider Internal Medicine Medical Oncology
DX: Z79.01 Long term (current) use of anticoagulants (principal)

== ENCOUNTER → 2025-02-26 10:32 | Outpatient (BNVA) | payer MEDICARE, OTHER, SELFPAY | PROVIDERS: PCP Internal Medicine; Visit Provider Internal Medicine Medical Oncology | DX: I48.0 Paroxysmal atrial fibrillation (principal); Z79.01 Long term (current) use of anticoagulants; Z51.81 Encounter for therapeutic drug level monitoring | CPT/HCPCS: 85610; 99211 ==

== ENCOUNTER 2025-03-13 10:30 | Outpatient (AMB) | payer MEDICARE, OTHER, SELFPAY ==
[2025-03-13 10:56] LABS: Prothrombin Time Whole Bld POC 21.1 sec (11.1-13.5); ~PT, ~INR - Anti Coag Clinic 1.8 (0.9-1.1)
--- NOTE | 2025-03-13 10:58 | MHC.OFFVISCO ---
Intake Intake Visit Reasons: Anticoagulation Allergies No Known Allergies Allergy (Verified 03/13/25 10:42) Medication List - Last Reconciled 03/13/25 by Itzel Minor RN fluticasone propion-salmeterol 115-21 mcg/actuation (Advair HFA) 2 puffs inhalation BID PRN fluticasone propion-salmeterol 115-21 mcg/actuation (Advair HFA) 2 puffs inhalation BID 30 days gabapentin 100 mg PO QAM gabapentin 300 mg PO QPM ketorolac 0.5% 1 drp ophthalmic (eye) QID sennosides (Natural Senna Laxative) 8.6 mg orally 2 AT BEDTIME; triamcinolone acetonide 0.025% 1 appl topical BID warfarin 5 mg See Protocol PO DAILY Nursing Note INR: 1.8 out of therapeutic range of 2-3 Pt states he stopped eating carrots and beets because he was sick of them. He also states he had a UTI and was on amoxicillin clav but did not alert [facility] to the antibiotic. Last dose was today. No other changes noted Denies any signs and symptoms of bleeding or bruising or clotting. Bleeding, bruising, clotting discussed Nutritional guidance given. Food list dscussed and pt will incorporate 2 new foods that raise the INR Dose: increase today's dose to 12.5mg (10mg) then to resume usual dose of 7.5mg X 4 days and 10mg X 3 days (//) F/U INR: 1 week Patient verbalizes understanding of instructions given Anti-Coag Initial Assessment Social Hx Patient Tobacco Use Status: Former Tobacco user Tobacco use type: Cigarette alcohol intake: current Alcohol intake frequency: 0-2 drinks per day Cardiovascular Hx: HTN, Angina, CT and Arrhythmias Lung Disease HX: Asthma Musculoskeletal Hx: Arthritis Hx: Bladder Disorders and Prostate Neurological Hx: Aneurysm Cancer HX: Yes (prostate cancer 25 years ago ) Psych. Illness/Depression: No Coding Level of Care Code Est Patient Level 1 Diagnoses Current use of anticoagulant therapy Z79.01 Results AMB INR Fingerstick AMB INR Fingerstick 1.8 Last Edit by Itzel Minor RN on 03/13/25 10:52 interface delay Assessment & Plan Assessment & Plan (1) Current use of anticoagulant therapy: Code(s): Z79.01 - ocean transportation intermediary (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
--- OUTSIDE RECORDS SUMMARY | 2025-03-13 12:38 | XMS_ITS | Encounter Summary ---
Author Organization [facility] Address [address] [place] [address] Care Team Providers Care Pilot Plant Supervisor Name Role Phone Hayden Savage MD Primary Care Provider +1- [phone] Encounter Details Date Type Department Care Team (Late st Contact Info) Description 02/05/2025 Lab Requisition [facility] - Main Lab 299 [facility] [place] [address] Jodi Ingram PA [address] [place], [place] [phone] Urinary tract infection, site not specified; Dysuria [...] Staphylococcus epidermidis(A) LENNY 02/07/2025 8:10 AM EDT [facility] ([facility]) [facility] Comment: Edited result: Previously reported [...] MICROBIOLOGY - GENERAL ORD ERABLES Final Result [facility] ([facility]) [facility] [address] [place] [address], documented in this encounter Visit Diagnoses Diagnosis Urinary tract infection, site not specified Dysuria documented in this encounter Care Teams Pilot Plant Supervisor Relationship Specialty Start Date End Date Hayden Savage MD [address] [place] [phone] PCP - General Internal Medicine 02/05/25 documented as of this encounter
--- OUTSIDE RECORDS SUMMARY | 2025-03-13 12:38 | XMS_ITS | Clinical Summary ---
Author Organization 299 [facility] Address [address] [place] [address] Phone Care Team Providers Care Personnel Interviewer Name Role Phone Hayden Savage MD Primary Care Provider +1- [phone] Encounters Date Type Department Care Team Description 02/05/2025 Lab Requisition [facility] Lab [address] [place] [address] Jodi Ingram PA Urinary tract infection, site not specified; Dysuria 01/17/2025 Lab Requisition [facility] Lab [address] [place] [address] Marvin Cardoso PA Urinary tract [...] Vaccine ( - 2023-2 5 season) 2024 Cholesterol Screening (Lipid Panel) 01/17/2025 Depression Screening 01/17/2025 Falls Risk Assessment 01/17/2025 Medicare Annual Wellness Visit 01/17/2025 Social Influencers of Health Screening 01/17/2025 Influenza Vaccine (Season Ended) 2025 HIB Vaccines Aged Out No longer eligi [...] age to complete this topic Meningococcal B Vaccine Aged Out No l onger eligible based on patient's age to complete [...] Staphylococcus epidermidis(A) LENNY 02/07/2025 8:10 AM EDT [facility] Comment: Edited result: Previously reported [...] MICROBIOLOGY - GENERAL ORD ERABLES Final Result [facility] ([facility]) HOSPITAL LAB [address] [place] [address], from Last 3 Months Insurance MEDICARE Care Teams Personnel Interviewer Relationship Specialty Start Date End Date Hayden Savage MD [address] [place] [phone] PCP - General Internal Medicine 02/05/25
--- OUTSIDE RECORDS SUMMARY | 2025-03-13 12:38 | XMS_ITS | Encounter Summary ---
Author Organization [facility] Address [address] [place] [address] Care Team Providers Care Railcar Carpenter Name Role Phone Hayden Savage MD Primary Care Provider +1- [phone] Encounter Details Date Type Department Care Team (Late st Contact Info) Description 01/17/2025 Lab Requisition [facility] - Main Lab 299 [facility] [place] [address] Marvin Cardoso PA [address] [place] [address] Urinary tract infection, site not [...] urinae(A) LENNY 01/20/2025 12:43 PM EST [facility] ([facility]) [facility] Comment: Susceptibility [...] EST 01/17/2025 2:05 PM EST Narrative [facility] ([facility] - 01/20/2025 12:43 PM EST Sparse additional colony types present in insignificant amounts. us Marvin [facility] MICROBIOLOGY - GENERAL ORD ERABLES Final Result [facility] [address] [place] [address], documented in this encounter Visit Diagnoses Diagnosis Urinary tract infection, site not specified documented in this encounter Care Teams Railcar Carpenter Relationship Specialty Start Date End Date Hayden Savage MD [address] [place] [phone] PCP - General Internal Medicine 02/05/25 documented as of this encounter
== END 2025-03-13 11:03 | disposition home or self-care (01) ==
LOC: HO.ACS 10:30
PROVIDERS: PCP Internal Medicine; Visit Provider Internal Medicine Medical Oncology
DX: Z79.01 Long term (current) use of anticoagulants (principal)

== ENCOUNTER → 2025-03-13 10:30 | Outpatient (BNVA) | payer MEDICARE, OTHER, SELFPAY | PROVIDERS: PCP Internal Medicine; Visit Provider Internal Medicine Medical Oncology | DX: I48.0 Paroxysmal atrial fibrillation (principal); Z79.01 Long term (current) use of anticoagulants; Z51.81 Encounter for therapeutic drug level monitoring | CPT/HCPCS: 85610; 99211 ==

== ENCOUNTER 2025-03-20 10:28 | Outpatient (AMB) | payer MEDICARE, OTHER, SELFPAY ==
[2025-03-20 10:37] LABS: Prothrombin Time Whole Bld POC 27.5 sec (11.1-13.5); ~PT, ~INR - Anti Coag Clinic 2.3 (0.9-1.1)
--- NOTE | 2025-03-20 10:47 | MHC.OFFVISCO ---
Intake Intake Visit Reasons: Anticoagulation Allergies No Known Allergies Allergy (Verified 03/13/25 10:42) Nursing Note INR: 2.3 in therapeutic range Medications and supplements reviewed Recovered from flu in January Virtigo episode about 2 weeks aog February 2025 went to [facility]- no new findings per pt - to see PCP today( no vertigo today) ? if it was post flu Denies any signs and symptoms of bleeding or bruising or clotting. Bleeding, bruising, clotting discussed Nutritional guidance given Dose: 10MG X 3 DAYS/ 7.5MG X 4 DAYS F/U INR: 2 WEEKS Patient verbalizes understanding of instructions given with accurate read back Anti-Coag Initial Assessment Social Hx Patient Tobacco Use Status: Former Tobacco user Tobacco use type: Cigarette alcohol intake: current Alcohol intake frequency: 0-2 drinks per day Cardiovascular Hx: HTN, Angina, [place] and Arrhythmias Lung Disease HX: Asthma Musculoskeletal Hx: Arthritis Hx: Bladder Disorders and Prostate Neurological Hx: Aneurysm Cancer HX: Yes (prostate cancer 25 years ago ) Psych. Illness/Depression: No Coding Level of Care Code Est Patient Level 1 Diagnoses Current use of anticoagulant therapy Z79.01 Results AMB INR Fingerstick AMB INR Fingerstick 2.3 Last Edit by Siobhan Ballard RN on 03/20/25 10:39 manual entry Assessment & Plan Assessment & Plan (1) Current use of anticoagulant therapy: Code(s): Z79.01 - ocean transportation intermediary (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
--- OUTSIDE RECORDS SUMMARY | 2025-03-20 12:07 | XMS_ITS | Encounter Summary ---
Author Organization [facility] Address [address] [place] [address] Care Team Providers Care Cement Based Materials Pump Tender Name Role Phone Hayden Savage MD Primary Care Provider +1- [phone] Encounter Details Date Type Department Care Team (Late st Contact Info) Description 01/17/2025 Lab Requisition [facility] - Main Lab [address] [facility] [place] [address] Marvin Cardoso PA [address] [place] [address] Urinary tract infection, site not [...] Aerococcus urinae(A) LENNY 01/20/2025 12:43 PM EST [facility] Comment: Susceptibility testing not [...] AM EST 01/17/2025 2:05 PM EST Narrative [facility] ([facility] - 01/20/2025 12:43 PM EST Sparse additional colony types present in insignificant amounts. us Marvin [facility] MICROBIOLOGY - GENERAL ORD ERABLES Final Result [facility] [address] [place] [address], documented in this encounter Visit Diagnoses Diagnosis Urinary tract infection, site not specified documented in this encounter Care Teams Cement Based Materials Pump Tender Relationship Specialty Start Date End Date Hayden Savage MD [address] [place] [address] PCP - General Internal Medicine 02/05/25 documented as of this encounter
--- OUTSIDE RECORDS SUMMARY | 2025-03-20 12:07 | XMS_ITS | Clinical Summary ---
Author Organization 299 [facility] Address [address] [place] [address] Phone Care Team Providers Care Bulk Station Agent Name Role Phone Hayden Savage MD Primary Care Provider +1- [phone] Encounters Date Type Department Care Team Description 02/05/[address] [facility] Lab [address] [place] [address] Jodi Ingram PA Urinary tract infection, site not specified; Dysuria 01/17/[address] [facility] Lab [address] [place] [address] Marvin Cardoso PA Urinary tract [...] Staphylococcus epidermidis(A) LENNY 02/07/2025 8:10 AM EDT [facility] Comment: Edited result: Previously reported [...] ERABLES Final Result [facility] ([facility] H[facility]PITAL LAB [address] [place] [address], from Last 3 Months Insurance MEDICARE Care Teams Bulk Station Agent Relationship Specialty Start Date End Date Hayden Savage MD [address] [place] [phone] PCP - General Internal Medicine 02/05/25
--- OUTSIDE RECORDS SUMMARY | 2025-03-20 12:07 | XMS_ITS | Encounter Summary ---
Author Organization [facility] Address [address] [place] [address] Care Team Providers Care Dyehouse Worker Name Role Phone Hayden Savage MD Primary Care Provider +1- [phone] Encounter Details Date Type Department Care Team (Late st Contact Info) Description 02/05/2025 Lab Requisition [facility] - Main Lab 299 [facility] [place] [address] Jodi Ingram PA [address] [place], [place] [phone] Urinary tract infection, site not specified; Dysuria [...] Staphylococcus epidermidis(A) LENNY 02/07/2025 8:10 AM EDT [facility]) [facility] Comment: Edited result: Previously reported [...] MICROBIOLOGY - GENERAL ORD ERABLES Final Result [facility] ([facility]) [facility] [address] [place] [address], documented in this encounter Visit Diagnoses Diagnosis Urinary tract infection, site not specified Dysuria documented in this encounter Care Teams Dyehouse Worker Relationship Specialty Start Date End Date Hayden Savage MD [address] [place] [phone] PCP - General Internal Medicine 02/05/25 documented as of this encounter
== END 2025-03-20 10:54 | disposition home or self-care (01) ==
LOC: HO.ACS 10:28
PROVIDERS: PCP Internal Medicine; Visit Provider Internal Medicine Medical Oncology
DX: Z79.01 Long term (current) use of anticoagulants (principal)

== ENCOUNTER → 2025-03-20 10:28 | Outpatient (BNVA) | payer MEDICARE, OTHER, SELFPAY | PROVIDERS: PCP Internal Medicine; Visit Provider Internal Medicine Medical Oncology | DX: I95.1 Orthostatic hypotension (principal); I48.0 Paroxysmal atrial fibrillation; Z51.81 Encounter for therapeutic drug level monitoring; Z79.01 Long term (current) use of anticoagulants | CPT/HCPCS: 85610; 99211; 99212 ==

== ENCOUNTER 2025-03-20 11:00 | Outpatient (AMB) | payer MEDICARE, OTHER, SELFPAY ==
--- NOTE | 2025-03-20 11:06 | MHC.PC.OV ---
Vital Signs 03/20/25 11:08 Height 6 ft 3 in Weight 287 lb BMI 35.9 BP 100/78 Blood Pressure Location Lt brachial Position Sitting Pulse 88 Pulse Source Pulse Oximeter Temp 96.9 F Temp Source Temporal Artery Scan Pulse Oximetry (%) 96 Oxygen Delivery Method Room Air Intake Visit Reasons: Dizziness Intake Note: Patient is here to follow up on Dizziness. Was seen at [facility] 2 times for dizziness issues. Emergency Department Coordinator Required: No Birdcage Assembler: Present Accompanied by: Daughter Allergies No Known Allergies Allergy (Verified 03/25/25 06:26) Medication List - Last Reconciled 03/25/25 by Hayden Savage MD fluticasone propion-salmeterol 115-21 mcg/actuation (Advair HFA) 2 puffs inhalation BID 30 days gabapentin 100 mg PO QAM gabapentin 300 mg PO QPM ketorolac 0.5% 1 drp ophthalmic (eye) QID midodrine 2.5 mg PO TID sennosides (Natural Senna Laxative) 8.6 mg orally 2 AT BEDTIME; triamcinolone acetonide 0.025% 1 appl topical BID warfarin 5 mg See Protocol PO DAILY Tobacco use date assessed: 03/20/25 Fall risk assessment: No Falls in past year Last assessed Fall Risk: 03/20/25 Dental Screening Dental Screen Date: 01/30/25 HPI Dizziness HPI Details 89-year-old office, he is accompanied made by his daughter. Patient has been at the emergency room a few times for hypotension. He complaints of dizziness, especially when he is changing position and symptoms are worse in the morning. He has had near fall, but has never fallen. No associated symptoms of chest pain or dizziness. [facility] Medical History (Updated 03/25/25 @ 06:32 by Hayden Savage MD) Hypotension Obesity (BMI 35.0-39.9 without comorbidity) Ascending aortic aneurysm Paroxysmal atrial fibrillation (HFpEF) heart failure with preserved ejection fraction Dysphagia History of prostate cancer Hyperlipidemia Cough Asthma Allergic rhinitis Surgical History Status post trigger finger release History of colonoscopy History of cataract surgery History of prostate surgery Family History Mother No problems noted. Father No problems noted. Social History Housing: Assisted Living Facility Alcohol intake: current Alcohol intake frequency: 0-2 drinks per day Alcohol type: wine Patient Tobacco Use Status: Former Tobacco user Tobacco use type: Cigarette e-Cigarette/Vaping Use: Never Used Second Hand Smoke Exposure: Yes service: No Current occupational status: retired Current occupation: retiered Current occupational exposures/hazards: No Cognitive needs: Yes (walker/cane) Hearing needs: Yes (hearing aide) Vision needs: Yes (Glasses) Questionnaire Thrive Questionnaire Date Thrive assessed: 12/07/23 Currently or been in a relationship where the following occur: No concerns reported THRIVE Score: 0 BRITTNEY-7 AMB Questionnaire BRITTNEY-7 Date BRITTNEY - 7 assessed: 01/30/25 Source: Developed by Drs. Adams Wagner, Trina Cuellar, Demetris Turpin and colleagues, with an educational kelly from [employer]. Physical exam (Primary Care) Vital Signs: Last Vital Signs Temp 96.9 F 03/20/25 11:08 Pulse 88 03/20/25 11:08 BP 100/78 03/20/25 11:08 Pulse Ox 96 03/20/25 11:08 Oxygen Delivery Method Room Air 03/20/25 11:08 BMI result Body Mass Index 35.9 BMI Assessment/Plan discussion: High Tobacco/Smoking Status: Tobacco use Status Tobacco use date assessed 03/20/25 03/20/25 11:19 Patient Tobacco Use Status Former Tobacco user 03/20/25 11:19 Tobacco use type Cigarette 03/20/25 11:19 e-Cigarette/Vaping Use Never Used 03/20/25 11:19 Thrive Assessment: Date of Thrive Assessment Date Thrive assessed 12/07/23 03/20/25 11:19 Currently or been in a relationship where the following occur: No concerns reported Advance Care Planning discussion: Exists, not on file Date of discussion: 03/25/25 Who was present: Patient Forms completed: Health Care Proxy and MOLST Time spent: 1-15 minutes, not on file Actual minutes spent: 5 Const General: cooperative and healthy appearing Nutritional Appearance: well nourished Orientation/consciousness: patient oriented x3 Limitations: no limitations HENMT Head: Yes normal to inspection Eyes General: appearance normal, both eyes and all related structures Neck Neck: Yes normal visual inspection Chest Chest palpation & inspection: normal palpation of entire chest wall Resp Effort & Inspection: normal respiratory effort Neuro General: patient oriented x3 Results AMB INR Fingerstick AMB INR Fingerstick 2.3 Last Edit by Siobhan Ballard RN on 03/20/25 10:39 manual entry Coding Level of Care Code Est Pt Level 4 (11788) Complex EM visit Add On G2211 Diagnoses Hypotension I95.1 Hypotension type: orthostatic hypotension Additional Codes Vital Signs *Quality* - Advance Care Planning discussion: Exists, not on file ([id number]) Vital Signs *Quality* - Time spent: 1-15 minutes, not on file ([id number]) Assessment & Plan Assessment & Plan (1) Hypotension: Code(s): I95.9 - Hypotension, unspecified Category: Medical Qualifiers: Hypotension type: orthostatic hypotension Qualified Code(s): I95.1 - Orthostatic hypotension Plan: Recent ED visit reviewed. Patient had a slightly positive troponin but decided to leave the emergency room. He understands the consequences that he could have on going ischemia. Patient does not want to go back to the emergency room. Midodrine has been added to the regimen for symptomatic improvement of hypotension. His hypotension could be due to autonomic dysfunction. Patient is to record blood pressures and report via the portal. Medications: New midodrine do not give last dose of day after 6PM or within 4 hrs of bedtime 2.5 mg PO TID 90 tabs 0RF
[2025-03-20 11:08] VITALS: BP 100/78; PULSE 88; TEMP 36.1; O2SAT 96; BMI 35.9
--- OUTSIDE RECORDS SUMMARY | 2025-03-20 12:58 | XMS_ITS | Clinical Summary ---
Author Organization [address] [facility] Address [address] [place] [address] Phone Care Team Providers Care Jukebox Route Driver Name Role Phone Hayden Savage MD Primary Care Provider +1- [phone] Encounters Date Type Department Care Team Description 02/05/2025 Lab Requisition [facility] Lab [address] [place] [address] Jodi Ingram PA Urinary tract infection, site not specified; Dysuria 01/17/2025 Lab Requisition [facility] Lab [address] [place] [address] Marvin Cardoso PA Urinary tract [...] Staphylococcus epidermidis(A) LENNY 02/07/2025 8:10 AM EDT [facility] Comment: Edited result: Previously reported [...] MICROBIOLOGY - GENERAL ORD ERABLES Final Result [facility]) HOSPITAL LAB [address] [place] [address], from Last 3 Months Insurance MEDICARE Care Teams Jukebox Route Driver Relationship Specialty Start Date End Date Hayden Savage MD [address] [place] [phone] PCP - General Internal Medicine 02/05/25
--- OUTSIDE RECORDS SUMMARY | 2025-03-20 12:58 | XMS_ITS | Encounter Summary ---
Author Organization [facility] Address [address] [place] [address] Care Team Providers Care Resolution Specialist Name Role Phone Hayden Savage MD Primary Care Provider +1- [phone] Encounter Details Date Type Department Care Team (Late st Contact Info) Description 02/05/2025 Lab Requisition [facility] - Main Lab 299 [facility] [place] [address] Jodi Ignram PA [address] [place], [place] [phone] Urinary tract infection, site not specified; Dysuria [...] Staphylococcus epidermidis(A) LENNY 02/07/2025 8:10 AM EDT [facility]) [facility] Comment: Edited result: Previously reported [...] MICROBIOLOGY - GENERAL ORD ERABLES Final Result [facility] ([facility]) [facility] [address] [place] [address], documented in this encounter Visit Diagnoses Diagnosis Urinary tract infection, site not specified Dysuria documented in this encounter Care Teams Resolution Specialist Relationship Specialty Start Date End Date Hayden Savage MD [address] [place] [phone] PCP - General Internal Medicine 02/05/25 documented as of this encounter
--- OUTSIDE RECORDS SUMMARY | 2025-03-20 12:58 | XMS_ITS | Encounter Summary ---
Author Organization [facility] Address [address] [place] [address] Care Team Providers Care School Aide Name Role Phone Hayden Savage MD Primary Care Provider +1- [phone] Encounter Details Date Type Department Care Team (Late st Contact Info) Description 01/17/2025 Lab Requisition [facility] - Main Lab 299 [facility] [place] [address] Marvin Cardoso PA [address] [place] [address] Urinary tract infection, site not [...] Aerococcus urinae(A) LENNY 01/20/2025 12:43 PM EST [facility] Comment: Susceptibility [...] AM EST 01/17/2025 2:05 PM EST Narrative [facility] ([facility] - 01/20/2025 12:43 PM EST Sparse additional colony types present in insignificant amounts. us Marvin [facility] MICROBIOLOGY - GENERAL ORD ERABLES Final Result [facility] [address] [place] [address], documented in this encounter Visit Diagnoses Diagnosis Urinary tract infection, site not specified documented in this encounter Care Teams School Aide Relationship Specialty Start Date End Date Hayden Savage MD [address] [place] [address] PCP - General Internal Medicine 02/05/25 documented as of this encounter
== END 2025-03-20 14:05 | disposition home or self-care (01) ==
LOC: HO.HMCH 11:00
PROVIDERS: PCP Internal Medicine; Visit Provider Internal Medicine
DX: I95.1 Orthostatic hypotension (principal); Z00.00 Encounter for general adult medical examination without abnormal findings

== ENCOUNTER 2025-03-27 14:52 | Outpatient (REF) | payer MEDICARE, OTHER, SELFPAY ==
--- OUTSIDE RECORDS SUMMARY | 2025-03-27 17:15 | XMS_ITS | Encounter Summary ---
Author Organization [facility] Address [address] [place] [address] Care Team Providers Care Crown Ironer Operator Name Role Phone Hayden Savage MD Primary Care Provider +1- [phone] Encounter Details Date Type Department Care Team (Late st Contact Info) Description 02/05/2025 Lab Requisition [facility] - Main Lab 299 [facility] [place] [employer] [place] [address] Jodi Ingram PA [address] [place], [place] [id number] Urinary tract infection, site not specified; Dysuria [...] Staphylococcus epidermidis(A) LENNY 02/07/2025 8:[address] [facility] ([facility]) [facility] Comment: Edited result: Previously reported [...] - GENERAL ORD ERABLES Final Result [facility] ([facility]) [facility] [address] [place] [address], documented in this encounter Visit Diagnoses Diagnosis Urinary tract infection, site not specified Dysuria documented in this encounter Care Teams Crown Ironer Operator Relationship Specialty Start Date End Date Hayden Savage MD [address] [place] [phone] PCP - General Internal Medicine 02/05/25 documented as of this encounter
--- OUTSIDE RECORDS SUMMARY | 2025-03-27 17:15 | XMS_ITS | Encounter Summary ---
Author Organization [facility] Address [address] [place] [address] Care Team Providers Care Equipment Application Specialist Name Role Phone Hayden Savage MD Primary Care Provider +1- [phone] Encounter Details Date Type Department Care Team (Late st Contact Info) Description 01/17/2025 Lab Requisition [facility] - Main Lab 299 [facility] [place] [address] Marvin Cardoso PA [address] [place] [address] Urinary tract infection, site not [...] urinae(A) LENNY 01/20/2025 12:43 PM EST [facility] ([facility]) [facility] Comment: Susceptibility testing [...] EST 01/17/2025 2:05 PM EST Narrative [facility] ([facility] - 01/20/2025 12:43 PM EST Sparse additional colony types present in insignificant amounts. us Marvin BUCIO LAB MICROBIOLOGY - GENERAL ORD ERABLES Final Result [facility] [address] [place] [address], documented in this encounter Visit Diagnoses Diagnosis Urinary tract infection, site not specified documented in this encounter Care Teams Equipment Application Specialist Relationship Specialty Start Date End Date Hayden Savage MD [address] [place] [address] PCP - General Internal Medicine 02/05/25 documented as of this encounter
--- OUTSIDE RECORDS SUMMARY | 2025-03-27 17:15 | XMS_ITS | Clinical Summary ---
Author Organization 299 [facility] Address [address] [place] [address] Phone Care Team Providers Care Package Clerk Name Role Phone Hayden Savage MD Primary Care Provider +1- [phone] Encounters Date Type Department Care Team Description 02/05/2025 Lab Requisition [facility] Lab [address] [place] [address] Jodi Ingram PA Urinary tract infection, site not specified; Dysuria 01/17/2025 Lab Requisition [facility] Lab [address] [place] [address] Marvin Cardoso PA Urinary tract [...] MICROBIOLOGY - GENERAL ORD ERABLES Final Result [facility] ([facility]) HOSPITAL LAB [address] [place] [address], from Last 3 Months Insurance MEDICARE Care Teams Package Clerk Relationship Specialty Start Date End Date Hayden Savage MD [address] [place] [phone] PCP - General Internal Medicine 02/05/25
[2025-03-27 18:16] LABS: Appearance Urine Clear; Color Urine Yellow; Glucose Urine UA Negative (Negative); Leukocyte Esterase Urine Moderate (2+) (Negative); Nitrite Urine Negative (Negative); Specific Gravity - Urine 1.015 (1.005-1.025); UMIC TRIGGER UA YES; Urine Blood Negative (Negative); Urine Ketones Negative (Negative); Urine Protein Negative (Neg-Trace)
[2025-03-27 18:20] LABS: Bacteria Urine 4+ (None Seen); Hyaline Casts Urine 0-2 /LPF (0-2); RBC Urine 0-2 /HPF (0-2); Squamous Epithelial Cell Urine 0-2 /HPF (0-2); WBC Urine >50 /HPF (0-5)
== END 2025-03-27 14:53 | disposition home or self-care (01) ==
LOC: HO.LAB 14:52
PROVIDERS: PCP Internal Medicine; Visit Provider Internal Medicine
DX: N39.0 Urinary tract infection, site not specified (principal)
CPT/HCPCS: 81001; 96127; 99212

== ENCOUNTER → 2025-03-27 14:52 | Outpatient (AMB) | payer MEDICARE, OTHER, SELFPAY ==
--- NOTE | 2025-03-27 15:01 | MHC.PC.OV ---
Vital Signs 03/27/25 15:02 Height 6 ft 3 in Weight 291 lb BMI 36.4 BP 140/70 H Blood Pressure Location Lt brachial Position Sitting Pulse 79 Pulse Source Pulse Oximeter Temp 97.2 F Temp Source Temporal Artery Scan Pulse Oximetry (%) 97 Oxygen Delivery Method Room Air Intake Visit Reasons: 3 month f/u Intake Note: Patient is here to follow up on PAfib, Asthma. Manager Salt Required: No Circuit Court Magistrate: Present Accompanied by: Son Allergies No Known Allergies Allergy (Verified 03/27/25 15:02) Tobacco use date assessed: 03/27/25 Fall risk assessment: No Falls in past year Last assessed Fall Risk: 03/27/25 Dental Screening Dental Screen Date: 01/30/25 [facility] Medical History (Updated 03/25/25 @ 06:32 by Hayden Savage MD) Hypotension Obesity (BMI 35.0-39.9 without comorbidity) Ascending aortic aneurysm Paroxysmal atrial fibrillation (HFpEF) heart failure with preserved ejection fraction Dysphagia History of prostate cancer Hyperlipidemia Cough Asthma Allergic rhinitis Surgical History Status post trigger finger release History of colonoscopy History of cataract surgery History of prostate surgery Family History Mother No problems noted. Father No problems noted. Social History Housing: Assisted Living Facility Alcohol intake: current Alcohol intake frequency: 0-2 drinks per day Alcohol type: wine Patient Tobacco Use Status: Former Tobacco user Tobacco use type: Cigarette e-Cigarette/Vaping Use: Never Used Second Hand Smoke Exposure: Yes service: No Current occupational status: retired Current occupation: retiered Current occupational exposures/hazards: No Cognitive needs: Yes (walker/cane) Hearing needs: Yes (hearing aide) Vision needs: Yes (Glasses) Questionnaire PHQ-9 Over the last 2 weeks, how often have you been bothered by any of the following problems? 1. Little interest or pleasure in doing things: not at all 2. Feeling down, depressed, or hopeless: not at all 3. Trouble falling or staying asleep, or sleeping too much: not at all 4. Feeling tired or having little energy: several days 5. Poor appetite or overeating: not at all 6. Feeling bad about yourself - or that you are a failure or have let yourself or your family down: not at all 7. Trouble concentrating on things, such as reading the newspaper or watching television: not at all 8. Moving or speaking so slowly that other people could have noticed. Or the opposite - being so fidgety or restless that you have been moving around a lot more than usual: not at all 9. Thoughts that you would be better off or of hurting yourself in some way: not at all Total score: 1 Depression Screening Interpretation: Positive Depression Screening Done: Yes Source: Developed by Drs. Adams Wagner, Trina Cuellar, Demetris Turpin and colleagues, with an educational kelly from [employer]. Thrive Questionnaire Date Thrive assessed: 12/07/23 I am a: Patient What is your living situation today?: I have a steady place to live Within the past 12 months, did the food you bought not last and you didn't have the money to get more?: Often true Within the past 12 months, did you worry whether your food would run out before you got money to buy more?: Often true Do you have trouble paying for medicines?: No Do you have trouble getting transportation to medical appointments?: No Do you have trouble paying your heating and electricity bill?: No Do you have trouble taking care of your child, family member or friend?: No Do you have trouble with day-to-day activities such as bathing, preparing meals, shopping, managing finances, etc.?: No Are you currently unemployed and looking for a job?: No Are you interested in more education?: No Please select the resources that you would like help with: None Currently or been in a relationship where the following occur: No concerns reported THRIVE Score: 2 AUDIT C Alcohol Use Questionnaire (AUDIT-C) 1. How often do you have a drink containing alcohol?: Never Total Score: 0 BRITTNEY-7 AMB Questionnaire BRITTNEY-7 Date BRITTNEY - 7 assessed: 01/30/25 Feeling nervous, anxious, or on edge: 0 = Not at all Not being able to stop or control worryin = Not at all Worrying too much about different things: 0 = Not at all Trouble relaxin = Not at all Being so restless that it is hard to sit still: 0 = Not at all Source: Developed by Drs. Adams Wagner, Trina Cuellar, Demetris Turpin and colleagues, with an educational kelly from [employer]. Physical exam (Primary Care) Vital Signs: Last Vital Signs Temp 97.2 F 03/27/25 15:02 Pulse 79 03/27/25 15:02 BP 140/70 H 03/27/25 15:02 Pulse Ox 97 03/27/25 15:02 Oxygen Delivery Method Room Air 03/27/25 15:02 BMI result Body Mass Index 36.4 Tobacco/Smoking Status: Tobacco use Status Tobacco use date assessed 03/27/25 03/27/25 15:13 Patient Tobacco Use Status Former Tobacco user 03/27/25 15:13 Tobacco use type Cigarette 03/27/25 15:13 e-Cigarette/Vaping Use Never Used 03/27/25 15:13 PHQ-9: PHQ-9 Score PHQ-9: Total score 1 03/27/25 15:13 Depression Screening Interpretation: Positive Thrive Assessment: Date of Thrive Assessment Date Thrive assessed 12/07/23 03/27/25 15:13 Currently or been in a relationship where the following occur: No concerns reported Coding Level of Care Code Est Pt Level 3 (79308) Complex EM visit Add On G2211 Diagnoses Urinary tract infection N39.0 Assessment & Plan Assessment & Plan (1) Urinary tract infection: Code(s): N39.0 - Urinary tract infection, site not specified Plan: Urine sent for analysis Plan Pt returns for a follow up visit. Tolerating the midodrine well. Revd Blood pressures and log revd. 130-140 systolic. Dizzy sx have improved but not resolved. Plan: Midodrine dosage reduced to twice a day. Orders: Orders UA and rflx microscopic Today N39.0 - Urinary tract infection, site not specified Medications: Changed From midodrine do not give last dose of day after 6PM or within 4 hrs of bedtime 2.5 mg PO TID 90 tabs 0RF To midodrine do not give last dose of day after 6PM or within 4 hrs of bedtime 2.5 mg PO BID 90 tabs 0RF Refilled warfarin 5 mg See Protocol PO DAILY 90 tabs 1RF
[2025-03-27 15:02] VITALS: BP 140/70; PULSE 79; TEMP 36.2; O2SAT 97; BMI 36.4
--- OUTSIDE RECORDS SUMMARY | 2025-03-27 16:52 | XMS_ITS | Clinical Summary ---
Author Organization 299 [facility] Address [address] [place] [address] Phone Care Team Providers Care Disaster Or Damage Control Specialist Name Role Phone Hayden Savage MD Primary Care Provider +1- [phone] Encounters Date Type Department Care Team Description 02/05/2025 Lab Requisition [facility] Lab [address] [place] [address] Jodi Ingram PA Urinary tract infection, site not specified; Dysuria 01/17/2025 Lab Requisition [facility] Lab [address] [place] [address] Marvin Cardoso PA Urinary tract [...] epidermidis Rifampin LENNY <=0.5 ug/ml: Susceptible us oJdi [facility] MICROBIOLOGY - GENERAL ORD ERABLES Final Result [facility] HOSPITAL LAB [address] [place] [address], from Last 3 Months Insurance MEDICARE Care Teams Disaster Or Damage Control Specialist Relationship Specialty Start Date End Date Hayden Savage MD [address] [place] [phone] PCP - General Internal Medicine 02/05/25
--- OUTSIDE RECORDS SUMMARY | 2025-03-27 16:52 | XMS_ITS | Encounter Summary ---
Author Organization [facility] Address [address] [place] [address] Care Team Providers Care Bilingual Receptionist Name Role Phone Hayden Savage MD Primary Care Provider +1- [phone] Encounter Details Date Type Department Care Team (Late st Contact Info) Description 01/17/2025 Lab Requisition [facility] - Main Lab 299 [facility] [place] [address] Marvin Cardoso PA [address] [place] [address] Urinary tract infection, site not [...] Aerococcus urinae(A) LENNY 01/20/2025 12:43 PM EST [facility] [...] AM EST 01/17/2025 2:05 PM EST Narrative [facility] - 01/20/2025 12:43 PM EST Sparse additional colony types present in insignificant amounts. us Marvin [facility] MICROBIOLOGY - GENERAL ORD ERABLES Final Result [facility] [address] [place] [address], documented in this encounter Visit Diagnoses Diagnosis Urinary tract infection, site not specified documented in this encounter Care Teams Bilingual Receptionist Relationship Specialty Start Date End Date Hayden Savage MD [address] [place] [address] PCP - General Internal Medicine 02/05/25 documented as of this encounter
--- OUTSIDE RECORDS SUMMARY | 2025-03-27 16:53 | XMS_ITS | Encounter Summary ---
Author Organization [facility] Address [address] [place] [address] Care Team Providers Care Slps Name Role Phone Hayden Savage MD Primary Care Provider +1- [phone] Encounter Details Date Type Department Care Team (Late st Contact Info) Description 02/05/2025 Lab Requisition [facility] - Main Lab 299 [facility] [employer] [place] [address] Jodi Ingram PA [address] [place], [place] [phone] Urinary tract infection, site not specified; Dysuria [...] Staphylococcus epidermidis(A) LENNY 02/07/2025 8:10 AM EDT [facility] ([facility]) [facility] Comment: Edited result: Previously reported [...] MICROBIOLOGY - GENERAL ORD ERABLES Final Result [facility] ([facility]) [facility] [address] [place] [address], documented in this encounter Visit Diagnoses Diagnosis Urinary tract infection, site not specified Dysuria documented in this encounter Care Teams Slps Relationship Specialty Start Date End Date Hayden Savage MD [address] [place] [phone] PCP - General Internal Medicine 02/05/25 documented as of this encounter
== END ==
LOC: HO.HMCH 14:53
PROVIDERS: PCP Internal Medicine; Visit Provider Internal Medicine
DX: N39.0 Urinary tract infection, site not specified (principal)

== ENCOUNTER 2025-04-03 10:27 | Outpatient (AMB) | payer MEDICARE, OTHER, SELFPAY ==
[2025-04-03 10:54] LABS: ~PT, ~INR - Anti Coag Clinic 2.5 (0.9-1.1)
--- NOTE | 2025-04-03 11:28 | MHC.OFFVISCO ---
Intake Intake Visit Reasons: Anticoagulation Allergies No Known Allergies Allergy (Verified 04/03/25 10:34) Medication List - Last Reconciled 04/03/25 by Siobhan Ballard RN docusate sodium 100 mg PO BID PRN fluticasone propion-salmeterol 115-21 mcg/actuation (Advair HFA) 2 puffs inhalation BID 30 days gabapentin 100 mg PO QAM gabapentin 300 mg PO QPM ketorolac 0.5% 1 drp ophthalmic (eye) QID midodrine 2.5 mg PO BID sennosides (Natural Senna Laxative) 8.6 mg orally 2 AT BEDTIME; sulfamethoxazole-trimethoprim 800-160 mg (Bactrim DS) 1 tab PO BID 10 days triamcinolone acetonide 0.025% 1 appl topical BID warfarin 10 mg See Protocol PO DAILY Nursing Note INR: 2.5 in therapeutic range Medications and supplements reviewed *pt had delay in warfarin refill and missed about 1 1/2 doses - *03/28/2025 started bactrim 03/28/2025 for UTI - feeling better with 2 more days left, Denies any signs and symptoms of bleeding or clotting. has usual bruising Bleeding, bruising, clotting discussed Nutritional guidance given - have an extra green next week to offset effects of the antibiotic Dose: decrease sat dose to 5mg then resume usual dose 10mg sun tue thur/ 7.5mg x 4 days F/U INR: 1 week due to the antibiotic Patient verbalizes understanding of instructions given Anti-Coag Initial Assessment Social Hx Patient Tobacco Use Status: Former Tobacco user Tobacco use type: Cigarette alcohol intake: current Alcohol intake frequency: 0-2 drinks per day Cardiovascular Hx: HTN, Angina, NM and Arrhythmias Lung Disease HX: Asthma Musculoskeletal Hx: Arthritis Hx: Bladder Disorders and Prostate Neurological Hx: Aneurysm Cancer HX: Yes (prostate cancer 25 years ago ) Psych. 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
--- OUTSIDE RECORDS SUMMARY | 2025-04-03 11:45 | XMS_ITS | Clinical Summary ---
Author Organization 299 [facility] Address [address] [place] [address] Phone Care Team Providers Care Cost Control Analyst Name Role Phone Hayden Savage MD Primary Care Provider +1- [phone] Encounters Date Type Department Care Team Description 02/05/2025 Lab Requisition [facility] Lab [address] [place] [address] Jodi Ingram PA Urinary tract infection, site not specified; Dysuria 01/17/2025 Lab Requisition [facility] Lab [address] [place] [address] Marvin Cardoso PA Urinary tract [...] ERABLES Final Result [facility] ([facility]) HOSPITAL LAB [address] [place] [address], from Last 3 Months Insurance MEDICARE Care Teams Cost Control Analyst Relationship Specialty Start Date End Date Hayden Savage MD [address] [place] [phone] PCP - General Internal Medicine 02/05/25
--- OUTSIDE RECORDS SUMMARY | 2025-04-03 11:45 | XMS_ITS | Encounter Summary ---
Author Organization [facility] Address [address] [place] [address] Care Team Providers Care Mineral Surveying Technician Name Role Phone Hayden Savage MD Primary Care Provider +1- [phone] Encounter Details Date Type Department Care Team (Late st Contact Info) Description 01/17/2025 Lab Requisition [facility] - Main Lab 299 [facility] Life [employer] [place] [address] Marvin Cardoso PA [address] [place] [address] Urinary tract infection, site not [...] urinae(A) LENNY 01/20/2025 12:43 PM EST [facility] ([facility]) [facility] Comment: Susceptibility testing not routinely [...] EST 01/17/2025 2:05 PM EST Narrative [facility] ([facility] - 01/20/2025 12:43 PM EST Sparse additional colony types present in insignificant amounts. us Marvin BUCIO LAB MICROBIOLOGY - GENERAL ORD ERABLES Final Result [facility] [address] [place] [address], documented in this encounter Visit Diagnoses Diagnosis Urinary tract infection, site not specified documented in this encounter Care Teams Mineral Surveying Technician Relationship Specialty Start Date End Date Hayden Savage MD [address] [place] [address] PCP - General Internal Medicine 02/05/25 documented as of this encounter
--- OUTSIDE RECORDS SUMMARY | 2025-04-03 11:45 | XMS_ITS | Encounter Summary ---
Author Organization [facility] Address [address] [place] [address] Care Team Providers Care Lay Out Former Name Role Phone Hayden Savage MD Primary Care Provider +1- [phone] Encounter Details Date Type Department Care Team (Late st Contact Info) Description 02/05/2025 Lab Requisition [facility] - Main Lab 299 [facility] [place] [address] Jodi Ingram PA [address] [place], [place] [phone] Urinary tract infection, site not specified; Dysuria [...] epidermidis(A) LENNY 02/07/2025 8:10 AM EDT [facility] ([facility]) [facility] Comment: Edited result: Previously reported [...] MICROBIOLOGY - GENERAL ORD ERABLES Final Result [facility] ([facility]) [facility] [address] [place] [address], documented in this encounter Visit Diagnoses Diagnosis Urinary tract infection, site not specified Dysuria documented in this encounter Care Teams Lay Out Former Relationship Specialty Start Date End Date Hayden Savage MD [address] [place] [phone] PCP - General Internal Medicine 02/05/25 documented as of this encounter
== END 2025-04-03 11:41 | disposition home or self-care (01) ==
LOC: HO.ACS 10:27
PROVIDERS: PCP Internal Medicine; Visit Provider Internal Medicine Medical Oncology
DX: Z79.01 Long term (current) use of anticoagulants (principal)

== ENCOUNTER → 2025-04-03 10:27 | Outpatient (BNVA) | payer MEDICARE, OTHER, SELFPAY | PROVIDERS: PCP Internal Medicine; Visit Provider Internal Medicine Medical Oncology | DX: I48.0 Paroxysmal atrial fibrillation (principal); Z79.01 Long term (current) use of anticoagulants; Z51.81 Encounter for therapeutic drug level monitoring | CPT/HCPCS: 85610; 99211 ==

== ENCOUNTER 2025-04-10 10:35 | Outpatient (AMB) | payer MEDICARE, OTHER, SELFPAY ==
[2025-04-10 10:53] LABS: Prothrombin Time Whole Bld POC 23.3 sec (11.1-13.5); ~PT, ~INR - Anti Coag Clinic 1.9 (0.9-1.1)
--- NOTE | 2025-04-10 11:04 | MHC.OFFVISCO ---
Intake Intake Visit Reasons: Anticoagulation Allergies No Known Allergies Allergy (Verified 04/10/25 10:45) Medication List - Last Reconciled 04/10/25 by Siobhan Ballard RN docusate sodium 100 mg PO BID PRN fluticasone propion-salmeterol 115-21 mcg/actuation (Advair HFA) 2 puffs inhalation BID 30 days gabapentin 100 mg PO QAM gabapentin 300 mg PO QPM ketorolac 0.5% 1 drp ophthalmic (eye) QID midodrine 2.5 mg orally 1 DAILY PER PT; do not give last dose of day after 6PM or within 4 hrs of bedtime sennosides (Natural Senna Laxative) 8.6 mg orally 2 AT BEDTIME; triamcinolone acetonide 0.025% 1 appl topical BID warfarin 10 mg See Protocol PO DAILY Nursing Note INR: 1.9 ALMOST in therapeutic range Medications and supplements reviewed * pt completed antibitic last week and last week warfarin dose was decreased x 1 day due to the likeliness of an increased INR post sulfa antbx - still may present itself Denies any signs and symptoms of bleeding or bruising or clotting. Bleeding, bruising, clotting discussed Nutritional guidance given- avoid greens today then resume usual diet Dose: resume usual dose 10mg x 3 days/ 7.5mg x 4 days F/U INR: 2 weeks Patient verbalizes understanding of instructions given Anti-Coag Initial Assessment Social Hx Patient Tobacco Use Status: Former Tobacco user Tobacco use type: Cigarette alcohol intake: current Alcohol intake frequency: 0-2 drinks per day Cardiovascular Hx: HTN, Angina, NM and Arrhythmias Lung Disease HX: Asthma Musculoskeletal Hx: Arthritis Hx: Bladder Disorders and Prostate Neurological Hx: Aneurysm Cancer HX: Yes (prostate cancer 25 years ago ) Psych. 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
--- OUTSIDE RECORDS SUMMARY | 2025-04-10 11:43 | XMS_ITS | Encounter Summary ---
Author Organization [facility] Address [address] [place] [address] Care Team Providers Care Electric Golf Cart Repairer Name Role Phone Hayden Savage MD Primary Care Provider +1- [phone] Encounter Details Date Type Department Care Team (Late st Contact Info) Description 01/17/2025 Lab Requisition [facility] - Main Lab 299 [facility] [place] [address] Marvin Cardoso PA [address] [place] [address] Urinary tract infection, site not [...] Aerococcus urinae(A) LENNY 01/20/2025 12:43 PM EST [facility] ([facility]) [facility] Comment: Susceptibility testing not routinely [...] AM EST 01/17/2025 2:05 PM EST Narrative [facility] ([facility] - 01/20/2025 12:43 PM EST Sparse additional colony types present in insignificant amounts. us Marvin BUCIO LAB MICROBIOLOGY - GENERAL ORD ERABLES Final Result [facility] LAB [address] [place] [address], documented in this encounter Visit Diagnoses Diagnosis Urinary tract infection, site not specified documented in this encounter Care Teams Electric Golf Cart Repairer Relationship Specialty Start Date End Date Hayden Savage MD [address] [place] [address] PCP - General Internal Medicine 02/05/25 documented as of this encounter
--- OUTSIDE RECORDS SUMMARY | 2025-04-10 11:43 | XMS_ITS | Clinical Summary ---
Author Organization 299 [facility] Address [address] [place] [address] Phone Care Team Providers Care Immigration Paralegal Name Role Phone Hayden Savage MD Primary Care Provider +1- [phone] Encounters Date Type Department Care Team Description 02/05/[address] [facility] Lab [address] [place] [address] Jodi Ingram PA Urinary tract infection, site not specified; Dysuria 01/17/[address] [facility] Lab [address] [place] [address] Marvin Cardoso PA Urinary tract [...] Staphylococcus epidermidis(A) LENNY 02/07/2025 8:10 AM EDT [facility] LAB Comment: Edited result: Previously [...] MICROBIOLOGY - GENERAL ORD ERABLES Final Result [facility] ([facility]) HOSPITAL LAB [address] [place] [address], from Last 3 Months Insurance MEDICARE Care Teams Immigration Paralegal Relationship Specialty Start Date End Date Hayden Savage MD [address] [place] [phone] PCP - General Internal Medicine 02/05/25
--- OUTSIDE RECORDS SUMMARY | 2025-04-10 11:43 | XMS_ITS | Encounter Summary ---
Author Organization [facility] Address [address] [place] [address] Care Team Providers Care Public Relations Account Supervisor Name Role Phone Hayden Savage MD Primary Care Provider +1- [phone] Encounter Details Date Type Department Care Team (Late st Contact Info) Description 02/05/[address] [facility] - Main Lab 299 [facility] [place] [address] Jodi Ingram PA [address] [place], [place] [phone] Urinary tract infection, site not specified; Dysuria [...] Staphylococcus epidermidis(A) LENNY 02/07/2025 8:10 AM EDT [facility] ([facility]) [facility] Comment: Edited result: Previously reported as [...] GENERAL ORD ERABLES Final Result [facility] ([facility]) [facility] LAB [address] [place] [address], documented in this encounter Visit Diagnoses Diagnosis Urinary tract infection, site not specified Dysuria documented in this encounter Care Teams Public Relations Account Supervisor Relationship Specialty Start Date End Date Hayden Savage MD [address] [place] [phone] PCP - General Internal Medicine 02/05/25 documented as of this encounter
== END 2025-04-10 11:08 | disposition home or self-care (01) ==
LOC: HO.ACS 10:35
PROVIDERS: PCP Internal Medicine; Visit Provider Internal Medicine Medical Oncology
DX: Z79.01 Long term (current) use of anticoagulants (principal)

== ENCOUNTER → 2025-04-10 10:35 | Outpatient (BNVA) | payer MEDICARE, OTHER, SELFPAY | PROVIDERS: PCP Internal Medicine; Visit Provider Internal Medicine Medical Oncology | DX: I48.0 Paroxysmal atrial fibrillation (principal); Z79.01 Long term (current) use of anticoagulants; Z51.81 Encounter for therapeutic drug level monitoring | CPT/HCPCS: 85610; 99211 ==

== ENCOUNTER 2025-04-15 08:03 | Outpatient (REF) | payer SELFPAY ==
--- OUTSIDE RECORDS SUMMARY | 2025-04-15 08:07 | XMS_ITS | Clinical Summary ---
Author Organization 299 [facility] Address [address] [place] [address] Phone Care Team Providers Care Wet Cleaner Machine Name Role Phone Hayden Savage MD Primary Care Provider +1- [phone] Encounters Date Type Department Care Team Description 02/05/2025 Lab Requisition [facility] Lab [address] [place] [address] Jodi Ingram PA Urinary tract infection, site not specified; Dysuria 01/17/2025 Lab Requisition [facility] Lab [address] [place] [address] Marvin Cardoso PA Urinary tract [...] ERABLES Final Result [facility] ([facility]) HOSPITAL LAB [address] [place] [address], from Last 3 Months Insurance MEDICARE Care Teams Wet Cleaner Machine Relationship Specialty Start Date End Date Hayden Savage MD [address] [place] [phone] PCP - General Internal Medicine 02/05/25
--- OUTSIDE RECORDS SUMMARY | 2025-04-15 08:07 | XMS_ITS | Encounter Summary ---
Author Organization [facility] Address [address] [place] [address] Care Team Providers Care Pump Servicer Supervisor Name Role Phone Hayden Savage MD Primary Care Provider +1- [phone] Encounter Details Date Type Department Care Team (Late st Contact Info) Description 02/05/2025 Lab Requisition [facility] - Main Lab 299 [facility] [place] [address] Jodi Ingram PA [address] [place], [place] [phone] Urinary tract infection, site not specified; Dysuria [...] epidermidis(A) LENNY 02/07/2025 8:10 AM EDT [facility] ([facility]) [facility] Comment: Edited result: Previously [...] - GENERAL ORD ERABLES Final Result [facility] ([facility]) [facility] [address] [place] [address], documented in this encounter Visit Diagnoses Diagnosis Urinary tract infection, site not specified Dysuria documented in this encounter Care Teams Pump Servicer Supervisor Relationship Specialty Start Date End Date Hayden Savage MD [address] [place] [phone] PCP - General Internal Medicine 02/05/25 documented as of this encounter
--- OUTSIDE RECORDS SUMMARY | 2025-04-15 08:07 | XMS_ITS | Encounter Summary ---
Author Organization [facility] Address [address] [place] [address] Care Team Providers Care Poultry Processing Supervisor Name Role Phone Hayden Savage MD Primary Care Provider +1- [phone] Encounter Details Date Type Department Care Team (Late st Contact Info) Description 01/17/2025 Lab Requisition [facility] - Main Lab 299 [facility] [place] [address] Marvin Cardoso PA [address] [place] [address] Urinary tract infection, site not [...] Aerococcus urinae(A) LENNY 01/20/2025 12:43 PM EST [facility] ([facility]) [facility] Comment: Susceptibility testing not routinely [...] AM EST 01/17/2025 2:05 PM EST Narrative [facility] ([facility] LAB - 01/20/2025 12:43 PM EST Sparse additional colony types present in insignificant amounts. us Marvin BUCIO LAB MICROBIOLOGY - GENERAL ORD ERABLES Final Result [facility] [address] [place] [address], documented in this encounter Visit Diagnoses Diagnosis Urinary tract infection, site not specified documented in this encounter Care Teams Poultry Processing Supervisor Relationship Specialty Start Date End Date Hayden Savage MD [address] [place] [address] PCP - General Internal Medicine 02/05/25 documented as of this encounter
--- NOTE | 2025-04-15 09:08 | MHC.AU.HA3 ---
Hearing Instrument Follow-Up- Binaural Date of Visit: 04/15/25 Right Ear: Gerald, Model, Color, Serial Number: Branden Mcclelland P70 13 T roscoe kuo S#[id number] Car Repairer Repair Warranty: 07/11/2027 Car Repairer Loss and Damage Warranty: 07/11/2027 [facility] Service Plan: n/a Battery Size: 13 Circulating Nurse/Slim Tube: 3M Earmold/Dome/CShell/SlimTip:Secure Fit Tip SN: [id number] Warranty: 05/29/2023 Type of Wax Guard: CeruStop Dispensed By: [facility] Date of Fittin06/19/24 Left Ear: Gerald, Model, Color, Serial Number: Branden Patelo [id number] 13 T roscoe kuo S#[id number] Car Repairer Repair Warranty: 07/11/2027 Car Repairer Loss and Damage Warranty: 07/11/2027 [facility] Service Plan: n/a Battery Size: 13 Circulating Nurse/Slim Tube: 3M Earmold/Dome/CShell/SlimTip: Secure Fit Tip SN: [id number] Warranty: 05/29/2023 Type of Wax Guard: CeruStop Dispensed By: [facility] Date of Fittin06/19/24 Follow-Up Summary: Sekou reports extreme frustration with his right device, stating his battery drain issue from last visit persists and has worsened, is now completely . Confirmed via listening check, no change with electronic integrated systems mechanic replacement. Programmed loaner, had matching aid available so able to pair together and with phone, pt aware we will have to reconnect with his aid when back from repair, same with his TV streamer. No OV charge as this is recurrent issue that he previously paid $50 OV fee for. Recommendations: Recommendations: Patient will be contacted when materials have arrived. Diagnosis Code(s): Primary Diagnosis: H90.3 Bilateral Sensorineural Hearing Loss Signature: Student/Clinical Fellow: I have reviewed/agreed with student/fellow documentation: Provider: Van Chaudhari, CCC-A
== END 2025-04-15 08:04 | disposition home or self-care (01) ==
LOC: HO.HAP 08:03
PROVIDERS: Visit Provider Internal Medicine
DX: Z13.89 Encounter for screening for other disorder (principal)

== ENCOUNTER 2025-04-16 10:17 | Outpatient (REF) | payer SELFPAY ==
--- OUTSIDE RECORDS SUMMARY | 2025-04-16 11:49 | XMS_ITS | Encounter Summary ---
Author Organization [facility] Address [address] [place] [address] Care Team Providers Care Drop Wire Builder Name Role Phone Hayden Savage MD Primary Care Provider +1- [phone] Encounter Details Date Type Department Care Team (Late st Contact Info) Description 01/17/2025 Lab Requisition [facility] - Main Lab 299 [facility] [place] [address] Marvin Cardoso PA [address] [place] [address] Urinary tract infection, site not [...] urinae(A) LENNY 01/20/2025 12:43 PM EST [facility] Comment: Susceptibility testing not routinely [...] EST 01/17/2025 2:05 PM EST Narrative [facility] - 01/20/2025 12:43 PM EST Sparse additional colony types present in insignificant amounts. us Marvin BUCIO LAB MICROBIOLOGY - GENERAL ORD ERABLES Final Result [facility] [address] [place] [address], documented in this encounter Visit Diagnoses Diagnosis Urinary tract infection, site not specified documented in this encounter Care Teams Drop Wire Builder Relationship Specialty Start Date End Date Hayden Savage MD [address] [place] [address] PCP - General Internal Medicine 02/05/25 documented as of this encounter
--- OUTSIDE RECORDS SUMMARY | 2025-04-16 11:49 | XMS_ITS | Clinical Summary ---
Author Organization [facility] Address [address] [place] [address] Phone Care Team Providers Care Winding Department Supervisor Name Role Phone Hayden Savage MD Primary Care Provider +1- [phone] Encounters Date Type Department Care Team Description 02/05/2025 Lab Requisition [facility] Lab [address] [place] [address] Jodi Ingram PA Urinary tract infection, site not specified; Dysuria 01/17/2025 Lab Requisition [facility] Lab [address] [place] [address] Marvin Cardoso PA Urinary tract [...] Staphylococcus epidermidis(A) LENNY 02/07/2025 8:10 AM EDT [facility] Comment: Edited result: Previously reported [...] MICROBIOLOGY - GENERAL ORD ERABLES Final Result [facility] LAB [address] [place] [address], from Last 3 Months Insurance MEDICARE Care Teams Winding Department Supervisor Relationship Specialty Start Date End Date Hayden Savage MD [address] [place] [phone] PCP - General Internal Medicine 02/05/25
--- OUTSIDE RECORDS SUMMARY | 2025-04-16 11:49 | XMS_ITS | Encounter Summary ---
Author Organization [facility] Address [address] [place] [address] Care Team Providers Care Cadmium Plater Name Role Phone Hayden Savage MD Primary Care Provider +1- [phone] Encounter Details Date Type Department Care Team (Late st Contact Info) Description 02/05/2025 Lab Requisition [facility] Lab [address] [facility] [address] [address] Jodi Ingram PA [address] [place], [place] [id number] Urinary tract infection, site not specified; Dysuria [...] Staphylococcus epidermidis(A) LENNY 02/07/2025 8:10 AM EDT [facility] ([facility] Comment: Edited result: Previously reported [...] MICROBIOLOGY - GENERAL ORD ERABLES Final Result [facility] ([facility]) [facility] [address] [place] [address], documented in this encounter Visit Diagnoses Diagnosis Urinary tract infection, site not specified Dysuria documented in this encounter Care Teams Cadmium Plater Relationship Specialty Start Date End Date Hayden Savage MD [address] [place] [phone] PCP - General Internal Medicine 02/05/25 documented as of this encounter
== END 2025-04-16 10:18 | disposition home or self-care (01) ==
LOC: HO.HAP 10:17
PROVIDERS: Visit Provider Internal Medicine
DX: Z13.89 Encounter for screening for other disorder (principal)

== ENCOUNTER 2025-04-22 12:05 | Observation (INO) | payer MEDICARE, OTHER, SELFPAY ==
[2025-04-22] VITALS (21 sets, daily range): BP systolic 81–136; BP diastolic 52–87; PULSE 64–166; RESP 16–25; TEMP 36.1–37.4; O2SAT 96–99; BMI 35.5
--- NOTE | ~2025-04-22 | XR_ITS ---
EXAMINATION: XR CHEST CLINICAL INFORMATION: Dizziness COMPARISON: 12/20/2023. CT angiogram chest 01/27/2025. TECHNIQUE: Frontal view of the chest was obtained. FINDINGS: The heart appears mildly enlarged. Prominent epicardial fat pad. Mediastinal and hilar contours appear normal. Aortic wall calcification. Lungs are diffusely hyperaerated. There are fine increased subpleural interstitial markings suggesting mild interstitial lung disease. No focal consolidation. No pneumothorax or effusion. No focal osseous or soft tissue abnormality. Degenerative changes of the shoulder joints and spine. XR/XR chest 1V IMPRESSION: 1. Stable findings of hyperaeration and mild chronic interstitial lung disease without focal pneumonic consolidation. Overall no change from 12/20/2023. Electronically signed by: Shashi Batista MD 04/22/2025 01:37 PM EDT
--- NOTE | 2025-04-22 12:14 | ED.DIZZY ---
HPI - Dizziness General Chief Complaint: Dizziness Stated Complaint: Dizziness, sent by Time Seen by Provider: 04/22/25 12:47 History of Present Illness ED Provider: Danial Faust MD HPI Narrative: 89 male with a history of AFib on Coumadin, asthma, HFpEF, with shortness of breath over the weekend while with family on exertion no chest pain he woke this morning much more short of breath did not feel palpitations but arrived AFib RVR with hypotension. On Monday, 4 days ago he started antibiotic for dysuria apparently [facility] identified UTI Sepsis alert activated at approximately 12:49 due to ongoing treatment of infection and tachycardia hypotension despite my feeling that this is more likely to be rate related hypotension and primary AFib RVR Related Data Home Medications ?Medication ?Instructions ?Recorded ?Confirmed gabapentin 100 mg capsule 100 mg PO DAILY PRN Itchy Skin 01/30/25 04/22/25 gabapentin 300 mg capsule 300 mg PO BID 01/30/25 04/22/25 midodrine 2.5 mg tablet 2.5 mg PO BID 04/10/25 04/22/25 betamethasone, augmented 0.05 % 1 appl topical DAILY PRN Dry/Itchy 04/22/25 04/22/25 topical cream Skin ceramides 1,3,6-II (CeraVe topical 1 appl topical QID PRN Dry/Itchy 04/22/25 04/22/25 cream) Skin doxycycline monohydrate 100 mg 100 mg PO BID 04/22/25 04/22/25 tablet hydrocortisone 1 % topical cream 1 appl topical QID PRN Dry Itchy 04/22/25 04/22/25 (Cortisone (hydrocortisone)) Skin methenamine hippurate 1 gram tablet 1 g PO DAILY 04/22/25 04/22/25 polyethylene glycol 400 1 % eye 1 drp ophthalmic (eye) Q8H PRN 04/22/25 04/22/25 drops (Dry Eye Relief (PEG 400)) Dry/Itchy Eye warfarin 5 mg tablet 7.5 mg PO MOWEFRSA 04/22/25 04/22/25 warfarin 5 mg tablet 10 mg PO SUTUTH 04/22/25 04/22/25 Previous Rx's ?Medication ?Instructions ?Recorded fluticasone propionate 115 2 puff inhalation BID ASTHMA/COPD 02/10/25 mcg-salmeterol 21 mcg/actuation 30 days #12 grams HFA inhaler (Advair HFA) docusate sodium 100 mg capsule 100 mg PO BID PRN constipation #60 04/01/25 caps Allergies Allergy/AdvReac Type Severity Reaction Status Date / Time No Known Allergies Allergy Verified 04/22/25 12:16 [facility] Past Medical History Medical History Hypotension Obesity (BMI 35.0-39.9 without comorbidity) Ascending aortic aneurysm Paroxysmal atrial fibrillation (HFpEF) heart failure with preserved ejection fraction Dysphagia History of prostate cancer Hyperlipidemia Cough Asthma Allergic rhinitis Surgical History Status post trigger finger release History of colonoscopy History of cataract surgery History of prostate surgery Family History Family History Mother No problems noted. Father No problems noted. Social History Social History Housing: Assisted Living Facility Alcohol intake: current Alcohol intake frequency: 0-2 drinks per day Alcohol type: wine Patient Tobacco Use Status: Former Tobacco user Tobacco use type: Cigarette Smoked in Last 30 Days: No e-Cigarette/Vaping Use: Never Used Second Hand Smoke Exposure: Yes Use of substances other than those prescribed or required for medical reasons: No Advance Directives: No Advance Directives Information Provided: Yes Nutrition Risks: No Nutritional Risk service: No Current occupational status: retired Current occupation: retiered Current occupational exposures/hazards: No Cognitive needs: Yes (walker/cane) Hearing needs: Yes (hearing aide) Vision needs: Yes (Glasses) Physical Exam Vital Signs: Vital Signs: Last Vital Signs Temp 97.5 F 04/22/25 20:00 Pulse 68 04/22/25 20:00 Resp 17 04/22/25 20:00 BP 120/59 L 04/22/25 20:00 Pulse Ox 98 04/22/25 20:00 O2 Del Method Room Air 04/22/25 20:00 BMI result Body Mass Index 35.5 Const: Other: EXAM: Gen: Alert, awake, well appearing, well hydrated. Head: Atraumatic Eyes: Anicteric, Normal conjunctiva. ENT: Moist mucosa, no pallor. ? Neck: Supple. Respiratory: Breathing comfortably, No distress.Clear to auscultation bilaterally, symmetric chest expansion, No wheeze, rales, ronchi. Cardiovascular: Irregularly irregular, rapid. No murmurs or rub. Well perfused periphery, warm extremities. No edema. ? Abdominal: Soft, no objective distension. No palpable masses or obvious organomegaly. No focal tenderness, no guarding, no rebound tenderness or other peritoneal findings. : No flank tenderness. Neuro: Alert. Gross movement of all extremities intact. ? Vital signs: See flowsheet Course Course Course Narrative: This is a Rapid Medical Exam performed in triage by Ileana Sanders PA-C. Full HPI, ROS and PE to be performed by primary ED provider. 89-year-old male with a past medical history of hypotension, PVCs, CHF, OA, AFib on Coumadin, anasarca, asthma presenting to the ED c/o dizziness since 5AM, described as presyncopal I had to fight for consciousness. Also reports SOB. Denies LOC, CP, MEDINA PE: HR 166, hypotensive, ambulating w/slow steady gait Plan: EKG, labs, UA, CXR Medications Administered Generic Name Dose Route Start Last Admin Trade Name Freq PRN Reason Stop Dose Admin Midodrine 10 mg 04/22/25 15:00 04/22/25 17:37 Midodrine Hcl 10 Mg Tablet PO 10 mg TID MAICO Administration Sodium Chloride 3 ml 04/22/25 16:00 04/22/25 17:36 0.9 % Sodium Chloride Flush 3 Ml Syringe IVFLUSH Not Given QSHIFT [facility] Warfarin Sodium 10 mg 04/22/25 19:00 04/22/25 20:02 Warfarin Sodium 10 Mg Tablet PO 10 mg [id number] MAICO Administration Discontinued Medications Generic Name Dose Route Start Last Admin Trade Name Freq PRN Reason Stop Dose Admin Furosemide 40 mg 04/22/25 13:07 04/22/25 13:23 Furosemide 40 Mg/4 Ml Vial IVPUSH 04/22/25 13:08 40 mg ONCE ONE Administration Protocol Piperacillin Sod/Tazobactam 50 mls @ 100 mls/hr 04/22/25 12:48 04/22/25 13:52 Sod 3.375 gm/ Sodium Chloride IV 04/22/25 13:17 Infused ONCE ONE Infusion Albumin Human 100 mls @ 133.333 mls/hr 04/22/25 13:15 04/22/25 14:45 Kedbumin 25 % IV 04/22/25 14:59 Infused Q1H MAICO Infusion Lactated Ringer's 500 mls @ 150 mls/hr 04/22/25 14:00 04/22/25 17:57 Lr IV 04/22/25 17:19 Infused .Q3H20M MAICO Infusion Metoprolol Tartrate 25 mg 04/22/25 13:08 04/22/25 13:24 Metoprolol Tartrate 25 Mg Tablet PO 04/22/25 13:09 25 mg ONCE ONE Administration Protocol Metoprolol Tartrate 5 mg 04/22/25 13:15 04/22/25 12:38 Metoprolol Tartrate 5 Mg/5 Ml Vial IVPUSH 04/22/25 13:16 5 mg ONCE ONE Administration Medical Decision Making Medical Decision Making MDM Narrative: 89-YEAR-OLD MALE WITH AFIB AND OTHER COMORBIDITIES RECENTLY STARTED ON ANTIBIOTIC FOR UTI 4 DAYS AGO ARRIVED WITH AFIB RVR HYPOTENSIVE. RECTAL TEMP 99.3 DEGREES GIVEN THE UNDERLYING UTI FELT IT REASONABLE TO ACTIVATE SEPSIS THOUGH THIS IS MORE LIKELY TO BE PRIMARY AFIB WITH RVR RELATED HYPOTENSION. AFTER SINGLE LOPRESSOR DOSE HEART RATE IMPROVED TO 80S IN AFIB WITH IMPROVEMENT OF THE BLOOD PRESSURE TO 101/60. EXAM REASSURING. HE DOES HAVE B-LINES ON THORACIC AND ECHO DIFFICULT TO INTERPRET GIVEN THE INITIAL RATE HE HAS UNDERLYING HEART FAILURE WITH PRESERVED EJECTION FRACTION. We will continue with rate control efforts follow up on labs chest x-ray. __ Radiology believes there is chronic interstitial lung disease this may have been the finding of B lines bilaterally therefore I think it is safe at this point to give additional crystalloid. Patient's BNP is slightly elevated so this should be given judiciously. Case discussed at 14:00 with admitting hospitalist given the improvement and conversion to sinus rhythm which took place at about 13:45 and improving BP patient can likely go to the floor with telemetry. Impression: AFib with RVR initially rate related hypotension. Underlying UTI on antibiotics for 4 days reasonable to consider sepsis though this is less likely. 14:00 sepsis focused examination Lab Data 04/22/25 12:40 04/22/25 12:40 Labs: Lab Results 0504/22/25 04/22/25 Range/Units 12:40 12:48 13:06 WBC 7.4 (4.8-10.8) X10*3/uL RBC 4.94 (4.60-5.80) X10*6/uL Hgb 14.2 (14.0-18.0) g/dl Hct 42.6 (42.0-52.0) % MCV 86.2 (80.0-98.0) fL MCH 28.7 (27.0-33.0) pg MCHC 33.3 (31.0-36.0) g/dl RDW 15.5 (11.0-16.0) % Plt Count 223 (160-400) X10*3/uL MPV 9.3 L (9.4-12.4) fL Immature Gran % (Auto) 0.7 H (0.0-0.4) % Neut % (Auto) 65.6 (45-73) % Lymph % (Auto) 18.0 L (20-40) % Giles % (Auto) 11.1 H (2-11) % Eos % (Auto) 3.8 (0-4) % Baso % (Auto) 0.8 (0-2) % Lymph # (Auto) 1.3 (1.2-4.9) X10*3/uL Giles # (Auto) 0.8 (0.1-1.2) X10*3/uL Eos # (Auto) 0.3 (0.0-0.4) X10*3/uL Baso # (Auto) 0.1 (0.0-0.2) X10*3/uL Abs Immat Gran (auto) 0.05 H (0.00-0.03) X10*3/uL Absolute Neuts (auto) 4.9 (2.0-8.3) x10*3/uL Absolute Nucleated RBC 0.000 (0.0-0.012) X10*3/uL Nucleated RBC % (auto) 0.0 (0.0-0.2) /100WBC Hold Blue Top SEE NOTE Sodium 139 (135-145) mmol/L Potassium 4.4 (3.3-5.1) mmol/L Chloride 110 H (96-108) mmol/L Carbon Dioxide 22 (22-29) mmol/L Anion Gap 11 L (12-20) BUN 23 H (9-16) mg/dL Creatinine 1.15 (0.5-1.4) mg/dL Estim Creat Clear Calc 65.9 Estimated GFR > 60 Random Glucose 120 H (60-115) mg/dL Calcium 8.9 D (8.4-10.2) mg/dL Magnesium 2.2 (1.6-2.6) mg/dL Total Bilirubin 0.5 (0.0-1.0) mg/dL Direct Bilirubin 0.2 (0.0-0.5) mg/dL AST 25 (5-37) U/L ALT 12 (0-40) U/L Alkaline Phosphatase 82 (39-117) U/L Troponin I High Sens < 2.7 (<3.5-35.0) ng/L B-Natriuretic Peptide 210 H (<100) pg/mL Total Protein 6.3 L (6.5-8.0) g/dL Albumin 3.5 (3.5-5.0) g/dL Procalcitonin 0.06 ng/mL Urine Color Urine Appearance Urine pH (5.0-9.0) Ur Specific Chase (1.005-1.025) Urine Protein (Neg-Trace) mg/dL Urine Glucose (UA) (Negative) mg/dL Urine Ketones (Negative) mg/dL Urine Blood (Negative) Urine Nitrite (Negative) Ur Leukocyte Esterase (Negative) Urine RBC (0-2) /HPF Urine WBC (0-5) /HPF Ur Squamous Epith Cells (0-2) /HPF Urine Bacteria (None Seen) Hyaline Casts (0-2) /LPF Influenza Type A (PCR) NEGATIVE (Negative) Influenza Type B (PCR) NEGATIVE (Negative) RSV RNA Qual (PCR) NEGATIVE (Negative) SARS-CoV-2 RNA (RT-PCR) NEGATIVE (Negative) 04/22/25 Range/Units 14:16 WBC (4.8-10.8) X10*3/uL RBC (4.60-5.80) X10*6/uL Hgb (14.0-18.0) g/dl Hct (42.0-52.0) % MCV (80.0-98.0) fL MCH (27.0-33.0) pg MCHC (31.0-36.0) g/dl RDW (11.0-16.0) % Plt Count (160-400) X10*3/uL MPV (9.4-12.4) fL Immature Gran % (Auto) (0.0-0.4) % Neut % (Auto) (45-73) % Lymph % (Auto) (20-40) % Giles % (Auto) (2-11) % Eos % (Auto) (0-4) % Baso % (Auto) (0-2) % Lymph # (Auto) (1.2-4.9) X10*3/uL Giles # (Auto) (0.1-1.2) X10*3/uL Eos # (Auto) (0.0-0.4) X10*3/uL Baso # (Auto) (0.0-0.2) X10*3/uL Abs Immat Gran (auto) (0.00-0.03) X10*3/uL Absolute Neuts (auto) (2.0-8.3) x10*3/uL Absolute Nucleated RBC (0.0-0.012) X10*3/uL Nucleated RBC % (auto) (0.0-0.2) /100WBC Hold Blue Top Sodium (135-145) mmol/L Potassium (3.3-5.1) mmol/L Chloride (96-108) mmol/L Carbon Dioxide (22-29) mmol/L Anion Gap (12-20) BUN (9-16) mg/dL Creatinine (0.5-1.4) mg/dL Estim Creat Clear Calc Estimated GFR Random Glucose (60-115) mg/dL Calcium (8.4-10.2) mg/dL Magnesium (1.6-2.6) mg/dL Total Bilirubin (0.0-1.0) mg/dL Direct Bilirubin (0.0-0.5) mg/dL AST (5-37) U/L ALT (0-40) U/L Alkaline Phosphatase (39-117) U/L Troponin I High Sens (<3.5-35.0) ng/L B-Natriuretic Peptide (<100) pg/mL Total Protein (6.5-8.0) g/dL Albumin (3.5-5.0) g/dL Procalcitonin ng/mL Urine Color Yellow Urine Appearance Clear Urine pH 5.5 (5.0-9.0) Ur Specific Chase 1.010 (1.005-1.025) Urine Protein Negative (Neg-Trace) mg/dL Urine Glucose (UA) Negative (Negative) mg/dL Urine Ketones Negative (Negative) mg/dL Urine Blood Negative (Negative) Urine Nitrite Negative (Negative) Ur Leukocyte Esterase Trace H (Negative) Urine RBC 0-2 (0-2) /HPF Urine WBC 0-5 (0-5) /HPF Ur Squamous Epith Cells 0-2 (0-2) /HPF Urine Bacteria None Seen (None Seen) Hyaline Casts 0-2 (0-2) /LPF Influenza Type A (PCR) (Negative) Influenza Type B (PCR) (Negative) RSV RNA Qual (PCR) (Negative) SARS-CoV-2 RNA (RT-PCR) (Negative) Procedures Procedure Narrative Procedure Narrative: EMERGENCY ULTRASOUND INTERPRETATION-Limited Echocardiography [This study was ordered, performed, and interpreted by myself. The study reveals: Impression: Difficult assessment of LV given the rate, AFib noted. Bilateral apical be line suggesting pulmonary edema, NO RV DYSFUNCTION, NO PERICARDIAL EFFUSION] [Emergent Cardiac for Indication: Views Used: PLAX, PSSA, A4, SX, IVC Pericardial Effusion/Tamponade Findings: NONE RV Dilation (> LV diam in 4ch apical): NONE Global LV Fxn: NORMAL Thoracic: Bilateral apical B-lines pathological Performed by: MD Govind Images were stored CPT:[id number]] Critical Care Time Critical Care Time Critical Care Time: Yes Total Critical Care Time: 50 Attestation: ED Critical Care: Critically ill patient with hypotension and AFib RVR on arrival requiring intravenous rate control close reassessment consultation with hospitalist discussion with son Authorized and Performed by: Danial Faust MD Total critical care time: Approximately 50 Due to a high probability of clinically significant, life threatening deterioration, the patient required my highest level of preparedness to intervene emergently and I personally spent this critical care time directly and personally managing the patient. This critical care time included obtaining a history; examining the patient; pulse oximetry; ordering and review of studies; arranging urgent treatment with development of a management plan; evaluation of patient's response to treatment; frequent reassessment; and, discussions with other providers. This critical care time was performed to assess and manage the high probability of imminent, life-threatening deterioration that could result in multi-organ failure. It was exclusive of separately billable procedures and treating other patients and teaching time. Discharge Plan Discharge Clinical Impression: Atrial fibrillation with rapid ventricular response Patient Disposition: Admitted As Inpatient Sepsis Bolus Exclusion Sepsis Bolus Exclusion CHF/Renal Failure This patient met severe sepsis criteria due to the following condition(s):: Hypotension In my clinical judgement the administration of 30 ml/kg of crystalloid would be detrimental to this patient due to the patient's following conditions:: NYHA class III or IV Heart Failure(symptoms with low exertion or rest) and Concern for fluid overload Replace the 30 mls/kg with (Zero amount not acceptable and all fluids for severe sepsis must be given at GREATER than 125 mls/hr) Crystalloids amount given in mls: (rate must be at least 150cc/hr): 0 Colloids amount given in mls:: 200
--- NOTE | 2025-04-22 12:20 | PC.NURSE ---
Pt brought in from waiting room to ED18 d/t low bp and HR 150s-160s. Pt transferred from wheelchair to stretcher assisted by RNs, steady gait with ambulation. Pt immediately placed on architectural renderer and bp cycling q5. HR 160s, afib RVR on architectural renderer, BP 90s/60s- pt states dizziness/lightheadedness and feeling as though he might pass out. MD Barron at bedside. 20g IV placed left forearm and right wrist- patent, asymptomatic. Labs and EKG obtained and sent to lab. Pt a/ox3, speaking in full sentences, respirations even and unlabored, no increased wob/sob noted, afib on architectural renderer, HR 160s. Refer to MAR for medications given, HR decreased to 70s-80s, BP increased to 100s/60s.
--- NOTE | 2025-04-22 12:28 | ECG_ITS ---
Test Reason : TACY Blood Pressure : */* mmHG Vent. Rate : 152 BPM Atrial Rate : 84 BPM P-R Int : * ms QRS Dur : 96 ms QT Int : 314 ms P-R-T Axes : * -51 46 degrees QTcB Int : 499 ms Normal sinus rhythm with burst of SVT/Atrial tachycardia Left anterior fascicular block Nonspecific ST abnormality Abnormal ECG When compared with ECG of 27-Jan-2025 13:23, Burst of SVT/Atach present Referred By: Ileana Sanders Electronically Signed By: THANG HERRERA MD
[2025-04-22] MEDS: Metoprolol Tartrate 5 MG/5 ML VIAL IVPUSH (12:38)
[2025-04-22 12:44] LABS: MANUAL DIFF FLAG NO
--- NOTE | 2025-04-22 12:45 | PC.NURSE ---
Pt converted to nsr after 5mg IVP Lopressor. HR 70s-80s nsr on completions engineer. Denies chest pain/palpitations.
[2025-04-22 12:46] LABS: Basophils Absolute Auto 0.1 X10*3/uL (0.0-0.2); Basophils Percent Auto 0.8 % (0-2); Eosinophils Absolute Auto 0.3 X10*3/uL (0.0-0.4); Eosinophils Percent Auto 3.8 % (0-4); Hematocrit 42.6 % (42.0-52.0); Hemoglobin 14.2 g/dl (14.0-18.0); Imm Gran Abs Auto 0.05 X10*3/uL (0.00-0.03); Imm Gran Pct Auto 0.7 % (0.0-0.4); Lymphocytes Absolute Auto 1.3 X10*3/uL (1.2-4.9); Mean Corpuscular HGB Conc 33.3 g/dl (31.0-36.0); Mean Corpuscular Hemoglobin 28.7 pg (27.0-33.0); Mean Corpuscular Volume 86.2 fL (80.0-98.0); Mean Platelet Volume 9.3 fL (9.4-12.4); Monocytes Absolute Auto 0.8 X10*3/uL (0.1-1.2); Monocytes Percent Auto 11.1 % (2-11); Neutrophils Absolute Auto 4.9 x10*3/uL (2.0-8.3); Neutrophils Percent Auto 65.6 % (45-73); Platelet Count 223 X10*3/uL (160-400); Red Blood Count 4.94 X10*6/uL (4.60-5.80); Red Cell Distribution Width 15.5 % (11.0-16.0); White Blood Count 7.4 X10*3/uL (4.8-10.8)
[2025-04-22 13:03] LABS: Alanine Aminotransferase 12 U/L (0-40); Albumin Level 3.5 g/dL (3.5-5.0); Alkaline Phosphatase 82 U/L (39-117); Anion Gap 11 (12-20); Aspartate Amino Transferase 25 U/L (5-37); Bilirubin Direct 0.2 mg/dL (0.0-0.5); Bilirubin Total 0.5 mg/dL (0.0-1.0); Blood Urea Nitrogen 23 mg/dL (9-16); Calcium 8.9 mg/dL (8.4-10.2); Carbon Dioxide 22 mmol/L (22-29); Chloride 110 mmol/L (96-108); Creatinine Clr Calc Pharmacy 65.9; Estimated Glomerular Filt Rate > 60; Glucose Random 120 mg/dL (60-115); Magnesium 2.2 mg/dL (1.6-2.6); Potassium 4.4 mmol/L (3.3-5.1); Sodium 139 mmol/L (135-145); Total Protein 6.3 g/dL (6.5-8.0)
[2025-04-22 13:06] LABS: B Type Natriuretic Peptide 210 pg/mL (<100)
[2025-04-22 13:10] LABS: Troponin-I High Sensitivity < 2.7 ng/L (<3.5-35.0)
[2025-04-22] MEDS: Piperacillin Sodium/Tazobactam 3.375 GM in 0.9 % Sodium Chloride 50 ML IV (13:10)
--- OUTSIDE RECORDS SUMMARY | 2025-04-22 13:15 | XMS_ITS | Encounter Summary ---
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 Comment: The organism value for this result has been updated. These results have been appended to the previously preliminary verified report. Urine Urine specimen obtained by clean catch procedure / Unknown 04/16/2025 11:15 AM EDT 04/16/2025 1:55 PM EDT us Ernesto Brewster MD LAB MICROBIOLOGY - NERAL ORDERABLES Final Result 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
[2025-04-22] MEDS: Furosemide 40 MG/4 ML VIAL IVPUSH (13:23)
[2025-04-22] MEDS: Albumin Human 25 % 100 ML 133.33 ML IV ×2 (13:23→14:00)
[2025-04-22] MEDS: Metoprolol Tartrate 25 MG TABLET PO (13:24)
[2025-04-22 13:34] LABS: Influenza A PCR NEGATIVE (Negative); Influenza B PCR NEGATIVE (Negative); Resp Syncy Virus RNA Qual PCR NEGATIVE (Negative); SARS COV2 PCR INHOUSE NEGATIVE (Negative)
[2025-04-22 13:57] LABS: Procalcitonin 0.06 ng/mL
[2025-04-22 14:23] LABS: Appearance Urine Clear; Color Urine Yellow; Glucose Urine UA Negative (Negative); Leukocyte Esterase Urine Trace (Negative); Nitrite Urine Negative (Negative); PH 5.5 (5.0-9.0); UMIC TRIGGER UACC YES; Urine Blood Negative (Negative); Urine Ketones Negative (Negative); Urine Protein Negative (Neg-Trace)
[2025-04-22 14:26] LABS: Bacteria Urine None Seen (None Seen); Hyaline Casts Urine 0-2 /LPF (0-2); RBC Urine 0-2 /HPF (0-2); Squamous Epithelial Cell Urine 0-2 /HPF (0-2); WBC Urine 0-5 /HPF (0-5)
--- NOTE | 2025-04-22 14:26 | MHC.EDTECH ---
this tech went to obtain orthostatic vital signs, pt failed to stand during orthos, became too dizzy
[2025-04-22] MEDS: Lactated Ringers 500 ML 150 ML IV (14:37)
--- NOTE | 2025-04-22 14:42 | P.HPHOSP_ITS ---
History of Present Illness Date of Service: 04/22/25 Chief Complaint: Hypotension, Afib RvR An 89 years old male with PMH of PAFib , postural hypotension, Osteoarthritis, asthma HfpEf presents to ED with shortness of breath and weakness. found to be in Afib RvR and hypotension. The patient reports recent UTI infection requiring oral antibiotics which he had just started as he was follow by Urology team. No chest pain, palpitations, SOB, nausea, vomiting, diarrhea or urinary symptoms. reports decreasing oral intake and feeling weak. This monring he was very lightheaded upon standing up. In ED HR was in 150s improved with 1 dose of IV Metoprolol and converted back to sinus rhythm. BP was low and improved lightly with usage of Albumin. admitted for observation Review of Systems 2 Review of Systems: No fever, chills but has light headedness and generalized weakness No chest pain, palpitation No shortness of breath or coughing No abdominal pain, nausea or vomiting No urinary symptoms No any rash or wounds PMFSH Medical History Hypotension Obesity (BMI 35.0-39.9 without comorbidity) Ascending aortic aneurysm Paroxysmal atrial fibrillation (HFpEF) heart failure with preserved ejection fraction Dysphagia History of prostate cancer Hyperlipidemia Cough Asthma Allergic rhinitis Family History Mother No problems noted. Father No problems noted. Surgical History Status post trigger finger release History of colonoscopy History of cataract surgery History of prostate surgery Social History Housing: Assisted Living Facility Alcohol intake: current Alcohol intake frequency: 0-2 drinks per day Alcohol type: wine Patient Tobacco Use Status: Former Tobacco user Tobacco use type: Cigarette e-Cigarette/Vaping Use: Never Used Second Hand Smoke Exposure: Yes Advance Directives: No Advance Directives Information Provided: Yes service: No Current occupational status: retired Current occupation: retiered Current occupational exposures/hazards: No Cognitive needs: Yes (walker/cane) Hearing needs: Yes (hearing aide) Vision needs: Yes (Glasses) Meds Allergies Allergy/AdvReac Type Severity Reaction Status Date / Time No Known Allergies Allergy Verified 04/22/25 12:16 Active Medications: Current Medications Albumin Human (Kedbumin 25 %) 100 mls @ 133.333 mls/hr IV Q1H [facility] Stop: 04/22/25 14:59 Last Admin: 04/22/25 14:00 Dose: 133.33 mls/hr Lactated Ringer's (Lr) 500 mls @ 150 mls/hr IV .Q3H20M [facility] Stop: 04/22/25 17:19 Last Admin: 04/22/25 14:37 Dose: 150 mls/hr Sodium Chloride (0.9 % Sodium Chloride Flush 3 Ml Syringe) 3 ml IVFLUSH QSHIFT [facility] Home Medications ?Medication ?Instructions ?Recorded ?Confirmed ?Last Taken ?Type sennosides 8.6 mg tablet (Natural 8.6 mg PO .COMPLEX 09/26/24 04/10/25 Unknown History Senna Laxative) gabapentin 100 mg capsule 100 mg PO QAM 01/30/25 04/10/25 Unknown History gabapentin 300 mg capsule 300 mg PO QPM 01/30/25 04/10/25 Unknown History ketorolac 0.5 % eye drops 1 drp ophthalmic (eye) QID 01/30/25 04/10/25 Unknown History midodrine 2.5 mg tablet 2.5 mg PO .COMPLEX 04/10/25 04/10/25 04/10/25 10:58 History Physical Exam 2 Vital Signs and Narrative: Vital Signs: Last Vital Signs Temp 99.3 F 04/22/25 12:53 Pulse 69 04/22/25 14:39 Resp 16 04/22/25 14:39 BP 111/72 04/22/25 14:39 Pulse Ox 96 04/22/25 14:39 O2 Del Method Room Air 04/22/25 14:39 BMI result Body Mass Index 35.5 Const: Other: Constitutional : Awake, interactive, not in distress Neck : Normal inspection, Supple Cardiovascular : RRR, no JVP, trace lower extremity edema Respiratory : good bilateral air entry, no crackles, wheezes or rhonchi Gastrointestinal: soft, lax, Normal bowel sounds, Non tender Skin : Warm, Dry Neurological : Alert & oriented x3, No focal deficit Results Labs 04/22/25 12:40 04/22/25 12:40 Labs: Laboratory Results - last 24 hr 04/22/25 04/22/25 04/22/25 12:40 12:48 13:06 MCV 86.2 MCH 28.7 MCHC 33.3 RDW 15.5 Plt Count 223 MPV 9.3 L Immature Gran % (Auto) 0.7 H Neut % (Auto) 65.6 Lymph % (Auto) 18.0 L [place] % (Auto) 11.1 H Eos % (Auto) 3.8 Baso % (Auto) 0.8 Lymph # (Auto) 1.3 [place] # (Auto) 0.8 Eos # (Auto) 0.3 Baso # (Auto) 0.1 Abs Immat Gran (auto) 0.05 H Absolute Neuts (auto) 4.9 Absolute Nucleated RBC 0.000 Nucleated RBC % (auto) 0.0 Hold Blue Top SEE NOTE Anion Gap 11 L Estim Creat Clear Calc 65.9 Estimated GFR > 60 Random Glucose 120 H Calcium 8.9 D Magnesium 2.2 Total Bilirubin 0.5 Direct Bilirubin 0.2 AST 25 ALT 12 Alkaline Phosphatase 82 B-Natriuretic Peptide 210 H Total Protein 6.3 L Albumin 3.5 Procalcitonin 0.06 Urine Color Urine Appearance Urine pH Ur Specific [place] Urine Protein Urine Glucose (UA) Urine Ketones Urine Blood Urine Nitrite Ur Leukocyte Esterase Urine RBC Urine WBC Ur Squamous Epith Cells Urine Bacteria Hyaline Casts Influenza Type A (PCR) NEGATIVE Influenza Type B (PCR) NEGATIVE RSV RNA Qual (PCR) NEGATIVE SARS-CoV-2 RNA (RT-PCR) NEGATIVE 04/22/25 14:16 MCV MCH MCHC RDW Plt Count MPV Immature Gran % (Auto) Neut % (Auto) Lymph % (Auto) [place] % (Auto) Eos % (Auto) Baso % (Auto) Lymph # (Auto) [place] # (Auto) Eos # (Auto) Baso # (Auto) Abs Immat Gran (auto) Absolute Neuts (auto) Absolute Nucleated RBC Nucleated RBC % (auto) Hold Blue Top Anion Gap Estim Creat Clear Calc Estimated GFR Random Glucose Calcium Magnesium Total Bilirubin Direct Bilirubin AST ALT Alkaline Phosphatase B-Natriuretic Peptide Total Protein Albumin Procalcitonin Urine Color Yellow Urine Appearance Clear Urine pH 5.5 Ur Specific [place] 1.010 Urine Protein Negative Urine Glucose (UA) Negative Urine Ketones Negative Urine Blood Negative Urine Nitrite Negative Ur Leukocyte Esterase Trace H Urine RBC 0-2 Urine WBC 0-5 Ur Squamous Epith Cells 0-2 Urine Bacteria None Seen Hyaline Casts 0-2 Influenza Type A (PCR) Influenza Type B (PCR) RSV RNA Qual (PCR) SARS-CoV-2 RNA (RT-PCR) Imaging Radiologist's Impressions: Impressions Chest X-Ray 04/22/25 12:50 IMPRESSION: 1. Stable findings of hyperaeration and mild chronic interstitial lung disease without focal pneumonic consolidation. Overall no change from 12/20/2023. Electronically signed by: Shashi Batista MD 04/22/2025 01:37 PM EDT RP Assessment and Plan (1) Hypotension: Qualifiers: Hypotension type: orthostatic hypotension Qualified Code(s): I95.1 - Orthostatic hypotension Status: Acute (2) Orthostasis: Status: Acute (3) (HFpEF) heart failure with preserved ejection fraction: Status: Acute (4) Paroxysmal atrial fibrillation: Status: Acute Plan An 89 years old male with PMH of PAFib , postural hypotension, Osteoarthritis, asthma HfpEf presents to ED with shortness of breath and weakness. found to be in Afib RvR and hypotension. Postural hypotension Alubmin given Midodrine tid PT eval monitor orthostatic vitals Paroxysmal Afib w RvR converted with 1 dose Metoprlol IV Keep on Tele warfarin 10 mg follow INR use Metoprolol IV if goes back to RvR Hx HFpEF not in exacerbation BNP elevated Monitor fluid status UTI UA negative for infection now. hold on IV antiibotics DVT PPx Warfarin Code status: Full code Quality Stroke Does the patient have a stroke diagnosis?: No VTE Prior VTE?: No VTE Risk Level:: Medical - moderate - high VTE Device Contraindication: Treatment Not Indicated VTE Drug Contraindication: N/A - Med Ordered
--- NOTE | 2025-04-22 15:05 | PC.NURSE ---
Pt BP decreased to 90s/50s on R arm, retook on Left arm 80s/50s. MD Barron aware. Pt medicated per JAN with Albumin. Per MD, ok to give lasix with pressures low. BP cycling q5 to monitor. Call mackay within reach, all needs met at this time.
--- NOTE | 2025-04-22 16:52 | PHA.MEDREC ---
Addendum entered by Catalino Enriquez, [facility] 04/22/25 17:21: Med rec reviewed Original Note: Pharmacy Consult ? Medication Reconciliation Pharmacy has completed the medication reconciliation. Spoke with patient and son at bedside, who were able to confirm patients medications. Pt confirmed he started taking the Doxycycline 100mg tab BID and stated it last Monday. Pt confirmed he is still using the Gabapentin for his hand itching and currently weaning himself down to a lower dosage; which is currently 300mg tabs twice a day and stated he has 100mg tab at home as needed. Pt thinks he has not taken the Midrodine 2.5mg tab in over a month and stated his BP was in a good spot so he stopped it, but the son stated they just saw the pt Dr 03/[address] wanted the pt to continue taking it 2.5mg BID. He confirmed his Warfarin 5mg tabs 2 tabs (10mg) PHELAN and 1 11/28 (7.5mg) MO WE FR SA and last took 7.5mg yesterday.
[2025-04-22] MEDS: Midodrine HCl 10 MG TABLET PO ×2 (17:37→21:39)
[2025-04-22 18:37] LABS: INTERNATIONAL NORM RATIO 1.8 (0.9-1.1)
--- NOTE | 2025-04-22 19:46 | PC.NURSE ---
requested warfarin from pharmacy at this time
[2025-04-22] MEDS: Warfarin Sodium 10 MG TABLET PO (20:02)
[2025-04-22] MEDS: Gabapentin 300 MG CAPSULE PO (21:39)
[2025-04-23] VITALS (10 sets, daily range): BP systolic 113–137; BP diastolic 59–84; PULSE 59–74; RESP 16–20; TEMP 36.1–36.7; O2SAT 96–97; BMI 36.0
[2025-04-23] MEDS: 0.9 % Sodium Chloride Flush 3 ML SYRINGE IVFLUSH ×2 (00:15→09:14)
[2025-04-23 07:17] LABS: INTERNATIONAL NORM RATIO 1.8 (0.9-1.1)
[2025-04-23 07:27] LABS: Alanine Aminotransferase 9 U/L (0-40); Albumin Level 3.6 g/dL (3.5-5.0); Alkaline Phosphatase 62 U/L (39-117); Anion Gap 10 (12-20); Aspartate Amino Transferase 19 U/L (5-37); Bilirubin Total 0.8 mg/dL (0.0-1.0); Blood Urea Nitrogen 21 mg/dL (9-16); Calcium 8.6 mg/dL (8.4-10.2); Carbon Dioxide 24 mmol/L (22-29); Chloride 110 mmol/L (96-108); Creatinine Clr Calc Pharmacy 70.6; Estimated Glomerular Filt Rate > 60; Glucose Random 90 mg/dL (60-115); Sodium 140 mmol/L (135-145)
[2025-04-23] MEDS: Doxycycline Monohydrate 100 MG CAPSULE PO (09:08)
[2025-04-23] MEDS: Gabapentin 300 MG CAPSULE PO (09:08)
[2025-04-23] MEDS: Methenamine Hippurate 1 GM TABLET PO (09:11)
[2025-04-23] MEDS: Fluticasone/Vilanterol 100/25 BLST.W.DEV 1 PUFF INHALE (10:30)
--- NOTE | 2025-04-23 10:46 | MHC.CM.PN ---
LORIN 04/23. Pt self-care, lives alone at [facility] living facility. Pt states his daughter is his HCP, copy requested. Pts son will transport him home at discharge. DCP: Home with new NA services, per PT rec. PCP: Dr. Hayden Savage
--- NOTE | 2025-04-23 11:14 | P.DS_ITS ---
DS: Providers Provider Date of Service: 04/23/25 Date of admission: 04/22/25 14:38 Date of discharge: 04/23/25 Primary care physician: Hayden Savage MD DS: Diagnosis Discharge Diagnosis (1) Hypotension: Status: Acute (2) Orthostasis: Status: Acute (3) (HFpEF) heart failure with preserved ejection fraction: Status: Acute (4) Paroxysmal atrial fibrillation: Status: Acute (5) Atrial fibrillation with rapid ventricular response: Status: Acute DS: Summary Hospital Course Hospital Course: Admission note HPI An 89 years old male with PMH of PAFib , postural hypotension, Osteoarthritis, asthma HfpEf presents to ED with shortness of breath and weakness. found to be in Afib RvR and hypotension. The patient reports recent UTI infection requiring oral antibiotics which he had just started as he was follow by Urology team. No chest pain, palpitations, SOB, nausea, vomiting, diarrhea or urinary symptoms. reports decreasing oral intake and feeling weak. This monring he was very lightheaded upon standing up. In ED HR was in 150s improved with 1 dose of IV Metoprolol and converted back to sinus rhythm. BP was low and improved lightly with usage of Albumin. admitted for observation Hospital course The patient was admitted for evaluation of Postural hypotension. He received Alubmin in ED and started on Midodrine tid (which he is supposed to take at home but was not). PT evaluated the patient and recommended home PT as orthostatic vitals improved back to normal and he was able to ambulate with no reported lightheadedness. He has hx of Paroxysmal Afib and noticed to be in RvR in ED. converted to sinus with 1 dose Metoprlol IV. Continue Warfarin home dose with target INR 2-3. Hx HFpEF, not in exacerbation. Recent UTI as UA negative for infection now. to continue home Doxycycline as prescribed. Discharge plan Increase Protein intake Increase Midodrine to 5 mg two times a day Stay well hydrated To do physical therapy at home Time Attestation Discharge Coordination Time (in mins): 27 Quality: Safe Use of Opioids Does Pt have an Active Cancer Diagnosis on the Problem List?: No Quality: Stroke Does the patient have a stroke diagnosis?: No Physical Exam Vital Signs: Vital Signs: Last Vital Signs Temp 96.9 F 04/23/25 07:09 Pulse 74 04/23/25 10:30 Resp 16 04/23/25 10:30 BP 131/74 04/23/25 09:51 Pulse Ox 96 04/23/25 07:09 O2 Del Method Room Air 04/23/25 07:09 BMI result Body Mass Index 36.0 Const: Other: Constitutional : Awake, interactive, not in distress Neck : Normal inspection, Supple Cardiovascular : RRR, no JVP, trace lower extremity edema Respiratory : good bilateral air entry, no crackles, wheezes or rhonchi Gastrointestinal: soft, lax, Normal bowel sounds, Non tender Skin : Warm, Dry Neurological : Alert & oriented x3, No focal deficit DS: Data Data Completed and Pending Labs on day of discharge: Laboratory Results - last 24 hr 04/22/25 04/22/25 04/22/25 12:40 12:48 13:06 WBC 7.4 RBC 4.94 Hgb 14.2 Hct 42.6 MCV 86.2 MCH 28.7 MCHC 33.3 RDW 15.5 Plt Count 223 MPV 9.3 L Immature Gran % (Auto) 0.7 H Neut % (Auto) 65.6 Lymph % (Auto) 18.0 L [place] % (Auto) 11.1 H Eos % (Auto) 3.8 Baso % (Auto) 0.8 Lymph # (Auto) 1.3 [place] # (Auto) 0.8 Eos # (Auto) 0.3 Baso # (Auto) 0.1 Abs Immat Gran (auto) 0.05 H Absolute Neuts (auto) 4.9 Absolute Nucleated RBC 0.000 Nucleated RBC % (auto) 0.0 Hold Purple Top PT INR Hold Blue Top SEE NOTE Sodium 139 Potassium 4.4 Chloride 110 H Carbon Dioxide 22 Anion Gap 11 L BUN 23 H Creatinine 1.15 Estim Creat Clear Calc 65.9 Estimated GFR > 60 Random Glucose 120 H Calcium 8.9 D Magnesium 2.2 Total Bilirubin 0.5 Direct Bilirubin 0.2 AST 25 ALT 12 Alkaline Phosphatase 82 Troponin I High Sens < 2.7 B-Natriuretic Peptide 210 H Total Protein 6.3 L Albumin 3.5 Procalcitonin 0.06 Urine Color Urine Appearance Urine pH Ur Specific [place] Urine Protein Urine Glucose (UA) Urine Ketones Urine Blood Urine Nitrite Ur Leukocyte Esterase Urine RBC Urine WBC Ur Squamous Epith Cells Urine Bacteria Hyaline Casts Influenza Type A (PCR) NEGATIVE Influenza Type B (PCR) NEGATIVE RSV RNA Qual (PCR) NEGATIVE SARS-CoV-2 RNA (RT-PCR) NEGATIVE 04/22/25 04/22/25 04/23/25 14:16 15:00 06:38 WBC RBC Hgb Hct MCV MCH MCHC RDW Plt Count MPV Immature Gran % (Auto) Neut % (Auto) Lymph % (Auto) [place] % (Auto) Eos % (Auto) Baso % (Auto) Lymph # (Auto) [place] # (Auto) Eos # (Auto) Baso # (Auto) Abs Immat Gran (auto) Absolute Neuts (auto) Absolute Nucleated RBC Nucleated RBC % (auto) Hold Purple Top SEE NOTE PT 21.0 H 21.0 H INR 1.8 H 1.8 H Hold Blue Top Sodium 140 Potassium 4.0 Chloride 110 H Carbon Dioxide 24 Anion Gap 10 L BUN 21 H Creatinine 1.08 Estim Creat Clear Calc 70.6 Estimated GFR > 60 Random Glucose 90 Calcium 8.6 Magnesium Total Bilirubin 0.8 Direct Bilirubin AST 19 ALT 9 Alkaline Phosphatase 62 Troponin I High Sens B-Natriuretic Peptide Total Protein 6.0 L Albumin 3.6 Procalcitonin Urine Color Yellow Urine Appearance Clear Urine pH 5.5 Ur Specific [place] 1.010 Urine Protein Negative Urine Glucose (UA) Negative Urine Ketones Negative Urine Blood Negative Urine Nitrite Negative Ur Leukocyte Esterase Trace H Urine RBC 0-2 Urine WBC 0-5 Ur Squamous Epith Cells 0-2 Urine Bacteria None Seen Hyaline Casts 0-2 Influenza Type A (PCR) Influenza Type B (PCR) RSV RNA Qual (PCR) SARS-CoV-2 RNA (RT-PCR) Imaging Chest x-ray: Radiologist's impression: ITS Impressions Chest X-Ray 04/22/25 12:50 IMPRESSION: 1. Stable findings of hyperaeration and mild chronic interstitial lung disease without focal pneumonic consolidation. Overall no change from 12/20/2023. Electronically signed by: Shashi Batista MD 04/22/2025 01:37 PM EDT Discharge Plan Discharge Anticipated Discharge Date/Time: 04/23/25 11:11 Patient Disposition: Home Health Service Discharge Diagnosis: Hypotension Rapid atrial fibrillation Referrals: Hayden Savage MD [Primary Care Provider] - 1 Week Discharge Medications: Continued fluticasone propion-salmeterol [Advair HFA] 115-21 mcg/actuation HFA aerosol inhaler 2 puff inhalation BID 30 Days Qty: 12 3RF docusate sodium 100 mg capsule 100 mg PO BID PRN (Reason: constipation) Qty: 60 1RF doxycycline monohydrate 100 mg tablet 100 mg PO BID methenamine hippurate 1 gram tablet 1 g PO DAILY warfarin 5 mg tablet 7.5 mg PO MOWEFRSA betamethasone, augmented 0.05 % Cream 1 appl TOPICAL DAILY PRN (Reason: Dry/Itchy Skin) hydrocortisone [Cortisone (hydrocortisone)] 1 % Cream 1 appl TOPICAL QID PRN (Reason: Dry Itchy Skin) ceramides 1,3,6-II [CeraVe] Cream 1 appl TOPICAL QID PRN (Reason: Dry/Itchy Skin) Dry Eye Relief (PEG 400) 1 % Drops 1 drp OPHTHALMIC (EYE) Q8H PRN (Reason: Dry/Itchy Eye) warfarin 5 mg tablet 10 mg PO MONICA Protocol: Dose Management Condition: Monday (Week One) Dose/Route: 10 mg Instruction: 2 x 5 mg tablets Condition: Monday Dose/Route: 7.5 mg Instruction: 1.5 x 5 mg tablets Condition: Monday Dose/Route: 10 mg Instruction: 2 x 5 mg tablets Condition: Monday Dose/Route: 7.5 mg Instruction: 1.5 x 5 mg tablets Condition: Dose/Route: 10 mg Instruction: 2 x 5 mg tablets Condition: Monday Dose/Route: 7.5 mg Instruction: 1.5 x 5 mg tablets Condition: Monday Dose/Route: 7.5 mg Instruction: 1.5 x 5 mg tablets Condition: Monday (Week Two) Dose/Route: 10 mg Instruction: 2 x 5 mg tablets Condition: Monday Dose/Route: 7.5 mg Instruction: 1.5 x 5 mg tablets Condition: Monday Dose/Route: 10 mg Instruction: 2 x 5 mg tablets Condition: Monday Dose/Route: 7.5 mg Instruction: 1.5 x 5 mg tablets Condition: Dose/Route: 10 mg Instruction: 2 x 5 mg tablets Condition: Monday Dose/Route: 7.5 mg Instruction: 1.5 x 5 mg tablets Condition: Monday Dose/Route: 7.5 mg Instruction: 1.5 x 5 mg tablets Protocol Text: Adjustment Start Date: 04/10/25 INR Value: 1.9 INR Date: 04/10/25 Recheck Date: 04/24/25 Additional Instructions: REVIEW FOOD LIST WEEKLY, EAT A MIX OF FRUITS AND VEGETABLES YOU ENJOY AND CAN BALANCE YOUR INR WITH - DO NOT EAT GREENS TODAY BECAUSE IT WILL LOWER YOUR INR gabapentin 100 mg capsule 100 mg PO DAILY PRN (Reason: Itchy Skin) Patient Comments: 200mg in am gabapentin 300 mg capsule 300 mg PO BID Patient Comments: 100mg in am Changed midodrine 2.5 mg tablet 5 mg PO BID Qty: 180 0RF Patient Comments: PT STATES TAKING X 1 TAB DAILY Discharge Orders: Discharge Order (Routine); Ordered 04/23/25 Ordered By: Mary Keys Diet: Advance to usual diet Activity on Discharge: As tolerated Stand Alone Forms: Patient Portal Discharge page Print Language: Mongolian Care Plan Goals: Increase Protein intake Increase Midodrine to 5 mg two times a day Stay well hydrated To do physical therapy at home Health Concerns: low blood pressure Plan of Treatment: Midodrine Assessment: as above
--- NOTE | 2025-04-23 11:14 | W.MHC.F2F ---
Service Date Service Date: 04/23/25 Encounter Date of encounter: 04/23/25 Reasons for Services Signs and symptoms assessed: hypotension Reason for retirement: medication management and teach disease management Reason for physical therapy: home safety and mobility and therapeutic exercises Homebound: Leaving the home is medically contraindicated at this time without the asist of a device and/or another person due th the listed conditions above and below. Reason homebound: unsteady gait / fall risk and fall risk related to blood pressure changes Certification: Based on the above findings, I certify that this patient is confined to the home and needs intermittent retirement care, physical therapy and/or speech therapy, or continues to need occupational therapy. The patient is under my care, and I have initiated the establishment of the plan of care. The patient will be followed by a physician who will periodically review the plan of care. Time Spent With Patient Time: Total time managing care of this patient today ____ minutes.
--- NOTE | 2025-04-23 12:07 | MHC.CM.PN ---
Pt is medically cleared for discharge home with new NA services, pts son to transport him home today.
== END 2025-04-23 14:42 | disposition home health service (06) ==
LOC: HO.ED 13:13 → HO.EDOVER 14:44 → HO.IMC 19:06 → HO.EDOVER 19:38 → HO.IMC 04-23 00:59
PROVIDERS: Physician Assistant; Admitting Provider Student in an Organized Health Care Education/Training Program; Emergency Provider Emergency Medicine; PCP Internal Medicine; Visit Provider Student in an Organized Health Care Education/Training Program
DX: I95.1 Orthostatic hypotension (principal); I48.20 Chronic atrial fibrillation, unspecified; I48.0 Paroxysmal atrial fibrillation; I50.31 Acute diastolic (congestive) heart failure; R26.81 Unsteadiness on feet; N39.0 Urinary tract infection, site not specified; R06.02 Shortness of breath; R00.0 Tachycardia, unspecified; Z03.818 Encounter for observation for suspected exposure to other biological agents ruled out; Z79.01 Long term (current) use of anticoagulants; Z79.899 Other long term (current) drug therapy; Z91.81 History of falling
CPT/HCPCS: 0241U; 36415; 71045; 80048; 80053; 80076; 81001; 83735; 83880; 84145; 84484; 85025; 85610; 87040; 93005; 94640; 96361; 96365; 96367; 96375; 97162; 99222; 99285; J1938; J2543; J7120; P9047

== ENCOUNTER → 2025-04-22 12:28 | Outpatient (BNV) | payer MEDICARE, OTHER, SELFPAY | PROVIDERS: Admitting Provider Student in an Organized Health Care Education/Training Program; Emergency Provider Emergency Medicine; PCP Internal Medicine; Visit Provider Internal Medicine Cardiovascular Disease | DX: I44.4 Left anterior fascicular block (principal); R00.0 Tachycardia, unspecified | CPT/HCPCS: 93010 ==

== ENCOUNTER → 2025-04-22 12:28 | Outpatient (BNV) | payer MEDICARE, OTHER, SELFPAY | PROVIDERS: Emergency Provider Emergency Medicine; PCP Internal Medicine; Visit Provider Radiology Diagnostic Radiology | DX: R42 Dizziness and giddiness (principal) | CPT/HCPCS: 71045 ==

== ENCOUNTER → 2025-04-22 14:38 | Outpatient (BNV) | payer MEDICARE, OTHER, SELFPAY | PROVIDERS: Admitting Provider Student in an Organized Health Care Education/Training Program; Emergency Provider Emergency Medicine; PCP Internal Medicine; Visit Provider Student in an Organized Health Care Education/Training Program | DX: I95.1 Orthostatic hypotension (principal); I50.30 Unspecified diastolic (congestive) heart failure; I48.0 Paroxysmal atrial fibrillation; I48.91 Unspecified atrial fibrillation | CPT/HCPCS: 99223; 99238; G0180 ==

== ENCOUNTER 2025-04-24 10:32 | Outpatient (AMB) | payer MEDICARE, OTHER, SELFPAY ==
[2025-04-24 10:49] LABS: Prothrombin Time Whole Bld POC 20.9 sec (11.1-13.5); ~PT, ~INR - Anti Coag Clinic 1.7 (0.9-1.1)
--- OUTSIDE RECORDS SUMMARY | 2025-04-24 10:59 | XMS_ITS | Encounter Summary ---
Author Organization [facility] Address [address] [place] [address] Care Team Providers Care [employer] Name Role Phone Hayden Savage MD Primary Care Provider [phone] Encounter Details Date Type Department Care Team (Late st Contact Info) Description 04/16/2025 Lab Requisition [facility] - Main Lab [address] [place] [address] Ernesto Brewster MD [address] [place], [place] [id number] Urinary tract infection, site not specified; Other [...] CFU/mL Corynebacterium species(A) 04/18/2025 11:00 AM EDT [facility] Comment: The organism value for this result has been updated. These results have been appended to the previously preliminary verified report. 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
--- NOTE | 2025-04-24 11:00 | MHC.OFFVISCO ---
Intake Intake Visit Reasons: Anticoagulation Allergies No Known Allergies Allergy (Verified 04/24/25 10:37) Medication List - Last Reconciled 04/24/25 by Itzel Minor RN betamethasone, augmented 0.05 % 1 appl topical DAILY PRN ceramides 1,3,6-II (CeraVe topical cream) 1 appl topical QID PRN docusate sodium 100 mg PO BID PRN doxycycline monohydrate 100 mg PO BID fluticasone propion-salmeterol 115-21 mcg/actuation (Advair HFA) 2 puffs inhalation BID 30 days gabapentin 100 mg PO DAILY PRN gabapentin 300 mg PO BID hydrocortisone 1% (Cortisone (hydrocortisone)) 1 appl topical QID PRN methenamine hippurate 1 g PO DAILY midodrine 5 mg (2 x 2.5 mg) PO BID polyethylene glycol 400 1% (Dry Eye Relief (PEG 400)) 1 drp ophthalmic (eye) Q8H PRN warfarin 7.5 mg PO MOWEFRSA warfarin 10 mg See Protocol PO [facility] Nursing Note INR: 1.7?out of therapeutic range of 2-3 Pt states he was in the hospital 04/22/25 for 2 days for lightheadedness, weakness and SOB. Was d/c'd on midodrine ( No effect of INR) In ER, pt was in afib in 150's rate. Converted to SR in Er. Medications and supplements reviewed Patient status: feeling better. States this morning, BP was 120's/80's. Medications or supplements: as above Diet: usual diet but states he had broccoli while in the hospital. Denies any signs and symptoms of bleeding or clotting or unusual bruising Bleeding, bruising, clotting discussed Nutritional guidance given: avoid greens X 2 days Dose: increase today's dose to 12.5mg (usual 10mg) then resume usual dose of 7.5mg X 4 days and 10mg X 3 days (Sun//Thurs) F/U INR Date: 1 week?? Patient verbalizing understanding of instructions given. Anti-Coag Initial Assessment Social Hx Patient Tobacco Use Status: Former Tobacco user Tobacco use type: Cigarette alcohol intake: current Alcohol intake frequency: 0-2 drinks per day Cardiovascular Hx: HTN, Angina, MD and Arrhythmias Lung Disease HX: Asthma Musculoskeletal Hx: Arthritis Hx: Bladder Disorders and Prostate Neurological Hx: Aneurysm Cancer HX: Yes (prostate cancer 25 years ago ) Psych. Illness/Depression: No Coding Level of Care Code Est Patient Level 1 Diagnoses Current use of anticoagulant therapy Z79.01 Assessment & Plan Assessment & Plan (1) Current use of anticoagulant therapy: Code(s): Z79.01 - jail (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
== END 2025-04-24 11:12 | disposition home or self-care (01) ==
LOC: HO.ACS 10:32
PROVIDERS: PCP Internal Medicine; Visit Provider Internal Medicine Medical Oncology
DX: Z79.01 Long term (current) use of anticoagulants (principal)

== ENCOUNTER → 2025-04-24 10:32 | Outpatient (BNVA) | payer MEDICARE, OTHER, SELFPAY | PROVIDERS: PCP Internal Medicine; Visit Provider Internal Medicine Medical Oncology | DX: I48.0 Paroxysmal atrial fibrillation (principal); Z79.01 Long term (current) use of anticoagulants; Z51.81 Encounter for therapeutic drug level monitoring | CPT/HCPCS: 85610; 99211 ==

== ENCOUNTER → 2025-05-02 14:08 | Outpatient (BNVA) | payer MEDICARE, OTHER, SELFPAY | PROVIDERS: PCP Internal Medicine; Visit Provider Internal Medicine Medical Oncology | DX: I48.0 Paroxysmal atrial fibrillation (principal); Z79.01 Long term (current) use of anticoagulants; Z51.81 Encounter for therapeutic drug level monitoring | CPT/HCPCS: 99212 ==

== ENCOUNTER 2025-05-02 17:06 | Outpatient (AMB) | payer MEDICARE, OTHER, SELFPAY ==
--- NOTE | 2025-05-02 17:07 | A.OFFPC_ITS ---
Vital Signs 05/02/25 17:08 Height 6 ft 4 in Weight 295 lb BMI 35.9 BP 120/80 Blood Pressure Location Lt brachial Position Sitting Respiration 16 Pulse 71 Pulse Source Pulse Oximeter Temp 97.1 F Temp Source Temporal Artery Scan Pulse Oximetry (%) 97 Oxygen Delivery Method Room Air Intake Visit Reasons: TCM [facility] Hypotension 04/23 Director Of Strategic Partnerships Required: No Accompanied by: Self / Same As Patient Allergies No Known Allergies Allergy (Verified 05/02/25 17:09) Medication List - Last Reconciled 05/02/25 by Julianna Breaux NP betamethasone, augmented 0.05 % 1 appl topical DAILY PRN ceramides 1,3,6-II (CeraVe topical cream) 1 appl topical QID PRN docusate sodium 100 mg PO BID PRN fluticasone propion-salmeterol 115-21 mcg/actuation (Advair HFA) 2 puffs inhalation BID 30 days gabapentin 100 mg PO DAILY PRN gabapentin 300 mg PO BID hydrocortisone 1% (Cortisone (hydrocortisone)) 1 appl topical QID PRN methenamine hippurate 1 g PO DAILY midodrine 5 mg (2 x 2.5 mg) PO BID polyethylene glycol 400 1% (Dry Eye Relief (PEG 400)) 1 drp ophthalmic (eye) Q8H PRN warfarin 7.5 mg See Protocol PO MOWEFRSA warfarin 10 mg See Protocol PO SUTUTH Tobacco use date assessed: 03/27/25 Fall risk assessment: No Falls in past year Last assessed Fall Risk: 05/02/25 Dental Screening Dental Screen Date: 01/30/25 [facility] TCM Information Date of Discharge 04/23/25 Discharged From [facility] Interactive Contact Date (Reference documentation from this date) 04/28/25 HPI Comments History of Present Illness Details 89 y/o Male patient with Phmx significan t for Postural AFib , postural hypotension, Osteoarthritis, asthma and HfpEf presents to the clinic for HDF. Pt was admitted at [facility] on 04/22 - 04/23 for evaluation and treatment of Postural hypotension and Paroxysmal Afib. Recent UTI infection requiring oral antibiotics - does report frequent UTIs and is followed by Urology (Dr. Burris). In ED UA was negative and he does take Doxy at home as scheduled. Midodrine was increased to 5 mg two times a day. Today patient c/o feeling fatigued, tired, lightheadedness and feeling being in a Fog. Advised to visit [facility] tomorrow for further evaluation of his symptoms - suspect UTI. [facility] Medical History Hypotension Obesity (BMI 35.0-39.9 without comorbidity) Ascending aortic aneurysm Paroxysmal atrial fibrillation (HFpEF) heart failure with preserved ejection fraction Dysphagia History of prostate cancer Hyperlipidemia Cough Asthma Allergic rhinitis Surgical History Status post trigger finger release History of colonoscopy History of cataract surgery History of prostate surgery Family History Mother No problems noted. Father No problems noted. Social History Household Members: None Housing: Assisted Living Facility Alcohol intake: current Alcohol intake frequency: 0-2 drinks per day Alcohol type: wine Patient Tobacco Use Status: Former Tobacco user Tobacco use type: Cigarette e-Cigarette/Vaping Use: Never Used Second Hand Smoke Exposure: No service: No Current occupational status: retired Current occupation: retiered Current occupational exposures/hazards: No Cognitive needs: Yes (walker/cane) Hearing needs: Yes (hearing aide) Vision needs: Yes (Glasses) Questionnaire Thrive Questionnaire Date Thrive assessed: 04/23/25 BRITTNEY-7 AMB Questionnaire BRITTNEY-7 Date BRITTNEY - 7 assessed: 01/30/25 Source: Developed by Drs. Adams Wagner, Trina Cuellar, Demetris Turpin and colleagues, with an educational kelly from [employer]. Review of Systems Const All systems reviewed & are unremarkable except as noted in HPI and below Physical exam (Primary Care) Vital Signs: Last Vital Signs Temp 97.1 F 05/02/25 17:08 Pulse 71 05/02/25 17:08 Resp 16 05/02/25 17:08 BP 120/80 05/02/25 17:08 Pulse Ox 97 05/02/25 17:08 Oxygen Delivery Method Room Air 05/02/25 17:08 BMI result Body Mass Index 35.9 Tobacco/Smoking Status: Tobacco use Status Tobacco use date assessed 03/27/25 05/02/25 17:12 Patient Tobacco Use Status Former Tobacco user 05/02/25 17:12 Tobacco use type Cigarette 05/02/25 17:12 e-Cigarette/Vaping Use Never Used 05/02/25 17:12 Thrive Assessment: Date of Thrive Assessment Date Thrive assessed 04/23/25 05/02/25 17:12 Const General: no acute distress Nutritional Appearance: obese Orientation/consciousness: patient oriented x3 Resp Effort & Inspection: normal respiratory effort Auscultation: clear to auscultation bilaterally Cardio Rhythm: regular rhythm Heart sounds: S1 normal heart sound present and S2 normal heart sound present Neuro General: patient oriented x3, gait normal and moves all extremities Psych Speech and movement: Normal speech and movement present Results AMB INR Fingerstick AMB INR Fingerstick 1.7 Last Edit by Siobhan Ballard RN on 05/02/25 14:15 MANUAL ENTRY Coding Level of Care Code Est Pt Level 4 (43055) Diagnoses Orthostasis I95.1 Paroxysmal atrial fibrillation I48.0 Time Spent (min) 20 Assessment & Plan Assessment & Plan (1) Orthostasis: Code(s): I95.1 - Orthostatic hypotension Category: Medical Plan: Stable Midodrine increased to 5 mg BID. Increase fluid intake. (2) Paroxysmal atrial fibrillation: Code(s): I48.0 - Paroxysmal atrial fibrillation Category: Medical Plan: Stable - managed by Cardiology. Plan Advised Patient to come in Walk in clinic tomorrow for further evaluation.
[2025-05-02 17:08] VITALS: BP 120/80; PULSE 71; RESP 16; TEMP 36.2; O2SAT 97; BMI 35.9
== END 2025-05-02 17:33 | disposition home or self-care (01) ==
LOC: HO.HMCH 17:06
PROVIDERS: PCP Internal Medicine; Visit Provider Nurse Practitioner Family
DX: I95.1 Orthostatic hypotension (principal); I48.0 Paroxysmal atrial fibrillation

== ENCOUNTER 2025-05-03 10:45 | Outpatient (AMB) | payer MEDICARE, OTHER, SELFPAY ==
--- OUTSIDE RECORDS SUMMARY | 2025-05-03 10:47 | XMS_ITS | Encounter Summary ---
Author Organization [facility] Address [address] [place] [address] Care Team Providers Care Cigarette And Filter Chief Inspector Name Role Phone Hayden Savage MD Primary Care Provider [phone]- [phone] Encounter Details Date Type Department Care Team (Late st Contact Info) Description 04/16/2025 Lab Requisition [facility] - Main Lab [address] [facility] [employer] [place] [address] Ernesto Brewster MD [address] [place], [place] [phone] Urinary tract infection, site not specified; Other [...] CFU/mL Corynebacterium species(A) 04/18/2025 11:00 AM EDT [facility] ([facility]) [facility] Comment: The organism value for this result has been updated. These results have been appended to the previously preliminary verified report. 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
--- NOTE | 2025-05-03 11:04 | MHC.OFFWIV ---
Intake Vital Signs 05/03/25 11:53 Height 6 ft Weight 295 lb BMI 40.0 BP 92/60 Blood Pressure Location Lt brachial Position Sitting Respiration 16 Pulse 85 Pulse Source Pulse Oximeter Temp 97.4 F Temp Source Oral Pulse Oximetry (%) 96 Oxygen Delivery Method Room Air Intake Visit Reasons: EP-UTI? Intake Note: Pt is here today c/o frequent urination Patient Tobacco Use Status: Former Tobacco user Allergies No Known Allergies Allergy (Verified 05/03/25 11:57) PFSH Medical History Hypotension Obesity (BMI 35.0-39.9 without comorbidity) Ascending aortic aneurysm Paroxysmal atrial fibrillation (HFpEF) heart failure with preserved ejection fraction Dysphagia History of prostate cancer Hyperlipidemia Cough Asthma Allergic rhinitis Surgical History Status post trigger finger release History of colonoscopy History of cataract surgery History of prostate surgery Family History Mother No problems noted. Father No problems noted. Social History Household Members: None Housing: Assisted Living Facility Alcohol intake: current Alcohol intake frequency: 0-2 drinks per day Alcohol type: wine Patient Tobacco Use Status: Former Tobacco user Tobacco use type: Cigarette e-Cigarette/Vaping Use: Never Used Second Hand Smoke Exposure: No service: No Current occupational status: retired Current occupation: retiered Current occupational exposures/hazards: No Cognitive needs: Yes (walker/cane) Hearing needs: Yes (hearing aide) Vision needs: Yes (Glasses) Results AMB Urinalysis, Automated UA Leukoctes 0 Garrison/uL Last Edit by Bindu Lopez CMA on 05/03/25 11:05 UA Nitrite Negative Last Edit by Bindu Lopez CMA on 05/03/25 11:05 UA Urobilinogen 0.2 mg/dL Last Edit by Bindu Lopez CMA on 05/03/25 11:05 UA Protein 0 mg/dL Last Edit by Bindu Lopez CMA on 05/03/25 11:05 UA pH 6.0 Last Edit by Bindu Lopez CMA on 05/03/25 11:05 UA Blood 0 Bernard/uL Last Edit by Bindu Lopez CMA on 05/03/25 11:05 UA Specific [place] 1.015 Last Edit by Bindu Lopez CMA on 05/03/25 11:05 UA Ketone Negative Last Edit by Bindu Lopez CMA on 05/03/25 11:05 UA Bilirubin 0 mg/dL Last Edit by Bindu Lopez CMA on 05/03/25 11:05 UA Glucose 0 mg/dL Last Edit by Bindu Lopez CMA on 05/03/25 11:05 Results Reviewed Results Reviewed: Laboratory Last Values Urine pH (Auto) 6.0 05/03/25 11:04 Specific [place] (Auto) 1.015 05/03/25 11:04 Urine Protein (Auto) 0 mg/dL 05/03/25 11:04 Glucose (UA)(Auto) 0 mg/dL 05/03/25 11:04 Urine Ketones (Auto) Negative 05/03/25 11:04 Urine Blood (Auto) 0 Bernard/uL 05/03/25 11:04 Urine Nitrite (Auto) Negative 05/03/25 11:04 Urine Bilirubin (Auto) 0 mg/dL 05/03/25 11:04 Urine Urobilinogen (Auto) 0.2 mg/dL 05/03/25 11:04 Leukocyte Esterase (Auto) 0 Garrison/uL 05/03/25 11:04 Assessment & Plan Assessment & Plan Orders: Orders AMB Urinalysis Automated Today Z13.9 - Encounter for screening, unspecified Coding
[2025-05-03 11:53] VITALS: BP 92/60; PULSE 85; RESP 16; TEMP 36.3; O2SAT 96; BMI 40.0
== END 2025-05-03 12:43 | disposition left against medical advice (07) ==
LOC: HO.HMCWIC 10:45
PROVIDERS: PCP Internal Medicine; Visit Provider Physician Assistant Medical
DX: Z13.9 Encounter for screening, unspecified (principal)

== ENCOUNTER → 2025-05-03 10:45 | Outpatient (BNVA) | payer MEDICARE, OTHER, SELFPAY | PROVIDERS: PCP Internal Medicine; Visit Provider Physician Assistant Medical | DX: R35.0 Frequency of micturition (principal) | CPT/HCPCS: 81003; 99212 ==

== ENCOUNTER → 2025-05-06 14:06 | Outpatient (BNVA) | payer MEDICARE, OTHER, SELFPAY | PROVIDERS: PCP Internal Medicine; Visit Provider Internal Medicine Medical Oncology | DX: Z13.89 Encounter for screening for other disorder (principal) ==

== ENCOUNTER → 2025-05-13 09:21 | Outpatient (BNVA) | payer MEDICARE, OTHER, SELFPAY | PROVIDERS: PCP Internal Medicine; Visit Provider Internal Medicine Medical Oncology ==

== ENCOUNTER → 2025-05-20 12:04 | Outpatient (BNVA) | payer MEDICARE, OTHER, SELFPAY | PROVIDERS: PCP Internal Medicine; Visit Provider Internal Medicine Medical Oncology | DX: Z13.89 Encounter for screening for other disorder (principal); Z79.01 Long term (current) use of anticoagulants ==

== ENCOUNTER 2025-05-21 14:04 | Outpatient (REF) | payer SELFPAY ==
--- OUTSIDE RECORDS SUMMARY | 2025-05-21 16:48 | XMS_ITS | Encounter Summary ---
Author Organization [facility] Address [address] [place] [address] Care Team Providers Care Snuff Drier Name Role Phone Hayden Savage MD Primary Care Provider +1- [phone] Encounter Details Date Type Department Care Team (Late st Contact Info) Description 04/16/2025 Lab Requisition [facility] - Main Lab [address] [facility] [place] [address] Ernesto Brewster MD [address] [facility] [address] [place], [place] [phone] Urinary tract infection, site not specified; Other [...] CFU/mL Corynebacterium species(A) 04/18/2025 11:00 AM EDT [facility] ([facility]) [facility] Comment: The organism value for this result has been updated. These results have been appended to the previously preliminary verified report. 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
== END 2025-05-21 14:05 | disposition home or self-care (01) ==
LOC: HO.HAP 14:04
PROVIDERS: Visit Provider Internal Medicine
DX: Z13.89 Encounter for screening for other disorder (principal)

== ENCOUNTER → 2025-05-23 12:04 | Outpatient (BNVA) | payer MEDICARE, OTHER, SELFPAY | PROVIDERS: PCP Internal Medicine; Visit Provider Internal Medicine Medical Oncology | DX: Z13.89 Encounter for screening for other disorder (principal) ==

== ENCOUNTER 2025-06-09 13:59 | Outpatient (REF) | payer SELFPAY ==
--- OUTSIDE RECORDS SUMMARY | 2025-06-09 15:20 | XMS_ITS | Encounter Summary ---
Author Organization [facility] Address [address] [place] [address] Care Team Providers Care Rheumatologist Name Role Phone Hayden Savage MD Primary Care Provider +1- [phone] Encounter Details Date Type Department Care Team (Late st Contact Info) Description 04/16/2025 Lab Requisition [facility] - Main Lab [address] [facility] [address] [place] [address] Ernesto Brewster MD [address] [facility] [address] [place], [place] [phone] Urinary tract infection, site not specified; Other [...] CFU/mL Corynebacterium species(A) 04/18/2025 11:00 AM EDT [facility] ([facility]) [facility] Comment: The organism value for this result has been updated. These results have been appended to the previously preliminary verified report. 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
== END 2025-06-09 14:00 | disposition home or self-care (01) ==
LOC: HO.HAP 13:59
PROVIDERS: Visit Provider Internal Medicine
DX: Z46.1 Encounter for fitting and adjustment of hearing aid (principal); H90.3 Sensorineural hearing loss, bilateral
CPT/HCPCS: 92592

== ENCOUNTER 2025-06-19 13:29 | Outpatient (AMB) | payer MEDICARE, OTHER, SELFPAY ==
--- NOTE | 2025-06-19 13:33 | A.OFFPC_ITS ---
Vital Signs 06/19/25 13:35 Height 6 ft Weight 292 lb 4 oz BMI 39.6 BP 118/68 Blood Pressure Location Lt brachial Position Sitting Pulse 83 Pulse Source Pulse Oximeter Temp 97.1 F Temp Source Temporal Artery Scan Pulse Oximetry (%) 96 Oxygen Delivery Method Room Air Intake Visit Reasons: follow up Intake Note: Patient is here to follow up on Hypotension, Asthma. Machine Assembler Required: No It Network Administrator: Not Required per policy Accompanied by: Self / Same As Patient Allergies No Known Allergies Allergy (Verified 06/19/25 13:35) Tobacco use date assessed: 06/19/25 Fall risk assessment: No Falls in past year Last assessed Fall Risk: 06/19/25 Dental Screening Dental Screen Date: 01/30/25 [facility] Medical History (Updated 06/19/25 @ 14:02 by Hayden Savage MD) Hypotension Obesity (BMI 35.0-39.9 without comorbidity) Ascending aortic aneurysm Paroxysmal atrial fibrillation (HFpEF) heart failure with preserved ejection fraction Dysphagia History of prostate cancer Hyperlipidemia Cough Asthma Allergic rhinitis Surgical History Status post trigger finger release History of colonoscopy History of cataract surgery History of prostate surgery Family History Mother No problems noted. Father No problems noted. Social History Household Members: None Housing: Assisted Living Facility Alcohol intake: current Alcohol intake frequency: 0-2 drinks per day Alcohol type: wine Patient Tobacco Use Status: Former Tobacco user Tobacco use type: Cigarette e-Cigarette/Vaping Use: Never Used Second Hand Smoke Exposure: Yes service: No Current occupational status: retired Current occupation: retiered Current occupational exposures/hazards: No Cognitive needs: Yes (walker/cane) Hearing needs: Yes (hearing aide) Vision needs: Yes (Glasses) Questionnaire Thrive Questionnaire Date Thrive assessed: 03/27/25 I am a: Patient What is your living situation today?: I have a steady place to live Within the past 12 months, did the food you bought not last and you didn't have the money to get more?: Often true Within the past 12 months, did you worry whether your food would run out before you got money to buy more?: Often true Do you have trouble paying for medicines?: No Do you have trouble getting transportation to medical appointments?: No Do you have trouble paying your heating and electricity bill?: No Do you have trouble taking care of your child, family member or friend?: No Do you have trouble with day-to-day activities such as bathing, preparing meals, shopping, managing finances, etc.?: No Are you currently unemployed and looking for a job?: No Are you interested in more education?: No Please select the resources that you would like help with: None Currently or been in a relationship where the following occur: No concerns reported THRIVE Score: 2 AUDIT C Alcohol Use Questionnaire (AUDIT-C) 2. How many drinks containing alcohol do you have on a typical day when you are drinking?: 1 or 2 3. How often do you have six or more drinks on one occasion?: Never Total Score: 0 BRITTNEY-7 AMB Questionnaire BRITTNEY-7 Date BRITTNEY - 7 assessed: 01/30/25 Becoming easily annoyed or irritable: 0 = Not at all Feeling afraid as if something awful might happen: 0 = Not at all Source: Developed by Drs. Adams Wagner, Trina Cuellar, Demetris Turpin and colleagues, with an educational kelly from [employer]. Physical exam (Primary Care) Vital Signs: Last Vital Signs Temp 97.1 F 06/19/25 13:35 Pulse 83 06/19/25 13:35 BP 118/68 06/19/25 13:35 Pulse Ox 96 06/19/25 13:35 Oxygen Delivery Method Room Air 06/19/25 13:35 BMI result Body Mass Index 39.6 Tobacco/Smoking Status: Tobacco use Status Tobacco use date assessed 06/19/25 06/19/25 13:43 Patient Tobacco Use Status Former Tobacco user 06/19/25 13:43 Tobacco use type Cigarette 06/19/25 13:43 e-Cigarette/Vaping Use Never Used 06/19/25 13:43 Thrive Assessment: Date of Thrive Assessment Date Thrive assessed 03/27/25 06/19/25 13:43 Currently or been in a relationship where the following occur: No concerns reported Coding Level of Care Code Est Pt Level 4 (78280) Complex EM visit Add On G2211 Diagnoses Hypotension I95.1 Hypotension type: orthostatic hypotension Assessment & Plan Assessment & Plan (1) Hypotension: Code(s): I95.9 - Hypotension, unspecified Category: Medical Qualifiers: Hypotension type: orthostatic hypotension Qualified Code(s): I95.1 - Orthostatic hypotension Plan: This condition has resolved. Midodrine has been stopped. Plan History of Present Illness - The patient is an 89-year-old male presenting with dizziness, constipation, back pain, cough, and vision problems. - Dizziness: Reports feeling woozy and difficulty reading despite new glasses. - Constipation: Persistent issue, currently using Colace, considering milk of magnesia. - Back pain: Occurs when bending over, resolves upon sitting. - Cough: Persistent, with upcoming evaluation by Dr. Colin. - Vision problems: Difficulty reading, scheduled for further testing. 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 Review of Systems - Neurological: Reports dizziness and difficulty reading. - Gastrointestinal: Reports persistent constipation. - Musculoskeletal: Reports back pain when bending over. - Respiratory: Reports persistent cough. - Ophthalmologic: Reports vision problems despite new glasses. Physical Exam General: Cooperative and healthy appearing Nutritional Appearance: Well nourished Orientation/consciousness: Patient oriented x3 Limitations: No limitations Head: Normal to inspection General: Appearance normal, both eyes and all related structures Neck: Normal visual inspection Chest: Normal palpation of entire chest wall Respiratory: Wheezing noted ormal respiratory effort Neurology: Patient oriented x3, reports dizziness and difficulty reading due to vision issues. Results Plan 1. Dizziness - Plan to see an eye doctor for further evaluation of vision-related dizziness. 2. Constipation - Continue Colace and consider using milk of magnesia for relief. 3. Back Pain - Consider ergonomic adjustments to reduce bending over, such as raising the sink level. 4. Cough - Scheduled to see Dr. Mack for further evaluation. 5. Vision Problems - Scheduled for a vision test with Dr. Sen. Discussion Notes I discussed the importance of following up with the eye doctor to address the dizziness and vision problems. We also talked about trying milk of magnesia for constipation relief and considering ergonomic changes to alleviate back pain. The patient is scheduled to see Dr. Colin for the persistent cough. Patient Instructions - Follow up with the eye doctor for vision and dizziness issues. - Try milk of magnesia for constipation relief. - Consider ergonomic changes to reduce back pain, such as raising the sink level. - Attend the appointment with Dr. Mack for cough evaluation.
[2025-06-19 13:35] VITALS: BP 118/68; PULSE 83; TEMP 36.2; O2SAT 96; BMI 39.6
--- OUTSIDE RECORDS SUMMARY | 2025-06-19 13:35 | XMS_ITS | Encounter Summary ---
Author Organization [facility] Address [address] [place] [address] Care Team Providers Care Speed Belt Sander Name Role Phone Hayden Savage MD Primary Care Provider +1- [phone] Encounter Details Date Type Department Care Team (Late st Contact Info) Description 04/16/2025 Lab Requisition [facility] - Main Lab [address] [facility] [place] [address] Ernesto Brewster MD [address] [place], [place] [phone] Urinary tract infection, site not specified; Other [...] CFU/mL Corynebacterium species(A) 04/18/2025 11:00 AM EDT [facility] ([facility]) [facility] Comment: The organism value for this result has been updated. These results have been appended to the previously preliminary verified report. 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
== END 2025-06-19 14:05 | disposition home or self-care (01) ==
LOC: HO.HMCH 13:30
PROVIDERS: PCP Internal Medicine; Visit Provider Internal Medicine
DX: I95.1 Orthostatic hypotension (principal)

== ENCOUNTER → 2025-06-19 13:29 | Outpatient (BNVA) | payer MEDICARE, OTHER, SELFPAY | PROVIDERS: PCP Internal Medicine; Visit Provider Internal Medicine | DX: I95.1 Orthostatic hypotension (principal) | CPT/HCPCS: 99212 ==

== ENCOUNTER 2025-06-24 09:45 | Outpatient (AMB) | payer MEDICARE, OTHER, SELFPAY ==
[2025-06-24 09:55] VITALS: BP 112/68; PULSE 84; O2SAT 98; BMI 39.8
--- NOTE | 2025-06-24 09:55 | A.OFFVIS_ITS ---
Vital Signs 06/24/25 09:55 Height 6 ft Weight 293 lb 3.437 oz BMI 39.8 BP 112/68 Blood Pressure Location Lt brachial Position Sitting Pulse 84 Pulse Source Pulse Oximeter Pulse Oximetry (%) 98 Oxygen Delivery Method Room Air Intake Visit Reasons: COPD Intake Note: pt is here for follow up and has had a wheeze for several months, and resulting in a lot of phelgm, no color, very thick. Allergies No Known Allergies Allergy (Verified 06/24/25 11:14) Medication List - Last Reconciled 06/24/25 by Claudia Mack MD ceramides 1,3,6-II (CeraVe topical cream) 1 appl topical QID PRN docusate sodium 100 mg PO BID PRN fluticasone propion-salmeterol 115-21 mcg/actuation (Advair HFA) 2 puffs inhalation BID 30 days gabapentin 100 mg PO DAILY PRN gabapentin 300 mg PO BID hydrocortisone 1% (Cortisone (hydrocortisone)) 1 appl topical QID PRN methenamine hippurate 1 g PO DAILY polyethylene glycol 400 1% (Dry Eye Relief (PEG 400)) 1 drp ophthalmic (eye) Q8H PRN warfarin 7.5 mg See Protocol PO MOWEFRSA warfarin 10 mg See Protocol PO SUTUTH Do you need a note to return to daycare/school/sports/work: No HPI HPI COPD: Details: This 89 years old gentleman who looks younger than his age, tall and grossly overweight, nonsmoker. Has past history of intermittent allergic rhinitis and mild bronchial asthma. Usually has been well controlled with use of Advair HFA 115-21 2 puffs b.i.d. does not even have the rescue inhaler. * HE LIVES AT [facility], REMAINS QUITE ACTIVE, COORDINATES [employer], WHICH HE ENJOYS. For the last 10-14 days he is having congested feeling in the upper chest, has increased cough, brings up only minimal amount of phlegm which is yellowish when he coughs. His barragan has remained husky. He denies active nasal congestion but does feel like having some postnasal discharge. [facility] Medical History (Updated 06/24/25 @ 12:07 by Claudia Mack MD) Acute tracheobronchitis Hypotension Obesity (BMI 35.0-39.9 without comorbidity) Ascending aortic aneurysm Paroxysmal atrial fibrillation (HFpEF) heart failure with preserved ejection fraction Dysphagia History of prostate cancer Hyperlipidemia Cough Asthma Allergic rhinitis Surgical History Status post trigger finger release History of colonoscopy History of cataract surgery History of prostate surgery Family History Mother No problems noted. Father No problems noted. Social History Household Members: None Housing: Assisted Living Facility Alcohol intake: current Alcohol intake frequency: 0-2 drinks per day Alcohol type: wine Patient Tobacco Use Status: Former Tobacco user Tobacco use type: Cigarette e-Cigarette/Vaping Use: Never Used Second Hand Smoke Exposure: Yes service: No Current occupational status: retired Current occupation: retiered Current occupational exposures/hazards: No Cognitive needs: Yes (walker/cane) Hearing needs: Yes (hearing aide) Vision needs: Yes (Glasses) Review of Systems Const All systems reviewed & are unremarkable except as noted in HPI and below Denies weight gain and Denies weight loss Eyes Reports no additional complaints ENT Reports no additional complaints, Reports dysphagia (Occasional, mild, oropharyngeal) and Denies odynophagia Card Reports no additional complaints Resp Reports no additional complaints and Denies wheezing GI Denies abdominal pain, Denies belching, Denies melena, Denies bloating, Denies change in bowel habits, Reports dysphagia (Occasional, mild, oropharyngeal), Denies excessive flatus, Denies dyspepsia, Denies heartburn, Denies diarrhea, Denies loose stools, Denies nausea, Denies odynophagia and Denies vomiting Reports no additional complaints Musc Reports no additional complaints Skin/Breast Reports system reviewed and no additional complaints, except as documented Neuro Reports no additional complaints Psych Reports no additional complaints Endo Reports no additional complaints Aller/Immun Denies wheezing Physical Exam Vital Signs: Last Vital Signs Pulse 84 06/24/25 09:55 BP 112/68 06/24/25 09:55 Pulse Ox 98 06/24/25 09:55 Oxygen Delivery Method Room Air 06/24/25 09:55 BMI result Body Mass Index 39.8 Const General: comfortable, no acute distress, alert and awake Orientation/consciousness: patient oriented x3 HEENT Head: Yes normal to inspection General nose exam: No nasal polyps present and No nasal discharge present Face and sinus: Yes sinuses nontender Mouth: oropharynx normal Throat: Yes posterior oropharynx normal Eyes General: appearance normal, both eyes and all related structures Neck Neck: Yes normal visual inspection, Yes no lymphadenopathy, Yes trachea midline and Yes no JVD Thyroid: Thyroid normal Chest Chest palpation & inspection: normal inspection of the chest, normal palpation of entire chest wall and no tenderness Resp Effort & Inspection: normal respiratory effort Auscultation: clear to auscultation bilaterally, no crackles, rales (Breath sounds are somewhat coarse in the upper chest,a few basilar Creps. ) and no wh eezes Percussion: percussion normal Cardio Palpation: normal PMI Rate: regular rate Rhythm: regular rhythm Heart sounds: no gallops and no murmurs Peripheral pulses: Peripheral pulses 2+ throughout GI Palpation (GI): Soft to palpation, nontender, No hepatosplenomegaly present and no masses Auscultation: normal bowel sounds Back/Spine/Pelvis Thoracic/Lumbar Spine: thoracic and lumbar spine normal to inspection Skin General skin exam: no rashes or lesions noted Neuro General: patient oriented x3 and no focal motor deficits Cranial nerves: Yes CN's II-XII intact bilaterally Extrem General: Yes normal to inspection, Yes no clubbing, cyanosis or edema and Yes no calf tenderness Psych Appearance: grossly normal and well kempt Speech and movement: Normal speech and movement present Assessment & Plan Assessment & Plan (1) Asthma: Comment: Has mild intermittent bronchial asthma, mainly related to environmental allergies. It seems to be well controlled at this time. But seems to have a low-grade acute exacerbation because of tracheobronchitis. Code(s): J45.909 - Unspecified asthma, uncomplicated Category: Medical Plan: Use Advair HFA 115-21 2 puffs b.i.d. regularly, and when acute symptoms subside then can go back to using it p.r.n. (2) Allergic rhinitis: Comment: HE HAS CHRONIC LOW-GRADE ALLERGIC RHINITIS / SINUSITIS , WHICH FLARES UP INTERMITTENTLY AND RESULTS IN INCREASED COUGH. Code(s): J30.9 - Allergic rhinitis, unspecified Category: Medical Plan: At present he does not any active treatment Advised to use steam inhalations b.i.d. p.r.n. increased nasal congestion. (3) Cough: Comment: COUGH IS SECONDARY TO ALLERGIC RHINITIS AND ASTHMA VARIANT. VERY MINIMAL BUT NOW FOR THE PAST FEW WEEKS IT HAS BEEN MORE FREQUENT AND CONSTANT, HE SEEMS TO HAVE ACUTE TRACHEOBRONCHITIS, AND WAS NOT USING ADVAIR REGULARLY. Code(s): R05 - Cough Category: Medical Plan: HE IS PRESCRIBED A COURSE OF ZITHROMAX. AND PREDNISONE . AND ALSO ADVISED TO USE ADVAIR HFA 2 PUFFS B.I.D. REGULARLY. (4) Acute tracheobronchitis: Comment: AT PRESENT HE DOES HAVE INCREASED COUGH WITH CONGESTED FEELING IN THE UPPER CHEST. AND CLINICALLY I THINK HE HAS ACUTE TRACHEOBRONCHITIS. Code(s): J20.9 - Acute bronchitis, unspecified Category: Medical Plan: AZITHROMYCIN (z-pACK) 250 MG 2 TABLETS ON DAY 1. THEN 1 TABLET DAILY PREDNISONE 20 MG B.I.D. FOR 5 DAYS STEAM INHALATIONS 3 TIMES A DAY. Medications: New prednisone 20 mg PO BID 10 tabs 0RF EXCERBATION OF BR. ASTHMA 5 days azithromycin For 250 mg dose pack: take 500 mg today (day 1), then 250 mg for 4 days (days 2-5) PO 6 tabs 0RF Refilled fluticasone propion-salmeterol 115-21 mcg/actuation (Advair HFA) 2 puffs inhalation BID 12 grams 5RF ASTHMA/COPD 30 days J45.909 - Unspecified asthma, uncomplicated, R05 - Cough Coding Level of Care Code Est Pt Level 3 (37324) Diagnoses Asthma J45.909 Allergic rhinitis J30.9 Cough R05 Acute tracheobronchitis J20.9
--- OUTSIDE RECORDS SUMMARY | 2025-06-24 10:20 | XMS_ITS | Encounter Summary ---
Author Organization [facility] Address [address] [place] [address] Care Team Providers Care Boxing Trainer Name Role Phone Hayden Savage MD Primary Care Provider [phone]- [phone] Encounter Details Date Type Department Care Team (Late st Contact Info) Description 04/16/2025 Lab Requisition [facility] - Main Lab [address] [facility] [place] [address] Ernesto Brewster MD [address] [facility] [address] [place], [place] [id number] Urinary tract infection, site not specified; Other [...] CFU/mL Corynebacterium species(A) 04/18/2025 11:00 AM EDT [facility] Comment: The organism value for this result has been updated. These results have been appended to the previously preliminary verified report. Urine Urine specimen obtained by clean catch procedure / Unknown 04/16/2025 11:15 AM EDT 04/16/2025 1:55 PM EDT us Ernesto Brewster MD LAB MICROBIOLOGY - NERAL ORDERABLES Final Result [facility] ([facility]) 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
== END 2025-06-24 10:27 | disposition home or self-care (01) ==
LOC: HO.HPS 09:46
PROVIDERS: PCP Internal Medicine; Visit Provider Internal Medicine
DX: J45.909 Unspecified asthma, uncomplicated (principal); J30.9 Allergic rhinitis, unspecified; R05.9 Cough, unspecified; J20.9 Acute bronchitis, unspecified
CPT/HCPCS: 99213

== ENCOUNTER → 2025-06-24 09:45 | Outpatient (BNVA) | payer MEDICARE, OTHER, SELFPAY | PROVIDERS: PCP Internal Medicine; Visit Provider Internal Medicine | DX: J45.20 Mild intermittent asthma, uncomplicated (principal); J30.9 Allergic rhinitis, unspecified; J20.9 Acute bronchitis, unspecified; R05.9 Cough, unspecified; Z79.899 Other long term (current) drug therapy | CPT/HCPCS: 99212 ==

== ENCOUNTER 2025-06-26 14:00 | Outpatient (AMB) | payer MEDICARE, OTHER, SELFPAY ==
--- OUTSIDE RECORDS SUMMARY | 2025-06-26 14:12 | XMS_ITS | Encounter Summary ---
Author Organization [facility] Address [address] [place] [address] Care Team Providers Care Rheumatologist Name Role Phone Hayden Savage MD Primary Care Provider [phone]- [phone] Encounter Details Date Type Department Care Team (Late st Contact Info) Description 04/16/2025 Lab Requisition [facility] - Main Lab [address] [facility] [place] [address] Ernesto Brewster MD [address] [facility] [address] [place], [place] [phone] Urinary tract infection, site not specified; Other [...] CFU/mL Corynebacterium species(A) 04/18/2025 11:00 AM EDT [facility] Comment: The organism value for this result has been updated. These results have been appended to the previously preliminary verified report. 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
--- NOTE | 2025-06-26 14:25 | MHC.OFFVISCO ---
Intake Intake Visit Reasons: Anticoagulation Allergies No Known Allergies Allergy (Verified 06/26/25 14:04) Medication List - Last Reconciled 06/26/25 by Siobhan Ballard RN azithromycin For 250 mg dose pack: take 500 mg today (day 1), then 250 mg for 4 days (days 2-5) PO cefuroxime axetil 500 mg PO BID ceramides 1,3,6-II (CeraVe topical cream) 1 appl topical QID PRN docusate sodium 100 mg PO BID PRN fluticasone propion-salmeterol 115-21 mcg/actuation (Advair HFA) 2 puffs inhalation BID 30 days gabapentin 100 mg PO DAILY PRN gabapentin 300 mg PO BID hydrocortisone 1% (Cortisone (hydrocortisone)) 1 appl topical QID PRN methenamine hippurate 1 g PO DAILY polyethylene glycol 400 1% (Dry Eye Relief (PEG 400)) 1 drp ophthalmic (eye) Q8H PRN prednisone 20 mg PO BID 5 days warfarin 7.5 mg See Protocol PO MOWEFRSA warfarin 10 mg See Protocol PO SUTUTH Nursing Note INR 3.3 out of therapeutic range Medications and supplements reviewed Patient status: Pt is on prednisone 20mg po bid and antbx azthromycin 1 more day. Medications or supplements: all other meds are the same Diet: good Denies any signs and symptoms of bleeding or clotting or unusual bruising Bleeding, bruising, clotting discussed Nutritional guidance given: enc 2 extra serving of greens over the weekend Dose: decrease today's dose to 2.5mg then resume usual dose 7.5mg x 2 days/ 10mg x 5 days F/U INR Date: 11 days ?? Patient verbalizing understanding of instructions given. Anti-Coag Initial Assessment Social Hx Patient Tobacco Use Status: Former Tobacco user Tobacco use type: Cigarette alcohol intake: current Alcohol intake frequency: 0-2 drinks per day Cardiovascular Hx: HTN, Angina, [place] and Arrhythmias Lung Disease HX: Asthma Musculoskeletal Hx: Arthritis Hx: Bladder Disorders and Prostate Neurological Hx: Aneurysm Cancer HX: Yes (prostate cancer 25 years ago ) Psych. Illness/Depression: No Coding Level of Care Code Est Patient Level 1 Diagnoses Current use of anticoagulant therapy Z79.01 Results AMB INR Fingerstick AMB INR Fingerstick 3.3 Last Edit by Siobhan Ballard RN on 06/26/25 14:14 manual entry Assessment & Plan Assessment & Plan (1) Current use of anticoagulant therapy: Code(s): Z79.01 - terminal block assembler (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
[2025-06-26 14:51] LABS: Prothrombin Time Whole Bld POC 39.8 sec (11.1-13.5); ~PT, ~INR - Anti Coag Clinic 3.3 (0.9-1.1)
== END 2025-06-26 14:32 | disposition home or self-care (01) ==
LOC: HO.ACS 14:00
PROVIDERS: PCP Internal Medicine; Visit Provider Internal Medicine Medical Oncology
DX: Z79.01 Long term (current) use of anticoagulants (principal)

== ENCOUNTER → 2025-06-26 14:00 | Outpatient (BNVA) | payer MEDICARE, OTHER, SELFPAY | PROVIDERS: PCP Internal Medicine; Visit Provider Internal Medicine Medical Oncology | DX: I48.0 Paroxysmal atrial fibrillation (principal); Z79.01 Long term (current) use of anticoagulants; Z51.81 Encounter for therapeutic drug level monitoring | CPT/HCPCS: 85610; 99211 ==

== ENCOUNTER 2025-07-07 10:01 | Outpatient (AMB) | payer MEDICARE, OTHER, SELFPAY ==
--- NOTE | 2025-07-07 10:33 | MHC.OFFVISCO ---
Intake Intake Visit Reasons: Anticoagulation Allergies No Known Allergies Allergy (Verified 07/07/25 10:10) Medication List - Last Reconciled 07/07/25 by Siobhan Ballard RN ceramides 1,3,6-II (CeraVe topical cream) 1 appl topical QID PRN docusate sodium 100 mg PO BID PRN fluticasone propion-salmeterol 115-21 mcg/actuation (Advair HFA) 2 puffs inhalation BID 30 days gabapentin 100 mg PO DAILY PRN gabapentin 300 mg PO BID hydrocortisone 1% (Cortisone (hydrocortisone)) 1 appl topical QID PRN polyethylene glycol 400 1% (Dry Eye Relief (PEG 400)) 1 drp ophthalmic (eye) Q8H PRN warfarin See Protocol 10 mg orally SUN Mon; warfarin See Protocol 7.5 mg orally MON AND MONDAY; Nursing Note INR: 2.5 in therapeutic range Medications and supplements reviewed- TOOK MILK OF MAGNESIA WITH RELIEF No changes in health, diet, supplements, Denies any signs and symptoms of bleeding or bruising or clotting. Bleeding, bruising, clotting discussed Nutritional guidance given- EAT A BALANCE OF FRUITS AND VEGETABLES Dose: 7.5MG X 2 DAYS/ 10MG X 5 DAYS F/U INR: 2 WEEKS Patient verbalizes understanding of instructions given Anti-Coag Initial Assessment Social Hx Patient Tobacco Use Status: Former Tobacco user Tobacco use type: Cigarette alcohol intake: current Alcohol intake frequency: 0-2 drinks per day Cardiovascular Hx: HTN, Angina, [place] and Arrhythmias Lung Disease HX: Asthma Musculoskeletal Hx: Arthritis Hx: Bladder Disorders and Prostate Neurological Hx: Aneurysm Cancer HX: Yes (prostate cancer 25 years ago ) Psych. Illness/Depression: No Coding Level of Care Code Est Patient Level 1 Diagnoses Current use of anticoagulant therapy Z79.01 Results AMB INR Fingerstick AMB INR Fingerstick 2.5 Last Edit by Siobhan Ballard RN on 07/07/25 10:24 MANUAL ENTRY Assessment & Plan Assessment & Plan (1) Current use of anticoagulant therapy: Code(s): Z79.01 - correction (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
--- OUTSIDE RECORDS SUMMARY | 2025-07-07 10:37 | XMS_ITS | Encounter Summary ---
Author Organization [facility] Address [address] [place] [address] Care Team Providers Care Wet Washer Machine Name Role Phone Hayden Savage MD Primary Care Provider +1- [phone] Encounter Details Date Type Department Care Team (Late st Contact Info) Description 04/16/2025 Lab Requisition [facility] - Main Lab [address] [facility] [place] [address] Ernesto Brewster MD [address] [email or web address] [address] [place], [place] [phone] Urinary tract infection, site not specified; Other [...] CFU/mL Corynebacterium species(A) 04/18/2025 11:00 AM EDT [facility] Comment: The organism value for this result has been updated. These results have been appended to the previously preliminary verified report. 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
[2025-07-07 10:42] LABS: Prothrombin Time Whole Bld POC 29.5 sec (11.1-13.5); ~PT, ~INR - Anti Coag Clinic 2.5 (0.9-1.1)
== END 2025-07-07 10:35 | disposition home or self-care (01) ==
LOC: HO.ACS 10:01
PROVIDERS: PCP Internal Medicine; Visit Provider Internal Medicine Medical Oncology
DX: Z79.01 Long term (current) use of anticoagulants (principal)

== ENCOUNTER → 2025-07-07 10:01 | Outpatient (BNVA) | payer MEDICARE, OTHER, SELFPAY | PROVIDERS: PCP Internal Medicine; Visit Provider Internal Medicine Medical Oncology | DX: Z51.81 Encounter for therapeutic drug level monitoring (principal); Z79.01 Long term (current) use of anticoagulants | CPT/HCPCS: 85610; 99211 ==

== ENCOUNTER 2025-07-15 11:03 | Outpatient (REF) | payer SELFPAY ==
--- OUTSIDE RECORDS SUMMARY | 2025-07-15 12:36 | XMS_ITS | Encounter Summary ---
Author Organization [facility] Address [address] [place] [address] Care Team Providers Care Case Checker Name Role Phone Hayden Savage MD Primary Care Provider +1- [phone] Encounter Details Date Type Department Care Team (Late st Contact Info) Description 07/15/2025 Lab Requisition [facility] - Main Lab [address] [facility] [place] [address] Og Wilcox, [place] [address] [place] [address] Urinary tract infection, site not specified Social [...] Routine Urinary tract infection, site not specified 07/15/2025 10:30 AM EDT documented as of this encounter Visit Diagnoses Diagnosis Urinary tract infection, site not specified documented in this encounter Care Teams Case Checker Relationship Specialty Start Date End Date Hayden Savage MD [facility] [address] [facility] [address] PCP - General Internal Medicine 02/05/25 documented as of this encounter
== END 2025-07-15 11:04 | disposition home or self-care (01) ==
LOC: HO.HAP 11:03
PROVIDERS: Visit Provider Internal Medicine
DX: Z13.89 Encounter for screening for other disorder (principal)

== ENCOUNTER 2025-07-21 10:17 | Outpatient (AMB) | payer SELFPAY ==
[2025-07-21 10:27] LABS: Prothrombin Time Whole Bld POC 31.7 sec (11.1-13.5); ~PT, ~INR - Anti Coag Clinic 2.6 (0.9-1.1)
--- NOTE | 2025-07-21 10:31 | MHC.OFFVISCO ---
Intake Intake Visit Reasons: Anticoagulation Allergies No Known Allergies Allergy (Verified 07/21/25 10:19) Medication List - Last Reconciled 07/21/25 by Siobhan Ballard RN cefpodoxime 200 mg PO BID ceramides 1,3,6-II (CeraVe topical cream) 1 appl topical QID PRN docusate sodium 100 mg PO BID PRN fluticasone propion-salmeterol 115-21 mcg/actuation (Advair HFA) 2 puffs inhalation BID 30 days gabapentin 100 mg PO DAILY PRN gabapentin 300 mg PO BID hydrocortisone 1% (Cortisone (hydrocortisone)) 1 appl topical QID PRN polyethylene glycol 400 1% (Dry Eye Relief (PEG 400)) 1 drp ophthalmic (eye) Q8H PRN warfarin See Protocol 7.5 mg orally MON AND MONDAY; or as directed warfarin See Protocol 10 mg orally SUN Mon; or as directed Nursing Note INR: 2.6 in therapeutic range Medications and supplements reviewed *Pt completed antbx 2 weeks ago and now on Nitrofurantoin x 5 days ( no warfarin interaction) Denies any signs and symptoms of bleeding or bruising or clotting. Bleeding, bruising, clotting discussed Nutritional guidance given - keep up weekly greens Dose: keep same warfarin dose 7.5mg x 2days/ 10mg x 5 days F/U INR: 2 weeks Patient verbalizes understanding of instructions given Anti-Coag Initial Assessment Social Hx Patient Tobacco Use Status: Former Tobacco user Tobacco use type: Cigarette alcohol intake: current Alcohol intake frequency: 0-2 drinks per day Cardiovascular Hx: HTN, Angina, [place] and Arrhythmias Lung Disease HX: Asthma Musculoskeletal Hx: Arthritis Hx: Bladder Disorders and Prostate Neurological Hx: Aneurysm Cancer HX: Yes (prostate cancer 25 years ago ) Psych. Illness/Depression: No Coding Level of Care Code Est Patient Level 1 Diagnoses Current use of anticoagulant therapy Z79.01 Assessment & Plan Assessment & Plan (1) Current use of anticoagulant therapy: Code(s): Z79.01 - terminal gauger supervisor (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 Medications: New nitrofurantoin macrocrystal PO
--- OUTSIDE RECORDS SUMMARY | 2025-07-21 11:25 | XMS_ITS | Encounter Summary ---
Author Organization [facility] Address [address] [place] [address] Care Team Providers Care Market Research Consultant Name Role Phone Hayden Savage MD Primary Care Provider +1- [phone] Encounter Details Date Type Department Care Team (Late st Contact Info) Description 07/15/2025 Lab Requisition [facility] - Main Lab [address] [facility] [place] [address] Og Wilcox PA [address] [place], [place] [phone] Urinary tract infection, site not specified Social [...] Date/Time Associated Diagnosis Comments CULTURE URINE Routine 07/15/2025 10:30 AM EDT Urinary tract infection, site not specified documented in this encounter Results * (ABNORMAL) Culture urine (07/15/2025 10:30 AM EDT) Culture, Urine 10,000-49,000 CFU/mL Staphylococcus haemolyticus(A) LENNY 07/18/2025 11:16 AM EDT [facility] Comment: The organism value for this result has been updated. These results have been appended to the previously preliminary verified report. Edited result: Previously reported as Gram Positive Cocci on 07/17/2025 at 1137 EDT. Urine Urine specimen obtained by clean catch procedure / Unknown 07/15/2025 10:30 AM EDT 07/15/2025 12:26 PM EDT Narrative Organism Antibiotic Method Susceptibility Staphylococcus haemolyticus Benzylpenicillin LENNY >=0.5 ug/ml: Resistant Staphylococcus haemolyticus Oxacillin LENNY >=4 ug/ml: Resistant Staphylococcus haemolyticus Gentamicin LENNY <=0.5 ug/ml: Susceptible Staphylococcus haemolyticus Ciprofloxacin LENNY >=8 ug/ml: Resistant Staphylococcus haemolyticus Levofloxacin LENNY 4 ug/ml: Resistant Staphylococcus haemolyticus Linezolid LENNY 1 ug/ml: Susceptible Staphylococcus haemolyticus Vancomycin LENNY <=0.5 ug/ml: Susceptible Staphylococcus haemolyticus Tetracycline LENNY >=16 ug/ml: Resistant Staphylococcus haemolyticus Nitrofurantoin LENNY <=16 ug/ml: Susceptible Staphylococcus haemolyticus Rifampin LENNY <=0.5 ug/ml: Susceptible [facility] LAB MICROBIOLOGY - GENERAL KEON CAMACHO Final Result [facility] [address] [place] [address], documented in this encounter Visit Diagnoses Diagnosis Urinary tract infection, site not specified documented in this encounter Care Teams Market Research Consultant Relationship Specialty Start Date End Date Hayden Savage MD [address] [place] [address] PCP - General Internal Medicine 02/05/25 documented as of this encounter
== END 2025-07-21 10:34 | disposition home or self-care (01) ==
LOC: HO.ACS 10:18
PROVIDERS: PCP Internal Medicine; Visit Provider Internal Medicine Medical Oncology
DX: Z79.01 Long term (current) use of anticoagulants (principal)

== ENCOUNTER → 2025-07-21 10:17 | Outpatient (BNVA) | payer MEDICARE, OTHER, SELFPAY | PROVIDERS: PCP Internal Medicine; Visit Provider Internal Medicine Medical Oncology | DX: Z51.81 Encounter for therapeutic drug level monitoring (principal); Z79.01 Long term (current) use of anticoagulants | CPT/HCPCS: 85610; 99211 ==

== ENCOUNTER 2025-08-04 10:43 | Outpatient (AMB) | payer MEDICARE, OTHER, SELFPAY ==
[2025-08-04 10:59] LABS: Prothrombin Time Whole Bld POC 25.3 sec (11.1-13.5); ~PT, ~INR - Anti Coag Clinic 2.1 (0.9-1.1)
--- NOTE | 2025-08-04 11:06 | MHC.OFFVISCO ---
Intake Intake Visit Reasons: Anticoagulation Allergies No Known Allergies Allergy (Verified 08/04/25 10:52) Medication List - Last Reconciled 08/04/25 by Itzel Minor RN ceramides 1,3,6-II (CeraVe topical cream) 1 appl topical QID PRN docusate sodium 100 mg PO BID PRN fluticasone propion-salmeterol 115-21 mcg/actuation (Advair HFA) 2 puffs inhalation BID 30 days hydrocortisone 1% (Cortisone (hydrocortisone)) 1 appl topical QID PRN polyethylene glycol 400 1% (Dry Eye Relief (PEG 400)) 1 drp ophthalmic (eye) Q8H PRN warfarin See Protocol 7.5 mg orally MON AND MONDAY; or as directed warfarin See Protocol 10 mg orally SUN Mon; or as directed Nursing Note INR: 2.1 in therapeutic range of 2-3 Medications and supplements reviewed No changes in health, diet, medications, or supplements, Denies any signs and symptoms of bleeding or bruising or clotting. Bleeding, bruising, clotting discussed Nutritional guidance given to avoid greens today Dose: 10mg X 5 days and 7.5mg X 2 days F/U INR: 2 weeks Patient verbalizes understanding of instructions given Anti-Coag Initial Assessment Social Hx Patient Tobacco Use Status: Former Tobacco user Tobacco use type: Cigarette alcohol intake: current Alcohol intake frequency: 0-2 drinks per day Cardiovascular Hx: HTN, Angina, SC and Arrhythmias Lung Disease HX: Asthma Musculoskeletal Hx: Arthritis Hx: Bladder Disorders and Prostate Neurological Hx: Aneurysm Cancer HX: Yes (prostate cancer 25 years ago ) Psych. Illness/Depression: No Coding Level of Care Code Est Patient Level 1 Diagnoses Current use of anticoagulant therapy Z79.01 Assessment & Plan Assessment & Plan (1) Current use of anticoagulant therapy: Code(s): Z79.01 - detention (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
--- OUTSIDE RECORDS SUMMARY | 2025-08-04 12:56 | XMS_ITS | Clinical Summary ---
Author Organization [address] [facility] Address [address] [place] [address] Phone Care Team Providers Care Marketing Underwriter Name Role Phone Hayden Savage MD Primary Care Provider +1- [phone] Encounters Date Type Department Care Team Description 07/15/[address] [facility] [address] [place] [phone] Og Wilcox PA Urinary tract infection, site not specified 06/10/[address] [facility] [address] [place] [phone] Omar Romero MD Urinary tract infection, site not specified 05/19/[address] [facility] [address] [place] [phone] Jodi Ingram PA Urinary tract infection, site not specified; Dysuria from Last 3 Months Social History Tobacco Use Types Packs/Day Years Used Date Smoking Tobacco: Never Assessed Sex and Gender Information Value Date Recorded Sex Assigned at Not on file Legal Sex Male 6:01 PM EST Gender Identity Not on file Sexual Orientation Not on file Plan of Treatment Health Maintenance Due Date Last Done Comments Zoster Vaccines (1 of 2) 1987 RSV Immunization Adult Patients (1 - 1-dose 75+ series) 2012 Depression Screening 11/27/2024 Cholesterol Screening (Lipid Panel) 01/17/2025 Falls Risk Assessment 01/17/2025 Medicare Annual Wellness Visit 01/17/2025 Social Influencers of Health Screening 01/17/2025 COVID-19 Vaccine ( season) 2025 Influenza Vaccine (#1) 2025 6, 09/22/2015, 12/16/2014, Additional history exists DTaP,Tdap,and Td Vaccines (4 - Td or Tdap) 02/17/2030 02/18/2020, 04/07/2011, 05/08/2004 Pneumococcal Vaccine: 50+ Years Completed 04/07/2015, 03/24/2008 HIB Vaccines Aged Out No longer eligi [...] to complete this topic RSV Immunization Patients Under 20 months Aged Out No longer eligible based on patient's age to complete this topic Varicella Vaccines Aged Out No longer eligible based on patient's age to complete this topic Procedures Procedure Name Priority Date/Time Associated Diagnosis Comments CULTURE URINE Routine 07/15/2025 10:30 AM EDT Urinary tract infection, site not specified CULTURE URINE Routine 06/10/2025 12:00 AM EDT Urinary tract infection, site not specified CULTURE URINE Routine 05/19/2025 3:02 PM EDT Urinary tract infection, site not specified Dysuria from Last 3 Months Results * (ABNORMAL) Culture urine (07/15/2025 10:30 AM EDT) Only the most recent of3 resultswithin the time period is included. Culture, Urine 10,000-49,000 CFU/mL Staphylococcus haemolyticus(A) LENNY 07/18/2025 11:16 AM EDT [facility] Comment: The organism value for [...] Susceptible [facility] LAB MICROBIOLOGY - GENERAL ORDE DOUG Final Result [facility] ([facility]) [facility] [address] [place] [address], from Last 3 Months Insurance MEDICARE [facility] MEDICARE [place] [id number] [facility] Care Teams Marketing Underwriter Relationship Specialty Start Date End Date Hayden Savage MD [facility] ADULT [facility]ARE [address] [place] [address] [address] [place] [address] PCP - General Internal Medicine 02/05/25
--- OUTSIDE RECORDS SUMMARY | 2025-08-04 12:56 | XMS_ITS | Encounter Summary ---
Author Organization [facility] Address [address] [place] [address] Care Team Providers Care Rock Breaker Name Role Phone Hayden Savage MD Primary Care Provider +1- [phone] Encounter Details Date Type Department Care Team (Late st Contact Info) Description 04/16/2025 Lab Requisition [facility] 299 [facility] [place] [address] Ernesto Brewsetr MD [address] [facility] [address] [place], [place] [phone] Urinary tract infection, site not specified; Other [...] Corynebacterium species(A) 04/18/2025 11:00 AM EDT [facility] Comment: The organism value for this result has been updated. These results have been appended to the previously preliminary verified report. 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
--- OUTSIDE RECORDS SUMMARY | 2025-08-04 12:56 | XMS_ITS | Encounter Summary ---
Author Organization [facility] Address [address] [place] [address] Care Team Providers Care Coping Machine Operator Name Role Phone Hayden Savage MD Primary Care Provider +1- [phone] Encounter Details Date Type Department Care Team (Late st Contact Info) Description 07/15/2025 Lab Requisition [facility] Lab 299 [facility] [place] [address] Og Wilcox PA [address] [place], [place] [phone] Urinary tract infection, site not specified Social [...] Staphylococcus haemolyticus(A) LENNY 07/18/2025 11:16 AM EDT [facility] ([facility] Comment: The organism value for [...] LENNY >=8 ug/ml: Resistant Staphylococcus haemolyticus Levofloxacin LNENY 4 ug/ml: Resistant Staphylococcus haemolyticus Linezolid LENNY 1 ug/ml: Susceptible Staphylococcus haemolyticus Vancomycin LENNY <=0.5 ug/ml: Susceptible Staphylococcus haemolyticus Tetracycline LENNY >=16 ug/ml: Resistant Staphylococcus haemolyticus Nitrofurantoin LENNY <=16 ug/ml: Susceptible Staphylococcus haemolyticus Rifampin LENNY <=0.5 ug/ml: Susceptible [facility] LAB MICROBIOLOGY - GENERAL KEON CAMACHO Final Result [facility] ([facility]) [facility] [address] [place] [address], documented in this encounter Visit Diagnoses Diagnosis Urinary tract infection, site not specified documented in this encounter Care Teams Coping Machine Operator Relationship Specialty Start Date End Date Hayden Savage MD [address] [place] [address] PCP - General Internal Medicine 02/05/25 documented as of this encounter
--- OUTSIDE RECORDS SUMMARY | 2025-08-04 12:56 | XMS_ITS | Encounter Summary ---
Author Organization [facility] Address [address] [place] [address] Care Team Providers Care Product Trainer Name Role Phone Hayden Savage MD Primary Care Provider +1- [phone] Encounter Details Date Type Department Care Team (Late st Contact Info) Description 02/05/2025 Lab Requisition [facility] Lab 299 [facility] [place] [address] Jodi Ingram PA [address] [place] [address] [place], [place] [phone] Urinary tract infection, site not specified; Dysuria [...] LENNY 02/07/2025 8:10 AM EDT [facility] ([facility]) [facility] Comment: Edited result: Previously reported as [...] GENERAL ORD ERABLES Final Result [facility] ([facility]) [facility] [address] [place] [address], documented in this encounter Visit Diagnoses Diagnosis Urinary tract infection, site not specified Dysuria documented in this encounter Care Teams Product Trainer Relationship Specialty Start Date End Date Hayden Savage MD [address] [facility] [address] PCP - General Internal Medicine 02/05/25 documented as of this encounter
--- OUTSIDE RECORDS SUMMARY | 2025-08-04 12:56 | XMS_ITS | Encounter Summary ---
Author Organization [facility] Address [address] [place] [address] Care Team Providers Care Portal Architect Name Role Phone Hayden Savage MD Primary Care Provider +1- [phone] Encounter Details Date Type Department Care Team (Late st Contact Info) Description 05/19/2025 Lab Requisition [facility] 299 [facility] [place] [address] Jodi Ingram PA [address] [place], [place] [phone] Urinary tract infection, site not specified; Dysuria [...] Date/Time Associated Diagnosis Comments CULTURE URINE Routine 05/19/2025 3:02 PM EDT Urinary tract infection, site not specified Dysuria documented in this encounter Results * (ABNORMAL) Culture urine (05/19/2025 3:02 PM EDT) Culture, Urine >100,000 CFU/mL Staphylococcus haemolyticus(A) LENNY 05/21/2025 9:43 AM EDT [facility] ([facility]) [facility] Comment: Edited result: Previously reported as Gram Positive Cocci on 05/20/2025 at 0833 EDT. Urine Urine specimen obtained by clean catch procedure / Unknown 05/19/2025 3:02 PM EDT 05/19/2025 5:30 PM EDT Narrative Organism Antibiotic Method Susceptibility Staphylococcus haemolyticus Benzylpenicillin LENNY Resistant Staphylococcus haemolyticus Oxacillin LENNY <=0.25 ug/ml: Resistant Staphylococcus haemolyticus Gentamicin LENNY <=0.5 ug/ml: Susceptible Staphylococcus haemolyticus Ciprofloxacin LENNY <=0.5 ug/ml: Susceptible Staphylococcus haemolyticus Levofloxacin LENNY <=0.12 ug/ml: Susceptible Staphylococcus haemolyticus Linezolid LENNY 2 ug/ml: Susceptible Staphylococcus haemolyticus Vancomycin LENNY <=0.5 ug/ml: Susceptible Staphylococcus haemolyticus Tetracycline LENNY >=16 ug/ml: Resistant Staphylococcus haemolyticus Nitrofurantoin LENNY <=16 ug/ml: Susceptible Staphylococcus haemolyticus Rifampin LENNY <=0.5 ug/ml: Susceptible us Jodi [facility]IO LAB MICROBIOLOGY - GENERAL ORD ERABLES Final Result [facility] ([facility]) [facility] [address] [place] [address], documented in this encounter Visit Diagnoses Diagnosis Urinary tract infection, site not specified Dysuria documented in this encounter Care Teams Portal Architect Relationship Specialty Start Date End Date Hayden Savage MD [address] [place] [address] PCP - General Internal Medicine 02/05/25 documented as of this encounter
--- OUTSIDE RECORDS SUMMARY | 2025-08-04 12:56 | XMS_ITS | Encounter Summary ---
Author Organization [facility] Address [address] [place] [address] Care Team Providers Care Blower Blast Furnace Name Role Phone Hayden Savage MD Primary Care Provider +1- [phone] Encounter Details Date Type Department Care Team (Late st Contact Info) Description 01/17/2025 Lab Requisition [facility] Lab 299 [facility] [place] [address] Marvin Cardoso PA [address] [place] [address] Urinary tract infection, site not [...] Aerococcus urinae(A) LENNY 01/20/2025 12:43 PM EST [facility] Comment: Susceptibility testing not routinely performed. If further therapeutic information is required, please consult an infectious disease specialist. The organism value for this result has been updated. These results have been appended to the previously preliminary verified report. Edited result: Previously reported as Gram Positive Cocci on 01/19/2025 at 1238 EST. Urine Urine specimen obtained by clean catch procedure / Unknown 01/17/2025 11:45 AM EST 01/17/2025 2:05 PM EST Narrative [facility] ([facility] - 01/20/2025 12:43 PM EST Sparse additional colony types present in insignificant amounts. us Marvin [facility] LAB MICROBIOLOGY - GENERAL ORD ERABLES Final Result [facility] [address] [place] [address], documented in this encounter Visit Diagnoses Diagnosis Urinary tract infection, site not specified documented in this encounter Care Teams Blower Blast Furnace Relationship Specialty Start Date End Date Hayden Savage MD [address] [place] [address] PCP - General Internal Medicine 02/05/25 documented as of this encounter
--- OUTSIDE RECORDS SUMMARY | 2025-08-04 12:56 | XMS_ITS | Encounter Summary ---
Author Organization [facility] Address [address] [place] [address] Care Team Providers Care Feller Operator Name Role Phone Hayden Savage MD Primary Care Provider +1- [phone] Encounter Details Date Type Department Care Team (Late st Contact Info) Description 06/10/2025 Lab Requisition [facility] Lab 299 [facility] [place] [address] Omar Romero MD [address] [place] [address] Urinary tract infection, site not [...] Date/Time Associated Diagnosis Comments CULTURE URINE Routine 06/10/2025 12:00 AM EDT Urinary tract infection, site not specified documented in this encounter Results * (ABNORMAL) Culture urine (06/10/2025 12:00 AM EDT) Culture, Urine >=100,000 CFU/mL Streptococcus beta-hemolytic Group B(A) 06/12/2025 8:28 AM EDT [facility] ([facility]) [facility] Comment: Susceptibility testing is not routinely performed for Beta Streptococcus isolates since these organisms are predictably sensitive to Penicillin. If the Patient is not responding, is allergic to Penicillin, or further therapeutic information is requir ed, please consult an Infectious Disease Specialist. Urine Urine specimen obtained by clean catch procedure / Unknown 06/10/2025 06/10/2025 1:47 PM EDT Narrative [facility] ([facility] - 06/12/2025 8:28 AM EDT Normal skin/urogenital kerry noted us Omar Romero MD LAB MICROBIOLOGY - GENERA L ORDERABLES Final Result [facility] [address] [place] [address], documented in this encounter Visit Diagnoses Diagnosis Urinary tract infection, site not specified documented in this encounter Care Teams Feller Operator Relationship Specialty Start Date End Date Hayden Savage MD [facility] [address] [place] [address] PCP - General Internal Medicine 02/05/25 documented as of this encounter
== END 2025-08-04 11:10 | disposition home or self-care (01) ==
LOC: HO.ACS 10:43
PROVIDERS: PCP Internal Medicine; Visit Provider Internal Medicine Medical Oncology
DX: Z79.01 Long term (current) use of anticoagulants (principal)

== ENCOUNTER → 2025-08-04 10:43 | Outpatient (BNVA) | payer MEDICARE, OTHER, SELFPAY | PROVIDERS: PCP Internal Medicine; Visit Provider Internal Medicine Medical Oncology | DX: Z51.81 Encounter for therapeutic drug level monitoring (principal); Z79.01 Long term (current) use of anticoagulants | CPT/HCPCS: 85610; 99211 ==

== ENCOUNTER 2025-08-05 15:16 | Outpatient (REF) | payer SELFPAY ==
--- OUTSIDE RECORDS SUMMARY | 2025-08-05 17:36 | XMS_ITS | Encounter Summary ---
Author Organization [facility] Address [address] [place] [address] Care Team Providers Care Ammunition Storekeeper Name Role Phone Hayden Savage MD Primary Care Provider +1- [phone] Encounter Details Date Type Department Care Team (Late st Contact Info) Description 04/16/2025 Lab Requisition [facility] Lab 299 [facility] [place] [address] Ernesto Brewster MD [address] [facility] [address] [place], [place] [phone] Urinary tract infection, site not specified; Other [...] CFU/mL Corynebacterium species(A) 04/18/2025 11:00 AM EDT [facility] ([facility]) [facility] Comment: The organism value for this result has been updated. These results have been appended to the previously preliminary verified report. 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
--- OUTSIDE RECORDS SUMMARY | 2025-08-05 17:36 | XMS_ITS | Encounter Summary ---
Author Organization [facility] Address [address] [place] [address] Care Team Providers Care Solar Photovoltaic Installer Name Role Phone Hayden Savage MD Primary Care Provider +1- [phone] Encounter Details Date Type Department Care Team (Late st Contact Info) Description 07/15/2025 Lab Requisition [facility] Lab 299 [facility] [place] [address] Og Wilcox PA [address] [place], [place] [phone] Urinary tract infection, site not specified Social [...] Staphylococcus haemolyticus(A) LENNY 07/18/2025 11:16 AM EDT [facility] ([facility]) [facility] Comment: The organism value for [...] Staphylococcus haemolyticus Rifampin LENNY <=0.5 ug/ml: Susceptible [facility] LAB MICROBIOLOGY - GENERAL KEON CAMACHO Final Result [facility] ([facility]) [facility] [address] [place] [address], documented in this encounter Visit Diagnoses Diagnosis Urinary tract infection, site not specified documented in this encounter Care Teams Solar Photovoltaic Installer Relationship Specialty Start Date End Date Hayden Savage MD [address] [place] [address] PCP - General Internal Medicine 02/05/25 documented as of this encounter
--- OUTSIDE RECORDS SUMMARY | 2025-08-05 17:36 | XMS_ITS | Encounter Summary ---
Author Organization [facility] Address [address] [place] [address] Care Team Providers Care Crusher Dry Ground Mica Name Role Phone Hayden Savage MD Primary Care Provider +1- [phone] Encounter Details Date Type Department Care Team (Late st Contact Info) Description 01/17/2025 Lab Requisition [facility] Lab 299 [facility] [place] [address] Marvin Cardoso PA [address] [place] [address] Urinary tract infection, site not [...] Aerococcus urinae(A) LENNY 01/20/2025 12:43 PM EST [facility] ([facility]) HOSPITAL LAB Comment: Susceptibility testing not routinely [...] AM EST 01/17/2025 2:05 PM EST Narrative [facility] ([facility] - 01/20/2025 12:43 PM EST Sparse additional colony types present in insignificant amounts. us Marvin BUCIO LAB MICROBIOLOGY - GENERAL ORD ERABLES Final Result [facility] [address] [place] [address], documented in this encounter Visit Diagnoses Diagnosis Urinary tract infection, site not specified documented in this encounter Care Teams Crusher Dry Ground Mica Relationship Specialty Start Date End Date Hayden Savage MD [address] [place] [address] PCP - General Internal Medicine 02/05/25 documented as of this encounter
--- OUTSIDE RECORDS SUMMARY | 2025-08-05 17:36 | XMS_ITS | Encounter Summary ---
Author Organization [facility] Address [address] [place] [address] Care Team Providers Care Premix Operator Concentrate Name Role Phone Hayden Savage MD Primary Care Provider +1- [phone] Encounter Details Date Type Department Care Team (Late st Contact Info) Description 05/19/2025 Lab Requisition [facility] Lab 299 [facility] [place] [address] Jodi Ingram PA [address] [place], [place] [phone] Urinary tract infection, site not specified; Dysuria [...] Staphylococcus haemolyticus(A) LENNY 05/21/2025 9:43 AM EDT [facility] ([facility]) [facility] Comment: Edited [...] MICROBIOLOGY - GENERAL ORD ERABLES Final Result [facility] ([facility]) [facility] [address] [place] [address], documented in this encounter Visit Diagnoses Diagnosis Urinary tract infection, site not specified Dysuria documented in this encounter Care Teams Premix Operator Concentrate Relationship Specialty Start Date End Date Hayden Savage MD [address] [place] [address] PCP - General Internal Medicine 02/05/25 documented as of this encounter
--- OUTSIDE RECORDS SUMMARY | 2025-08-05 17:37 | XMS_ITS | Encounter Summary ---
Author Organization [facility] Address [address] [place] [address] Care Team Providers Care Lieutenant Fire Fighter Name Role Phone Hayden Savage MD Primary Care Provider +1- [phone] Encounter Details Date Type Department Care Team (Late st Contact Info) Description 06/10/[address] [facility] - Main Lab [address] [facility] [place] [address] Omar Romero MD [address] [place] [address] Urinary tract infection, site not [...] beta-hemolytic Group B(A) 06/12/2025 8:28 AM EDT [facility] Comment: Susceptibility testing is not routinely performed for Beta Streptococcus isolates since these organisms are predictably sensitive to Penicillin. If the Patient is not responding, is allergic to Penicillin, or further therapeutic information is requir ed, please consult an Infectious Disease Specialist. Urine Urine specimen obtained by clean catch procedure / Unknown 06/10/2025 06/10/2025 1:47 PM EDT Narrative [facility] - 06/12/2025 8:28 AM EDT Normal skin/urogenital kerry noted us Omar Romero MD LAB MICROBIOLOGY - GENERA L ORDERABLES Final Result [facility] [address] [place] [address], documented in this encounter Visit Diagnoses Diagnosis Urinary tract infection, site not specified documented in this encounter Care Teams Lieutenant Fire Fighter Relationship Specialty Start Date End Date Hayden Savage MD [facility] [address] [place] [address] PCP - General Internal Medicine 02/05/25 documented as of this encounter
--- OUTSIDE RECORDS SUMMARY | 2025-08-05 17:37 | XMS_ITS | Clinical Summary ---
Author Organization [address] [facility] Address [address] [place] [address] Phone Care Team Providers Care Platform Stapler Name Role Phone Hayden Savage MD Primary Care Provider +1- [phone] Encounters Date Type Department Care Team Description 07/15/2025 Lab Requisition [facility] Lab [address] [place] [phone] Og Wilcox PA Urinary tract infection, site not specified 06/10/2025 Lab Requisition [facility] Lab [address] [place] [phone] Omar Romero MD Urinary tract infection, site not specified 05/19/2025 Lab Requisition [facility] Lab [address] [place] [phone] Jodi Ingram PA Urinary tract infection, site [...] Staphylococcus haemolyticus(A) LENNY 07/18/2025 11:16 AM EDT [facility] Comment: The organism value [...] Staphylococcus haemolyticus Rifampin LENNY <=0.5 ug/ml: Susceptible [facility] LAB MICROBIOLOGY - GENERAL ORDE DOUG Final Result [facility] ([facility]) [facility] LAB [address] [place] [address], from Last 3 Months Insurance MEDICARE [facility] MEDICARE [place] [id number] [facility] Care Teams Platform Stapler Relationship Specialty Start Date End Date Hayden Savage MD [place] [facility] [address] [place] [address] [address] [place] [address] PCP - General Internal Medicine 02/05/25
--- OUTSIDE RECORDS SUMMARY | 2025-08-05 17:37 | XMS_ITS | Encounter Summary ---
Author Organization [facility] Address [address] [place] [address] Care Team Providers Care Casserole Preparer Name Role Phone Hayden Savage MD Primary Care Provider +1- [phone] Encounter Details Date Type Department Care Team (Late st Contact Info) Description 02/05/[address] [facility] - Main Lab 299 [facility] [place] [address] Jodi Ingram PA [address] [place], [place] [phone] Urinary tract infection, site not specified; Dysuria [...] Staphylococcus epidermidis(A) LENNY 02/07/2025 8:10 AM EDT [facility] ([facility]) [facility] Comment: Edited [...] - GENERAL ORD ERABLES Final Result [facility] ([facility]) [facility] [address] [place] [address], documented in this encounter Visit Diagnoses Diagnosis Urinary tract infection, site not specified Dysuria documented in this encounter Care Teams Casserole Preparer Relationship Specialty Start Date End Date Hayden Savage MD [address] [facility] [address] PCP - General Internal Medicine 02/05/25 documented as of this encounter
== END 2025-08-05 15:17 | disposition home or self-care (01) ==
LOC: HO.HAP 15:16
PROVIDERS: Visit Provider Internal Medicine
DX: Z13.89 Encounter for screening for other disorder (principal)

== ENCOUNTER 2025-08-18 10:36 | Outpatient (AMB) | payer MEDICARE, SELFPAY ==
[2025-08-18 10:42] LABS: Prothrombin Time Whole Bld POC 44.6 sec (11.1-13.5); ~PT, ~INR - Anti Coag Clinic 3.7 (0.9-1.1)
--- NOTE | 2025-08-18 10:46 | MHC.OFFVISCO ---
Intake Intake Visit Reasons: Anticoagulation Allergies No Known Allergies Allergy (Verified 08/18/25 10:36) Medication List - Last Reconciled 08/18/25 by Itzel Minor RN ceramides 1,3,6-II (CeraVe topical cream) 1 appl topical QID PRN cranberry tjucayj-p-fmtzljl 500-50 mg tabs PO docusate sodium 100 mg PO BID PRN fluticasone propion-salmeterol 115-21 mcg/actuation (Advair HFA) 2 puffs inhalation BID 30 days hydrocortisone 1% (Cortisone (hydrocortisone)) 1 appl topical QID PRN polyethylene glycol 400 1% (Dry Eye Relief (PEG 400)) 1 drp ophthalmic (eye) Q8H PRN warfarin See Protocol 7.5 mg orally MON AND MONDAY; or as directed warfarin See Protocol 10 mg orally SUN Mon; or as directed Nursing Note INR 3.7 out of therapeutic range of 2-3 Pt started taking cranberry tablets 1 week ago for freq UTI's . He states he is having a urine test after he leaves [facility] because he has symptoms of UTI now. He expects to be on an antibiotic when the results come back. Medications and supplements reviewed Patient status: as above Medications or supplements: as above Diet: usual diet Denies any signs and symptoms of bleeding or clotting or unusual bruising Bleeding, bruising, clotting discussed Nutritional guidance given: to have a serving of greens today Dose: since starting cranberry tabs, will decrease weekly dose by 2.5mg and will hold today's dose of 7.5mg F/U INR Date: 1 week Patient verbalizing understanding of instructions given. Anti-Coag Initial Assessment Social Hx Patient Tobacco Use Status: Former Tobacco user Tobacco use type: Cigarette alcohol intake: current Alcohol intake frequency: 0-2 drinks per day Cardiovascular Hx: HTN, Angina, PR and Arrhythmias Lung Disease HX: Asthma Musculoskeletal Hx: Arthritis Hx: Bladder Disorders and Prostate Neurological Hx: Aneurysm Cancer HX: Yes (prostate cancer 25 years ago ) Psych. Illness/Depression: No Coding Level of Care Code Est Patient Level 1 Diagnoses Current use of anticoagulant therapy Z79.01 Assessment & Plan Assessment & Plan (1) Current use of anticoagulant therapy: Code(s): Z79.01 - termination clerk (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
--- OUTSIDE RECORDS SUMMARY | 2025-08-18 12:59 | XMS_ITS | Encounter Summary ---
Author Organization [facility] Address [address] [place] [address] Care Team Providers Care Weight Analyst Name Role Phone Hayden Savage MD Primary Care Provider +1- [phone] Encounter Details Date Type Department Care Team (Late st Contact Info) Description 07/15/2025 Lab Requisition [facility] - Main Lab 299 [facility] [place] [address] Og Wilcox PA [address] [place], [place] [phone] Urinary tract infection, site not specified Social [...] Staphylococcus haemolyticus(A) LENNY 07/18/2025 11:16 AM EDT [facility] ([facility]) [facility] Comment: The organism value for [...] Staphylococcus haemolyticus Rifampin LENNY <=0.5 ug/ml: Susceptible [facility] LAB MICROBIOLOGY - GENERAL KEON CAMACHO Final Result [facility] ([facility]) [facility] [address] [place] [address], documented in this encounter Visit Diagnoses Diagnosis Urinary tract infection, site not specified documented in this encounter Care Teams Weight Analyst Relationship Specialty Start Date End Date Hayden Savage MD [address] [place] [address] PCP - General Internal Medicine 02/05/25 documented as of this encounter
--- OUTSIDE RECORDS SUMMARY | 2025-08-18 12:59 | XMS_ITS | Encounter Summary ---
Author Organization [facility] Address [address] [place] [address] Care Team Providers Care Edger Hand Name Role Phone Hayden Savage MD Primary Care Provider +1- [phone] Encounter Details Date Type Department Care Team (Late st Contact Info) Description 04/16/2025 Lab Requisition [facility] - Main Lab [address] [facility] [place] [address] Ernesto Brewster MD [address] [facility] [address] [place], [place] [phone] Urinary tract infection, site not specified; Other [...] CFU/mL Corynebacterium species(A) 04/18/2025 11:00 AM EDT [facility] ([facility]) [facility] Comment: The organism value for this result has been updated. These results have been appended to the previously preliminary verified report. Urine Urine specimen obtained by clean catch procedure / Unknown 04/16/2025 11:15 AM EDT 04/16/2025 1:55 PM EDT us Ernesto Brewster MD LAB MICROBIOLOGY - NERAL ORDERABLES Final Result [facility] (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
--- OUTSIDE RECORDS SUMMARY | 2025-08-18 13:00 | XMS_ITS | Encounter Summary ---
Author Organization [facility] Address [address] [place] [address] Care Team Providers Care Global Program Director Name Role Phone Hayden Savage MD Primary Care Provider +1- [phone] Encounter Details Date Type Department Care Team (Late st Contact Info) Description 01/17/2025 Lab Requisition [facility] - Main Lab 299 [facility] [place] [address] Marvin Cardoso PA [address] [place] [address] Urinary tract infection, site not [...] PM EST [facility] ([facility]) HOSPITAL LAB Comment: Susceptibility testing not routinely [...] EST Narrative [facility] - 01/20/2025 12:43 PM EST Sparse additional colony types present in insignificant amounts. us Marvin BUCIO LAB MICROBIOLOGY - GENERAL ORD ERABLES Final Result [facility] [address] [place] [address], documented in this encounter Visit Diagnoses Diagnosis Urinary tract infection, site not specified documented in this encounter Care Teams Global Program Director Relationship Specialty Start Date End Date Hayden Savage MD [address] [place] [address] PCP - General Internal Medicine 02/05/25 documented as of this encounter
--- OUTSIDE RECORDS SUMMARY | 2025-08-18 13:00 | XMS_ITS | Encounter Summary ---
Author Organization [facility] Address [address] [place] [address] Care Team Providers Care Rail Crew Member Name Role Phone Hayden Savage MD Primary Care Provider +1- [phone] Encounter Details Date Type Department Care Team (Late st Contact Info) Description 02/05/2025 Lab Requisition [facility] - Main Lab 299 [facility] [place] [address] Jodi Ingram PA [address] [place], [place] [phone] Urinary tract infection, site not specified; Dysuria [...] Staphylococcus epidermidis(A) LENNY 02/07/2025 8:10 AM EDT [facility] ([facility]) [facility] Comment: Edited result: Previously reported [...] MICROBIOLOGY - GENERAL ORD ERABLES Final Result [facility] ([facility]) [facility] [address] [place] [address], documented in this encounter Visit Diagnoses Diagnosis Urinary tract infection, site not specified Dysuria documented in this encounter Care Teams Rail Crew Member Relationship Specialty Start Date End Date Hayden Savage MD [address] [facility] [address] PCP - General Internal Medicine 02/05/25 documented as of this encounter
--- OUTSIDE RECORDS SUMMARY | 2025-08-18 13:00 | XMS_ITS | Clinical Summary ---
Author Organization 299 [facility] Address [address] [place] [address] Phone Care Team Providers Care Light Out Examiner Name Role Phone Hayden Savage MD Primary Care Provider +1- [phone] Encounters Date Type Department Care Team Description 07/15/[address] [facility] Lab [address] [place] [phone] Og Wilcox PA Urinary tract infection, site not specified 06/10/[address] [facility] Lab [address] [place] [phone] Omar Romero MD Urinary tract infection, site not specified 05/19/[address] [facility] Lab [address] [place] [phone] Jodi Ingram PA Urinary tract infection, site [...] Staphylococcus haemolyticus(A) LENNY 07/18/2025 11:[address] [facility] Comment: The organism value for [...] Staphylococcus haemolyticus Rifampin LENNY <=0.5 ug/ml: Susceptible [facility] LAB MICROBIOLOGY - GENERAL ORDE DOUG Final Result [facility] ([facility]) [facility] [address] [place] [address], from Last 3 Months Insurance MEDICARE [facility] MEDICARE [place] [id number] [facility] Care Teams Light Out Examiner Relationship Specialty Start Date End Date Hayden Savage MD [place] [facility] [address] [place] [address] [address] [place] [address] PCP - General Internal Medicine 02/05/25
--- OUTSIDE RECORDS SUMMARY | 2025-08-18 13:00 | XMS_ITS | Encounter Summary ---
Author Organization [facility] Address [address] [place] [address] Care Team Providers Care Retail Sales Specialist Name Role Phone Hayden Savage MD Primary Care Provider +1- [phone] Encounter Details Date Type Department Care Team (Late st Contact Info) Description 06/10/2025 Lab Requisition [facility] - Main Lab 299 [facility] [place] [address] Omar Romero MD [address] [place] [address] Urinary tract infection, site not [...] beta-hemolytic Group B(A) 06/12/2025 8:28 AM EDT [facility] ([facility]) [facility] Comment: Susceptibility testing is not routinely performed for Beta Streptococcus isolates since these organisms are predictably sensitive to Penicillin. If the Patient is not responding, is allergic to Penicillin, or further therapeutic information is requir ed, please consult an Infectious Disease Specialist. Urine Urine specimen obtained by clean catch procedure / Unknown 06/10/2025 06/10/2025 1:47 PM EDT Narrative [facility] ([facility] - 06/12/2025 8:28 AM EDT Normal skin/urogenital kerry noted us Omar Romero MD LAB MICROBIOLOGY - GENERA L ORDERABLES Final Result [facility] [address] [place] [address], documented in this encounter Visit Diagnoses Diagnosis Urinary tract infection, site not specified documented in this encounter Care Teams Retail Sales Specialist Relationship Specialty Start Date End Date Hayden Savage MD [facility] [address] [place] [address] PCP - General Internal Medicine 02/05/25 documented as of this encounter
--- OUTSIDE RECORDS SUMMARY | 2025-08-18 13:00 | XMS_ITS | Encounter Summary ---
Author Organization [facility] Address [address] [place] [address] Care Team Providers Care Senior It Specialist Name Role Phone Hayden Savage MD Primary Care Provider +1- [phone] Encounter Details Date Type Department Care Team (Late st Contact Info) Description 05/19/[address] [facility] - Main Lab 299 [facility] [place] [address] Jodi Ingram PA [address] [place], [place] [phone] Urinary tract infection, site not specified; Dysuria [...] Staphylococcus haemolyticus(A) LENNY 05/21/2025 9:43 AM EDT [facility] ([facility]) [facility] Comment: Edited result: [...] MICROBIOLOGY - GENERAL ORD ERABLES Final Result [facility] ([facility]) [facility] [address] [place] [address], documented in this encounter Visit Diagnoses Diagnosis Urinary tract infection, site not specified Dysuria documented in this encounter Care Teams Senior It Specialist Relationship Specialty Start Date End Date Hayden Savage MD [address] [facility] [address] PCP - General Internal Medicine 02/05/25 documented as of this encounter
== END 2025-08-18 10:56 | disposition home or self-care (01) ==
LOC: HO.ACS 10:36
PROVIDERS: PCP Internal Medicine; Visit Provider Internal Medicine Medical Oncology
DX: Z79.01 Long term (current) use of anticoagulants (principal)

== ENCOUNTER → 2025-08-18 10:36 | Outpatient (BNVA) | payer MEDICARE, SELFPAY | PROVIDERS: PCP Internal Medicine; Visit Provider Internal Medicine Medical Oncology | DX: Z51.81 Encounter for therapeutic drug level monitoring (principal) | CPT/HCPCS: 85610; 99211 ==

== ENCOUNTER 2025-08-25 10:31 | Outpatient (AMB) | payer MEDICARE, SELFPAY ==
[2025-08-25 10:40] LABS: Prothrombin Time Whole Bld POC 28.3 sec (11.1-13.5); ~PT, ~INR - Anti Coag Clinic 2.4 (0.9-1.1)
--- NOTE | 2025-08-25 10:50 | MHC.OFFVISCO ---
Intake Intake Visit Reasons: Anticoagulation Allergies No Known Allergies Allergy (Verified 08/25/25 10:32) Medication List - Last Reconciled 08/25/25 by Siobhan Ballard RN ceramides 1,3,6-II (CeraVe topical cream) 1 appl topical QID PRN cranberry dhsirpu-d-cuozwoj 500-50 mg tabs PO docusate sodium 100 mg PO BID PRN fluticasone propion-salmeterol 115-21 mcg/actuation (Advair HFA) 2 puffs inhalation BID 30 days gabapentin mg PO hydrocortisone 1% (Cortisone (hydrocortisone)) 1 appl topical QID PRN nitrofurantoin monohyd/m-cryst 100 mg 1 cap PO BID polyethylene glycol 400 1% (Dry Eye Relief (PEG 400)) 1 drp ophthalmic (eye) Q8H PRN warfarin See Protocol 7.5 mg orally MON AND MONDAY; or as directed warfarin See Protocol 10 mg orally SUN Mon; or as directed Nursing Note INR: 2.4 in therapeutic range Medications and supplements reviewed *pt has been having frequent UTIs - started on prophylatic antbx nitrofurantoin 100mg po bid then 50mg daily. * pt having green drink about 4 oz daily to help balance in cranberry supplement. Denies any signs and symptoms of bleeding or bruising or clotting. Bleeding, bruising, clotting discussed Nutritional guidance given - keep diet the same with green drink Dose: 7.5mg mwf/ 10mg x 4 days F/U INR: 10 day s to full effect of dose Patient verbalizes understanding of instructions given Anti-Coag Initial Assessment Social Hx Patient Tobacco Use Status: Former Tobacco user Tobacco use type: Cigarette alcohol intake: current Alcohol intake frequency: 0-2 drinks per day Cardiovascular Hx: HTN, Angina, PA and Arrhythmias Lung Disease HX: Asthma Musculoskeletal Hx: Arthritis Hx: Bladder Disorders and Prostate Neurological Hx: Aneurysm Cancer HX: Yes (prostate cancer 25 years ago ) Psych. Illness/Depression: No Coding Level of Care Code Est Patient Level 1 Diagnoses Current use of anticoagulant therapy Z79.01 Assessment & Plan Assessment & Plan (1) Current use of anticoagulant therapy: Code(s): Z79.01 - care home (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
--- OUTSIDE RECORDS SUMMARY | 2025-08-25 11:45 | XMS_ITS | Encounter Summary ---
Author Organization [facility] Address [address] [place] [address] Care Team Providers Care Flake Or Shred Roll Operator Name Role Phone Hayden Savage MD Primary Care Provider +1- [phone] Encounter Details Date Type Department Care Team (Late st Contact Info) Description 07/15/2025 Lab Requisition [facility] - Main Lab 299 [facility] [place] [address] Og Wilcox PA [address] [place], [place] [phone] Urinary tract infection, site not specified Social [...] Staphylococcus haemolyticus(A) LENNY 07/18/2025 11:16 AM EDT [facility] ([facility]) [facility] Comment: The organism value [...] Staphylococcus haemolyticus Rifampin LENNY <=0.5 ug/ml: Susceptible [facility] LAB MICROBIOLOGY - GENERAL KEON CAMACHO Final Result [facility] ([facility]) [facility] [address] [place] [address], documented in this encounter Visit Diagnoses Diagnosis Urinary tract infection, site not specified documented in this encounter Care Teams Flake Or Shred Roll Operator Relationship Specialty Start Date End Date Hayden Savage MD [address] [place] [address] PCP - General Internal Medicine 02/05/25 documented as of this encounter
--- OUTSIDE RECORDS SUMMARY | 2025-08-25 11:45 | XMS_ITS | Encounter Summary ---
Author Organization [facility] Address [address] [place] [address] Care Team Providers Care Handbag Stitcher Name Role Phone Hayden Savage MD Primary Care Provider +1- [phone] Encounter Details Date Type Department Care Team (Late st Contact Info) Description 01/17/2025 Lab Requisition [facility] - Main Lab 299 [facility] [email or web address] [address] Marvin Cardoso PA [address] [place] [address] Urinary tract infection, site not [...] Aerococcus urinae(A) LENNY 01/20/2025 12:43 PM EST [facility] ([facility]) HOSPITAL LAB Comment: Susceptibility testing not routinely [...] AM EST 01/17/2025 2:05 PM EST Narrative [facility] ([facility] - 01/20/2025 12:43 PM EST Sparse additional colony types present in insignificant amounts. us Marvin BUCIO LAB MICROBIOLOGY - GENERAL ORD ERABLES Final Result [facility] [address] [place] [address], documented in this encounter Visit Diagnoses Diagnosis Urinary tract infection, site not specified documented in this encounter Care Teams Handbag Stitcher Relationship Specialty Start Date End Date Hayden Savage MD [address] [place] [address] PCP - General Internal Medicine 02/05/25 documented as of this encounter
--- OUTSIDE RECORDS SUMMARY | 2025-08-25 11:45 | XMS_ITS | Encounter Summary ---
Author Organization [facility] Address [address] [place] [address] Care Team Providers Care Sourcing Assistant Name Role Phone Hayden Savage MD Primary Care Provider +1- [phone] Encounter Details Date Type Department Care Team (Late st Contact Info) Description 06/10/2025 Lab Requisition [facility] - Main Lab 299 [facility] [place] [address] Omar Romero MD [address] [place] [address] Urinary tract infection, site not [...] beta-hemolytic Group B(A) 06/12/2025 8:28 AM EDT [facility] ([facility]) [facility] Comment: Susceptibility testing is not routinely performed for Beta Streptococcus isolates since these organisms are predictably sensitive to Penicillin. If the Patient is not responding, is allergic to Penicillin, or further therapeutic information is requir ed, please consult an Infectious Disease Specialist. Urine Urine specimen obtained by clean catch procedure / Unknown 06/10/2025 06/10/2025 1:47 PM EDT Narrative [facility] ([facility] - 06/12/2025 8:28 AM EDT Normal skin/urogenital kerry noted us Omar Romero MD LAB MICROBIOLOGY - GENERA L ORDERABLES Final Result [facility] LAB [address] [place] [address], documented in this encounter Visit Diagnoses Diagnosis Urinary tract infection, site not specified documented in this encounter Care Teams Sourcing Assistant Relationship Specialty Start Date End Date Hayden Savage MD [facility] ADULT [address] [place] [address] PCP - General Internal Medicine 02/05/25 documented as of this encounter
--- OUTSIDE RECORDS SUMMARY | 2025-08-25 11:45 | XMS_ITS | Clinical Summary ---
Author Organization 299 [facility] Address [address] [place] [address] Phone Care Team Providers Care Managed Care Manager Name Role Phone Hayden Savage MD Primary Care Provider +1- [phone] Encounters Date Type Department Care Team Description 08/18/2025 Lab Requisition [facility] Lab 299 [place] [phone] Og Wilcox PA Urinary tract infection, site not specified 07/15/2025 Lab Requisition [facility] Lab [address] [place] [phone] Og Wilcox PA Urinary tract infection, site not specified 06/10/2025 Lab Requisition [facility] Lab [address] [place] [phone] Omar Romero MD Urinary tract infection, site not specified from [...] Date/Time Associated Diagnosis Comments CULTURE URINE Routine 08/18/2025 12:15 PM EDT Urinary tract infection, site not specified CULTURE URINE Routine 07/15/2025 10:30 AM EDT Urinary tract infection, site not specified CULTURE URINE Routine 06/10/2025 12:00 AM EDT Urinary tract infection, site not specified from Last 3 Months Results * (ABNORMAL) Culture urine (08/18/2025 12:15 PM EDT) Only the most recent of3 resultswithin the time period is included. Culture, Urine >=100,000 CFU/mL Staphylococcus epidermidis(A) LENNY 08/20/2025 8:11 AM EDT [facility] LAB Comment: Edited result: Previously reported as Gram Positive Cocci on 08/19/2025 at 1012 EDT. Urine Urine specimen obtained by clean catch procedure / Unknown 08/18/2025 12:15 PM EDT 08/18/2025 2:10 PM EDT Narrative Organism Antibiotic Method Susceptibility [...] Staphylococcus epidermidis Rifampin LENNY <=0.5 ug/ml: Susceptible [facility] LAB MICROBIOLOGY - GENERAL ORDAida CAMACHO Final Result [facility] ([facility]) [facility] [address] [place] [address], from Last 3 Months Insurance MEDICARE [facility] Care Teams Managed Care Manager Relationship Specialty Start Date End Date Hayden Savage MD [facility] [address] [place] [address] [address] [place] [address] PCP - General Internal Medicine 02/05/25
--- OUTSIDE RECORDS SUMMARY | 2025-08-25 11:45 | XMS_ITS | Encounter Summary ---
Author Organization [facility] Address [address] [place] [address] Care Team Providers Care Agency Development Manager Name Role Phone Hayden Savage MD Primary Care Provider +1- [phone] Encounter Details Date Type Department Care Team (Late st Contact Info) Description 02/05/[address] [facility] - Main Lab 299 [facility] [place] [employer] [place] [address] Jodi Ingram PA [address] [place], [place] [phone] Urinary tract infection, site not specified; Dysuria [...] Staphylococcus epidermidis(A) LENNY 02/07/2025 8:10 AM EDT [facility] ([facility]) [facility] Comment: Edited result: Previously reported [...] MICROBIOLOGY - GENERAL ORD ERABLES Final Result [facility] ([facility]) [facility] [address] [place] [address], documented in this encounter Visit Diagnoses Diagnosis Urinary tract infection, site not specified Dysuria documented in this encounter Care Teams Agency Development Manager Relationship Specialty Start Date End Date Hayden Savage MD [address] [facility] [address] PCP - General Internal Medicine 02/05/25 documented as of this encounter
--- OUTSIDE RECORDS SUMMARY | 2025-08-25 11:45 | XMS_ITS | Encounter Summary ---
Author Organization [facility] Address [address] [place] [address] Care Team Providers Care Sewer Pipe Layer Name Role Phone Hayden Savage MD Primary Care Provider +1- [phone] Encounter Details Date Type Department Care Team (Late st Contact Info) Description 04/16/2025 Lab Requisition [facility] - Main Lab 299 [facility] [employer] [facility] [place] [address] Ernesto Brewster MD [address] [facility] [address] [place], [place] [phone] Urinary tract infection, site not specified; Other [...] Corynebacterium species(A) 04/18/2025 11:00 AM EDT [facility] ([facility]) [facility] Comment: The organism value for this result has been updated. These results have been appended to the previously preliminary verified report. 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
--- OUTSIDE RECORDS SUMMARY | 2025-08-25 11:45 | XMS_ITS | Encounter Summary ---
Author Organization [facility] Address [address] [place] [address] Care Team Providers Care Metal Bonding Crib Attendant Name Role Phone Hayden Savage MD Primary Care Provider +1- [phone] Encounter Details Date Type Department Care Team (Late st Contact Info) Description 08/18/2025 Lab Requisition [facility] - Main Lab 299 [facility] [address] Og Wilcox PA [address] [place] [address] Urinary tract infection, site not specified Social [...] this encounter Results * (ABNORMAL) Culture urine (08/18/2025 12:15 PM EDT) Culture, Urine >=100,000 CFU/mL Staphylococcus epidermidis(A) LENNY 08/20/2025 8:11 AM EDT [facility] ([facility]) [facility] LAB Comment: Edited result: Previously [...] Staphylococcus epidermidis Rifampin LENNY <=0.5 ug/ml: Susceptible [facility] LAB MICROBIOLOGY - GENERAL DONAL DOUG Final Result [facility] ([facility]) [facility] LAB [address] [place] [address], documented in this encounter Visit Diagnoses Diagnosis Urinary tract infection, site not specified documented in this encounter Care Teams Metal Bonding Crib Attendant Relationship Specialty Start Date End Date Hayden Savage MD [address] [place] [address] PCP - General Internal Medicine 02/05/25 documented as of this encounter
--- OUTSIDE RECORDS SUMMARY | 2025-08-25 11:45 | XMS_ITS | Encounter Summary ---
Author Organization [facility] Address [address] [place] [address] Care Team Providers Care Sanitation Laborer Name Role Phone Hayden Savage MD Primary Care Provider +1- [phone] Encounter Details Date Type Department Care Team (Late st Contact Info) Description 05/19/2025 Lab Requisition [facility] - Main Lab 299 [facility] [place] [address] Jodi Ingram PA [address] [place], [place] [phone] Urinary tract infection, site not specified; Dysuria [...] Staphylococcus haemolyticus(A) LENNY 05/21/2025 9:43 AM EDT [facility] ([facility]) [facility] Comment: Edited result: Previously [...] MICROBIOLOGY - GENERAL ORD ERABLES Final Result [facility] ([facility]) [facility] LAB [address] [place] [address], documented in this encounter Visit Diagnoses Diagnosis Urinary tract infection, site not specified Dysuria documented in this encounter Care Teams Sanitation Laborer Relationship Specialty Start Date End Date Hayden Savage MD [address] [facility] [place] [address] PCP - General Internal Medicine 02/05/25 documented as of this encounter
== END 2025-08-25 11:06 | disposition home or self-care (01) ==
LOC: HO.ACS 10:31
PROVIDERS: PCP Internal Medicine; Visit Provider Internal Medicine Medical Oncology
DX: Z79.01 Long term (current) use of anticoagulants (principal)

== ENCOUNTER → 2025-08-25 10:31 | Outpatient (BNVA) | payer MEDICARE, SELFPAY | PROVIDERS: PCP Internal Medicine; Visit Provider Internal Medicine Medical Oncology | DX: Z51.81 Encounter for therapeutic drug level monitoring (principal); Z79.01 Long term (current) use of anticoagulants | CPT/HCPCS: 85610; 99211 ==

== ENCOUNTER 2025-09-04 10:31 | Outpatient (AMB) | payer MEDICARE, SELFPAY ==
[2025-09-04 10:55] LABS: Prothrombin Time Whole Bld POC 23.7 sec (11.1-13.5); ~PT, ~INR - Anti Coag Clinic 2.0 (0.9-1.1)
--- NOTE | 2025-09-04 11:00 | MHC.OFFVISCO ---
Intake Intake Visit Reasons: Anticoagulation Allergies No Known Allergies Allergy (Verified 09/04/25 10:51) Medication List - Last Reconciled 09/04/25 by Itzel Minor RN ceramides 1,3,6-II (CeraVe topical cream) 1 appl topical QID PRN cranberry [id number]-h-hmxtnww 500-50 mg tabs PO docusate sodium 100 mg PO BID PRN fluticasone propion-salmeterol 115-21 mcg/actuation (Advair HFA) 2 puffs inhalation BID 30 days gabapentin mg PO hydrocortisone 1% (Cortisone (hydrocortisone)) 1 appl topical QID PRN nitrofurantoin monohyd/m-cryst 100 mg 1 cap PO BID polyethylene glycol 400 1% (Dry Eye Relief (PEG 400)) 1 drp ophthalmic (eye) Q8H PRN warfarin See Protocol 7.5 mg orally MON AND MONDAY; or as directed warfarin See Protocol 10 mg orally SUN Mon; or as directed Nursing Note INR: 2.0 in therapeutic range of 2-3 Medications and supplements reviewed No changes in health, diet, medications, or supplements, Denies any signs and symptoms of bleeding or bruising or clotting. Bleeding, bruising, clotting discussed Nutritional guidance given to avoid greens X 2 days and to have a serving of reds today. Food list reviewed. Dose: 10mg X 4 days and 7.5mg X 3 days F/U INR: 1 week Patient verbalizes understanding of instructions given Anti-Coag Initial Assessment Social Hx Patient Tobacco Use Status: Former Tobacco user Tobacco use type: Cigarette alcohol intake: current Alcohol intake frequency: 0-2 drinks per day Cardiovascular Hx: HTN, Angina, [place] and Arrhythmias Lung Disease HX: Asthma Musculoskeletal Hx: Arthritis Hx: Bladder Disorders and Prostate Neurological Hx: Aneurysm Cancer HX: Yes (prostate cancer 25 years ago ) Psych. Illness/Depression: No Coding Level of Care Code Est Patient Level 1 Diagnoses Current use of anticoagulant therapy Z79.01 Results AMB INR Fingerstick AMB INR Fingerstick 2.0 Last Edit by Itzel Minor RN on 09/04/25 10:55 interface delay Assessment & Plan Assessment & Plan (1) Current use of anticoagulant therapy: Code(s): Z79.01 - senior living (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
== END 2025-09-04 11:02 | disposition home or self-care (01) ==
LOC: HO.ACS 10:31
PROVIDERS: PCP Internal Medicine; Visit Provider Internal Medicine Medical Oncology
DX: Z79.01 Long term (current) use of anticoagulants (principal)

== ENCOUNTER → 2025-09-04 10:31 | Outpatient (BNVA) | payer MEDICARE, SELFPAY | PROVIDERS: PCP Internal Medicine; Visit Provider Internal Medicine Medical Oncology | DX: Z51.81 Encounter for therapeutic drug level monitoring (principal); Z79.01 Long term (current) use of anticoagulants | CPT/HCPCS: 85610; 99211 ==

== ENCOUNTER → 2025-09-15 10:32 | Outpatient (BNVA) | payer MEDICARE, SELFPAY | PROVIDERS: PCP Internal Medicine; Visit Provider Internal Medicine Medical Oncology | DX: I48.0 Paroxysmal atrial fibrillation (principal); Z51.81 Encounter for therapeutic drug level monitoring; Z79.01 Long term (current) use of anticoagulants | CPT/HCPCS: 85610; 99211 ==

== ENCOUNTER 2025-09-23 09:03 | Outpatient (REF) | payer SELFPAY | END 2025-09-23 09:04 | disposition home or self-care (01) | LOC: HO.HAP 09:03 | PROVIDERS: Visit Provider Internal Medicine | DX: Z13.89 Encounter for screening for other disorder (principal) ==

== ENCOUNTER 2025-09-29 10:31 | Outpatient (AMB) | payer SELFPAY ==
[2025-09-29 10:43] LABS: Prothrombin Time Whole Bld POC 31.3 sec (11.1-13.5); ~PT, ~INR - Anti Coag Clinic 2.6 (0.9-1.1)
--- NOTE | 2025-09-29 10:45 | MHC.OFFVISCO ---
Intake Intake Visit Reasons: Anticoagulation Allergies No Known Allergies Allergy (Verified 09/29/25 10:36) Medication List - Last Reconciled 09/29/25 by Itzel Minor RN ceramides 1,3,6-II (CeraVe topical cream) 1 appl topical QID PRN cranberry zwrvsxj-l-axppenj 500-50 mg tabs PO docusate sodium 100 mg PO BID PRN fluticasone propion-salmeterol 115-21 mcg/actuation (Advair HFA) 2 puffs inhalation BID 30 days gabapentin mg PO hydrocortisone 1% (Cortisone (hydrocortisone)) 1 appl topical QID PRN nitrofurantoin monohyd/m-cryst 100 mg 1 cap PO BID polyethylene glycol 400 1% (Dry Eye Relief (PEG 400)) 1 drp ophthalmic (eye) Q8H PRN warfarin See Protocol 7.5 mg orally MON AND MONDAY; or as directed warfarin See Protocol 10 mg orally SUN Mon; or as directed Nursing Note INR: 2.6 in therapeutic range of 2-3 Medications and supplements reviewed No changes in health, diet, medications, or supplements, Denies any signs and symptoms of bleeding or bruising or clotting. Bleeding, bruising, clotting discussed Nutritional guidance given Dose: continue same dose of 10mg X 4 days and 7.5mg X 3 days (M/W/F) F/U INR: 2 weeks Patient verbalizes understanding of instructions with read back given Anti-Coag Initial Assessment Social Hx Patient Tobacco Use Status: Former Tobacco user Tobacco use type: Cigarette alcohol intake: current Alcohol intake frequency: 0-2 drinks per day Cardiovascular Hx: HTN, Angina, [place] and Arrhythmias Lung Disease HX: Asthma Musculoskeletal Hx: Arthritis Hx: Bladder Disorders and Prostate Neurological Hx: Aneurysm Cancer HX: Yes (prostate cancer 25 years ago ) Psych. Illness/Depression: No Coding Level of Care Code Est Patient Level 1 Diagnoses Current use of anticoagulant therapy Z79.01 Results AMB INR Fingerstick AMB INR Fingerstick 2.6 Last Edit by Itzel Minor RN on 09/29/25 10:42 interface delay Assessment & Plan Assessment & Plan (1) Current use of anticoagulant therapy: Code(s): Z79.01 - termination clerk (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
--- OUTSIDE RECORDS SUMMARY | 2025-09-29 12:45 | XMS_ITS | Encounter Summary ---
Author Organization [facility] Address [address] [place] [address] Care Team Providers Care Back Feeder Plywood Layup Line Name Role Phone Hayden Savage MD Primary Care Provider +1- [phone] Encounter Details Date Type Department Care Team (Late st Contact Info) Description 06/10/2025 Lab Requisition [facility] - Main Lab 299 [facility] [place] [address] Omar Romero MD [address] [place] [address] Urinary tract infection, site not [...] Group B(A) 06/12/2025 8:28 AM EDT [facility] Comment: Susceptibility testing is not routinely performed for Beta Streptococcus isolates since these organisms are predictably sensitive to Penicillin. If the Patient is not responding, is allergic to Penicillin, or further therapeutic information is requir ed, please consult an Infectious Disease Specialist. Urine Urine specimen obtained by clean catch procedure / Unknown 06/10/2025 06/10/2025 1:47 PM EDT Narrative [facility] ([facility] - 06/12/2025 8:28 AM EDT Normal skin/urogenital kerry noted us Omar Romero MD LAB MICROBIOLOGY - GENERA L ORDERABLES Final Result [facility] LAB [address] [place] [address], documented in this encounter Visit Diagnoses Diagnosis Urinary tract infection, site not specified documented in this encounter Care Teams Back Feeder Plywood Layup Line Relationship Specialty Start Date End Date Hayden Savage MD [facility] ADULT [address] [place] [address] PCP - General Internal Medicine 02/05/25 documented as of this encounter
--- OUTSIDE RECORDS SUMMARY | 2025-09-29 12:45 | XMS_ITS | Encounter Summary ---
Author Organization [facility] Address [address] [place] [address] Care Team Providers Care Surgical Product Sales Consultant Name Role Phone Hayden Savage MD Primary Care Provider +1- [phone] Encounter Details Date Type Department Care Team (Late st Contact Info) Description 08/18/2025 Lab Requisition [facility] - Main Lab 299 [facility] [place] [address] Og Wilcox, [place] [address] [place] [address] Urinary tract infection, site not specified Social [...] Staphylococcus epidermidis(A) LENNY 08/20/2025 8:11 AM EDT [facility] ([facility]) [facility] Comment: Edited result: Previously [...] Staphylococcus epidermidis Rifampin LENNY <=0.5 ug/ml: Susceptible [facility] LAB MICROBIOLOGY - GENERAL DONAL DOUG Final Result [facility] ([facility]) [facility] LAB [address] [place] [address], documented in this encounter Visit Diagnoses Diagnosis Urinary tract infection, site not specified documented in this encounter Care Teams Surgical Product Sales Consultant Relationship Specialty Start Date End Date Hayden Savage MD [address] [place] [address] PCP - General Internal Medicine 02/05/25 documented as of this encounter
--- OUTSIDE RECORDS SUMMARY | 2025-09-29 12:45 | XMS_ITS | Clinical Summary ---
Author Organization 299 [facility] Address [address] [place] [address] Phone Care Team Providers Care Dumper Operator Name Role Phone Hayden Savage MD Primary Care Provider +1- [phone] Encounters Date Type Department Care Team Description 08/18/2025 Lab Requisition [facility] Lab [address] [place] [address] Og Wilcox PA Urinary tract infection, site not specified 07/15/2025 Lab Requisition [facility] Lab [address] [place] [address] Og Wilcox PA Urinary tract infection, site [...] 12:15 PM EDT) Only the most recent of2 resultswithin the time period is included. Culture, Urine >=100,000 CFU/mL Staphylococcus epidermidis(A) LENNY 08/20/2025 8:11 AM EDT [facility] Comment: Edited result: Previously reported as Gram Positive Cocci on 08/19/2025 at 1012 EDT. Urine Urine specimen obtained by clean catch procedure / Unknown 08/18/2025 12:15 PM EDT 08/18/2025 2:10 PM EDT Narrative Organism Antibiotic Method Susceptibility Staphylococcus epidermidis Benzylpenicillin ELNNY >=0.5 ug/ml: Resistant Staphylococcus epidermidis Oxacillin LENNY [...] Staphylococcus epidermidis Rifampin LENNY <=0.5 ug/ml: Susceptible [facility] PA LAB MICROBIOLOGY - GENERAL ORDE DOUG Final Result [facility] ([facility] HOSPITAL LAB [address] [place] [address], from Last 3 Months Insurance MEDICARE [facility] Care Teams Dumper Operator Relationship Specialty Start Date End Date Hayden Savage MD [address] [place] [address] PCP - General Internal Medicine 02/05/25
--- OUTSIDE RECORDS SUMMARY | 2025-09-29 12:45 | XMS_ITS | Encounter Summary ---
Author Organization [facility] Address [address] [place] [address] Care Team Providers Care Senior Java Engineer Name Role Phone Hayden Savage MD Primary Care Provider +1- [phone] Encounter Details Date Type Department Care Team (Late st Contact Info) Description 04/16/2025 Lab Requisition [facility] - Main Lab 299 [facility] [place] [address] Ernesto Brewster MD [address] [facility] [address] [place], [place] [phone] Urinary tract infection, site not specified; Other [...] CFU/mL Corynebacterium species(A) 04/18/2025 11:00 AM EDT [facility] ([facility]) [facility] Comment: The organism value for this result has been updated. These results have been appended to the previously preliminary verified report. 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
--- OUTSIDE RECORDS SUMMARY | 2025-09-29 12:45 | XMS_ITS | Encounter Summary ---
Author Organization [facility] Address [address] [place] [address] Care Team Providers Care Umbrella Tipper Name Role Phone Hayden Savage MD Primary Care Provider +1- [phone] Encounter Details Date Type Department Care Team (Late st Contact Info) Description 07/15/2025 Lab Requisition [facility] - Main Lab 299 [facility] [place] [address] Og Wilcox PA [address] [place], [place] [phone] Urinary tract infection, site not specified Social [...] haemolyticus(A) LENNY 07/18/2025 11:16 AM EDT [facility] ([facility]) [facility] Comment: The organism value [...] Staphylococcus haemolyticus Rifampin LENNY <=0.5 ug/ml: Susceptible [facility] LAB MICROBIOLOGY - GENERAL KEON CAMACHO Final Result [facility] ([facility]) [facility] [address] [place] [address], documented in this encounter Visit Diagnoses Diagnosis Urinary tract infection, site not specified documented in this encounter Care Teams Umbrella Tipper Relationship Specialty Start Date End Date Hayden Savage MD [address] [place] [address] PCP - General Internal Medicine 02/05/25 documented as of this encounter
--- OUTSIDE RECORDS SUMMARY | 2025-09-29 12:45 | XMS_ITS | Encounter Summary ---
Author Organization [facility] Address [address] [place] [address] Care Team Providers Care Construction Project Administrator Name Role Phone Hayden Savage MD Primary Care Provider +1- [phone] Encounter Details Date Type Department Care Team (Late st Contact Info) Description 01/17/2025 Lab Requisition [facility] - Main Lab 299 [facility] [place] [address] Marvin Cardoso PA [address] [place] [address] Urinary tract infection, site not [...] Aerococcus urinae(A) LENNY 01/20/2025 12:43 PM EST [facility] HOSPITAL LAB Comment: Susceptibility testing not [...] AM EST 01/17/2025 2:05 PM EST Narrative [facility] ([facility] - 01/20/2025 12:43 PM EST Sparse additional colony types present in insignificant amounts. us Marvin BUCIO LAB MICROBIOLOGY - GENERAL ORD ERABLES Final Result [facility] LAB [address] [place] [address], documented in this encounter Visit Diagnoses Diagnosis Urinary tract infection, site not specified documented in this encounter Care Teams Construction Project Administrator Relationship Specialty Start Date End Date Hayden Savage MD [address] [place] [address] PCP - General Internal Medicine 02/05/25 documented as of this encounter
--- OUTSIDE RECORDS SUMMARY | 2025-09-29 12:45 | XMS_ITS | Encounter Summary ---
Author Organization [facility] Address [address] [place] [address] Care Team Providers Care Grain Cleaner And Transfer Operator Name Role Phone Hayden Savage MD Primary Care Provider +1- [phone] Encounter Details Date Type Department Care Team (Late st Contact Info) Description 05/19/2025 Lab Requisition [facility] - Main Lab 299 [facility] [place] [address] Jodi Ingram PA [address] [place], [place] [id number] Urinary tract infection, site not specified; Dysuria [...] Staphylococcus haemolyticus(A) LENNY 05/21/2025 9:43 AM EDT [facility] ([facility]) [facility] Comment: Edited result: Previously [...] Final Result [facility] ([facility]) [facility] [address] [place] [address], documented in this encounter Visit Diagnoses Diagnosis Urinary tract infection, site not specified Dysuria documented in this encounter Care Teams Grain Cleaner And Transfer Operator Relationship Specialty Start Date End Date Hayden Savage MD [address] [facility] [place] [address] PCP - General Internal Medicine 02/05/25 documented as of this encounter
--- OUTSIDE RECORDS SUMMARY | 2025-09-29 12:45 | XMS_ITS | Encounter Summary ---
Author Organization [facility] Address [address] [place] [address] Care Team Providers Care Director Of People Name Role Phone Hayden Savage MD Primary Care Provider +1- [phone] Encounter Details Date Type Department Care Team (Late st Contact Info) Description 02/05/2025 Lab Requisition [facility] - Main Lab 299 [facility] [place] [address] Jodi Ingram PA [address] [place], [place] [id number] Urinary tract infection, site not specified; Dysuria [...] Staphylococcus epidermidis(A) LENNY 02/07/2025 8:10 AM EDT [facility] ([facility]) [facility] Comment: Edited result: Previously reported [...] MICROBIOLOGY - GENERAL ORD ERABLES Final Result [facility] ([facility]) [facility] [address] [place] [address], documented in this encounter Visit Diagnoses Diagnosis Urinary tract infection, site not specified Dysuria documented in this encounter Care Teams Director Of People Relationship Specialty Start Date End Date Hayden Savage MD [address] [facility] [address] PCP - General Internal Medicine 02/05/25 documented as of this encounter
== END 2025-09-29 11:01 | disposition home or self-care (01) ==
LOC: HO.ACS 10:31
PROVIDERS: PCP Internal Medicine; Visit Provider Internal Medicine Medical Oncology
DX: Z79.01 Long term (current) use of anticoagulants (principal)

== ENCOUNTER → 2025-09-29 10:31 | Outpatient (BNVA) | payer MEDICARE, OTHER, SELFPAY | PROVIDERS: PCP Internal Medicine; Visit Provider Internal Medicine Medical Oncology | DX: Z79.01 Long term (current) use of anticoagulants (principal); Z51.81 Encounter for therapeutic drug level monitoring; I48.0 Paroxysmal atrial fibrillation | CPT/HCPCS: 85610; 99211 ==

== ENCOUNTER 2025-09-29 11:03 | Outpatient (REF) | payer SELFPAY | END 2025-09-29 11:04 | disposition home or self-care (01) | LOC: HO.HAP 11:03 | PROVIDERS: Visit Provider Internal Medicine | DX: Z46.1 Encounter for fitting and adjustment of hearing aid (principal) | CPT/HCPCS: V5266 ==

== ENCOUNTER 2025-10-16 10:59 | Outpatient (AMB) | payer MEDICARE, OTHER, SELFPAY ==
--- NOTE | 2025-10-16 11:10 | A.OFFPC_ITS ---
Vital Signs 10/16/25 11:11 Height 6 ft Weight 301 lb BMI 40.8 BP 118/62 Blood Pressure Location Lt brachial Position Sitting Pulse 76 Pulse Source Pulse Oximeter Temp 97.1 F Temp Source Temporal Artery Scan Pulse Oximetry (%) 98 Oxygen Delivery Method Room Air Intake Visit Reasons: follow up Intake Note: Patient is here to follow up on HLD, Asthma, Hypotension. Forensic Toxicologist Required: No Out And Out Cigar Maker Hand: Present Accompanied by: Son Allergies No Known Allergies Allergy (Verified 10/16/25 11:10) Tobacco use date assessed: 10/16/25 Fall risk assessment: No Falls in past year Last assessed Fall Risk: 10/16/25 Dental Screening Dental Screen Date: 01/30/25 HPI HPI Comments History of Present Illness Details History of Present Illness - The patient is an 89 year old individu al presenting for management of multiple chronic issues. - The patient has a history of recurrent urinary tract infections, secondary to daily self-catheterization. - The patient is on a daily antibiotic f rom a urologist for prophylaxis and was uncertain about the use of prescribed methenamine. - The patient's weight is over 300 pound s. - The patient's diet includes carbohydra bola such as pasta, rice, and bread, and the patient consumes two pieces of toast with jam for breakfast. - The patient eats at a facility where m eals are provided. - The patient experiences swollen ankles , which is partly attributed to gabapentin and the patient's weight. - The patient reports a sensation of 'fo gginess' or a 'drunk feeling', which is most pronounced in the shower. - The patient previously stopped taking gabapentin, but the symptom persisted. - The patient has poor balance and uses a cane and a walker, but denies any falls. - The patient is receiving treatment fro m a retina specialist, which includes injections in the eye, and is dissatisfied with the patient's current glasses. - The patient believes an influenza shot was administered in the late summer along with a COVID-19 vaccine at a pharmacy but needs to confirm this. - The patient denies shortness of breath when walking and sleeps flat on the patient's sides at night. 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 - Functional Status: The patient has poo r balance and uses a cane and a walker for ambulation. - Nutrition: The patient lives in a [facility] where meals are provided. - The diet is high in carbohydrates, inc luding pasta, rice, and bread. - Breakfast typically consists of two pi eces of toast with jam. - The patient eats fruit gummies but den ies consuming many other sweets like cakes or pastries. Results [facility] Medical History (Updated 06/24/25 @ 12:07 by Claudia Mack MD) Acute tracheobronchitis Hypotension Obesity (BMI 35.0-39.9 without comorbidity) Ascending aortic aneurysm Paroxysmal atrial fibrillation (HFpEF) heart failure with preserved ejection fraction Dysphagia History of prostate cancer Hyperlipidemia Cough Asthma Allergic rhinitis Surgical History Status post trigger finger release History of colonoscopy History of cataract surgery History of prostate surgery Family History Mother No problems noted. Father No problems noted. Social History Household Members: None Housing: Assisted Living Facility Alcohol intake: current Alcohol intake frequency: 0-2 drinks per day Alcohol type: wine Patient Tobacco Use Status: Former Tobacco user Tobacco use type: Cigarette e-Cigarette/Vaping Use: Never Used Second Hand Smoke Exposure: Yes service: No Current occupational status: retired Current occupation: retiered Current occupational exposures/hazards: No Cognitive needs: Yes (walker/cane) Hearing needs: Yes (hearing aide) Vision needs: Yes (Glasses) Questionnaire Thrive Questionnaire Date Thrive assessed: 03/27/25 I am a: Patient What is your living situation today?: I have a steady place to live Within the past 12 months, did the food you bought not last and you didn't have the money to get more?: Often true Within the past 12 months, did you worry whether your food would run out before you got money to buy more?: Often true Do you have trouble paying for medicines?: No Do you have trouble getting transportation to medical appointments?: No Do you have trouble paying your heating and electricity bill?: No Do you have trouble taking care of your child, family member or friend?: No Do you have trouble with day-to-day activities such as bathing, preparing meals, shopping, managing finances, etc.?: No Are you currently unemployed and looking for a job?: No Are you interested in more education?: No Please select the resources that you would like help with: None Currently or been in a relationship where the following occur: No concerns reported THRIVE Score: 2 BRITTNEY-7 AMB Questionnaire BRITTNEY-7 Date BRITTNEY - 7 assessed: 01/30/25 Source: Developed by Drs. Adams Wagner, Trina Cuellar, Demetris Turpin and colleagues, with an educational kelly from [employer]. Review of Systems Narrative Review of Systems - Constitutional: Reports weight over 300 pounds. Denies shortness of breath, including on exertion. - Neurological: Reports a 'fogginess' or 'drunk feeling,' but denies it is necessarily dizziness. Reports poor balance. Denies falls. - Cardiovascular: Reports swollen ankles. Denies orthopnea. - Eyes: Reports receiving injections in one eye from a retina specialist and is dissatisfied with current vision correction. - Genitourinary: Reports a history of recurrent urinary tract infections and performs daily self-catheterization. Physical exam (Primary Care) Vital Signs: Last Vital Signs Temp 97.1 F 10/16/25 11:11 Pulse 76 10/16/25 11:11 BP 118/62 10/16/25 11:11 Pulse Ox 98 10/16/25 11:11 Oxygen Delivery Method Room Air 10/16/25 11:11 BMI result Body Mass Index 40.8 Tobacco/Smoking Status: Tobacco use Status Tobacco use date assessed 10/16/25 10/16/25 11:12 Patient Tobacco Use Status Former Tobacco user 10/16/25 11:12 Tobacco use type Cigarette 10/16/25 11:12 e-Cigarette/Vaping Use Never Used 10/16/25 11:12 Thrive Assessment: Date of Thrive Assessment Date Thrive assessed 03/27/25 10/16/25 11:12 Currently or been in a relationship where the following occur: No concerns reported Narrative Physical Exam General: Appearance normal, both eyes and all related structures Nutritional Appearance: Over 300 pounds Orientation/consciousness: Patient oriented x3 Limitations: No limitations Head: Normal to inspection Neck: Normal visual inspection Chest: Normal palpation of entire chest wall Respiratory: Breathing seems good, sounds much better than before Neurology: Patient oriented x3 Coding Level of Care Code Complex visit Add On G2211 Diagnoses Obesity (BMI 35.0-39.9 without comorbidity) E66.9 Assessment & Plan Assessment & Plan (1) Obesity (BMI 35.0-39.9 without comorbidity): Code(s): E66.9 - Obesity, unspecified Category: Medical Plan Plan - Regarding the methenamine, it was clarified that it is not an antibiotic and should only be used symptomatically for UTIs to 'calm the urine'. - For weight management, it was advised to focus on dietary changes rather than medications like Ozempic, given the patient's age. - Dietary recommendations include reducing intake of carbohydrates like pasta, rice, and bread. - Suggested changing breakfast from toast with jam to yogurt and fruit, to which the patient agreed. - The swollen ankles were noted as being related to both weight and gabapentin. - Advised the patient to check with the pharmacy to confirm if and when the Fall flu shot was administered. - The patient was advised to find a new eye doctor for vision concerns; a referral is not required. - No prescription refills were requested during this visit. Discussion Notes I discussed the patient's multiple concerns during the visit. I clarified that methenamine is for symptomatic relief of UTIs and should not be used as a prophylactic antibiotic, as the patient is already on one from urology. Regarding the patient's weight of over 300 pounds, I advised against weight loss medications like Ozempic due to the patient's age and recommended focusing on diet. We discussed specific dietary changes, such as reducing carbohydrates and switching breakfast to yogurt and fruit, which the patient found agreeable. I explained that the swollen ankles are likely related to both the patient's weight and gabapentin use. I advised the patient to confirm the status of the influenza vaccine with the pharmacy and to seek a new eye doctor for ongoing vision issues. We noted that the feeling of fogginess persisted even after stopping gabapentin, and the cause remains unclear. Patient Instructions - Only take methenamine if you are having symptoms of a urinary tract infection (UTI), not for prevention. - Continue taking the daily antibiotic prescribed by your urologist to prevent UTIs. - For weight loss, focus on diet. - Reduce your intake of carbohydrates like pasta, rice, and bread. - Try eating yogurt and fruit for breakfast instead of toast with jam. - Please check with your pharmacy to confirm if you received your flu shot this fall. - You may schedule an appointment with a new eye doctor; you do not need a referral for this. - Continue to use your cane and walker to help with your balance and prevent falls.
[2025-10-16 11:11] VITALS: BP 118/62; PULSE 76; TEMP 36.2; O2SAT 98; BMI 40.8
== END 2025-10-16 12:03 | disposition home or self-care (01) ==
LOC: HO.HMCH 11:00
PROVIDERS: PCP Internal Medicine; Visit Provider Internal Medicine
DX: E66.9 Obesity, unspecified (principal); Z87.440 Personal history of urinary (tract) infections; Z68.41 Body mass index [BMI] 40.0-44.9, adult

== ENCOUNTER → 2025-10-16 10:59 | Outpatient (BNVA) | payer MEDICARE, OTHER, SELFPAY | PROVIDERS: PCP Internal Medicine; Visit Provider Internal Medicine | DX: E66.9 Obesity, unspecified (principal); Z68.41 Body mass index [BMI] 40.0-44.9, adult; Z71.3 Dietary counseling and surveillance; Z87.891 Personal history of nicotine dependence | CPT/HCPCS: 99212 ==

== ENCOUNTER 2025-10-17 10:33 | Outpatient (AMB) | payer MEDICARE, OTHER, SELFPAY ==
--- NOTE | 2025-10-17 10:40 | MHC.OFFVISCO ---
Intake Intake Visit Reasons: Anticoagulation Allergies No Known Allergies Allergy (Verified 10/17/25 10:34) Medication List - Last Reconciled 10/17/25 by Cindi Moran RN ceramides 1,3,6-II (CeraVe topical cream) 1 appl topical QID PRN cranberry bwbfkii-m-ofebebi 500-50 mg tabs PO docusate sodium 100 mg PO BID PRN fluticasone propion-salmeterol 115-21 mcg/actuation (Advair HFA) 2 puffs inhalation BID PRN gabapentin 100 mg PO BID gabapentin 300 mg PO BID hydrocortisone 1% (Cortisone (hydrocortisone)) 1 appl topical QID PRN nitrofurantoin macrocrystal 50 mg PO DAILY polyethylene glycol 400 1% (Dry Eye Relief (PEG 400)) 1 drp ophthalmic (eye) Q8H PRN warfarin See Protocol 7.5 mg orally MON AND MONDAY; or as directed warfarin See Protocol 10 mg orally SUN Mon; or as directed Nursing Note INR 3.4-?? out of therapeutic range 2-3 Medications and supplements reviewed Patient status: no c.o- pt states may not have had enough greens Medications or supplements: nitrofurantoin - no interaction with warfarin per micromedex Diet: same Denies any signs and symptoms of bleeding or clotting or unusual bruising Bleeding, bruising, clotting discussed Nutritional guidance given: eat a green today Dose: reduce dose today to 5mg then cont 7.5mg x 3, 10mg x 4 F/U INR Date : 2 weeks?? Patient verbalizing understanding of instructions given. Anti-Coag Initial Assessment Social Hx Patient Tobacco Use Status: Former Tobacco user Tobacco use type: Cigarette alcohol intake: current Alcohol intake frequency: 0-2 drinks per day Cardiovascular Hx: HTN, Angina, NH and Arrhythmias Lung Disease HX: Asthma Musculoskeletal Hx: Arthritis Hx: Bladder Disorders and Prostate Neurological Hx: Aneurysm Cancer HX: Yes (prostate cancer 25 years ago ) Psych. Illness/Depression: No Questionnaires HAS-BLED Does the patient had uncontrolled Hypertension?: No Does the patient have renal disease?: No Does the patient have liver disease?: No Does the patient have a history of stroke?: No Has the patient had major bleeding or predisposition to bleeding?: No (hx of ETOH in the past ) Does the patient have labile INRs?: Yes (just started warfarin 3 days ago) Is the patient over 65 years of age?: Yes Is the patient on medications that gives them a predisposition to bleeding?: Yes Does the patient use alcohol?: Yes (limits self 2 / day ) HAS-BLED Score: 4 CHADSVASC Age: 75 or over Gender: Male Does the patient have a history of CHF?: No Does the patient have a history of Hypertension?: No Does the patient have a history of Stroke/TIA/Thromboembolism?: No Does the patient have a history of Vascular Disease (prior NH, PAD or aortic plaque)?: Yes (ABD AORTIC ANEURYSM) Does the patient have a history of Diabetes?: No CHADS VACS Score: 3 Chucky Prediction Score Rsk VTE Active Cancer: No Previous VTE, excluding superficial vein thrombosis: No Reduced mobility: No Already known Thrombophilic Condition: No With-in last month Trauma and/or Surgery: No Elderly 70 year or older: Yes Heart and/or Respiratory Failure: No Acute Myocardial infarction and/or Ischemic Stroke: No Acute Infection and/or Rheumatologic Disorder: No Obesity (BMI 30 or greater): Yes Ongoing Hormonal Treatment: No Score: 2 Chucky Score less than 4; Low Risk of VTE Chucky Score 4 or greater; High Risk of VTE Coding Level of Care Code Est Patient Level 1 Diagnoses Current use of anticoagulant therapy Z79.01 Assessment & Plan Assessment & Plan (1) Current use of anticoagulant therapy: Code(s): Z79.01 - senior care (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 Medications: Changed From fluticasone propion-salmeterol 115-21 mcg/actuation (Advair HFA) 2 puffs inhalation BID 30 days 12 grams 5RF 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
[2025-10-17 10:41] LABS: Prothrombin Time Whole Bld POC 40.6 sec (11.1-13.5); ~PT, ~INR - Anti Coag Clinic 3.4 (0.9-1.1)
--- OUTSIDE RECORDS SUMMARY | 2025-10-17 11:15 | XMS_ITS | Encounter Summary ---
Author Organization [facility] Address [address] [place] [address] Care Team Providers Care Drink Box Mechanic Name Role Phone Hayden Savage MD Primary Care Provider +1- [phone] Encounter Details Date Type Department Care Team (Late st Contact Info) Description 04/16/2025 Lab Requisition [facility] - Main Lab 299 [facility] [place] [address] Ernesto Brewster MD [address] [facility] [address] [place], [place] [phone] Urinary tract infection, site not specified; Other [...] 04/18/2025 11:00 AM EDT [facility] ([facility]) [facility] Comment: The organism value for this result has been updated. These results have been appended to the previously preliminary verified report. 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
--- OUTSIDE RECORDS SUMMARY | 2025-10-17 11:15 | XMS_ITS | Encounter Summary ---
Author Organization [facility] Address [address] [place] [address] Care Team Providers Care Social Media Director Name Role Phone Hayden Savage MD Primary Care Provider +1- [phone] Encounter Details Date Type Department Care Team (Late st Contact Info) Description 05/19/2025 Lab Requisition [facility] - Main Lab 299 [facility] [place] [address] Jodi Ingram PA [address] [place], [place] [phone] Urinary tract infection, site not specified; Dysuria [...] Staphylococcus haemolyticus(A) LENNY 05/21/2025 9:43 AM EDT [facility] ([facility]) [facility] Comment: Edited result: Previously [...] - GENERAL ORD ERABLES Final Result [facility] ([facility]) [facility] [address] [place] [address], documented in this encounter Visit Diagnoses Diagnosis Urinary tract infection, site not specified Dysuria documented in this encounter Care Teams Social Media Director Relationship Specialty Start Date End Date Hayden Savage MD [address] [place] [address] PCP - General Internal Medicine 02/05/25 documented as of this encounter
--- OUTSIDE RECORDS SUMMARY | 2025-10-17 11:15 | XMS_ITS | Encounter Summary ---
Author Organization [facility] Address [address] [place] [address] Care Team Providers Care Auto Body Estimator Name Role Phone Hayden Savage MD Primary Care Provider +1- [phone] Encounter Details Date Type Department Care Team (Late st Contact Info) Description 02/05/2025 Lab Requisition [facility] - Main Lab 299 [facility] [place] [address] Jodi Ingram PA [address] [place], [place] [phone] Urinary tract infection, site not specified; Dysuria [...] epidermidis(A) LENNY 02/07/2025 8:10 AM EDT [facility] ([facility]) [facility] Comment: Edited result: [...] - GENERAL ORD ERABLES Final Result [facility] ([facility]) [facility] [address] [place] [address], documented in this encounter Visit Diagnoses Diagnosis Urinary tract infection, site not specified Dysuria documented in this encounter Care Teams Auto Body Estimator Relationship Specialty Start Date End Date Hayden Savage MD [address] [facility] [address] PCP - General Internal Medicine 02/05/25 documented as of this encounter
--- OUTSIDE RECORDS SUMMARY | 2025-10-17 11:15 | XMS_ITS | Encounter Summary ---
Author Organization [facility] Address [address] [place] [address] Care Team Providers Care Transfer Engineer Name Role Phone Hayden Savage MD Primary Care Provider +1- [phone] Encounter Details Date Type Department Care Team (Late st Contact Info) Description 01/17/2025 Lab Requisition [facility] - Main Lab 299 [facility] [place] [address] Marvin Cardoso PA [address] [place] [address] [place] [address] Urinary tract infection, site not [...] Aerococcus urinae(A) LENNY 01/20/2025 12:43 PM EST [facility] ([facility]) HOSPITAL [facility] Comment: Susceptibility testing not [...] AM EST 01/17/2025 2:05 PM EST Narrative [facility] ([facility] - 01/20/2025 12:43 PM EST Sparse additional colony types present in insignificant amounts. us Marvin BUCIO LAB MICROBIOLOGY - GENERAL ORD ERABLES Final Result [facility] [address] [place] [address], documented in this encounter Visit Diagnoses Diagnosis Urinary tract infection, site not specified documented in this encounter Care Teams Transfer Engineer Relationship Specialty Start Date End Date Hayden Savage MD [address] [place] [address] PCP - General Internal Medicine 02/05/25 documented as of this encounter
--- OUTSIDE RECORDS SUMMARY | 2025-10-17 11:15 | XMS_ITS | Encounter Summary ---
Author Organization [facility] Address [address] [place] [address] Care Team Providers Care Anesthesia Resident Name Role Phone Hayden Savage MD Primary Care Provider +1- [phone] Encounter Details Date Type Department Care Team (Late st Contact Info) Description 10/02/2025 Lab Requisition [facility] - Main Lab 299 [place] [address] Hiren Solano PA [address] [place] [address] Urinary tract infection, site not specified Social [...] Date/Time Associated Diagnosis Comments CULTURE URINE Routine 10/02/2025 12:00 AM EST Urinary tract infection, site not specified documented in this encounter Results * (ABNORMAL) Culture urine (10/02/2025 12:00 AM EST) Culture, Urine 50,000-100,000 CFU/mL Staphylococcus epidermidis(A) LENNY 10/05/2025 7:49 AM EST [facility] ([facility] Comment: Beta-lactamase negative Edited result: Previously reported as Gram Positive Cocci on 10/03/2025 at 0946 EST. Urine Urine specimen obtained by clean catch procedure / Unknown 10/02/2025 10/02/2025 2:12 PM EST Narrative Organism Antibiotic Method Susceptibility Staphylococcus epidermidis Benzylpenicillin LENNY Susceptible Comment:This is an a ppended report. These results have been appended to a previously preliminary verified report. Staphylococcus epidermidis Oxacillin LENNY 2 ug/ml: Resistant Staphylococcus epidermidis Gentamicin LENNY >=16 ug/ml: Resistant Staphylococcus epidermidis Ciprofloxacin LENNY >=8 ug/ml: Resistant Staphylococcus epidermidis Levofloxacin LENNY 4 ug/ml: Resistant Staphylococcus epidermidis Erythromycin LENNY >=8 ug/ml: Resistant Staphylococcus epidermidis Clindamycin LENNY <=0.25 ug/ml: Susceptible Staphylococcus epidermidis Quinupristin/Dalfopristin M IC <=0.25 ug/ml: Susceptible Staphylococcus epidermidis Linezolid LENNY 2 ug/ml: Susceptible Staphylococcus epidermidis Vancomycin LENNY 1 ug/ml: Susceptible Staphylococcus epidermidis Tetracycline LENNY 2 ug/ml: Susceptible Staphylococcus epidermidis Rifampin LENNY <=0.5 ug/ml: Susceptible us Hiren BUCIO LAB MICROBIOLOGY - GENERAL O RDERABLES Final Result [facility] ([facility]) [facility] LAB [address] [place] [address], documented in this encounter Visit Diagnoses Diagnosis Urinary tract infection, site not specified documented in this encounter Care Teams Anesthesia Resident Relationship Specialty Start Date End Date Hayden Savage MD [address] [place] [address] PCP - General Internal Medicine 02/05/25 documented as of this encounter
--- OUTSIDE RECORDS SUMMARY | 2025-10-17 11:15 | XMS_ITS | Clinical Summary ---
Author Organization 299 [facility] Address [address] [place] [address] Phone Care Team Providers Care Project Account Manager Name Role Phone Hayden Savage MD Primary Care Provider +1- [phone] Encounters Date Type Department Care Team Description 10/02/2025 Lab Requisition [facility] Lab [address] [place] [address] Hiren Solano PA Urinary tract infection, site not specified 08/18/2025 Lab Requisition [facility] Lab [address] [place] [address] Og Wilcox PA Urinary tract [...] Influencers of Health Screening 01/17/2025 COVID-19 Vaccine (2024- season) 2025 Influenza Vaccine (#1) 2025 6, [...] EST Urinary tract infection, site not specified CULTURE URINE Routine 08/18/2025 12:15 PM EDT Urinary tract infection, site not specified from Last 3 Months Results * (ABNORMAL) Culture urine (10/02/2025 12:00 AM EST) Only the most recent of2 resultswithin the time period is included. Culture, Urine 50,000-100,000 CFU/mL Staphylococcus epidermidis(A) LENNY 10/05/2025 7:49 AM EST [facility] LAB Comment: Beta-lactamase negative Edited result: Previously [...] MICROBIOLOGY - GENERAL O RDERABLES Final Result [facility] ([facility]) [facility] LAB [address] [place] [address], [place] [phone] from Last 3 Months Insurance MEDICARE [facility] Care Teams Project Account Manager Relationship Specialty Start Date End Date Hayden Savage MD [address] [place] [address] PCP - General Internal Medicine 02/05/25
--- OUTSIDE RECORDS SUMMARY | 2025-10-17 11:15 | XMS_ITS | Encounter Summary ---
Author Organization [facility] Address [address] [place] [address] Care Team Providers Care Drug Abuse Resistance Education Officer Name Role Phone Hayden Savage MD Primary Care Provider +1- [phone] Encounter Details Date Type Department Care Team (Late st Contact Info) Description 07/15/2025 Lab Requisition [facility] - Main Lab 299 [facility] [place] [address] Og Wilcox PA [address] [place], [place] [phone] Urinary tract infection, site not specified Social [...] 07/18/2025 11:16 AM EDT [facility] ([facility]) [facility] LAB Comment: The organism value [...] Staphylococcus haemolyticus Rifampin LENNY <=0.5 ug/ml: Susceptible [facility] LAB MICROBIOLOGY - GENERAL KOEN CAMACHO Final Result [facility] ([facility]) [facility] LAB [address] [place] [address], documented in this encounter Visit Diagnoses Diagnosis Urinary tract infection, site not specified documented in this encounter Care Teams Drug Abuse Resistance Education Officer Relationship Specialty Start Date End Date Hayden Savage MD [address] [place] [address] PCP - General Internal Medicine 02/05/25 documented as of this encounter
--- OUTSIDE RECORDS SUMMARY | 2025-10-17 11:16 | XMS_ITS | Encounter Summary ---
Author Organization [facility] Address [address] [place] [address] Care Team Providers Care Marble Helper Name Role Phone Hayden Savage MD Primary Care Provider +1- [phone] Encounter Details Date Type Department Care Team (Late st Contact Info) Description 06/10/2025 Lab Requisition [facility] - Main Lab 299 [facility] [place] [address] Omar Romero MD [address] [place] [address] Urinary tract infection, site not [...] beta-hemolytic Group B(A) 06/12/2025 8:[address] [facility] ([facility]) [facility] LAB Comment: Susceptibility testing is not routinely performed for Beta Streptococcus isolates since these organisms are predictably sensitive to Penicillin. If the Patient is not responding, is allergic to Penicillin, or further therapeutic information is requir ed, please consult an Infectious Disease Specialist. Urine Urine specimen obtained by clean catch procedure / Unknown 06/10/2025 06/10/2025 1:[address] [facility] ([facility] - 06/12/2025 8:28 AM EDT Normal skin/urogenital kerry noted us Omar Romero MD LAB MICROBIOLOGY - GENERA L ORDERABLES Final Result [facility] LAB [address] [place] [address], documented in this encounter Visit Diagnoses Diagnosis Urinary tract infection, site not specified documented in this encounter Care Teams Marble Helper Relationship Specialty Start Date End Date Hayden Savage MD [facility] [address] [place] [address] PCP - General Internal Medicine 02/05/25 documented as of this encounter
--- OUTSIDE RECORDS SUMMARY | 2025-10-17 11:16 | XMS_ITS | Encounter Summary ---
Author Organization [facility] Address [address] [place] [address] Care Team Providers Care Webfed Offset Press Operator Name Role Phone Hayden Savage MD Primary Care Provider +1- [phone] Encounter Details Date Type Department Care Team (Late st Contact Info) Description 08/18/2025 Lab Requisition [facility] - Main Lab 299 [facility] [place] [address] Og Wilcox, FORTUNATO [address] [place] [address] Urinary tract infection, site not specified Social [...] Staphylococcus epidermidis(A) LENNY 08/20/2025 8:11 AM EDT [facility] ([facility]) [facility] Comment: Edited result: Previously [...] Staphylococcus epidermidis Rifampin LENNY <=0.5 ug/ml: Susceptible [facility] LAB MICROBIOLOGY - GENERAL DONAL DOUG Final Result [facility] ([facility]) [facility] LAB [address] [place] [address], documented in this encounter Visit Diagnoses Diagnosis Urinary tract infection, site not specified documented in this encounter Care Teams Webfed Offset Press Operator Relationship Specialty Start Date End Date Hayden Savage MD [address] [place] [address] PCP - General Internal Medicine 02/05/25 documented as of this encounter
== END 2025-10-17 10:54 | disposition home or self-care (01) ==
LOC: HO.ACS 10:33
PROVIDERS: PCP Internal Medicine; Visit Provider Internal Medicine Medical Oncology
DX: Z79.01 Long term (current) use of anticoagulants (principal)

== ENCOUNTER → 2025-10-17 10:33 | Outpatient (BNVA) | payer MEDICARE, OTHER, SELFPAY | PROVIDERS: PCP Internal Medicine; Visit Provider Internal Medicine Medical Oncology | DX: I48.0 Paroxysmal atrial fibrillation (principal); Z51.81 Encounter for therapeutic drug level monitoring; Z79.01 Long term (current) use of anticoagulants | CPT/HCPCS: 85610; 99211 ==

== ENCOUNTER 2025-10-31 10:34 | Outpatient (AMB) | payer SELFPAY ==
[2025-10-31 10:41] LABS: Prothrombin Time Whole Bld POC 36.5 sec (11.1-13.5); ~PT, ~INR - Anti Coag Clinic 3.0 (0.9-1.1)
--- NOTE | 2025-10-31 10:48 | MHC.OFFVISCO ---
Intake Intake Visit Reasons: Anticoagulation Allergies No Known Allergies Allergy (Verified 10/31/25 10:36) Medication List - Last Reconciled 10/31/25 by Itzel Minor RN ceramides 1,3,6-II (CeraVe topical cream) 1 appl topical QID PRN cranberry gwqlbdo-y-bvbnxho 500-50 mg tabs PO docusate sodium 100 mg PO BID PRN fluticasone propion-salmeterol 115-21 mcg/actuation (Advair HFA) 2 puffs inhalation BID PRN gabapentin 100 mg PO BID gabapentin 300 mg PO BID hydrocortisone 1% (Cortisone (hydrocortisone)) 1 appl topical QID PRN nitrofurantoin macrocrystal 50 mg PO DAILY polyethylene glycol 400 1% (Dry Eye Relief (PEG 400)) 1 drp ophthalmic (eye) Q8H PRN warfarin See Protocol 7.5 mg orally MON AND MONDAY; or as directed warfarin See Protocol 10 mg orally SUN Mon; or as directed Nursing Note INR: 3.0 in therapeutic range 2-3 Medications and supplements reviewed No changes in health, diet, medications, or supplements, Denies any signs and symptoms of bleeding or bruising or clotting. Bleeding, bruising, clotting discussed Nutritional guidance given to have a serving of greens today Dose: 10mg X 4 days and 7.5mg X 3 days (M/W/F) F/U INR: 2 weeks Patient verbalizes understanding of instructions given Anti-Coag Initial Assessment Social Hx Patient Tobacco Use Status: Former Tobacco user Tobacco use type: Cigarette alcohol intake: current Alcohol intake frequency: 0-2 drinks per day Cardiovascular Hx: HTN, Angina, [place] and Arrhythmias Lung Disease HX: Asthma Musculoskeletal Hx: Arthritis Hx: Bladder Disorders and Prostate Neurological Hx: Aneurysm Cancer HX: Yes (prostate cancer 25 years ago ) Psych. Illness/Depression: No Coding Level of Care Code Est Patient Level 1 Diagnoses Current use of anticoagulant therapy Z79.01 Assessment & Plan Assessment & Plan (1) Current use of anticoagulant therapy: Code(s): Z79.01 - long-term (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
--- OUTSIDE RECORDS SUMMARY | 2025-10-31 12:24 | XMS_ITS | Encounter Summary ---
Author Organization [facility] Address [address] [place] [address] Care Team Providers Care Batter Mixer Helper Name Role Phone Hayden Savage MD Primary Care Provider +1- [phone] Encounter Details Date Type Department Care Team (Late st Contact Info) Description 01/17/2025 Lab Requisition [facility] - Main Lab 299 [facility] [place] [address] Marvin Cardoso PA [address] [place] [address] Urinary tract infection, site [...] Aerococcus urinae(A) LENNY 01/20/2025 12:43 PM EST [facility] ([facility]) [facility] Comment: Susceptibility testing not routinely [...] AM EST 01/17/2025 2:05 PM EST Narrative [facility] ([facility] - 01/20/2025 12:43 PM EST Sparse additional colony types present in insignificant amounts. us Marvin BUCIO LAB MICROBIOLOGY - GENERAL ORD ERABLES Final Result [facility] LAB [address] [place] [address], documented in this encounter Visit Diagnoses Diagnosis Urinary tract infection, site not specified documented in this encounter Care Teams Batter Mixer Helper Relationship Specialty Start Date End Date Hayden Savage MD [address] [place] [address] PCP - General Internal Medicine 02/05/25 documented as of this encounter
--- OUTSIDE RECORDS SUMMARY | 2025-10-31 12:24 | XMS_ITS | Clinical Summary ---
Author Organization 299 [facility] Address [address] [place] [address] Phone Care Team Providers Care Therapy Administrative Assistant Name Role Phone Hayden Savage MD Primary Care Provider +1- [phone] Encounters Date Type Department Care Team Description 10/02/2025 Lab Requisition [facility] Lab [address] [place] [address] Hiren Solano PA Urinary tract infection, site not specified 08/18/2025 Lab Requisition [facility] Lab [address] [place] [address] Og Wilcox PA Urinary tract [...] Staphylococcus epidermidis(A) LENNY 10/05/2025 7:49 AM EST [facility] LAB Comment: Beta-lactamase negative Edited [...] MICROBIOLOGY - GENERAL O RDERABLES Final Result [facility] ([facility]) [facility] LAB [address] [place] [address], [place] [phone] from Last 3 Months Insurance MEDICARE [facility] Care Teams Therapy Administrative Assistant Relationship Specialty Start Date End Date Hayden Savage MD [address] [place] [address] PCP - General Internal Medicine 02/05/25
--- OUTSIDE RECORDS SUMMARY | 2025-10-31 12:24 | XMS_ITS | Encounter Summary ---
Author Organization [facility] Address [address] [place] [address] Care Team Providers Care Disbursement Clerk Name Role Phone Hayden Savage MD Primary Care Provider +1- [phone] Encounter Details Date Type Department Care Team (Late st Contact Info) Description 02/05/2025 Lab Requisition [facility] - Main Lab 299 [facility] [place] [address] Jodi Ingram PA [address] [place], [place] [phone] Urinary tract infection, site not specified; Dysuria [...] LENNY 02/07/2025 8:10 AM EDT [facility] ([facility]) [facility] LAB Comment: Edited result: Previously reported as [...] GENERAL ORD ERABLES Final Result [facility] ([facility]) [facility] LAB [address] [place] [address], documented in this encounter Visit Diagnoses Diagnosis Urinary tract infection, site not specified Dysuria documented in this encounter Care Teams Disbursement Clerk Relationship Specialty Start Date End Date Hayden Savage MD [address] [facility] [address] PCP - General Internal Medicine 02/05/25 documented as of this encounter
--- OUTSIDE RECORDS SUMMARY | 2025-10-31 12:24 | XMS_ITS | Encounter Summary ---
Author Organization [facility] Address [address] [place] [address] Care Team Providers Care Simulation Technician Name Role Phone Hayden Savage MD Primary Care Provider +1- [phone] Encounter Details Date Type Department Care Team (Late st Contact Info) Description 04/16/[address] [facility] - Main Lab 299 [facility] [place] [address] Ernesto Brewster MD [address] [facility] [address] [place], [place] [phone] Urinary tract infection, site not specified; Other [...] 04/18/2025 11:00 AM EDT [facility] ([facility]) [facility] LAB Comment: The [...] CHEO (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
--- OUTSIDE RECORDS SUMMARY | 2025-10-31 12:24 | XMS_ITS | Encounter Summary ---
Author Organization [facility] Address [address] [place] [address] Care Team Providers Care Batteryman Name Role Phone Hayden Savage MD Primary Care Provider +1- [phone] Encounter Details Date Type Department Care Team (Late st Contact Info) Description 10/02/2025 Lab Requisition [facility] - Main Lab 299 [facility] [place] [address] Hiren Solano PA [address] [place] [address] Urinary tract infection, site not specified Social [...] Staphylococcus epidermidis(A) LENNY 10/05/2025 7:49 AM EST [facility] ([facility] LAB Comment: Beta-lactamase negative Edited result: Previously [...] MICROBIOLOGY - GENERAL O RDERABLES Final Result [facility] ([facility]) [facility] LAB [address] [place] [address], documented in this encounter Visit Diagnoses Diagnosis Urinary tract infection, site not specified documented in this encounter Care Teams Batteryman Relationship Specialty Start Date End Date Hayden Savage MD [address] [place] [address] PCP - General Internal Medicine 02/05/25 documented as of this encounter
--- OUTSIDE RECORDS SUMMARY | 2025-10-31 12:24 | XMS_ITS | Encounter Summary ---
Author Organization [facility] Address [address] [place] [address] Care Team Providers Care Automotive General Manager Name Role Phone Hayden Savage MD Primary Care Provider +1- [phone] Encounter Details Date Type Department Care Team (Late st Contact Info) Description 07/15/2025 Lab Requisition [facility] - Main Lab 299 [facility] [place] [address] Og Wilcox PA [address] [place], [place] [phone] Urinary tract infection, site not specified Social [...] Staphylococcus haemolyticus(A) LENNY 07/18/2025 11:16 AM EDT [facility] ([facility]) [facility] LAB Comment: The organism value for this [...] Staphylococcus haemolyticus Rifampin LENNY <=0.5 ug/ml: Susceptible [facility] LAB MICROBIOLOGY - GENERAL KEON CAMACHO Final Result [facility] ([facility]) [facility] LAB [address] [place] [address], documented in this encounter Visit Diagnoses Diagnosis Urinary tract infection, site not specified documented in this encounter Care Teams Automotive General Manager Relationship Specialty Start Date End Date Hayden Savage MD [address] [place] [address] PCP - General Internal Medicine 02/05/25 documented as of this encounter
--- OUTSIDE RECORDS SUMMARY | 2025-10-31 12:24 | XMS_ITS | Encounter Summary ---
Author Organization [facility] Address [address] [place] [address] Care Team Providers Care Nutrition Professor Name Role Phone Hayden Savage MD Primary Care Provider +1- [phone] Encounter Details Date Type Department Care Team (Late st Contact Info) Description 08/18/2025 Lab Requisition [facility] - Main Lab 299 [facility] [place] [address] Og Wilcox, FORTUNATO [address] [place] [address] Urinary tract infection, site not specified Social [...] epidermidis(A) LENNY 08/20/2025 8:11 AM EDT [facility] Comment: Edited [...] Staphylococcus epidermidis Rifampin LENNY <=0.5 ug/ml: Susceptible [facility] LAB MICROBIOLOGY - GENERAL DONAL DOUG Final Result [facility]) [facility] [address] [place] [address], documented in this encounter Visit Diagnoses Diagnosis Urinary tract infection, site not specified documented in this encounter Care Teams Nutrition Professor Relationship Specialty Start Date End Date Hayden Savage MD [address] [place] [address] PCP - General Internal Medicine 02/05/25 documented as of this encounter
--- OUTSIDE RECORDS SUMMARY | 2025-10-31 12:24 | XMS_ITS | Encounter Summary ---
Author Organization [facility] Address [address] [place] [address] Care Team Providers Care Fuel Efficient Aircraft Designer Name Role Phone Hayden Savage MD Primary Care Provider +1- [phone] Encounter Details Date Type Department Care Team (Late st Contact Info) Description 06/10/2025 Lab Requisition [facility] - Main Lab 299 [facility] [place] [address] Omar Romero MD [address] [place] [address] Urinary tract infection, site not [...] Group B(A) 06/12/2025 8:28 AM EDT [facility] ([facility]) [facility] LAB Comment: Susceptibility testing is not routinely performed for Beta Streptococcus isolates since these organisms are predictably sensitive to Penicillin. If the Patient is not responding, is allergic to Penicillin, or further therapeutic information is requir ed, please consult an Infectious Disease Specialist. Urine Urine specimen obtained by clean catch procedure / Unknown 06/10/2025 06/10/2025 1:47 PM EDT Narrative [facility] ([facility] LAB - 06/12/2025 8:28 AM EDT Normal skin/urogenital kerry noted us Omar Romero MD LAB MICROBIOLOGY - GENERA L ORDERABLES Final Result [facility] LAB [address] [place] [address], documented in this encounter Visit Diagnoses Diagnosis Urinary tract infection, site not specified documented in this encounter Care Teams Fuel Efficient Aircraft Designer Relationship Specialty Start Date End Date Hayden Savage MD [facility] [address] [place] [address] PCP - General Internal Medicine 02/05/25 documented as of this encounter
--- OUTSIDE RECORDS SUMMARY | 2025-10-31 12:24 | XMS_ITS | Encounter Summary ---
Author Organization [facility] Address [address] [place] [address] Care Team Providers Care Vacuum Repairer Name Role Phone Hayden Savage MD Primary Care Provider +1- [phone] Encounter Details Date Type Department Care Team (Late st Contact Info) Description 05/19/2025 Lab Requisition [facility] - Main Lab 299 [facility] [place] [address] Jodi Ingram PA [address] [place], [place] [phone] Urinary tract infection, site not specified; Dysuria [...] Staphylococcus haemolyticus(A) LENNY 05/21/2025 9:43 AM EDT [facility] ([facility]) [facility] LAB Comment: Edited [...] - GENERAL ORD ERABLES Final Result [facility] ([facility]) [facility] LAB [address] [place] [address], documented in this encounter Visit Diagnoses Diagnosis Urinary tract infection, site not specified Dysuria documented in this encounter Care Teams Vacuum Repairer Relationship Specialty Start Date End Date Hayden Savage MD [address] [facility] [address] PCP - General Internal Medicine 02/05/25 documented as of this encounter
== END 2025-10-31 10:55 | disposition home or self-care (01) ==
LOC: HO.ACS 10:34
PROVIDERS: PCP Internal Medicine; Visit Provider Internal Medicine Medical Oncology
DX: Z79.01 Long term (current) use of anticoagulants (principal)

== ENCOUNTER → 2025-10-31 10:34 | Outpatient (BNVA) | payer MEDICARE, OTHER, SELFPAY | PROVIDERS: PCP Internal Medicine; Visit Provider Internal Medicine Medical Oncology | DX: Z79.01 Long term (current) use of anticoagulants (principal) | CPT/HCPCS: 85610; 99211 ==

== ENCOUNTER 2025-11-14 10:35 | Outpatient (AMB) | payer MEDICARE, OTHER, SELFPAY ==
[2025-11-14 10:42] LABS: Prothrombin Time Whole Bld POC 40.9 sec (11.1-13.5); ~PT, ~INR - Anti Coag Clinic 3.4 (0.9-1.1)
--- NOTE | 2025-11-14 11:01 | MHC.OFFVISCO ---
Intake Intake Visit Reasons: Anticoagulation Allergies No Known Allergies Allergy (Verified 11/14/25 10:41) Medication List - Last Reconciled 11/14/25 by Beatriz Tanner RN ceramides 1,3,6-II (CeraVe topical cream) 1 appl topical QID PRN cranberry ddekier-j-iwmupbm 500-50 mg tabs PO docusate sodium 100 mg PO BID PRN fluticasone propion-salmeterol 115-21 mcg/actuation (Advair HFA) 2 puffs inhalation BID PRN gabapentin 100 mg PO BID gabapentin 300 mg PO BID hydrocortisone 1% (Cortisone (hydrocortisone)) 1 appl topical QID PRN nitrofurantoin macrocrystal 50 mg PO DAILY polyethylene glycol 400 1% (Dry Eye Relief (PEG 400)) 1 drp ophthalmic (eye) Q8H PRN warfarin See Protocol 7.5 mg orally MON AND MONDAY; or as directed warfarin See Protocol 10 mg orally SUN Mon SAT; or as directed Nursing Note INR: 3.4 therapeutic range 2-3 Medications and supplements reviewed No changes in health, diet except more cranberry juice at lunch time, medications, or supplements, Denies any signs and symptoms of bleeding or bruising or clotting. Bleeding, bruising, clotting discussed Nutritional guidance given to decrease his cranberry juice and alternate it with his green juice Dose: today decreased to 5 mg then 10mg X 4 days and 7.5mg X 3 days (//) F/U INR: 2 weeks Patient verbalizes understanding of instructions given Anti-Coag Initial Assessment Social Hx Patient Tobacco Use Status: Former Tobacco user Tobacco use type: Cigarette alcohol intake: current Alcohol intake frequency: 0-2 drinks per day Cardiovascular Hx: HTN, Angina, IL and Arrhythmias Lung Disease HX: Asthma Musculoskeletal Hx: Arthritis Hx: Bladder Disorders and Prostate Neurological Hx: Aneurysm Cancer HX: Yes (prostate cancer 25 years ago ) Psych. Illness/Depression: No Coding Level of Care Code Est Patient Level 1 Diagnoses Current use of anticoagulant therapy Z79.01 Assessment & Plan Assessment & Plan (1) Current use of anticoagulant therapy: Code(s): Z79.01 - penitentiary (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 Medications: Changed From warfarin See Protocol 10 mg orally SUN Mon SAT; or as directed 180 tabs 0RF To warfarin See Protocol 10 mg orally SUN Mon SAT; 7.5 mg ; or as directed 180 tabs 2RF Discontinued warfarin Discontinued Reason: Duplicate See Protocol 7.5 mg orally MON AND MONDAY; or as directed 90 tabs 0RF
--- OUTSIDE RECORDS SUMMARY | 2025-11-14 12:15 | XMS_ITS | Encounter Summary ---
Author Organization [facility] Address [address] [place] [address] Care Team Providers Care Foreign Diplomat Name Role Phone Hayden Savage MD Primary Care Provider +1- [phone] Encounter Details Date Type Department Care Team (Late st Contact Info) Description 02/05/[address] [facility] - Main Lab 299 [facility] [place] [address] Jodi Ingram PA [address] [place], [place] [phone] Urinary tract infection, site not specified; Dysuria [...] Staphylococcus epidermidis(A) LENNY 02/07/2025 8:10 AM EDT [facility] ([facility]) [facility] Comment: Edited result: Previously reported as Gram Positive Cocci on 02/06/2025 at 1336 EDT. Urine Urine specimen obtained by clean catch procedure / Unknown 02/05/2025 2:45 PM EDT 02/05/2025 6:06 PM EDT Narrative Organism Antibiotic Method Susceptibility Staphylococcus epidermidis Benzylpenicillin LENYN >=0.5 ug/ml: Resistant Staphylococcus epidermidis Oxacillin LENNY [...] MICROBIOLOGY - GENERAL ORD ERABLES Final Result [facility] ([facility]) [facility] [address] [place] [address], documented in this encounter Visit Diagnoses Diagnosis Urinary tract infection, site not specified Dysuria documented in this encounter Care Teams Foreign Diplomat Relationship Specialty Start Date End Date Hayden Savage MD [address] [facility] [address] PCP - General Internal Medicine 02/05/25 documented as of this encounter
--- OUTSIDE RECORDS SUMMARY | 2025-11-14 12:15 | XMS_ITS | Clinical Summary ---
Author Organization 299 [facility] Address [address] [place] [address] Phone Care Team Providers Care Child Care Coordinator Name Role Phone Hayden Savage MD Primary Care Provider +1- [phone] Encounters Date Type Department Care Team Description 10/02/2025 Lab Requisition [facility] Lab [address] [place] [address] Hiren Solano PA Urinary tract infection, site not specified 08/18/2025 Lab Requisition [facility] Lab [address] [place] [address] Og Wilcox PA Urinary tract [...] Staphylococcus epidermidis(A) LENNY 10/05/2025 7:49 AM EST [facility] Comment: Beta-lactamase negative Edited result: [...] MICROBIOLOGY - GENERAL O RDERABLES Final Result [facility] ([facility]) [facility] [address] [place] [address], [place] [phone] from Last 3 Months Insurance MEDICARE [facility] Care Teams Child Care Coordinator Relationship Specialty Start Date End Date Hayden Savage MD [address] [place] [address] PCP - General Internal Medicine 02/05/25
--- OUTSIDE RECORDS SUMMARY | 2025-11-14 12:15 | XMS_ITS | Encounter Summary ---
Author Organization [facility] Address [address] [place] [address] Care Team Providers Care Multimedia Services Manager Name Role Phone Hayden Savage MD Primary Care Provider +1- [phone] Encounter Details Date Type Department Care Team (Late st Contact Info) Description 07/15/2025 Lab Requisition [facility] - Main Lab 299 [facility] [place] [address] Og Wilcox PA [address] [place], [place] [phone] Urinary tract infection, site not specified Social [...] Staphylococcus haemolyticus(A) LENNY 07/18/2025 11:16 AM EDT [facility] ([facility]) [facility] Comment: The organism value [...] Staphylococcus haemolyticus Rifampin LENNY <=0.5 ug/ml: Susceptible [facility] LAB MICROBIOLOGY - GENERAL KEON CAMACHO Final Result [facility] ([facility]) [facility] LAB [address] [place] [address], documented in this encounter Visit Diagnoses Diagnosis Urinary tract infection, site not specified documented in this encounter Care Teams Multimedia Services Manager Relationship Specialty Start Date End Date Hayden Savage MD [address] [place] [address] PCP - General Internal Medicine 02/05/25 documented as of this encounter
--- OUTSIDE RECORDS SUMMARY | 2025-11-14 12:15 | XMS_ITS | Encounter Summary ---
Author Organization [facility] Address [address] [place] [address] Care Team Providers Care Skatesman Name Role Phone Hayden Savage MD Primary Care Provider +1- [phone] Encounter Details Date Type Department Care Team (Late st Contact Info) Description 04/16/2025 Lab Requisition [facility] - Main Lab 299 [facility] [place] [address] Ernesto Brewster MD [address] [facility] [address] [place], [place] [phone] Urinary tract infection, site not specified; Other [...] CFU/mL Corynebacterium species(A) 04/18/2025 11:00 AM EDT [facility] ([facility]) [facility] Comment: The organism value for this result has been updated. These results have been appended to the previously preliminary verified report. 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
--- OUTSIDE RECORDS SUMMARY | 2025-11-14 12:15 | XMS_ITS | Encounter Summary ---
Author Organization [facility] Address [address] [place] [address] Care Team Providers Care Director Of Patient Safety Name Role Phone Hayden Savage MD Primary Care Provider +1- [phone] Encounter Details Date Type Department Care Team (Late st Contact Info) Description 01/17/2025 Lab Requisition [facility] - Main Lab 299 [facility] [place] [address] Marvin Cardoso PA [address] [place] [address] Urinary tract infection, site not [...] urinae(A) LENNY 01/20/2025 12:43 PM EST [facility] ([facility]) HOSPITAL LAB Comment: Susceptibility testing [...] EST 01/17/2025 2:05 PM EST Narrative [facility] ([facility] - 01/20/2025 12:43 PM EST Sparse additional colony types present in insignificant amounts. us Marvin BUCIO LAB MICROBIOLOGY - GENERAL ORD ERABLES Final Result [facility] LAB [address] [place] [address], documented in this encounter Visit Diagnoses Diagnosis Urinary tract infection, site not specified documented in this encounter Care Teams Director Of Patient Safety Relationship Specialty Start Date End Date Hayden Savage MD [address] [place] [address] PCP - General Internal Medicine 02/05/25 documented as of this encounter
--- OUTSIDE RECORDS SUMMARY | 2025-11-14 12:15 | XMS_ITS | Encounter Summary ---
Author Organization [facility] Address [address] [place] [address] Care Team Providers Care Fine Sander Name Role Phone Hayden Savage MD Primary Care Provider +1- [phone] Encounter Details Date Type Department Care Team (Late st Contact Info) Description 10/02/2025 Lab Requisition [facility] - Main Lab 299 [facility] [place] [address] Hiren Solano PA [address] [place] [address] Urinary tract infection, site not specified Social [...] epidermidis(A) LENNY 10/05/2025 7:49 AM EST [facility] ([facility] LAB Comment: Beta-lactamase negative Edited result: Previously [...] - GENERAL O RDERABLES Final Result [facility] ([facility]) [facility] [address] [place] [address], documented in this encounter Visit Diagnoses Diagnosis Urinary tract infection, site not specified documented in this encounter Care Teams Fine Sander Relationship Specialty Start Date End Date Hayden Savage MD [address] [place] [address] PCP - General Internal Medicine 02/05/25 documented as of this encounter
--- OUTSIDE RECORDS SUMMARY | 2025-11-14 12:15 | XMS_ITS | Encounter Summary ---
Author Organization [facility] Address [address] [place] [address] Care Team Providers Care Cv/Cvn Cv Tsc System Operator Name Role Phone Hayden Savage MD Primary Care Provider +1- [phone] Encounter Details Date Type Department Care Team (Late st Contact Info) Description 08/18/2025 Lab Requisition [facility] - Main Lab 299 [facility] [place] [address] Og Wilcox, [place] [address] [place] [address] Urinary tract infection, site not specified Social [...] Staphylococcus epidermidis(A) LENNY 08/20/2025 8:11 AM EDT [facility] ([facility]) [facility] Comment: Edited result: Previously [...] Staphylococcus epidermidis Rifampin LENNY <=0.5 ug/ml: Susceptible [facility] LAB MICROBIOLOGY - GENERAL DONAL DOUG Final Result [facility] ([facility]) [facility] [address] [place] [address], documented in this encounter Visit Diagnoses Diagnosis Urinary tract infection, site not specified documented in this encounter Care Teams Cv/Cvn Cv Tsc System Operator Relationship Specialty Start Date End Date Hayden Savage MD [address] [place] [address] PCP - General Internal Medicine 02/05/25 documented as of this encounter
--- OUTSIDE RECORDS SUMMARY | 2025-11-14 12:15 | XMS_ITS | Encounter Summary ---
Author Organization [facility] Address [address] [place] [address] Care Team Providers Care Vessel Specialist Name Role Phone Hayden Savage MD Primary Care Provider +1- [phone] Encounter Details Date Type Department Care Team (Late st Contact Info) Description 06/10/2025 Lab Requisition [facility] - Main Lab 299 [facility] [place] [address] Omar Romero MD [address] [place] [address] Urinary tract infection, site not [...] 8:28 AM EDT [facility] ([facility]) [facility] Comment: Susceptibility testing is not [...] PM EDT Narrative [facility] ([facility] - 06/12/2025 8:28 AM EDT Normal skin/urogenital kerry noted us Omar Romero MD LAB MICROBIOLOGY - GENERA L ORDERABLES Final Result [facility] [address] [place] [address], documented in this encounter Visit Diagnoses Diagnosis Urinary tract infection, site not specified documented in this encounter Care Teams Vessel Specialist Relationship Specialty Start Date End Date Hayden Savage MD [facility] [address] [place] [address] PCP - General Internal Medicine 02/05/25 documented as of this encounter
--- OUTSIDE RECORDS SUMMARY | 2025-11-14 12:15 | XMS_ITS | Encounter Summary ---
Author Organization [facility] Address [address] [place] [address] Care Team Providers Care Precision Lens Technician Name Role Phone Hayden Savage MD Primary Care Provider +1- [phone] Encounter Details Date Type Department Care Team (Late st Contact Info) Description 05/19/2025 Lab Requisition [facility] - Main Lab 299 [facility] [place] [address] Jodi Ingram PA [address] [place], [place] [phone] Urinary tract infection, site not specified; Dysuria [...] Staphylococcus haemolyticus(A) LENNY 05/21/2025 9:43 AM EDT [facility] ([facility]) [facility] Comment: Edited result: Previously reported [...] MICROBIOLOGY - GENERAL ORD ERABLES Final Result [facility] ([facility]) [facility] [address] [place] [address], documented in this encounter Visit Diagnoses Diagnosis Urinary tract infection, site not specified Dysuria documented in this encounter Care Teams Precision Lens Technician Relationship Specialty Start Date End Date Hayden Savage MD [address] [place] [address] PCP - General Internal Medicine 02/05/25 documented as of this encounter
== END 2025-11-14 11:07 | disposition home or self-care (01) ==
PROVIDERS: PCP Internal Medicine; Visit Provider Internal Medicine Medical Oncology
DX: Z79.01 Long term (current) use of anticoagulants (principal)

== ENCOUNTER → 2025-11-14 10:35 | Outpatient (BNVA) | payer MEDICARE, OTHER, SELFPAY | PROVIDERS: PCP Internal Medicine; Visit Provider Internal Medicine Medical Oncology | DX: I48.0 Paroxysmal atrial fibrillation (principal); Z51.81 Encounter for therapeutic drug level monitoring; Z79.01 Long term (current) use of anticoagulants | CPT/HCPCS: 85610; 99211 ==

== ENCOUNTER 2025-11-18 10:29 | Outpatient (REF) | payer SELFPAY ==
--- OUTSIDE RECORDS SUMMARY | 2025-11-18 11:44 | XMS_ITS | Clinical Summary ---
Author Organization 299 [facility] Address [address] [place] [address] Phone Care Team Providers Care Lead Handler Name Role Phone Hayden Savage MD Primary Care Provider +1- [phone] Encounters Date Type Department Care Team Description 10/02/2025 Lab Requisition [facility] - Main Lab 299 [facility] [place] [address] Hiren Solano PA Urinary tract [...] of Health Screening 01/17/2025 COVID-19 Vaccine ( - 2024- season) 2025 Influenza Vaccine (#1) 2025 6, [...] (ABNORMAL) Culture urine (10/02/2025 12:00 AM EST) [facility] Culture, Urine 50,000-100,000 CFU/mL Staphylococcus epidermidis(A) LENNY 10/05/2025 7:49 AM EST [facility] Comment: Beta-lactamase negative Edited result: [...] MICROBIOLOGY - GENERAL O RDERABLES Final Result [facility] ([facility]) HOSPITAL LAB [address] [place] [address], [place] [phone] from Last 3 Months Insurance MEDICARE [facility] Care Teams Lead Handler Relationship Specialty Start Date End Date Hayden Savage MD [facility] [address] [place] [address] [address] [place] [address] PCP - General Internal Medicine 02/05/25
--- OUTSIDE RECORDS SUMMARY | 2025-11-18 11:44 | XMS_ITS | Encounter Summary ---
Author Organization [facility] Address [address] [place] [address] Care Team Providers Care Geotechnical Laboratory Technician Name Role Phone Hayden Savage MD Primary Care Provider +1- [phone] Encounter Details Date Type Department Care Team (Late st Contact Info) Description 07/15/2025 Lab Requisition [facility] - Main Lab 299 [facility] [place] [address] Og Wilcox PA [address] [place], [place] [phone] Urinary tract infection, site not specified Social [...] Staphylococcus haemolyticus(A) LENNY 07/18/2025 11:16 AM EDT [facility] Comment: The organism value [...] Staphylococcus haemolyticus Rifampin LENNY <=0.5 ug/ml: Susceptible [facility] LAB MICROBIOLOGY - GENERAL KEON CAMACHO Final Result [facility]) [facility] [address] [place] [address], documented in this encounter Visit Diagnoses Diagnosis Urinary tract infection, site not specified documented in this encounter Care Teams Geotechnical Laboratory Technician Relationship Specialty Start Date End Date Hayden Savage MD [address] [place] [address] PCP - General Internal Medicine 02/05/25 documented as of this encounter
--- OUTSIDE RECORDS SUMMARY | 2025-11-18 11:44 | XMS_ITS | Encounter Summary ---
Author Organization [facility] Address [address] [place] [address] Care Team Providers Care Ship Purser Name Role Phone Hayden Savage MD Primary Care Provider +1- [phone] Encounter Details Date Type Department Care Team (Late st Contact Info) Description 02/05/2025 Lab Requisition [facility] - Main Lab 299 [facility] [place] [address] Jodi Ingram PA [address] [place], [place] [phone] Urinary tract infection, site not specified; Dysuria [...] Staphylococcus epidermidis(A) LENNY 02/07/2025 8:10 AM EDT [facility] Comment: Edited result: Previously reported [...] MICROBIOLOGY - GENERAL ORD ERABLES Final Result [facility] [address] [place] [address], documented in this encounter Visit Diagnoses Diagnosis Urinary tract infection, site not specified Dysuria documented in this encounter Care Teams Ship Purser Relationship Specialty Start Date End Date Hayden Savage MD [address] [facility] [address] PCP - General Internal Medicine 02/05/25 documented as of this encounter
--- OUTSIDE RECORDS SUMMARY | 2025-11-18 11:44 | XMS_ITS | Encounter Summary ---
Author Organization [facility] Address [address] [place] [address] Care Team Providers Care Group Social Worker Name Role Phone Hayden Savage MD Primary Care Provider +1- [phone] Encounter Details Date Type Department Care Team (Late st Contact Info) Description 05/19/2025 Lab Requisition [facility] - Main Lab 299 [facility] [place] [address] Jodi Ingram PA [address] [place], [place] [phone] Urinary tract infection, site not specified; Dysuria [...] haemolyticus(A) LENNY 05/21/2025 9:43 AM EDT [facility]) [facility] Comment: Edited result: Previously [...] - GENERAL ORD ERABLES Final Result [facility] ([facility]) [facility] [address] [place] [address], documented in this encounter Visit Diagnoses Diagnosis Urinary tract infection, site not specified Dysuria documented in this encounter Care Teams Group Social Worker Relationship Specialty Start Date End Date Hayden Savage MD [address] [place] [address] PCP - General Internal Medicine 02/05/25 documented as of this encounter
--- OUTSIDE RECORDS SUMMARY | 2025-11-18 11:44 | XMS_ITS | Encounter Summary ---
Author Organization [facility] Address [address] [place] [address] Care Team Providers Care Personnel Worker Name Role Phone Hayden Savage MD Primary Care Provider +1- [phone] Encounter Details Date Type Department Care Team (Late st Contact Info) Description 01/17/2025 Lab Requisition [facility] - Main Lab 299 [facility] [place] [address] Marvin Cardoso PA [address] [place] [address] Urinary tract infection, site not [...] LENNY 01/20/2025 12:43 PM EST [facility] ([facility]) HOSPITAL LAB Comment: Susceptibility testing not [...] 01/17/2025 2:05 PM EST Narrative [facility] ([facility] LAB - 01/20/2025 12:43 PM EST Sparse additional colony types present in insignificant amounts. us Marvin BUCIO LAB MICROBIOLOGY - GENERAL ORD ERABLES Final Result [facility] LAB [address] [place] [address], documented in this encounter Visit Diagnoses Diagnosis Urinary tract infection, site not specified documented in this encounter Care Teams Personnel Worker Relationship Specialty Start Date End Date Hayden Savage MD [address] [place] [address] PCP - General Internal Medicine 02/05/25 documented as of this encounter
--- OUTSIDE RECORDS SUMMARY | 2025-11-18 11:44 | XMS_ITS | Encounter Summary ---
Author Organization [facility] Address [address] [place] [address] Care Team Providers Care Field Crop Harvest Contractor Name Role Phone Hayden Savage MD Primary Care Provider +1- [phone] Encounter Details Date Type Department Care Team (Late st Contact Info) Description 04/16/2025 Lab Requisition [facility] - Main Lab 299 [facility] [place] [address] Ernesto Brewster MD [address] [facility] [address] [place], [place] [phone] Urinary tract infection, site not specified; Other [...] CFU/mL Corynebacterium species(A) 04/18/2025 11:00 AM EDT [facility] ([facility]) [facility] Comment: The organism value for this result has been updated. These results have been appended to the previously preliminary verified report. 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
--- OUTSIDE RECORDS SUMMARY | 2025-11-18 11:45 | XMS_ITS | Encounter Summary ---
Author Organization [facility] Address [address] [place] [address] Care Team Providers Care Health Consultant Name Role Phone Hayden Savage MD Primary Care Provider +1- [phone] Encounter Details Date Type Department Care Team (Late st Contact Info) Description 06/10/2025 Lab Requisition [facility] - Main Lab [address] [facility] [place] [address] Omar Romero MD [address] [place] [address] Urinary tract infection, site not [...] Group B(A) 06/12/2025 8:28 AM EDT [facility] ([facility] Comment: Susceptibility testing is not routinely performed for Beta Streptococcus isolates since these organisms are predictably sensitive to Penicillin. If the Patient is not responding, is allergic to Penicillin, or further therapeutic information is requir ed, please consult an Infectious Disease Specialist. Urine Urine specimen obtained by clean catch procedure / Unknown 06/10/2025 06/10/2025 1:47 PM EDT Narrative [facility] ([facility] - 06/12/2025 8:28 AM EDT Normal skin/urogenital kerry noted us Omar Romero MD LAB MICROBIOLOGY - GENERA L ORDERABLES Final Result [facility] [address] [place] [address], documented in this encounter Visit Diagnoses Diagnosis Urinary tract infection, site not specified documented in this encounter Care Teams Health Consultant Relationship Specialty Start Date End Date Hayden Savage MD [facility] [address] [place] [address] PCP - General Internal Medicine 02/05/25 documented as of this encounter
--- OUTSIDE RECORDS SUMMARY | 2025-11-18 11:45 | XMS_ITS | Encounter Summary ---
Author Organization [facility] Address [address] [place] [address] Care Team Providers Care Shared Services Manager Name Role Phone Hayden Savage MD Primary Care Provider +1- [phone] Encounter Details Date Type Department Care Team (Late st Contact Info) Description 08/18/2025 Lab Requisition [facility] - Main Lab [address] [facility] [place] [address] Og Wilcox, [place] [address] [place] [address] Urinary tract infection, site not specified Social [...] Staphylococcus epidermidis(A) LENNY 08/20/2025 8:[address] [facility] Comment: Edited result: [...] Staphylococcus epidermidis Rifampin LENNY <=0.5 ug/ml: Susceptible [facility] LAB MICROBIOLOGY - GENERAL DONAL DOUG Final Result [facility] [address] [place] [address], documented in this encounter Visit Diagnoses Diagnosis Urinary tract infection, site not specified documented in this encounter Care Teams Shared Services Manager Relationship Specialty Start Date End Date Hayden Savage MD [address] [facility] [place] [address] PCP - General Internal Medicine 02/05/25 documented as of this encounter
--- OUTSIDE RECORDS SUMMARY | 2025-11-18 11:45 | XMS_ITS | Encounter Summary ---
Author Organization [facility] Address [address] [place] [address] Care Team Providers Care Philatelic Consultant Name Role Phone Hayden Savage MD Primary Care Provider +1- [phone] Encounter Details Date Type Department Care Team (Late st Contact Info) Description 10/02/2025 Lab Requisition [facility] - Main Lab [address] [facility] [place] [address] Hiren Solano PA [address] [place] [address] Urinary tract infection, site not specified Social [...] Staphylococcus epidermidis(A) LENNY 10/05/2025 7:49 AM EST [facility] Comment: Beta-lactamase negative Edited result: [...] MICROBIOLOGY - GENERAL O RDERABLES Final Result [facility] ([facility]) [facility] [address] [place] [address], documented in this encounter Visit Diagnoses Diagnosis Urinary tract infection, site not specified documented in this encounter Care Teams Philatelic Consultant Relationship Specialty Start Date End Date Hayden Savage MD [address] [place] [address] PCP - General Internal Medicine 02/05/25 documented as of this encounter
== END 2025-11-18 10:30 | disposition home or self-care (01) ==
LOC: HO.HAP 10:29
PROVIDERS: Visit Provider Internal Medicine
DX: Z46.1 Encounter for fitting and adjustment of hearing aid (principal); H90.3 Sensorineural hearing loss, bilateral
CPT/HCPCS: V5266